=== PATIENT | female | born 1945 | race Caucasian/White ===

== ENCOUNTER → 2017-10-16 10:54 | Outpatient (CLI) | payer MEDICARE, SELFPAY ==
[2017-10-16 14:28] LABS: Microalbumin,Random Urine 35.1 mg/L (NO RANGE EST.); Microalbumin:Creatinine Ratio 10.7 mg/g CRE (<30 mg/g CRE)
[2017-10-16 14:29] LABS: ALB/GLOB Ratio 0.9 RATIO (0.9-2.4); AST(SGOT) 22 U/L (15-37); Alanine Aminotransfer ALT/SGPT 23 U/L (13-56); Albumin, Serum 3.7 g/dL (3.2-5.0); Alkaline Phosphatase 75 U/L (45-117); Anion Gap 8 (5-15); BUN 18 mg/dL (7-18); Calcium,Total 8.8 mg/dL (8.5-10.1); Chloride 99 mmol/L (98-107); Creatinine, Serum 1.29 mg/dL (0.55-1.02); EST Glomerular Filtration Rate 43 mL/min (>60); Est Glom Filt Rate - Afr Amer 52 mL/min (>60); Glucose 136 mg/dL (74-106); Potassium 3.6 mmol/L (3.5-5.1); Protein, Total 7.7 g/dL (6.4-8.2); Sodium Level 137 mmol/L (136-145)
[2017-10-16 14:37] LABS: Hemoglobin A1c 5.5 % (4.2-6.3)
== END ==
PROVIDERS: Family Provider Family Medicine; PCP Family Medicine; Visit Provider Nurse Practitioner
DX: E10.9 Type 1 diabetes mellitus without complications (principal)
CPT/HCPCS: 36415; 80053; 82043; 82570; 83036

== ENCOUNTER → 2018-01-11 07:12 | Outpatient (CLI) | payer MEDICARE, SELFPAY ==
[2018-01-11 08:32] LABS: Microalbumin,Random Urine 16.5 mg/L (NO RANGE EST.)
[2018-01-11 08:39] LABS: AST(SGOT) 19 U/L (15-37); Alanine Aminotransfer ALT/SGPT 17 U/L (13-56); Albumin, Serum 3.8 g/dL (3.2-5.0); Alkaline Phosphatase 78 U/L (45-117); Anion Gap 6 (5-15); BUN 17 mg/dL (7-18); Chloride 102 mmol/L (98-107); Cholesterol 179 mg/dL (200); Creatinine, Serum 1.13 mg/dL (0.55-1.02); EST Glomerular Filtration Rate 50 mL/min (>60); Est Glom Filt Rate - Afr Amer 60 mL/min (>60); Free T3 2.6 pg/mL (2.18-3.98); Glucose 97 mg/dL (74-106); Hemoglobin A1c 5.5 % (4.2-6.3); High Density Lipoprotein 68 mg/dL; Protein, Total 7.8 g/dL (6.4-8.2); Sodium Level 140 mmol/L (136-145); T4 Free Direct 1.46 ng/dL (0.76-1.46); Thyroid Stim Hormone (TSH) 0.29 uIU/mL (0.358-3.74); Triglycerides 58 mg/dL; Very Low Density Lipoprotein 12 mg/dL (5-40)
== END ==
PROVIDERS: Family Provider Family Medicine; PCP Family Medicine; Visit Provider Nurse Practitioner
DX: E10.9 Type 1 diabetes mellitus without complications (principal); R07.89 Other chest pain; E03.9 Hypothyroidism, unspecified
CPT/HCPCS: 36415; 80053; 80061; 82043; 82570; 83036; 84439; 84443; 84481

== ENCOUNTER → 2018-04-19 10:07 | Outpatient (CLI) | payer MEDICARE, SELFPAY ==
[2018-04-19 11:44] LABS: Hemoglobin A1c 5.6 % (4.2-6.3)
[2018-04-19 11:47] LABS: ALB/GLOB Ratio 0.9 RATIO (0.9-2.4); AST(SGOT) 17 U/L (15-37); Alanine Aminotransfer ALT/SGPT 18 U/L (13-56); Albumin, Serum 3.7 g/dL (3.2-5.0); Alkaline Phosphatase 77 U/L (45-117); Anion Gap 10 (5-15); BUN 17 mg/dL (7-18); BUN/Creat Ratio 15.2 RATIO (10-20); Calcium,Total 8.7 mg/dL (8.5-10.1); Chloride 98 mmol/L (98-107); Creatinine, Serum 1.12 mg/dL (0.55-1.02); EST Glomerular Filtration Rate 50 mL/min (>60); Est Glom Filt Rate - Afr Amer 61 mL/min (>60); Globulin 4.1 g/dL (2.2-4.2); Glucose 84 mg/dL (74-106); Potassium 3.8 mmol/L (3.5-5.1); Protein, Total 7.8 g/dL (6.4-8.2); Sodium Level 138 mmol/L (136-145); Thyroid Stim Hormone (TSH) 1.06 uIU/mL (0.358-3.74)
== END ==
PROVIDERS: Family Provider Family Medicine; PCP Family Medicine; Visit Provider Nurse Practitioner
DX: N18.4 Chronic kidney disease, stage 4 (severe) (principal); E10.9 Type 1 diabetes mellitus without complications; E03.9 Hypothyroidism, unspecified
CPT/HCPCS: 36415; 80053; 82043; 82570; 83036; 84443

== ENCOUNTER → 2018-07-19 09:17 | Outpatient (CLI) | payer MEDICARE, SELFPAY ==
[2018-07-19 13:22] LABS: Hemoglobin A1c 6.3 % (4.2-6.3)
[2018-07-19 13:28] LABS: ALB/GLOB Ratio 0.9 RATIO (0.9-2.4); AST(SGOT) 19 U/L (15-37); Alanine Aminotransfer ALT/SGPT 19 U/L (13-56); Albumin, Serum 3.4 g/dL (3.2-5.0); Alkaline Phosphatase 77 U/L (45-117); Anion Gap 5 (5-15); BUN 17 mg/dL (7-18); BUN/Creat Ratio 15.5 RATIO (10-20); Calcium,Total 8.8 mg/dL (8.5-10.1); Chloride 101 mmol/L (98-107); EST Glomerular Filtration Rate 51 mL/min (>60); Est Glom Filt Rate - Afr Amer 62 mL/min (>60); Globulin 3.9 g/dL (2.2-4.2); Glucose 88 mg/dL (74-106); Potassium 3.7 mmol/L (3.5-5.1); Protein, Total 7.3 g/dL (6.4-8.2); Sodium Level 138 mmol/L (136-145)
== END ==
PROVIDERS: Family Provider Family Medicine; PCP Family Medicine; Referring Provider Nurse Practitioner; Visit Provider Nurse Practitioner
DX: I10 Essential (primary) hypertension (principal); E10.9 Type 1 diabetes mellitus without complications
CPT/HCPCS: 36415; 80053; 83036

== ENCOUNTER → 2018-10-19 06:56 | Outpatient (CLI) | payer MEDICARE, SELFPAY ==
[2018-07-26 15:54] VITALS: BMI 27.8
[2018-10-19 08:08] LABS: Microalbumin,Random Urine 9.3 mg/L (NO RANGE EST.); Microalbumin:Creatinine Ratio 5.4 mg/g CRE (<30 mg/g CRE)
[2018-10-19 08:09] LABS: ALB/GLOB Ratio 0.9 RATIO (0.9-2.4); AST(SGOT) 22 U/L (15-37); Alanine Aminotransfer ALT/SGPT 18 U/L (13-56); Albumin, Serum 3.7 g/dL (3.2-5.0); Alkaline Phosphatase 86 U/L (45-117); Anion Gap 11 (5-15); BUN 18 mg/dL (7-18); BUN/Creat Ratio 16.5 RATIO (10-20); Calcium,Total 8.9 mg/dL (8.5-10.1); Chloride 100 mmol/L (98-107); Cholesterol 202 mg/dL (200); Creatinine, Serum 1.09 mg/dL (0.55-1.02); EST Glomerular Filtration Rate 52 mL/min (>60); Est Glom Filt Rate - Afr Amer 63 mL/min (>60); Glucose 100 mg/dL (74-106); High Density Lipoprotein 78 mg/dL; Potassium 3.9 mmol/L (3.5-5.1); Protein, Total 7.7 g/dL (6.4-8.2); Sodium Level 139 mmol/L (136-145); Triglycerides 62 mg/dL; Very Low Density Lipoprotein 12 mg/dL (5-40)
[2018-10-19 08:26] LABS: Hemoglobin A1c 6.6 % (4.2-6.3)
== END ==
PROVIDERS: Family Provider Family Medicine; PCP Family Medicine; Referring Provider Nurse Practitioner; Visit Provider Nurse Practitioner
DX: E10.9 Type 1 diabetes mellitus without complications (principal); E03.9 Hypothyroidism, unspecified
CPT/HCPCS: 36415; 80053; 80061; 82043; 82570; 83036

== ENCOUNTER → 2019-01-15 07:07 | Outpatient (CLI) | payer MEDICARE, SELFPAY ==
[2018-10-22 09:22] VITALS: BMI 27.8
[2019-01-15 09:06] LABS: Hemoglobin A1c 6.3 % (4.2-6.3)
[2019-01-15 09:08] LABS: ALB/GLOB Ratio 0.9 RATIO (0.9-2.4); AST(SGOT) 24 U/L (15-37); Alanine Aminotransfer ALT/SGPT 7 U/L (13-56); Albumin, Serum 3.5 g/dL (3.2-5.0); Alkaline Phosphatase 76 U/L (45-117); Anion Gap 4 (5-15); BUN 15 mg/dL (7-18); BUN/Creat Ratio 13.8 RATIO (10-20); Calcium,Total 8.7 mg/dL (8.5-10.1); Chloride 103 mmol/L (98-107); Creatinine, Serum 1.09 mg/dL (0.55-1.02); EST Glomerular Filtration Rate 52 mL/min (>60); Est Glom Filt Rate - Afr Amer 63 mL/min (>60); Globulin 3.8 g/dL (2.2-4.2); Glucose 113 mg/dL (74-106); Potassium 3.9 mmol/L (3.5-5.1); Protein, Total 7.3 g/dL (6.4-8.2); Sodium Level 140 mmol/L (136-145); Thyroid Stim Hormone (TSH) 4.62 uIU/mL (0.358-3.74)
== END ==
PROVIDERS: Nurse Practitioner; Family Provider Family Medicine; PCP Family Medicine; Referring Provider Family Medicine; Visit Provider Family Medicine
DX: E03.9 Hypothyroidism, unspecified (principal); E10.9 Type 1 diabetes mellitus without complications
CPT/HCPCS: 80053; 83036; 84443

== ENCOUNTER → 2019-05-07 10:49 | Outpatient (CLI) | payer MEDICARE, SELFPAY ==
[2018-10-22 09:22] VITALS: BMI 27.8
[2019-05-07 12:08] LABS: Hemoglobin A1c 6.6 % (4.2-6.3)
[2019-05-07 12:34] LABS: BUN 16 mg/dL (7-18); Creatinine, Serum 1.07 mg/dL (0.55-1.02); EST Glomerular Filtration Rate 53 mL/min (>60); Glucose 106 mg/dL (74-106)
[2019-05-07 12:35] LABS: ALB/GLOB Ratio 0.9 RATIO (0.9-2.4); AST(SGOT) 18 U/L (15-37); Alanine Aminotransfer ALT/SGPT 8 U/L (13-56); Albumin, Serum 3.5 g/dL (3.2-5.0); Alkaline Phosphatase 76 U/L (45-117); Anion Gap 6 (5-15); Calcium,Total 8.7 mg/dL (8.5-10.1); Chloride 102 mmol/L (98-107); Est Glom Filt Rate - Afr Amer 64 mL/min (>60); Free T3 1.9 pg/mL (2.18-3.98); Globulin 4.1 g/dL (2.2-4.2); Protein, Total 7.6 g/dL (6.4-8.2); Sodium Level 138 mmol/L (136-145); T4 Free Direct 1.27 ng/dL (0.76-1.46); Thyroid Stim Hormone (TSH) 1.36 uIU/mL (0.358-3.74)
== END ==
PROVIDERS: Family Provider Family Medicine; PCP Family Medicine; Referring Provider Nurse Practitioner; Visit Provider Nurse Practitioner
DX: E11.9 Type 2 diabetes mellitus without complications (principal); E03.9 Hypothyroidism, unspecified
CPT/HCPCS: 36415; 80053; 83036; 84439; 84443; 84481

== ENCOUNTER → 2019-08-05 07:14 | Outpatient (CLI) | payer MEDICARE, SELFPAY ==
[2018-10-22 09:22] VITALS: BMI 27.8
[2019-08-05 10:15] LABS: Hemoglobin A1c 6.4 % (4.2-6.3)
== END ==
PROVIDERS: Family Provider Family Medicine; PCP Family Medicine; Referring Provider Nurse Practitioner; Visit Provider Nurse Practitioner
DX: E10.9 Type 1 diabetes mellitus without complications (principal)
CPT/HCPCS: 36415; 83036

== ENCOUNTER 2019-09-13 23:58 | Inpatient (IN) | payer MEDICARE, SELFPAY ==
[2018-10-22 09:22] VITALS: BMI 27.8
[2019-09-13 23:58] VITALS: BP 171/70; PULSE 76; RESP 15; TEMP 36.4; O2SAT 97; BMI 28.1
[2019-09-14] VITALS (39 sets, daily range): BP systolic 82–142; BP diastolic 33–86; PULSE 64–92; RESP 13–23; TEMP 36.8–37.2; O2SAT 93–100; BMI 28.3
--- NOTE | 2019-09-14 00:04 | EKG12_ITS ---
Test Reason : REPEAT Blood Pressure : / mmHG Vent. Rate : 072 BPM Atrial Rate : 072 BPM P-R Int : 160 ms QRS Dur : 070 ms QT Int : 398 ms P-R-T Axes : 062 006 039 degrees QTc Int : 435 ms Sinus rhythm with Premature supraventricular complexes Low voltage QRS Anteroseptal infarct, age undetermined Abnormal ECG Confirmed by VERENICE HANKS, CRESENCIO ([id number]), general expeditor TUNDE SAL ([id number]) on 09/16/2019 1:09:40 PM Referred By: MR Confirmed By:CREESNCIO CALDERA MD
--- NOTE | 2019-09-14 00:10 | RAD_ITS ---
STUDY: X-RAY CHEST REASON FOR EXAM: Female, 74 years old. CHEST PAIN TECHNIQUE: Portable chest COMPARISON: 04/06/2017 FINDINGS: There is stable linear right lower lobe mild pulmonary scarring.. There is right infrahilar pulmonary opacity. Normal size heart. Normal mediastinum and pritesh. Normal visualized pulmonary arteries. Normal visualized aortic arch and descending thoracic aorta. There is a lower thoracic spine levoscoliosis. There is faint right lower lobe pulmonary opacity. There are upper lobe COPD changes. There is no demonstrated abnormality of the visualized soft tissue structures of the upper abdomen. RAD/Chest 1 View (Portable) IMPRESSION: Stable mild right lower lobe linear scarring Right infrahilar pulmonary opacity which may represent combination of pulmonary vessels and atelectasis however underlying mass or adenopathy cannot be excluded. CT chest follow-up is recommended Upper lobe COPD changes Lower thoracic levoscoliosis Electronically Signed: Mitul Wood, at 1:20 EST Tel , Service support ,
--- NOTE | 2019-09-14 00:33 | ED.DCSUM_ITS ---
History of Present Illness Chief Complaint: Chest Pain Informant: Patient Narrative: Patient presenting for evaluation secondary to chest pain. Patient has an underlying history of type 1 diabetes. She was recently admitted about 3 years ago for cardiac work-up that was found to be negative. Patient states that 3 hours prior to arrival she was at rest and she had a sudden onset of chest pain. She reports that this was radiating up into her jaw down into her arm. Was associated with some diaphoresis. No exacerbating relieving factors. She denies any prior similar episodes in the past. She denies any DVT or PE risk factors. Patient denies any recent infectious signs or symptoms such as cough fever nausea or vomiting. Review of systems otherwise negative. Past Medical History - Allergies and Home Meds Allergies/Adverse Reactions: Allergies paroxetine [From Paxil] Allergy (Severe, Verified 09/14/19 00:02) Unknown Penicillins Allergy (Severe, Verified 09/14/19 00:02) Unknown statins Allergy (Severe, Uncoded 09/14/19 00:02) Unknown strawberries Allergy (Severe, Uncoded 09/14/19 00:02) Unknown Past Medical History: - - Type 1 diabetes Surgical History: cataract, herniorrhaphy Smoking Status: Never smoker - Family History Maternal Family History: Family History (Last Reviewed 10/22/18 @ 09:17 by Annel Dean) Mother CVA (cerebral vascular accident) Dementia Sister Hypertension Diabetes Brother Heart disease Diabetes Daughter Diabetes Family History: Reports: No pertinent history Paternal Family History: Family History (Last Reviewed 10/22/18 @ 09:17 by Annel Dean) Mother CVA (cerebral vascular accident) Dementia Sister Hypertension Diabetes Brother Heart disease Diabetes Daughter Diabetes Family History: Reports: No pertinent history Review of Systems All systems negative except as indicated General: Reports: Sweats Eyes: Denies: Visual changes - bilaterally, Diplopia ENT: Denies: Rhinorrhea, Sore throat Cardiovascular: Reports: Chest pain Respiratory: Denies: Dyspnea, Cough, Dyspnea on exertion Gastrointestinal: Denies: Abdominal pain, Nausea, Vomiting, Diarrhea, Melena, Hematochezia Genitourinary: Denies: Dysuria, Hematuria, Frequency Musculoskeletal: Denies: Back pain, Extremity Pain Skin: Denies: Rash, Wounds Neurological: Denies: Headache, Weakness, Numbness Physical Exam Vital Signs/Narrative: Vital Signs Temp Pulse Resp BP Pulse Ox 09/13/19 23:58 97.6 F L 76 15 171/70 H 97 Inital Vital Signs reviewed: Yes General: Well nourished, Well developed, No Acute Distress Head: Normocephalic, Atraumatic Eyes: Perrl, EOMI ENT: Moist mucous membranes, No rhinorrhea Neck: Supple, Nontender Cardiovascular: Regular rate, Regular rhythm, No murmurs Respiratory: No distress, CTA bilaterally, Chest nontender Abdomen: Soft, Nontender, Nondistended, Normal bowel sounds Back: Nontender, Normal Inspection Extremities: Nontender, No edema Skin: Normal color, No rash Neurological: Alert, Oriented x3, Cranial nerves II-XII grossly intact, Normal Strength, Normal Sensation Psychological: Normal affect, Normal Mood Diagnostic/Tx/Re-eval - EKG Initial EKG Interpretation: - - Sinus rhythm of 74 with low voltage. There is evidence of some J-point elevation in leads V2 and V3 that were not present in a prior EKG in March 2017, but no evidence of reciprocal changes, or T wave changes. Anterior Q waves are noted that also were not present on prior EKG. Follow-up EKG Interpretation: - - Sinus rhythm of 72 with again demonstration of J-point elevation in leads V2 and V3 with no reciprocal changes, and continued anterior Q waves. - Medical Decision Making Patient presented for evaluation secondary to chest pain. Patient was given aspirin. Laboratory work-up shows the patient to have a profoundly elevated troponin at 1.6. I reviewed the patient's EKG and while it does show J-point elevation, its morphology does not seem consistent with out of an ST elevation myocardial infarction and there are no reciprocal changes. Repeated the patient's EKG and this again demonstrates this and I do not feel that calling a ST elevation myocardial infarction at this time is appropriate. Patient was given Lovenox, started on nitroglycerin drip. I discussed the patient's case with Dr. Blake who requested that the patient be started on Brilinta. Patient will be admitted to the intensive care unit under the hospitalist. Critical care time (excluding procedures): 30-74 minutes ED Disposition - Plan for ED Patient: Disposition: Acute Care Hospital [facility] Diagnosis: NSTEMI (non-ST elevated myocardial infarction)
[2019-09-14 00:39] LABS: Absolute Lymphocyte Count 1.89 X10^3/uL (0.83-4.51); Absolute Neutrophil Count 7.6 X10^3/uL (2.0-7.7); Basophil# 0.05 X10^3/uL; Basophil% 0.5 % (0-1); Eosinophil# 0.34 X10^3/uL; Eosinophils% 3.1 % (0-5); Hematocrit 36.4 % (37-47); Hemoglobin 12.1 g/dL (12.0-15.0); Lymphocyte # 1.89 X10^3/ul (4.0); Lymphocyte % 17.3 % (19-41); Mean Corp Hgb Conc 33.2 g/dL (32-36); Mean Corpuscular Hgb 31.8 pg (27.0-32.0); Mean Corpuscular Volume 95.8 fL (81-99); Mean Platelet Vol. 10.8 fl (6.2-12.0); Monocyte# 1.02 X10^3/uL; Monocyte% 9.3 % (0-10); NRBC Flagged by Analyzer 0.2 % (0-5); Neutrophil # 7.58 X10^3/uL (2.7-7.7); Neutrophil % 69.2 % (47-70); Platelet Count 299 K/mm3 (150-450); RBC Distribution Width CV 14.1 % (11.6-14.6); RBC Distribution Width SD 49.1 fl (35.1-43.9)
[2019-09-14] MEDS: Aspirin 81 MG TAB.CHEW PO (00:53)
[2019-09-14 00:55] LABS: Anion Gap 7 (5-15); BUN 27 mg/dL (7-18); BUN/Creat Ratio 20.5 RATIO (10-20); Calcium,Total 9.1 mg/dL (8.5-10.1); Chloride 101 mmol/L (98-107); Creatinine, Serum 1.32 mg/dL (0.55-1.02); EST Glomerular Filtration Rate 42 mL/min (>60); Est Glom Filt Rate - Afr Amer 50 mL/min (>60); Estimated Creatinine Clearance 28.68 ml/min; Glucose 250 mg/dL (74-106); Potassium 3.7 mmol/L (3.5-5.1); Sodium Level 136 mmol/L (136-145)
--- NOTE | 2019-09-14 01:04 | EKG12_ITS ---
Test Reason : CHEST PAIN Blood Pressure : / mmHG Vent. Rate : 084 BPM Atrial Rate : 084 BPM P-R Int : 162 ms QRS Dur : 076 ms QT Int : 400 ms P-R-T Axes : 066 004 045 degrees QTc Int : 472 ms Normal sinus rhythm Low voltage QRS Anterior WA, ageundetermined Abnormal ECG Confirmed by KRISTOPHER HANKS, DANUTA ([id number]), international editorial producer MECHE FARIAS ([id number]) on 09/18/2019 11:13:47 AM Referred By: VERENICE Confirmed By:DANUTA SUMMERS MD
[2019-09-14] MEDS: Nitroglycerin Infusion 250 ML 3 MG CONT INF (01:15)
[2019-09-14] MEDS: Enoxaparin 80 MG/0.8 ML Syringe 70 MG SC (01:15)
[2019-09-14] MEDS: TICAGRELOR 90 MG TABLET 180 MG PO (01:31)
--- NOTE | 2019-09-14 01:37 | PCM.HP.STD ---
Problem List (1) NSTEMI (non-ST elevated myocardial infarction) Status: Acute (2) Hypokalemia Status: Inactive (3) Dehydration Status: Inactive (4) Gastroenteritis Status: Inactive (5) Atypical chest pain Status: Acute (6) Hypothyroidism Status: Chronic Qualifiers: Hypothyroidism type: acquired Qualified Code(s): E03.9 - Hypothyroidism, unspecified Comment: TSH rechecked at 1.06 (7) Type 1 diabetes mellitus Status: Chronic Qualifiers: Diabetes mellitus complication status: without complication Qualified Code(s): E10.9 - Type 1 diabetes mellitus without complications Comment: Continues to do well. Is able to self adjust. Enc to keep BG readings at 85 and above. soila sensor approved for this patient as she checks 10+ times daily. (8) Hypertension Status: Chronic Qualifiers: Hypertension type: essential hypertension Qualified Code(s): I10 - Essential (primary) hypertension Comment: Has sl elevated cr and sl low EGFR. Consider BENEDICT or ARB. However is on Maxide and need to consider potential for hyperkalemia. Will consult with her PCP. History of Present Illness Date of Admission: 09/14/19 Chief Complaint: chest pain The patient is a 74 year old F with a significant history of hypertension; diabetes mellitus on insulin pump; depression and anxiety who presented to emergency department with excruciating left-sided chest pain that radiates to her breast; to her shoulder; and to her back. Her pain started after she laid down in bed. Because of the pain she could not sleep. She reported that when she sits up her pain improves; and when she lies down her pain worsens. The pain stayed about 2 hours prior to presentation. The intensity of pain initially was 5 out of 10. The pain was persistent. Associated with symptoms is nausea and diaphoresis as well as shortness of breath. She denied vomiting. Reported she had a stress test about 3 years ago and it was normal. EKG at the emergency department showed J-point elevation. Troponin was elevated. Patient was put on nitroglycerin drip. Her pain dropped to a 2 out of 10. Past Medical History Past Medical History (Chronic Problems): Chronic Problems (Last Reviewed 09/14/19 @ 07:01 by Zach Bowman MD) Hypothyroidism (Chronic) TSH rechecked at 1.06 Type 1 diabetes mellitus (Chronic) Continues to do well. Is able to self adjust. Enc to keep BG readings at 85 and above. soila sensor approved for this patient as she checks 10+ times daily. Hypertension (Chronic) Has sl elevated cr and sl low EGFR. Consider BENEDICT or ARB. However is on Maxide and need to consider potential for hyperkalemia. Will consult with her PCP. Medical History: Medical History (Last Reviewed 09/14/19 @ 07:04 by Zach Bowman MD) Anxiety disorder F41.9 Bronchitis J40 Depression with anxiety F41.8 Diabetes type 1, controlled E10.9 Dx : 1976 Last exacerbation : DKA : never Hypoglycemic episode : never ER visit : never Hearing problem H91.90 Hives L50.9 Hypothyroidism E03.9 Measles B05.9 Mumps B26.9 Parkinsons G20 Whooping cough A37.90 bilaeral cataract surgery removal of skin cyst HTN (hypertension) I10 Allergies paroxetine [From Paxil] Allergy (Severe, Verified 09/14/19 00:02) Unknown Penicillins Allergy (Severe, Verified 09/14/19 00:02) Unknown statins Allergy (Severe, Uncoded 09/14/19 00:02) Unknown strawberries Allergy (Severe, Uncoded 09/14/19 00:02) Unknown Home Medications: Ambulatory Orders Medication Instructions Recorded RX: Aspirin [Aspirin, Baby] 81 mg PO DAILY@0800 04/06/17 RX: Cholecalciferol (Vitamin D3) 2,000 unit PO DAILY 04/06/17 [Vitamin D3] RX: Citalopram [Celexa] 20 mg PO DAILY 04/06/17 RX: Gabapentin [Neurontin] 100 mg PO QHS 04/06/17 RX: Insulin Pump/Infus. Set/Meter 1 ea MC DAILY 04/06/17 [Accu-Chek Combo System] RX: Levothyroxine [Synthroid] 88 mcg PO DAILY 04/06/17 RX: Triamterene/Hydrochlorothiazid 0.5 ea PO QODAY 04/06/17 [Triamterene-Hctz 37.5-25 mg Tb] RX: Triamterene/Hydrochlorothiazid 1 ea PO QODAY 04/06/17 [Triamterene-Hctz 37.5-25 mg Tb] insulin aspart U-100 100 unit/mL See Rx Instructions SC QDAY #50 ml 07/26/18 subcutaneous solution carbidopa 25 mg-levodopa 100 mg 0.5 tab PO TID tab 10/22/18 tablet mind works 1 tab PO DAILY 10/22/18 Surgical History: Surgical History (Last Reviewed 09/14/19 @ 07:01 by Zach Bowman MD) S/P LASIK surgery of both eyes Z98.890 S/P partial hysterectomy Z90.711 Surgical History: cataract, herniorrhaphy Psychiatric History: No pertinent psych hx 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 Lives: Spouse/ Significant Other Smoking Status: Never smoker - *Family History Maternal Family History: Family History (Last Reviewed 09/14/19 @ 07:02 by Zach Bowman MD) Mother CVA (cerebral vascular accident) Dementia Sister Hypertension Diabetes Brother Heart disease Diabetes Daughter Diabetes History Items: No pertinent history Paternal Family History: Family History (Last Reviewed 09/14/19 @ 07:02 by Zach Bowman MD) Mother CVA (cerebral vascular accident) Dementia Sister Hypertension Diabetes Brother Heart disease Diabetes Daughter Diabetes History Items: No pertinent history Review of Systems Constitutional: Denies: Chills, Fever, Weight Change HEENT: Denies: Head Aches, Sinus Congestion, Sinus Drainage Cardiovascular: Reports: Chest Pain. Denies: Palpitations Respiratory: Reports: Shortness of Breath. Denies: Cough, Shortness of breath at rest, Sputum production Gastrointestinal: Reports: Nausea. Denies: Abdominal Pain, Vomiting Genitourinary: Denies: Dysuria Musculoskeletal: Reports: Shoulder Pain. Denies: Joint Pain, Joint Tenderness Skin: Denies: Rash, Wounds Neurological: Denies: Numbness, Tingling, Focal weakness Psychiatric: Denies: Anxiety, Depression, Homicidal Ideations, Suicidal Ideations Hematologic/ Lymphatic: Denies: Easy Bruising, Easy Bleeding VTE Information - Inpt Only VTE Present on Admission: No VTE Mechan Device Prophylaxis: None VTE Pharm Prophylaxis ordered?: No Reason prophylaxis not ordered:: Treatment Not Indicated - Given therapeutic dose of Lovenox Patient Problems: Active and Suspected Problems (Last Reviewed 09/14/19 @ 07:01 by Zach Bowman MD) NSTEMI (non-ST elevated myocardial infarction) (Acute) - Physical Exam Vitals/I&O's: Vital Signs Temp Pulse Resp BP Pulse Ox 97.6 F L 80 15 134/86 H 94 09/13/19 23:58 09/14/19 01:22 09/14/19 01:22 09/14/19 01:22 09/14/19 01:22 Oxygen Delivery Method Room Air Weight: 69.853 kg Body Mass Index (BMI) 28.1 Finger Stick Blood Glucose 195 General: Alert, Oriented x3, Cooperative HEENT: Atraumatic, PERRLA, EOMI, Normocephalic Neck: Supple, No JVD, Negative Carotid Bruits Lungs: Clear to auscultation, Normal air movement Cardiovascular: Regular rate, Normal S1, Normal S2, No murmurs Abdomen: Bowel Sounds Present, Soft, Non Tender Extremities: No edema, Capillary Refill Less than 3 Seconds Skin: No rashes, No breakdown Musculoskeletal: No Tenderness to Palpation of Joints or Extremities Neurological: Cranial nerves II-XII grossly intact Psych/Mental Status: Normal Affect, Appropriate Laboratory Results 09/14/19 00:10: WBC 11.0, RBC 3.80 L, Hgb 12.1, Hct 36.4 L, MCV 95.8, MCH 31.8, MCHC 33.2, RDW Std Deviation 49.1 H, RDW Coeff of Stephane 14.1, Plt Count 299, MPV 10.8, Immature Gran % (Auto) 0.600, Neut % (Auto) 69.2, Lymph % (Auto) 17.3 L, [place] % (Auto) 9.3, Eos % (Auto) 3.1, Baso % (Auto) 0.5, Absolute Neuts (auto) 7.6, Absolute Lymphs (auto) 1.89, Nucleated RBC % 0.2 09/14/19 00:10: Sodium 136, Potassium 3.7, Chloride 101, Carbon Dioxide 28.0, Anion Gap 7, BUN 27 H, Creatinine 1.32 H, Estim Creat Clear Calc 28.68, Est GFR (MDRD) Af Amer 50 L, Est GFR (MDRD) Non-Af 42 L, BUN/Creatinine Ratio 20.5 H, Glucose 250 H, Calcium 9.1, Troponin I 1.640 H* Current Medications Nitroglycerin/Dextrose () 250 mls @ 3 mls/hr CONT INF .[id number] [facility]; Protocol Last Admin: 09/14/19 01:15 Dose: 5 mcg/min, 3 mls/hr Documented by: Assessment/Plan All Active Problems (Last Reviewed 09/14/19 @ 07:01 by Zach Bowman MD) NSTEMI (non-ST elevated myocardial infarction) (Acute) Atypical chest pain (Acute) The patient is a 74 year old F with a significant history of hypertension; diabetes mellitus on insulin pump; depression and anxiety who presented to emergency department with excruciating left-sided chest pain found to have significantly elevated troponin consistent of non-ST elevation RI. Non-ST elevation RI Initial her troponin was 1.64 but it increased to 7.24. Place on a critical care bed at intensive care unit CXR: Could not rule out underlying mass or adenopathy and CT chest follow-up was recommended. CT chest ordered. EKG showed J-point elevation Received aspirin Brilinta and therapeutic dose of Lovenox at the emergency department. Also nitroglycerin drip was started from the emergency department. ASA 81 mg p.o. daily Morphine as needed for pain We will check lipid panel. Serial cardiac enzymes Stat EKG as needed for chest pain Patient is allergic to statins. Optimize potassium Cardiology will see patient. Diabetes mellitus type II With complications including diabetic nephropathy. Patient with hyperglycemia Placed on insulin pump. Discussed with patient that insulin pump will be discontinued when she is going to cardiac cath and in its place Accu-Chek to be done every 4 hours with correction scale insulin. If patient returned from cardiac cath insulin pump can be restarted. CKD stage III Stable since patient likely will be going for cardiac cath gentle IV hydration started. DVT prophylaxis Patient will be started on therapeutic dose of Lovenox. Code Visit Inpatient E&M: 21987 Init Hosp L3
--- NOTE | 2019-09-14 03:14 | EKG12_ITS ---
Test Reason : CP Blood Pressure : / mmHG Vent. Rate : 074 BPM Atrial Rate : 074 BPM P-R Int : 160 ms QRS Dur : 076 ms QT Int : 380 ms P-R-T Axes : 066 005 042 degrees QTc Int : 421 ms Normal sinus rhythm with sinus arrhythmia Low voltage QRS Septal infarct , age undetermined Abnormal ECG Confirmed by VERENICE HANKS, CRESENCIO ([id number]), tape editor TUNDE SAL ([id number]) on 09/16/2019 12:55:32 PM Referred By: MR Confirmed By:CRESENCIO CALDERA MD
[2019-09-14] MEDS: 0.9% Normal Saline 1,000 ML 60 ML IV ×3 (03:25→22:48)
[2019-09-14 04:31] LABS: Cholesterol 197 mg/dL (200); High Density Lipoprotein 72 mg/dL; Triglycerides 56 mg/dL; Very Low Density Lipoprotein 11 mg/dL (5-40)
--- NOTE | 2019-09-14 04:38 | ECHOCS_ITS ---
Reason For Study: Chest Pain Procedure This was a 2D Doppler, Color Flow transthoracic echocardiogram. The study was technically difficult. Contrast injection was performed. Exam performed portable in ICU/CCU. Left Ventricle Normal LV size. The estimated ejection fraction is 35 %. Moderately severe segmental systolic dysfunction (see wall motion). Stage 1 diastolic dysfunction. [place] : Akinetic. Septal [place] : Akinetic. Lateral [place] : Severely Hypokinetic. Mid-Anterior : Severely Hypokinetic. Mid- anteroseptal : Akinetic. Right Ventricle Normal RV size. Normal systolic function. Atria Normal left atrium. Normal right atrium. Mitral Valve Normal mitral valve. Tricuspid Valve Normal tricuspid valve. Aortic Valve Trisinus/trileaflet aortic valve. Pulmonic Valve Normal pulmonic valve. Great Vessels Normal aortic root. The pulmonary artery is normal size. Normal inferior vena cava. Pericardium/Pleural No pericardial effusion. Medication Diluted definity 4ml given slow IV push to enhance endocardial definition. MMode/2D Measurements & Calculations RVDd: 3.4 cm LAV(MOD-bp): 32.9 ml LVAd ap4: 27.9 cm2 LAV(MOD-bp) Indexed: 19.2 ml/m2 EDV(MOD-sp4): 85.4 ml LAV(MOD-sp2): 56.2 ml EDV(sp4-el): 90.6 ml LAV(MOD-sp4): 18.5 ml LVAs ap4: 20.6 cm2 ESV(MOD-sp4): 53.1 ml ESV(sp4-el): 53.9 ml EF(MOD-sp4): 37.8 % EF(sp4-el): 40.5 % SV(MOD-sp4): 32.2 ml SV(sp4-el): 36.7 ml LA A4 area: 11.1 cm2 RA A4 area: 11.1 cm2 Doppler Measurements & Calculations MV E max sven: 75.1 cm/sec Lat Peak E' Sven: 4.8 cm/sec Med Peak E' Sven: 5.0 cm/sec MV A max sven: 120.0 cm/sec E/E' lat: 15.5 E/E' med: 14.9 MV E/A: 0.63 Ao V2 max: 122.4 cm/sec LV V1 max: 81.8 cm/sec PA V2 max: 63.6 cm/sec Ao max P.0 mmHg LV V1 max P.7 mmHg Ao V2 mean: 87.8 cm/sec Ao mean P.3 mmHg Ao V2 VTI: 26.8 cm TR max sven: 303.0 cm/sec TR max P.7 mmHg Interpretation Summary Normal LV size. The estimated ejection fraction is 35 %. Moderately severe segmental systolic dysfunction (see wall motion). Stage 1 diastolic dysfunction. Contrast injection was performed. Ordering Physician: Ed Blake Referring Physician: Renée Whitehead Performed By: Erica Archer, CHRISTINA, RVT
[2019-09-14] MEDS: Indomethacin 25 MG Capsule PO (05:06)
[2019-09-14 05:14] LABS: CRP, High Sensitivity Cardiac 0.77 mg/L
--- NOTE | 2019-09-14 05:55 | CON.PCM_ITS ---
Reason for Consult Date of Consultation: 09/14/19 Reason for Consultation: Chest pain History of Present Illness: The patient is a 74 year old F with no previous cardiac history other than a history of diabetes mellitus insulin requiring. She said that on Monday she had some epigastric discomfort which she construed as indigestion. Yesterday at approximately 9 PM she had an episode of chest discomfort which she said went into her neck and jaw. She did not describe it as a dull ache but a discomfort. She said that it appeared to be better when she sat up and worse when she laid down. She was also having it in the left shoulder. She did have a brief episode of shortness of breath. She also did report that she had been having some intermittent chest discomfort all week. She presented to the emergency room last night and an EKG was done which did not show any definitive ST elevation, with a heart rate of 72 bpm but poor R wave progression was noted in V1 to V3. Patient was also noted to be hypertensive at that time. The patient was started on aspirin, Lovenox, and intravenous nitroglycerin. Brilinta was also administered after discussing with me and the patient was admitted to the intensive care unit. Repeat EKG demonstrated continued poor R wave progression, rate of 84 bpm Q waves in V1 through V3 and no reciprocal changes. After I called in to check on the patient it was reported that the patient had experienced some chest discomfort after being relatively pain-free. Her troponins appear to be more elevated now. [] Past Medical History Allergies/Adverse Reactions: Allergies paroxetine [From Paxil] Allergy (Severe, Verified 09/14/19 00:02) Unknown Penicillins Allergy (Severe, Verified 09/14/19 00:02) Unknown statins Allergy (Severe, Uncoded 09/14/19 00:02) Unknown strawberries Allergy (Severe, Uncoded 09/14/19 00:02) Unknown Home Medications: Ambulatory Orders Medication Instructions Recorded Aspirin [Aspirin, Baby] 81 mg PO DAILY@0800 04/06/17 Cholecalciferol (Vitamin D3) 2,000 unit PO DAILY 04/06/17 [Vitamin D3] Citalopram [Celexa] 20 mg PO DAILY 04/06/17 Gabapentin [Neurontin] 100 mg PO QHS 04/06/17 Insulin Pump/Infus. Set/Meter 1 ea MC DAILY 04/06/17 [Accu-Chek Combo System] Levothyroxine [Synthroid] 88 mcg PO DAILY 04/06/17 Triamterene/Hydrochlorothiazid 0.5 ea PO QODAY 04/06/17 [Triamterene-Hctz 37.5-25 mg Tb] Triamterene/Hydrochlorothiazid 1 ea PO QODAY 04/06/17 [Triamterene-Hctz 37.5-25 mg Tb] insulin aspart U-100 100 unit/mL See Rx Instructions SC QDAY #50 ml 07/26/18 subcutaneous solution carbidopa 25 mg-levodopa 100 mg 0.5 tab PO TID tab 10/22/18 tablet mind works 1 tab PO DAILY 10/22/18 Past Medical History (Chronic Problems): Chronic Problems (Last Reviewed 09/14/19 @ 07:04 by Zach Bowman MD) Hypothyroidism (Chronic) TSH rechecked at 1.06 Type 1 diabetes mellitus (Chronic) Continues to do well. Is able to self adjust. Enc to keep BG readings at 85 and above. soila sensor approved for this patient as she checks 10+ times daily. Hypertension (Chronic) Has sl elevated cr and sl low EGFR. Consider BENEDICT or ARB. However is on Maxide and need to consider potential for hyperkalemia. Will consult with her PCP. Surgical History: cataract, herniorrhaphy Psychiatric History: No pertinent psych hx BACK UP SCAN COORDINATOR History: No pertinent BACK UP SCAN COORDINATOR history - *Family History Maternal Family History: Family History (Last Reviewed 09/14/19 @ 07:02 by Zach Bowman MD) Mother CVA (cerebral vascular accident) Dementia Sister Hypertension Diabetes Brother Heart disease Diabetes Daughter Diabetes History Items: No pertinent history Paternal Family History: Family History (Last Reviewed 09/14/19 @ 07:02 by Zach Bowman MD) Mother CVA (cerebral vascular accident) Dementia Sister Hypertension Diabetes Brother Heart disease Diabetes Daughter Diabetes History Items: No pertinent history Smoking Status: Never smoker Alcohol: None Drugs: None Review of Systems - Review of Systems General: Denies: Fever, Night Sweats, Fatigue HEENT: Denies: Vision Change Cardiovascular: Reports: Chest Discomfort, Chest Discomfort at Rest, Chest Discomfort with Exertion. Denies: Shortness of Breath, Orthopnea, PND, Peripheral Edema, Palpitations, Lightheadedness, Dizziness, Near Syncope, Syncope Respiratory: Denies: Cough, Sputum Production, Hemoptysis Gastrointestinal: Denies: Hematemesis, Hematochezia, Melena Genitourinary: Denies: Dysuria, Hematuria Muscoloskeletal: Denies: Myalgias Skin: Denies: Rash Neurological: Denies: Dizziness Psychiatric: Denies: Anxiety Endocrine: Denies: Heat Intolerance Hematologic/ Lymphatic: Denies: Anemia Subjectve: Pleasant lady in no apparent distress currently pain-free Objective: Vital Signs Temp Pulse Resp BP Pulse Ox 98.4 F 83 17 129/58 H 99 09/14/19 03:00 09/14/19 03:45 09/14/19 03:45 09/14/19 04:30 09/14/19 03:45 Oxygen Delivery Method Room Air Weight: 154 lb 8.705 oz Body Mass Index (BMI) 28.3 Finger Stick Blood Glucose 195 Intake and Output for Last 24 Hours 09/12/19 09/13/19 09/14/19 23:59 23:59 23:59 Intake Total 15.25 / 15.25 Balance 15.25 / 15.25 General: Awake, Alert, Oriented x 3 HEENT: PERRL, EOMI, Sclera Non Icteric Neck: Supple, Good ROM, No Lymph Node Enlargement Lungs: Clear to auscultation Cardiovascular: Regular Rhythm, Normal S1, Normal S2, No Murmurs, No Rubs, No Gallops Vascular: No Carotid Bruits, Normal Femoral Pulses, Normal Radial Pulses, Normal Dorsalis Pedal Pulse, Normal Posterior Tibial Pulses Abdomen: Bowel Sounds Present, Soft, Non Tender, No HSM, No Organomegaly Extremities: No Cyanosis, No Clubbing, No edema Musculoskeletal: No Erythema Skin: No Rashes Lymphatic: No Lymph Node Enlargement Neurological: No Focal Motor or Sensory Deficit Psych/Mental Status: Appropriate 09/14/19 00:10: WBC 11.0, RBC 3.80 L, Hgb 12.1, Hct 36.4 L, MCV 95.8, MCH 31.8, MCHC 33.2, Plt Count 299, MPV 10.8, Immature Gran % (Auto) 0.600, Neut % (Auto) 69.2, Lymph % (Auto) 17.3 L, [place] % (Auto) 9.3, Eos % (Auto) 3.1, Baso % (Auto) 0.5, Absolute Neuts (auto) 7.6, Nucleated RBC % 0.2 09/14/19 00:10: Sodium 136, Potassium 3.7, Chloride 101, Carbon Dioxide 28.0, Anion Gap 7, BUN 27 H, Creatinine 1.32 H, Est GFR (MDRD) Af Amer 50 L, Est GFR (MDRD) Non-Af 42 L, BUN/Creatinine Ratio 20.5 H, Glucose 250 H, Calcium 9.1, Troponin I 1.640 H* 09/14/19 03:52: Triglycerides 56, Cholesterol 197, LDL Cholesterol 114, VLDL Cholesterol 11, HDL Cholesterol 72 09/14/19 03:52: Troponin I 7.240 H* Rhythm: EKG: Please see HPI ECHO: Stress Test: Cardiac Cath: PCI: CT Surgery: Holter monitor: EPS: PPM: CXR: Chest CT Scan: Assessment/Plan 1. Chest pain-acute coronary syndrome.. non-ST elevation myocardial infarction * The patient presented with chest discomfort which had some concerning features. The EKG presenting did not demonstrate definitive criteria for ST elevation myocardial infarction. Patient initially had some relief of the chest discomfort and then with recurrence of the above. EKG changes more concerning at this time and therefore the decision to expedite coronary evaluation was made. I discussed the above with the patient risk benefits alternatives she understands and agrees to proceed. * There are some features which appeared to suggest a pericarditis but are not completely consistent. * Will hold off on any further Lovenox until cardiac catheterization * Continue aspirin * Further recommendations to be made depending on the results of the above. film tests checker informed of plans. * Thank you for allowing me to participate in the care of your patient. Please don't hesitate to call if any issues arise Addendum: Cardiac catheterization today demonstrated normal left main coronary artery, Normal left circumflex artery, Proximal 80% left anterior descending artery lesion and proximal to mid 95% lesion. Dominant right coronary artery with 30% diffuse stenosis. Left ventricular systolic dysfunction with anterior apical hypokinesis. Based on the above angiographic findings the alternatives therapies are bypass surgery with a single-vessel RESENDEZ to the LAD or sequential LAD stenting in the left anterior descending artery. The above discussed with the family and the foundry worker apprentice. The patient and family would prefer stenting if po ssible and the above concurred with the foundry worker apprentice. We will proceed as above. Post procedure would require risk factor modification Aspirin Low-dose beta-aarti BENEDICT inhibitor Low-dose statin if tolerated
[2019-09-14] MEDS: Aspirin E.C. 81 MG Tablet PO (06:41)
--- NOTE | 2019-09-14 06:45 | NURSING ---
Report given to Riky from label printer. Pt off floor to medical lab scientist at this time.
--- NOTE | 2019-09-14 08:30 | EKG12_ITS ---
Test Reason : PCI Blood Pressure : / mmHG Vent. Rate : 083 BPM Atrial Rate : 083 BPM P-R Int : 166 ms QRS Dur : 062 ms QT Int : 370 ms P-R-T Axes : 000 -23 -13 degrees QTc Int : 434 ms Normal sinus rhythm vs. ectopic atrial rhythm Low voltage QRS Anterior OH, age undetermined Abnormal ECG Confirmed by KRISTOPHER HANKS, DANUTA ([id number]), assignment desk editor MECHE FARIAS ([id number]) on 09/18/2019 11:13:13 AM Referred By: VERENICE Confirmed By:DANUTA SUMMERS MD
--- NOTE | 2019-09-14 09:04 | PN_ITS ---
Patient Problems: Active and Suspected Problems (Last Reviewed 09/14/19 @ 07:04 by Zach Bowman MD) NSTEMI (non-ST elevated myocardial infarction) (Acute) Reason for Visit: Patient had chest pain for more than 2 hours prior to presentation it was midsternal with radiation to left arm and it persisted while in the ER. Patient had associated symptoms of shortness of breath, nausea and diaphoresis. Patient was put on nitroglycerin drip and his pain got better. Later on patient was taken to [facility] and had PCI of LAD. Objective: playground monitor shows PVCs. Hemodynamically stable. Heart rate in the 80s. Vitals/I&O's: Vital Signs Temp Pulse Resp BP Pulse Ox 98.4 F 83 17 126/51 H 99 09/14/19 03:00 09/14/19 03:45 09/14/19 03:45 09/14/19 05:15 09/14/19 03:45 Oxygen Delivery Method Room Air Weight: 154 lb 8.705 oz Body Mass Index (BMI) 28.3 Finger Stick Blood Glucose 195 Intake and Output for Last 24 Hours 09/12/19 09/13/19 09/14/19 23:59 23:59 23:59 Intake Total 35.75 / 35.75 Output Total 250 / 250 Balance -214.25 / -214.25 General: Alert, Oriented x3, Cooperative HEENT: Atraumatic, PERRLA, EOMI, Normocephalic Oral: No Gingival or Mucosal Lesions/ Ulcerations Neck: Supple, No JVD, Negative Carotid Bruits Lungs: Clear to auscultation, Normal air movement, No rhonchi, No wheeze, No rales Cardiovascular: Regular rate, Regular Rhythm, Normal S1, Normal S2, No murmurs Abdomen: Bowel Sounds Present, Soft, Non Tender, Non-Distended Extremities: No edema, Capillary Refill Less than 3 Seconds Skin: No rashes, No breakdown Musculoskeletal: No Tenderness to Palpation of Joints or Extremities, Arthritic Changes Neurological: Cranial nerves II-XII grossly intact, Deep Tendon Reflexes 2+/4 and Symmetrical, Neuro grossly intact Psych/Mental Status: Normal Affect, Appropriate Laboratory Results 09/14/19 00:10: WBC 11.0, RBC 3.80 L, Hgb 12.1, Hct 36.4 L, MCV 95.8, MCH 31.8, MCHC 33.2, RDW Std Deviation 49.1 H, RDW Coeff of Stephane 14.1, Plt Count 299, MPV 10.8, Immature Gran % (Auto) 0.600, Neut % (Auto) 69.2, Lymph % (Auto) 17.3 L, [place] % (Auto) 9.3, Eos % (Auto) 3.1, Baso % (Auto) 0.5, Absolute Neuts (auto) 7.6, Absolute Lymphs (auto) 1.89, Nucleated RBC % 0.2 09/14/19 00:10: Sodium 136, Potassium 3.7, Chloride 101, Carbon Dioxide 28.0, Anion Gap 7, BUN 27 H, Creatinine 1.32 H, Estim Creat Clear Calc 28.68, Est GFR (MDRD) Af Amer 50 L, Est GFR (MDRD) Non-Af 42 L, BUN/Creatinine Ratio 20.5 H, Glucose 250 H, Calcium 9.1, Troponin I 1.640 H* 09/14/19 03:52: Triglycerides 56, Cholesterol 197, LDL Cholesterol 114, VLDL Cholesterol 11, HDL Cholesterol 72 09/14/19 03:52: Troponin I 7.240 H* 09/14/19 03:52: C-React Prot High Sens 0.77 09/14/19 06:30: Troponin I 8.850 H* Current Medications Acetaminophen (Tylenol) 650 mg PO Q6H PRN PRN PRN Reason: Pain Score 1-5/Temp > 100.7 F Aspirin (Ecotrin) 81 mg PO DAILY@0800 [facility] Last Admin: 09/14/19 06:41 Dose: 81 mg Documented by: Atorvastatin Calcium (Lipitor) 10 mg PO QHS [facility] Atropine Sulfate () 0.5 mg IV UD PRN PRN Reason: HR <50 bpm Carbidopa/Levodopa (Sinemet) 0.5 tablet PO TIDAC [facility] Cholecalciferol (Vitamin D) 2,000 unit PO DAILY [facility] Citalopram Hydrobromide (Celexa) 20 mg PO DAILY [facility] Gabapentin (Neurontin) 100 mg PO QHS [facility] Glucagon () 1 mg IM .X1 PRN PRN Reason: Hypoglycemia Heparin Sodium (Beef Lung) (Heparin 500 Unit/5 Ml (100/Ml)) 500 unit IV UD PRN PRN Reason: HEPARIN FLUSH Sodium Chloride () 1,000 mls @ 60 mls/hr IV .[id number] [facility] Last Admin: 09/14/19 03:25 Dose: 60 mls/hr Documented by: Dextrose (Dextrose 10%-Water) 250 mls @ 999 mls/hr IV .Q16M PRN; Protocol PRN Reason: HYPOGLYCEMIA Sodium Chloride () 1,000 mls @ 0 mls/hr IV .Q0M MARIKA Sodium Chloride () 1,000 mls @ 60 mls/hr IV .[id number] [facility] Insulin Human Lispro (Humalog Kwikpen (Bkc)) 0 unit SC Q4 [facility]; Protocol Last Admin: 09/14/19 05:57 Dose: Not Given Documented by: Labetalol HCl (Trandate) 5 mg IV X1 PRN PRN Reason: SBP > 160 when pulling sheath Stop: 09/16/19 08:26 Levothyroxine Sodium (Synthroid) 88 mcg PO DAILY@0600 [facility] Lisinopril (Zestril) 2.5 mg PO DAILY [facility] Morphine Sulfate () 2 mg IV Q3H PRN PRN PRN Reason: Pain Score 6-10/10 Ondansetron HCl (Zofran) 4 mg IV Q8H PRN PRN PRN Reason: NAUSEA/VOMITING Sodium Chloride () 10 - 40 ml IV UD PRN PRN Reason: SALINE FLUSH Sodium Chloride () 500 ml IV BOLUS PRN PRN Reason: VASO-VAGAL PROTOCOL Ticagrelor (Brilinta) 90 mg PO BID [facility] STROKE Vital Signs/Narrative: Vital Signs BP 09/14/19 05:15 126/51 H Medical Necessity - Tobacco Use Smoking Status: Never smoker Assessment/Plan All Active Problems (Last Reviewed 09/14/19 @ 07:04 by Zach Bowman MD) NSTEMI (non-ST elevated myocardial infarction) (Acute) Atypical chest pain (Acute) The patient is a 74 year old F with a significant history of hypertension; diabetes mellitus on insulin pump; depression and anxiety was admitted to chest pain for left-sided chest pain, persistent in nature on IV nitroglycerin drip in ICU with diagnosis of non-STEMI. Patient EKG was normal sinus rhythm with sinus arrhythmia with J-point elevation in lead V2, V3, and V4, with poor RR progression and Q waves in V1 to V3. Repeat EKG were similar. Patient was also hypertensive in ER, triage, 171/70 1. Septal and anterior wall Non-STEMI: Non-ST elevation SC: Patient is admitted in ICU. Serial troponin 7.2, 8.8. Patient was taken to [facility]. Cardiac angiogram showed proximal LAD 80%, proximal to mid LAD 95%. Dominant RCA with 30% diffuse stenosis. Anterior apical hypokinesis. Patient had 2 stents placed in LAD. On aspirin, beta-aarti BENEDICT inhibitor and statin. 2. Abnormal chest x-ray report: Chest x-ray shows a stable mild right lower lobe linear scarring. Right infrahilar pulmonary opacity. Right infrahilar pulmonary opacity which raise suspicion for underlying mass or adenopathy. CT chest recommended. On review of images, I do not find any significant change from previous chest x-ray of 03/30/2017. It also showed right hemidiaphragm elevation, platelike atelectasis right midlung field with patchy opacity left lung base. CT chest is ordered. 3. Prerenal azotemia with CKD stage III due to diabetic nephropathy: Patient BUN and creatinine is 27/1.32. Baseline creatinine runs around 1.0-1.2. IV fluid normal saline. Monitor kidney function and electrolytes. 4. 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 Used to follow [place]. DVT prophylaxis Lovenox 40 subcu daily after 24 hours of removal of sheath. Code Visit Inpatient E&M: [id number] [facility] L1
[2019-09-14] MEDS: Levothyroxine 88 MCG Tablet PO (09:33)
[2019-09-14] MEDS: Carbidopa/Levodopa 25/100 Tablet PO ×3 (09:34→15:49)
[2019-09-14] MEDS: Citalopram 20 MG Tablet PO (09:35)
--- NOTE | 2019-09-14 10:00 | EKG12_ITS ---
Test Reason : Blood Pressure : / mmHG Vent. Rate : 082 BPM Atrial Rate : 082 BPM P-R Int : 142 ms QRS Dur : 092 ms QT Int : 418 ms P-R-T Axes : 049 054 038 degrees QTc Int : 488 ms Normal sinus rhythm Low voltage QRS Anteroseptal CO, age undetermined ST & T wave abnormality, consider anterolateral ischemia Prolonged QT Abnormal ECG Confirmed by KRISTOPHER HANKS, DANUTA ([id number]), acquisitions editor TUNDE SAL ([id number]) on 09/23/2019 10:36:36 AM Referred By: Confirmed By:DANUTA SUMMERS MD
[2019-09-14] MEDS: Lisinopril 2.5 MG Tablet PO (10:04)
--- NOTE | 2019-09-14 11:21 | CL.D_ITS ---
Patient Name: KARLY LOPEZ Study Date: 09/14/2019 Performing: Ed Blake MD Ht: 61.81 inches 157 cm : 1945 Wt: 154.32 lbs 70 kg Age: 74 Gender: female BSA: 1.71 PROCEDURE(S) PERFORMED [id number] W OR WO PTCA, SINGLE CORONARY ARTERY CLINICAL PROFILE AND INDICATIONS Indications: ACS <= 24 hrs Heart Failure: None Stress/Imaging Stress/Image Study Performed: No CAD Presentations: Non-STEMI. Symptom onset Date/Time: 09/13/2018 Time Estimated CONCLUSIONS Severe predominantly single-vessel coronary artery disease with proximal LAD 80% and mid LAD 95% sten osis in the ventricular systolic dysfunction RECOMMENDATIONS Referred for immediate PCI DESCRIPTION OF PROCEDURE The patient arrived to the procedure lab. The risks and benefits of the procedure as well as a full d escription of our services here and current unavailability of surgical backup were fully explained to the patient and/or their significant other prior to the catheterization. The Timeout was completed, verifying the correct patient and procedure. The patient's procedural site was prepped and draped in the usual fashion. Local anesthetic was given subcutaneously to left radial region with Lidocaine 2%. Using a modified Seldinger technique, arterial access was obtained via the right radial artery, a 6F r sheath was inserted. Right Coronary Artery selective angiography was then performed in multiple vi ews using a 5 Fr. 4.0 [place] catheter. Left Coronary Artery selective angiography was performed in mul tiple views using a 5 Fr. 4.0 [place] catheter. Left Ventriculography was performed in KO projection u sing a 5 Fr. Pigtail catheter. LV to AO pullback pressures were then recorded.The arterial sheath was pulled and a TR Band was applied for hemostasis. 9cc of air applied CORONARY ANGIOGRAPHY DOMINANCE: Right Dominant LEFT HEART ASSESSMENT Left Ventricular Ejection Fraction: by LV Gram 35 % Anterior Hypokinesis - Severe. Apical Hypokinesis - Severe Depressed Left Ventricular systolic function LEFT MAIN: Angiographically normal LEFT ANTERIOR DESCENDING ARTERY: PROX LAD: 80 % Stenosis MID LAD: 95 % Stenosis CIRCUMFLEX ARTERY: Angiographically normal RIGHT CORONARY ARTERY: Diffusely diseased up to 40 % COMPLICATIONS No Complications PROCEDURE MEDICATIONS Versed 1 mg IV Fentanyl 50 mcg IV Oxygen: 2 L/min via nasal cannula Brilinta 90 mg PO @ 09/14/2019 08:13:57 Heparin diluted in 23cc Heparinized saline. Patient given 5cc IA of this solution. 09/14/2019 07:19:18 Heparin 4000 unit(s) IV 09/14/2019 07:51:19 Nitro glycerin 25mg / 250ml D5W @ 10 mcg/min IV , arrived from ICU 09/14/2019 06:49:34 Verapamil 2.5mg, Ntg 100mcgs, 2000 units of Heparin diluted in 23cc Heparinized saline. Patient give n 5cc IA of this solution. 09/14/2019 07:19:18 SUMMARY OF HEMODYNAMIC DATA Time AIR REST ECG 07:02:49 AO 111/56 (79) SA 07:21:24 LV 105/6, 14 07:28:38 LV 111/7, 14 07:28:45 LV 113/8, 21 07:30:04 LVp 115/7, 22 07:30:09 AOp 115/53 (79) 07:30:14 AO 134/55 (84) 07:33:11 Signed By Ed Blake MD On 09/14/2019 11:21:06 Ed Blake MD
--- NOTE | 2019-09-14 14:48 | CM.UR ---
Anticoagulation: Checked her plans formulary-Brilinta, Eliquis and Xarelto are all tier 3 which is Preferred Brand. The only medication less expensive is clopidogrel, which is a tier 2. Once rx is sent to pharmacy anyone can call to see what the actual cost will be. Jose Jackson RN, CCM.
[2019-09-14] MEDS: Acetaminophen 325 MG Tablet 650 MG PO (19:41)
[2019-09-14] MEDS: 0.9% Saline Lock 10 ML Syringe IV (19:42)
[2019-09-14] MEDS: TICAGRELOR 90 MG TABLET PO (21:45)
[2019-09-14] MEDS: Gabapentin 100 MG Capsule PO (21:45)
[2019-09-15] VITALS (25 sets, daily range): BP systolic 87–113; BP diastolic 35–83; PULSE 61–86; RESP 14–28; TEMP 36.4–37.3; O2SAT 96–99
[2019-09-15] MEDS: Acetaminophen 325 MG Tablet 650 MG PO ×3 (01:41→17:32)
[2019-09-15 05:48] LABS: Hematocrit 31.2 % (37-47); Hemoglobin 10.6 g/dL (12.0-15.0); Mean Corpuscular Volume 94.3 fL (81-99); Mean Platelet Vol. 11.1 fl (6.2-12.0); Platelet Count 244 K/mm3 (150-450); RBC Distribution Width CV 14.2 % (11.6-14.6); RBC Distribution Width SD 48.2 fl (35.1-43.9); Red Blood Count 3.31 M/mm3 (4.2-5.4); White Blood Count 18.1 K/mm3 (4.4-11.0)
[2019-09-15 06:09] LABS: ALB/GLOB Ratio 0.9 RATIO (0.9-2.4); AST(SGOT) 79 U/L (15-37); Alanine Aminotransfer ALT/SGPT 28 U/L (13-56); Albumin, Serum 3.1 g/dL (3.2-5.0); Alkaline Phosphatase 58 U/L (45-117); Anion Gap 7 (5-15); BUN 31 mg/dL (7-18); BUN/Creat Ratio 21.8 RATIO (10-20); Calcium,Total 8.2 mg/dL (8.5-10.1); Chloride 102 mmol/L (98-107); Creatinine, Serum 1.42 mg/dL (0.55-1.02); EST Glomerular Filtration Rate 38 mL/min (>60); Est Glom Filt Rate - Afr Amer 46 mL/min (>60); Estimated Creatinine Clearance 26.66 ml/min; Globulin 3.5 g/dL (2.2-4.2); Glucose 358 mg/dL (74-106); Potassium 3.5 mmol/L (3.5-5.1); Protein, Total 6.6 g/dL (6.4-8.2); Sodium Level 134 mmol/L (136-145)
[2019-09-15] MEDS: Carbidopa/Levodopa 25/100 Tablet PO ×3 (06:53→17:31)
[2019-09-15] MEDS: Levothyroxine 88 MCG Tablet PO (06:53)
[2019-09-15] MEDS: TICAGRELOR 90 MG TABLET PO ×2 (08:14→21:04)
[2019-09-15] MEDS: Citalopram 20 MG Tablet PO (08:14)
[2019-09-15] MEDS: Aspirin E.C. 81 MG Tablet PO (08:16)
--- NOTE | 2019-09-15 08:22 | PN.CARD_ITS ---
Subjectve: Patient seen and evaluated. Appears to be doing better. Though feels tired. Objective: Vital Signs Temp Pulse Resp BP Pulse Ox 99.1 F 67 28 H 109/47 L 97 09/15/19 05:00 09/15/19 06:00 09/15/19 06:00 09/15/19 06:00 09/15/19 06:00 Oxygen Delivery Method Room Air Weight: 155 lb 3.287 oz Body Mass Index (BMI) 28.3 Finger Stick Blood Glucose 195 Intake and Output for Last 24 Hours 09/13/19 09/14/19 09/15/19 23:59 23:59 23:59 Intake Total 2145.55 / 2145.55 454 / 454 Output Total 1050 / 1050 300 / 300 Balance 1095.55 / 1095.55 154 / 154 General: Awake, Alert, Oriented x 3 HEENT: PERRL, EOMI, Sclera Non Icteric Neck: Supple, Good ROM, No Lymph Node Enlargement Lungs: Clear to auscultation Cardiovascular: Regular Rhythm, Normal S1, Normal S2, No Murmurs, No Rubs, No Gallops Vascular: No Carotid Bruits, Normal Femoral Pulses, Normal Radial Pulses, Normal Dorsalis Pedal Pulse, Normal Posterior Tibial Pulses Abdomen: Bowel Sounds Present, Soft, Non Tender, No HSM, No Organomegaly Extremities: No Cyanosis, No Clubbing, No edema Musculoskeletal: No Erythema Skin: No Rashes Lymphatic: No Lymph Node Enlargement Neurological: No Focal Motor or Sensory Deficit Psych/Mental Status: Appropriate 09/14/19 09:40: Troponin I 8.550 H* 09/15/19 05:25: WBC 18.1 H, RBC 3.31 L, Hgb 10.6 L, Hct 31.2 L, MCV 94.3, MCH 32.0, MCHC 34.0, Plt Count 244, MPV 11.1 09/15/19 05:25: Sodium 134 L, Potassium 3.5, Chloride 102, Carbon Dioxide 25.0, Anion Gap 7, BUN 31 H, Creatinine 1.42 H, Est GFR (MDRD) Af Amer 46 L, Est GFR (MDRD) Non-Af 38 L, BUN/Creatinine Ratio 21.8 H, Glucose 358 H, Calcium 8.2 L, Total Bilirubin 1.40 H Rhythm: EKG: ECHO: Stress Test: Cardiac Cath: PCI: CT Surgery: Holter monitor: EPS: PPM: CXR: Chest CT Scan: Medical Necessity - Tobacco Use Smoking Status: Never smoker Assessment/Plan 1. Chest pain-acute coronary syndrome.. non-ST elevation myocardial infarction * The patient presented with chest discomfort which had some concerning features. Cardiac catheterization demonstrated normal left main coronary artery, Normal left circumflex artery, Proximal 80% left anterior descending artery lesion and proximal to mid 95% lesion. Dominant right coronary artery with 30% diffuse stenosis. Left ventricular systolic dysfunction with anterior apical hypokinesis. Based on the above angiographic findings the alternatives therapies are bypass surgery with a single-vessel RESENDEZ to the LAD or sequential LAD stenting in the left anterior descending artery. * The patient successfully underwent angioplasty and stenting of the left anterior descending artery. Patient tolerated the procedure well. * Echocardiogram performed demonstrated ejection fraction of approximately 30 to 35% with severe hypokinesis and akinesis of the anterior wall and apex. * Will continue therapy as follows Aspirin Low-dose beta-aarti if tolerated BENEDICT inhibitor on hold at this particular time due to low blood pressure Low-dose statin if tolerated * Can probably transfer to the progressive care unit later today. * * Thank you for allowing me to participate in the care of your patient. Please don't hesitate to call if any issues arise
--- NOTE | 2019-09-15 08:25 | PN_ITS ---
Patient Problems: Active and Suspected Problems (Last Reviewed 09/14/19 @ 07:04 by Zach Bowman MD) NSTEMI (non-ST elevated myocardial infarction) (Acute) Subjective: The patient is a 74-year-old female with a past medical history of hypertension, diabetes mellitus type 2 with an insulin pump, depression/anxiety, stage III ch ronic renal failure, hypothyroidism, Parkinson's disease and hypertension presented to the emergency department at [facility] on 09/14/2019 complaining of left chest pain radiated to the shoulder and into the back. EKG showed no ST elevation. Troponin was elevated at 7.24. Cardiology was consulted and she was taken to the Switchboard Operator Assistant by Dr. Blake. Cardiac cath showed an 80% stenosis of the proximal LAD and a 95% stenosis of the mid LAD. There was anterior hypokinesis which was severe and also apical hypokinesis also severe. The ejection fraction was 35%. She underwent successful angioplasty and stenting of the LAD and post procedure was transferred to the cardiac care unit. Afebrile. Vital signs are stable She is maintaining an oxygen saturation of 97 to 98% on room air. Fluid balance on 09/14/2019 was +1095. All lab was personally reviewed. White blood cell count today is 18.1. Hemoglobin is 10.6 and platelets are within normal limits. Sodium is mildly decreased at 134. The BUN is 31 and the creatinine is 1.42, up from 1.32 at admission. Troponin peaked at 8.85 and then started to trend down. Total cholesterol is 197 with an LDL of 114 and an HDL of 72. Medication list was reviewed. Current cardiac meds include aspirin, atorvastatin, lisinopril, Brilinta. Not currently on a beta aarti. she denies CP and denies palpitations. No lightheadedness. she has SOB when she is up moving around but, this is nothing out the ordinary for her. Telemetry shows NSR and she had 1 5 beat run of NSVT.....asymptomatic - Physical Exam Vitals/I&O's: Vital Signs Temp Pulse Resp BP Pulse Ox 99.1 F 67 28 H 109/47 L 97 09/15/19 05:00 09/15/19 06:00 09/15/19 06:00 09/15/19 06:00 09/15/19 06:00 Oxygen Delivery Method Room Air Weight: 155 lb 3.287 oz Body Mass Index (BMI) 28.3 Finger Stick Blood Glucose 195 Intake and Output for Last 24 Hours 09/13/19 09/14/19 09/15/19 23:59 23:59 23:59 Intake Total 2145.55 / 2145.55 454 / 454 Output Total 1050 / 1050 300 / 300 Balance 1095.55 / 1095.55 154 / 154 General: Alert, Oriented x3, Cooperative, Well developed, Well nourished, - - Looks fatigued HEENT: Atraumatic, PERRLA Oral: Moist Mucosa Neck: Supple, No JVD, Trachea Midline Lungs: Clear to auscultation - anterior and lateral, No rhonchi, No wheeze, No rales Cardiovascular: Regular rate, Regular Rhythm, Normal S1, Normal S2, No murmurs, No rub noted, No Gallop Abdomen: Bowel Sounds Present, Soft, Non Tender, Non-Distended Extremities: No clubbing, No cyanosis, No edema, No Calf Tenderness, - - the cath was done using the R radial artery and she does not have a bruit or a hematoma at the site Skin: No rashes, No breakdown Neurological: Cranial nerves II-XII grossly intact, Neuro grossly intact Psych/Mental Status: Normal Affect, Appropriate Laboratory Results 09/14/19 09:40: Troponin I 8.550 H* 09/15/19 05:25: WBC 18.1 H, RBC 3.31 L, Hgb 10.6 L, Hct 31.2 L, MCV 94.3, MCH 32.0, MCHC 34.0, RDW Std Deviation 48.2 H, RDW Coeff of Stephane 14.2, Plt Count 244, MPV 11.1 09/15/19 05:25: Sodium 134 L, Potassium 3.5, Chloride 102, Carbon Dioxide 25.0, Anion Gap 7, BUN 31 H, Creatinine 1.42 H, Estim Creat Clear Calc 26.66, Est GFR (MDRD) Af Amer 46 L, Est GFR (MDRD) Non-Af 38 L, BUN/Creatinine Ratio 21.8 H, Glucose 358 H, Calcium 8.2 L, Total Bilirubin 1.40 H, AST 79 H, ALT 28, Alkaline Phosphatase 58, Total Protein 6.6, Albumin 3.1 L, Globulin 3.5, Albumin/Globulin Ratio 0.9 Current Medications Acetaminophen (Tylenol) 650 mg PO Q6H PRN PRN PRN Reason: Pain Score 1-5/Temp > 100.7 F Last Admin: 09/15/19 01:41 Dose: 650 mg Documented by: Aspirin (Ecotrin) 81 mg PO DAILY@0800 [facility] Last Admin: 09/15/19 08:16 Dose: 81 mg Documented by: Atorvastatin Calcium (Lipitor) 10 mg PO QHS [facility] Last Admin: 09/14/19 21:53 Dose: Not Given Documented by: Atropine Sulfate () 0.5 mg IV UD PRN PRN Reason: HR <50 bpm Carbidopa/Levodopa (Sinemet) 0.5 tablet PO TIDAC [facility] Last Admin: 09/15/19 06:53 Dose: 0.5 tablet Documented by: Cholecalciferol (Vitamin D) 2,000 unit PO DAILY [facility] Last Admin: 09/15/19 08:15 Dose: 2,000 unit Documented by: Citalopram Hydrobromide (Celexa) 20 mg PO DAILY [facility] Last Admin: 09/15/19 08:14 Dose: 20 mg Documented by: Gabapentin (Neurontin) 100 mg PO QHS [facility] Last Admin: 09/14/19 21:45 Dose: 100 mg Documented by: Glucagon () 1 mg IM .X1 PRN PRN Reason: Hypoglycemia Heparin Sodium (Beef Lung) (Heparin 500 Unit/5 Ml (100/Ml)) 500 unit IV UD PRN PRN Reason: HEPARIN FLUSH Dextrose (Dextrose 10%-Water) 250 mls @ 999 mls/hr IV .Q16M PRN; Protocol PRN Reason: HYPOGLYCEMIA Sodium Chloride () 1,000 mls @ 0 mls/hr IV .Q0M MARIKA Sodium Chloride () 1,000 mls @ 60 mls/hr IV .[id number] [facility] Last Infusion: 09/15/19 05:42 Dose: 60 mls/hr Documented by: Insulin Human Lispro (Humalog Kwikpen (Bkc)) 0 unit SC ACHS [facility]; Protocol Last Admin: 09/15/19 08:11 Dose: Not Given Documented by: Labetalol HCl (Trandate) 5 mg IV X1 PRN PRN Reason: SBP > 160 when pulling sheath Stop: 09/16/19 08:26 Levothyroxine Sodium (Synthroid) 88 mcg PO DAILY@0600 [facility] Last Admin: 09/15/19 06:53 Dose: 88 mcg Documented by: Lisinopril (Zestril) 2.5 mg PO DAILY [facility] Last Admin: 09/15/19 08:16 Dose: Not Given Documented by: Morphine Sulfate () 2 mg IV Q3H PRN PRN PRN Reason: Pain Score 6-10/10 Ondansetron HCl (Zofran) 4 mg IV Q8H PRN PRN PRN Reason: NAUSEA/VOMITING Sodium Chloride () 10 - 40 ml IV UD PRN PRN Reason: SALINE FLUSH Last Admin: 09/14/19 19:42 Dose: 10 ml Documented by: Sodium Chloride () 500 ml IV BOLUS PRN PRN Reason: VASO-VAGAL PROTOCOL Ticagrelor (Brilinta) 90 mg PO BID [facility] Last Admin: 09/15/19 08:14 Dose: 90 mg Documented by: Medical Necessity - Tobacco Use Smoking Status: Never smoker Assessment/Plan All Active Problems (Last Reviewed 09/14/19 @ 07:04 by Zach Bowman MD) NSTEMI (non-ST elevated myocardial infarction) (Acute) Atypical chest pain (Acute) Impressions 1. NSTEMI - S/P cath with PTCA/MARTA to the proximal and mid LAD 2. Ischemic cardiomyopathy with an ejection fraction of 35% on the left ventriculogram at the time of cath echocardiogram also showed a 35% ejection fraction. 3. Stage I diastolic dysfunction 4. Nonsustained ventricular tachycardia-likely secondary to reperfusion 5. Chronic renal failure stage III 6. Dyslipidemia with a LDL of 114 -on a statin 7. Essential hypertension/diabetes mellitus type 2/anxiety with depression/hypothyroidism/Parkinson's disease the last hemoglobin A1c was August 05, 2019 and it was 6.4 at that time. Discussed with Dr. Blake Transfer to PCU Continue dual antiplatelet agents with Brilinta and aspirin. Continue lisinopril and atorvastatin....not currently on a beta b locker......will discuss with Dr. Blake whether or not to start low dose Coreg in light of reduced EF. Check orthostatics in the AM The patient checks her BS and gives herself insulin per the pump......the BS's are higher than normal and this is likely due to stress. Code Visit Inpatient E&M: 36451 Subs Hosp L2
--- NOTE | 2019-09-15 08:30 | EKG12_ITS ---
Test Reason : Blood Pressure : / mmHG Vent. Rate : 111 BPM Atrial Rate : 117 BPM P-R Int : 000 ms QRS Dur : 088 ms QT Int : 362 ms P-R-T Axes : 000 051 247 degrees QTc Int : 492 ms Atrial fibrillation Low voltage QRS Septal infarct , age undetermined ST & T wave abnormality, consider inferior ischemia ST & T wave abnormality, consider anterolateral ischemia Abnormal ECG Confirmed by KRISTOPHER HANKS, DANUTA ([id number]), avid editor TUNDE SAL ([id number]) on 09/23/2019 10:36:55 AM Referred By: Confirmed By:DANUTA SUMMERS MD
--- NOTE | 2019-09-15 10:00 | EKG12_ITS ---
Test Reason : AM Blood Pressure : / mmHG Vent. Rate : 066 BPM Atrial Rate : 066 BPM P-R Int : 138 ms QRS Dur : 068 ms QT Int : 492 ms P-R-T Axes : 063 031 153 degrees QTc Int : 515 ms Normal sinus rhythm Low voltage QRS ST & T wave abnormality, consider anterolateral ischemia Prolonged QT Abnormal ECG Confirmed by KRISTOPHER HANKS, DANUTA ([id number]), editorial specialist MECHE FARIAS ([id number]) on 09/18/2019 11:12:10 AM Referred By: Confirmed By:DANUTA SUMMERS MD
[2019-09-15] MEDS: 0.9% Normal Saline 1,000 ML 60 ML IV (15:43)
[2019-09-15] MEDS: Gabapentin 100 MG Capsule PO (21:04)
[2019-09-15] MEDS: Atorvastatin Calcium 10 MG Tablet PO (21:04)
[2019-09-16] VITALS (11 sets, daily range): BP systolic 104–124; BP diastolic 48–56; PULSE 66–90; RESP 15–18; TEMP 36.6–37; O2SAT 93–99; BMI 28.1
[2019-09-16] MEDS: Acetaminophen 325 MG Tablet 650 MG PO (01:24)
[2019-09-16 05:36] LABS: Hematocrit 28.5 % (37-47); Hemoglobin 9.6 g/dL (12.0-15.0); Mean Corp Hgb Conc 33.7 g/dL (32-36); Mean Corpuscular Hgb 31.7 pg (27.0-32.0); Mean Corpuscular Volume 94.1 fL (81-99); Mean Platelet Vol. 11.2 fl (6.2-12.0); Platelet Count 219 K/mm3 (150-450); RBC Distribution Width CV 14.6 % (11.6-14.6); RBC Distribution Width SD 49.5 fl (35.1-43.9); Red Blood Count 3.03 M/mm3 (4.2-5.4); White Blood Count 23.2 K/mm3 (4.4-11.0)
[2019-09-16 05:43] LABS: Anion Gap 10 (5-15); BUN 43 mg/dL (7-18); BUN/Creat Ratio 23.5 RATIO (10-20); Calcium,Total 8.6 mg/dL (8.5-10.1); Chloride 99 mmol/L (98-107); Creatinine, Serum 1.83 mg/dL (0.55-1.02); EST Glomerular Filtration Rate 29 mL/min (>60); Est Glom Filt Rate - Afr Amer 35 mL/min (>60); Estimated Creatinine Clearance 20.68 ml/min; Glucose 346 mg/dL (74-106); Magnesium 1.8 mg/dL (1.6-2.6); Potassium 3.8 mmol/L (3.5-5.1); Sodium Level 131 mmol/L (136-145)
[2019-09-16] MEDS: Carbidopa/Levodopa 25/100 Tablet PO ×3 (06:42→19:36)
[2019-09-16] MEDS: Levothyroxine 88 MCG Tablet PO (06:42)
--- NOTE | 2019-09-16 06:46 | PN.CARD_ITS ---
Subjectve: Patient seen and evaluated. Appears to be much better. Had a better night. Objective: Vital Signs Temp Pulse Resp BP Pulse Ox 98.1 F 87 18 115/48 L 98 09/16/19 05:00 09/16/19 05:00 09/16/19 05:00 09/16/19 05:00 09/16/19 05:00 Oxygen Delivery Method Room Air Weight: 159 lb 13.362 oz Body Mass Index (BMI) 28.3 Finger Stick Blood Glucose 195 Intake and Output for Last 24 Hours 09/14/19 09/15/19 09/16/19 23:59 23:59 23:59 Intake Total 2145.55 / 2145.55 205 / 2056 491 / 491 Output Total 1050 / 1050 300 / 300 Balance 1095.55 / 1095.55 1757 / 1757 491 / 491 General: Awake, Alert, Oriented x 3 HEENT: PERRL, EOMI, Sclera Non Icteric Neck: Supple, Good ROM, No Lymph Node Enlargement Lungs: Clear to auscultation Cardiovascular: Regular Rhythm, Normal S1, Normal S2, No Murmurs, No Rubs, No Gallops Vascular: No Carotid Bruits, Normal Femoral Pulses, Normal Radial Pulses, Normal Dorsalis Pedal Pulse, Normal Posterior Tibial Pulses Abdomen: Bowel Sounds Present, Soft, Non Tender, No HSM, No Organomegaly Extremities: No Cyanosis, No Clubbing, No edema Musculoskeletal: No Erythema Skin: No Rashes Lymphatic: No Lymph Node Enlargement Neurological: No Focal Motor or Sensory Deficit Psych/Mental Status: Appropriate 09/15/19 19:50: Magnesium 2.0 09/16/19 04:55: WBC 23.2 H, RBC 3.03 L, Hgb 9.6 L, Hct 28.5 L, MCV 94.1, MCH 31.7, MCHC 33.7, Plt Count 219, MPV 11.2 09/16/19 04:55: Sodium 131 L, Potassium 3.8, Chloride 99, Carbon Dioxide 22.0, Anion Gap 10, BUN 43 H, Creatinine 1.83 H, Est GFR (MDRD) Af Amer 35 L, Est GFR (MDRD) Non-Af 29 L, BUN/Creatinine Ratio 23.5 H, Glucose 346 H, Calcium 8.6, Magnesium 1.8 Rhythm: EKG: ECHO: Stress Test: Cardiac Cath: PCI: CT Surgery: Holter monitor: EPS: PPM: CXR: Chest CT Scan: Medical Necessity - Tobacco Use Smoking Status: Never smoker Assessment/Plan 1. Chest pain-acute coronary syndrome.. non-ST elevation myocardial infarction * The patient presented with chest discomfort which had some concerning features. Cardiac catheterization demonstrated normal left main coronary artery, Normal left circumflex artery, Proximal 80% left anterior descending artery lesion and proximal to mid 95% lesion. Dominant right coronary artery with 30% diffuse stenosis. Left ventricular systolic dysfunction with anterior apical hypokinesis. Based on the above angiographic findings the alternatives therapies are bypass surgery with a single-vessel RESENDEZ to the LAD or sequential LAD stenting in the left anterior descending artery. * The patient successfully underwent angioplasty and stenting of the left anterior descending artery. Patient tolerated the procedure well. * Echocardiogram performed demonstrated ejection fraction of approximately 30 to 35% with severe hypokinesis and akinesis of the anterior wall and apex. * Will continue therapy as follows Aspirin Low-dose beta-aarti if tolerated--we will start carvedilol today BENEDICT inhibitor to be carefully titrated due to blood pressure issues Low-dose statin if tolerated * Can probably transfer to the progressive care unit later today. * * Thank you for allowing me to participate in the care of your patient. Please don't hesitate to call if any issues arise
--- NOTE | 2019-09-16 08:22 | CRPHASE1_ITS ---
Patient Communication PHII Cardiac Rehab Discussed with Patient:: Yes Guide to Cardiac Rehab Given to Patient:: Yes Cardiac Rehab Facility Choice List Given to Patient:: Yes Choice Program [facility] CR PHII:: Communication Given to CR, Refer to [employer] Risk Factors/Lifestyle Smoking Status: Never smoker Hx Hypertension: Yes Hx Diabetes Mellitus Type 1: Yes Height: 5 ft 2 in Weight:: 154 lb BMI: 28.1 Post-Menopausal: Yes ETOH: No Substance Abuse: No Family History: Family History (Last Reviewed 09/14/19 @ 07:02 by Zach Bowman MD) Mother CVA (cerebral vascular accident) Dementia Sister Hypertension Diabetes Brother Heart disease Diabetes Daughter Diabetes Laboratory Values: Cardiac Rehab Phase I Labs Triglycerides 56 mg/dL (-199) 09/14/19 03:52 Cholesterol 197 mg/dL (200) 09/14/19 03:52 LDL Cholesterol 114 mg/dL (0-130) 09/14/19 03:52 HDL Cholesterol 72 mg/dL (40-) 09/14/19 03:52 Hospital Course Pain Description: Pressure - PT STATES SHE HAD CP THAT RADIATED TO LT SHOULDER/ARM Medical/Surgical History Angina:: Yes CAD:: Yes Pulmonary:: No Diabetes Type I:: Yes Hypertension:: Yes Thyroid:: Yes Depression:: Yes Anxiety:: Yes CABG: No PTCA:: Yes ICD:: No Pacemaker:: No Discharge/Home/Social Eval Discharge Disposition: Home Marital Status: Cardiac Rehabilitation Info Cardiac Rehabilitation Program Information: Cardiac Rehabilitation is important for patients like you who are recovering from a heart problem. Cardiac rehabilitation programs are recognized as integral to the continued care of the patient with coronary heart disease. The cardiac rehabilitation program is designed to optimize a patient's physical, psychological, and social functioning. Health director long term care work in cardiac rehabilitation programs and assist you with getting the treatments you need to get stronger and healthier - like exercise, healthy eating habits, and medications. Cardiac rehabilitation has been show to help people with heart problems live longer and have better life enjoyment than people who do not go to cardiac rehabilitation. Please contact the Cardiac Rehabilitation Program at [facility] at in two weeks if you have not heard from them.
--- NOTE | 2019-09-16 08:25 | CRPH1.INSTRU ---
General Education CAD and cardiac anatomy and function:: Not instructed Explanation of diagnoses and procedures:: Not instructed Sign/Symptoms of SD:: Patient communicates acknowledgment, Needs reinforcement Antiplatelet therapy: Patient communicates acknowledgment, Family communicates acknowledgment, Needs reinforcement Proper use of NTG-SL: Not instructed Emergency procedures and activation of EMS: Patient communicates acknowledgment, Family communicates acknowledgment, Needs reinforcement Compliance of all prescribed medications: Not instructed Smoking Patient Nicotine/Smoking Risk Factors Are:: Never smoked Dyslipidemia Patient Dyslipidemia Risk Factors Are:: Total Cholesterol - 197, Triglycerides - 56, HDL - 72, LDL - 114 Dyslipidemia Response Code:: Not instructed Overweight/Obesity Patient Overweight/Obesity Risk Factors Are:: BMI Normal [24-29 & > 65 years old] Overweight/Obesity:: Not instructed Hypertension Recommendations Include:: Maintain BP <130/85, BP <130/80 if diabetic, DASH dietary guidelines, Decrease/maintain normal body weight, Moderation of ETOH Hypertension:: Not instructed Heart Disease Patient Heart Disease Risk Factors Are:: Family history of heart disease < 65 years old Heart Disease Response Code:: Not instructed Diabetes Patient Diabetes Risk Factors Are:: Elevated blood sugars Recommendations Include:: Maintain fasting blood sugars 70-110 md/dL, Maintain HgbA1c of 6% or less, Monitor blood sugar as prescribed, Diabetic dietary guidelines, Decrease/maintain body weight Diabetes:: Needs reinforcement Metabolic Syndrome Metabolic Syndrome Response Code:: Needs reinforcement, Not instructed Stress Stress Response Code:: Not instructed
--- NOTE | 2019-09-16 09:13 | CL.I_ITS ---
Patient Name: KARLY LOPEZ Study Date: 09/14/2019 Performing: Surya Carpenter MD Ht: 62 inches 157 cm : 1945 Wt: 154.5 lbs 70 kg Age: 74 Gender: female BSA: 1.71 PROCEDURE(S) PERFORMED [id number] W OR WO PTCA, SINGLE CORONARY ARTERY CLINICAL PROFILE AND CO-MORBIDITIES Indications: ACS <= 24 hrs Heart Failure: None Stress/Imaging Stress/Image Study Performed: No CAD Presentations: Non-STEMI. Symptom onset Date/Time: 09/13/2018 Time Estimated CONCLUSIONS Successful PTCA/MARTA to mLAD and oLAD RECOMMENDATIONS Follow up with primary house painting instructor KIERRA Disla for at least 12 months DESCRIPTION OF PROCEDURE The patient arrived to the procedure lab. The risks and benefits of the procedure as well as a full d escription of our services here and current unavailability of surgical backup were fully explained to the patient and/or their significant other prior to the catheterization. The Timeout was completed, verifying the correct patient and procedure. The patient's procedural site was prepped and draped in the usual fashion. Local anesthetic was given subcutaneously to left radial region with Lidocaine 2% Using a modified Seldinger technique,arterial access was obtained via the right radial artery, a 6Fr sheath was inserted. Right Coronary Artery selective angiography was then performed in multiple views using a 5 Fr. 4.0 [place] catheter. Left Coronary Artery selective angiography was performed in multip le views using a 5 Fr. 4.0 [place] catheter. Left Ventriculography was performed in KO projection usin g a 5 Fr. Pigtail catheter. LV to AO pullback pressures were then recorded.The images were reviewed and options discussed. A decision was then made to proceed with an Intervention, IVUS or oth er adjunct procedure. XB 3 Guide catheter was inserted and engaged into the LCA. BMW Guide wire was advanced to the LAD . 2x8 Emerge Balloon catheter was inserted. Balloon catheter was advanced across lesion in the LAD, m id. PTCA balloon inflated at 8 atms for 10 secs. Balloon catheter was repositioned to additional lesi on in the LAD, ostial. PTCA balloon inflated at 8 atms for 8 secs. Angiogram performed post balloon d ilatation. 3x38 Synergy Drug Eluting stent was inserted. Drug Eluting stent was advanced across the l esion in the LAD, mid and ostial Angiogram performed post stent deployment. The arterial sheath was pulled and a TR Band was applied for hemostasis. 9cc of air applied INTERVENTION INFORMATION LESION SITE: LAD (Mid) Lesion Complexity: High/C, chronic total occlusion: No, lesion at bifurcation: No, thrombus present: No, lesion length: 18 mm, culprit lesion: Yes, Previously treated lesion: No Pre Stenosis: 95 % Pre intervention CARRIE flow: 3 PROCEDURE: Drug Eluting Stent with pre dilatation. Post Stenosis: 0 % Post intervention CARRIE flow: 3 Lesion Devices: Cardinal 6 Fr XB3.0 100cm Guide Catheter Bautista .014 BMW [place] Straight 190cm Cecil Sci EMERGE MR 2.00x08 BALLOON Cecil Sci Synergy MR MARTA 3.00x38 LESION SITE: LAD (Ostial) Lesion Complexity: High/C, chronic total occlusion: No, lesion at bifurcation: Yes, thrombus present: No, lesion length: 10 mm, culprit lesion: Yes, Previously treated lesion: No Pre Stenosis: 80 % Pre intervention CARRIE flow: 3 PROCEDURE: Drug Eluting Stent One long stent was used to cover both the lesions as we felt that this way there was a better chance of accurate stent placement in the ostial LAD Post Stenosis: 0 % Post intervention CARRIE flow: 3 Lesion Devices: Cardinal 6 Fr XB3.0 100cm Guide Catheter Bautista .014 BMW [place] Straight 190cm Cecil Sci EMERGE MR 2.00x08 BALLOON Cecil Sci Synergy MR MARTA 3.00x38 COMPLICATIONS No Complications PROCEDURE MEDICATIONS Versed 1 mg IV Fentanyl 50 mcg IV Oxygen: 2 L/min via nasal cannula Brilinta 90 mg PO @ 09/14/2019 08:13:57 Heparin diluted in 23cc Heparinized saline. Patient given 5cc IA of this solution. 09/14/2019 07:19:18 Heparin 4000 unit(s) IV 09/14/2019 07:51:19 Nitro glycerin 25mg / 250ml D5W @ 10 mcg/min IV , arrived from ICU 09/14/2019 06:49:34 Verapamil 2.5mg, Ntg 100mcgs, 2000 units of Heparin diluted in 23cc Heparinized saline. Patient give n 5cc IA of this solution. 09/14/2019 07:19:18 SUMMARY OF HEMODYNAMIC DATA Time AIR REST ECG 07:02:49 AO 111/56 (79) SA 07:21:24 LV 105/6, 14 07:28:38 LV 111/7, 14 07:28:45 LV 113/8, 21 07:30:04 LVp 115/7, 22 07:30:09 AOp 115/53 (79) 07:30:14 AO 134/55 (84) 07:33:11 Signed By Surya Carpenter MD On 09/16/2019 09:12:02 Surya Carpenter MD
[2019-09-16] MEDS: Carvedilol 3.125 MG TABLET PO ×2 (09:36→21:13)
[2019-09-16] MEDS: TICAGRELOR 90 MG TABLET PO ×2 (09:36→21:13)
[2019-09-16] MEDS: Aspirin E.C. 81 MG Tablet PO (09:37)
[2019-09-16] MEDS: Citalopram 20 MG Tablet PO (09:37)
--- NOTE | 2019-09-16 10:00 | EKG12_ITS ---
Test Reason : AM EKG Blood Pressure : / mmHG Vent. Rate : 084 BPM Atrial Rate : 084 BPM P-R Int : 138 ms QRS Dur : 066 ms QT Int : 392 ms P-R-T Axes : 064 053 054 degrees QTc Int : 463 ms Normal sinus rhythm Low voltage QRS ST elevation consider inferolateral injury or acute infarct Abnormal ECG Confirmed by KRISTOPHER HANKS, DANUTA ([id number]), web content editor MECHE FARIAS ([id number]) on 09/18/2019 11:11:49 AM Referred By: SYLVIA Confirmed By:DANUTA SUMMERS MD
--- NOTE | 2019-09-16 10:31 | CASEMGMT ---
RN CM Assessment Presentation: PCI; mid and ostial sten Intro role of CM and purpose of RN CM assessment to patient and her . Pt is awake, alert and oriented. . Demographics, PCP and Pharmacy verified. Pt and states she is generally independent in ADL. is able to assist if needed. Pt has hx of parkinson's. No dc care needs identified at this time. PCP: Dr. Whitehead Specialists: Dr. Dumont, neurology; Dr. Blake, cardiology; FARHAD Cedeno Preferred Pharmacy: [facility] Insurance: [facility] Prescription Benefit: yes. Brilinta savings card given to and explained. Encouraged to ascertain cost of Brilinta after savings card and notifying cardiology office if it is cost prohibitive. LNOK: Living Arrangements: Pt lives with , states is independent in ADL. Pt able to cook, clean and no assist needed at this time. Transportation: pt can drive, able to assist DME: pt states she does not use DME at home, but has walker HHC/SNF: no SW Referral: no Patient DC goals: Home DC PLAN: Home. Tawana HOSKINS RN ACM
[2019-09-16] MEDS: Ondansetron 4 MG/2 ML Vial IV (12:10)
[2019-09-16] MEDS: 0.9% Saline Lock 10 ML Syringe IV ×2 (12:10→18:50)
[2019-09-16] MEDS: Lisinopril 2.5 MG Tablet PO (12:24)
--- NOTE | 2019-09-16 15:36 | PCM.PN.HOSP ---
Subjective: A little lethargic and tired today. She denies any chest pain currently Vitals/I&O's: Vital Signs Temp Pulse Resp BP Pulse Ox 97.9 F 69 15 104/51 L 97 09/16/19 14:01 09/16/19 14:01 09/16/19 14:01 09/16/19 14:01 09/16/19 14:01 Oxygen Delivery Method Room Air Weight: 154 lb Body Mass Index (BMI) 28.3 Finger Stick Blood Glucose 195 Intake and Output for Last 24 Hours 09/14/19 09/15/19 09/16/19 23:59 23:59 23:59 Intake Total 2145.55 / 2145.55 2056 / 2056 800 / 800 Output Total 1050 / 1050 300 / 300 Balance 1095.55 / 1095.55 1757 / 1757 800 / 800 General: Alert, Oriented x3, Cooperative, No apparent distress HEENT: Atraumatic, PERRLA, EOMI, Normocephalic Oral: Moist Mucosa Neck: Supple, No JVD Lungs: Clear to auscultation, Normal air movement, No rhonchi, No wheeze, No rales, Diminished Cardiovascular: Regular rate, Regular Rhythm, Normal S1, Normal S2, No murmurs Abdomen: Soft, Non Tender, Non-Distended, No Hepato-splenomegaly Extremities: No edema, Capillary Refill Less than 3 Seconds Skin: No rashes, No breakdown Neurological: Neuro grossly intact, Sensory exam intact to light touch and pain Psych/Mental Status: Normal Affect, Appropriate Laboratory Results 09/15/19 19:50: Magnesium 2.0 09/16/19 04:55: WBC 23.2 H, RBC 3.03 L, Hgb 9.6 L, Hct 28.5 L, MCV 94.1, MCH 31.7, MCHC 33.7, RDW Std Deviation 49.5 H, RDW Coeff of Stephane 14.6, Plt Count 219, MPV 11.2 09/16/19 04:55: Sodium 131 L, Potassium 3.8, Chloride 99, Carbon Dioxide 22.0, Anion Gap 10, BUN 43 H, Creatinine 1.83 H, Estim Creat Clear Calc 20.68, Est GFR (MDRD) Af Amer 35 L, Est GFR (MDRD) Non-Af 29 L, BUN/Creatinine Ratio 23.5 H, Glucose 346 H, Calcium 8.6, Magnesium 1.8 Current Medications Acetaminophen (Tylenol) 650 mg PO Q6H PRN PRN PRN Reason: Pain Score 1-5/Temp > 100.7 F Last Admin: 09/16/19 01:24 Dose: 650 mg Documented by: Aspirin (Ecotrin) 81 mg PO DAILY@0800 [facility] Last Admin: 09/16/19 09:37 Dose: 81 mg Documented by: Atorvastatin Calcium (Lipitor) 10 mg PO QHS [facility] Last Admin: 09/15/19 21:04 Dose: 10 mg Documented by: Atropine Sulfate () 0.5 mg IV UD PRN PRN Reason: HR <50 bpm Carbidopa/Levodopa (Sinemet) 0.5 tablet PO TIDAC [facility] Last Admin: 09/16/19 12:10 Dose: 0.5 tablet Documented by: Carvedilol (Coreg) 3.125 mg PO BID [facility] Last Admin: 09/16/19 09:36 Dose: 3.125 mg Documented by: Cholecalciferol (Vitamin D) 2,000 unit PO DAILY [facility] Last Admin: 09/16/19 09:37 Dose: 2,000 unit Documented by: Citalopram Hydrobromide (Celexa) 20 mg PO DAILY [facility] Last Admin: 09/16/19 09:37 Dose: 20 mg Documented by: Gabapentin (Neurontin) 100 mg PO QHS [facility] Last Admin: 09/15/19 21:04 Dose: 100 mg Documented by: Glucagon () 1 mg IM .X1 PRN PRN Reason: Hypoglycemia Heparin Sodium (Beef Lung) (Heparin 500 Unit/5 Ml (100/Ml)) 500 unit IV UD PRN PRN Reason: HEPARIN FLUSH Dextrose (Dextrose 10%-Water) 250 mls @ 999 mls/hr IV .Q16M PRN; Protocol PRN Reason: HYPOGLYCEMIA Sodium Chloride () 1,000 mls @ 0 mls/hr IV .Q0M [facility] Insulin Human Lispro (Humalog Kwikpen (Bkc)) 0 unit SC ACHS [facility]; Protocol Last Admin: 09/16/19 12:18 Dose: Not Given Documented by: Levothyroxine Sodium (Synthroid) 88 mcg PO DAILY@0600 [facility] Last Admin: 09/16/19 06:42 Dose: 88 mcg Documented by: Lisinopril (Zestril) 2.5 mg PO DAILY [facility] Last Admin: 09/16/19 12:24 Dose: 2.5 mg Documented by: Morphine Sulfate () 2 mg IV Q3H PRN PRN PRN Reason: Pain Score 6-10/10 Ondansetron HCl (Zofran) 4 mg IV Q8H PRN PRN PRN Reason: NAUSEA/VOMITING Last Admin: 09/16/19 12:10 Dose: 4 mg Documented by: Sodium Chloride () 10 - 40 ml IV UD PRN PRN Reason: SALINE FLUSH Last Admin: 09/16/19 12:10 Dose: 10 ml Documented by: Sodium Chloride () 500 ml IV BOLUS PRN PRN Reason: VASO-VAGAL PROTOCOL Ticagrelor (Brilinta) 90 mg PO BID [facility] Last Admin: 09/16/19 09:36 Dose: 90 mg Documented by: STROKE Vital Signs/Narrative: Vital Signs Temp Pulse Resp BP Pulse Ox 09/16/19 14:01 97.9 F 69 15 104/51 L 97 Medical Necessity - Tobacco Use Smoking Status: Never smoker Assessment/Plan All Active Problems (Last Updated 09/16/19 @ 09:35 by Irina Liu) History of coronary artery stent placement (Resolved 09/14/19) Atypical chest pain (Resolved) 1. NSTEMI status post stent/CAD/HTN/HLD/ischemic cardiomyopathy -Echo with an EF of 30 to 35% and wall motion abnormality -Stent was placed to mid LAD -Continue with aspirin and Brilinta -Blood pressure medications were changed to Coreg and lisinopril 2. Normochromic normocytic anemia/leukocytosis -She is afebrile however given the fact that her blood sugars have been uncontrolled, will obtain a UA to rule out a UTI -Given her new onset anemia, this is likely dilutional given the fact that she is received close to 6 L of IV fluids since admission and has only had about 1300 cc of output -We will continue to monitor 3. ADALI on CKD 3 -Baseline creatinine is around 1.09, she is currently up to 1.83 will monitor -With her ischemic cardiomyopathy we will hold off any additional IV fluids we will also hold off on any Lasix 4. DM 1 -She has an insulin pump which we will continue, will continue with sliding scale insulin at a medium high dosage -She has been having blood sugars in the 300s which is very abnormal for her and this could either be a stress response to the non-ST segment elevated [place] versus a response to any possible infection especially given that she has a leukocytosis even though she is afebrile 5. Parkinson's/depression/anxiety -Stable -Continue with Sinemet and Celexa DVT: SCDs Code Visit Inpatient E&M: 59576 Subs Hosp L2
[2019-09-16 15:59] LABS: Mucous, Urine 0 SEEN /hpf (<or=2+)
--- NOTE | 2019-09-16 16:08 | CHAPLAIN ---
Type of Pastoral Visit _x__ Initial Visit ___ Follow-up Visit ___ On-call Visit ___ General Patient Visit ___ Spiritual Assessment ___ Family Conference ___ Bereavement ___ Rapid Response ___ Code Blue ___ Other (describe below) Pastoral Care Referral From _x__ Patient _x__ Family ___ Nurse ___ Physician ___ [place] Machine ___ Forest Pathologist ___ Other (describe below) Sacrament/Intervention ___ Active listening ___ Anointing ___ Baptist ___ Bereavement ___ Communion ___ Alicia exploration ___ ___ Life review ___ Prayer ___ Reconciliation ___ Sacrament of Sick ___ Supportive presence ___ Wedding _x_ Other (describe below) Pastoral Comments patient was moved from ICU to PCU and is sleeping at time of visit; daughter of pt is with her and she informs endodontic assistant of status and concerns; family would be open to further contacts with spiritual care and express that pt would be open to that support
[2019-09-16 16:18] LABS: Color, Urine Yellow (Yellow); Glucose, Dipstick Normal (Normal); Ketone-Dipstick 5 mg/dl (Negative); Leukocyte Esterase-Dipstick 500 /ul (Negative); Nitrite-Dipstick Negative (Negative); Occult Blood-Urine 25 /ul (Negative); Protein-Dipstick 30 mg/dl (Negative); Urine Clarity Cloudy (Clear); Urine Urobilinogen 4 mg/dl (Normal)
[2019-09-16 16:24] LABS: Urine Bilirubin Dipstick 1 mg/dL (Negative)
[2019-09-16 16:26] LABS: Red Blood Cells-Urine 0-5 SEEN /hpf (0-5); Squamous Epithelial Cells - UA 0-5 SEEN /hpf (5-10); Transitional Epithelial - Ur 0-5 SEEN /hpf (0-5); White Blood Cells 50-100 SEEN /hpf (0-5)
[2019-09-16 16:27] LABS: Bacteria 4+ /hpf (None Seen); Hyaline Cast 0-5 SEEN /lpf (0-5); Renal Epithelial Cells 0-5 SEEN /hpf (0-5)
[2019-09-16] MEDS: Cefazolin 1 GM/50 ML BAG IV (18:48)
[2019-09-16] MEDS: Atorvastatin Calcium 10 MG Tablet PO (21:13)
[2019-09-16] MEDS: Gabapentin 100 MG Capsule PO (21:13)
[2019-09-17] VITALS (11 sets, daily range): BP systolic 106–150; BP diastolic 48–63; PULSE 57–66; RESP 14–18; TEMP 36.7–37.4; O2SAT 94–99
[2019-09-17 05:32] LABS: Absolute Lymphocyte Count 0.92 X10^3/uL (0.83-4.51); Absolute Neutrophil Count 18.1 X10^3/uL (2.0-7.7); Basophil# 0.02 X10^3/uL; Basophil% 0.1 % (0-1); Eosinophil# 0.03 X10^3/uL; Eosinophils% 0.1 % (0-5); Hematocrit 26.9 % (37-47); Hemoglobin 8.8 g/dL (12.0-15.0); Lymphocyte # 0.92 X10^3/ul (4.0); Lymphocyte % 4.4 % (19-41); Mean Corp Hgb Conc 32.7 g/dL (32-36); Mean Corpuscular Volume 94.7 fL (81-99); Mean Platelet Vol. 11.4 fl (6.2-12.0); Monocyte# 1.39 X10^3/uL; Monocyte% 6.7 % (0-10); NRBC Flagged by Analyzer 0.6 % (0-5); Neutrophil # 18.13 X10^3/uL (2.7-7.7); Neutrophil % 86.9 % (47-70); Platelet Count 228 K/mm3 (150-450); RBC Distribution Width CV 14.4 % (11.6-14.6); RBC Distribution Width SD 49.5 fl (35.1-43.9); Red Blood Count 2.84 M/mm3 (4.2-5.4); White Blood Count 20.9 K/mm3 (4.4-11.0)
[2019-09-17 05:56] LABS: Anion Gap 8 (5-15); BUN 65 mg/dL (7-18); BUN/Creat Ratio 32.2 RATIO (10-20); Calcium,Total 8.6 mg/dL (8.5-10.1); Chloride 97 mmol/L (98-107); Creatinine, Serum 2.02 mg/dL (0.55-1.02); EST Glomerular Filtration Rate 25 mL/min (>60); Est Glom Filt Rate - Afr Amer 31 mL/min (>60); Estimated Creatinine Clearance 18.74 ml/min; Glucose 275 mg/dL (74-106); Phosphorus 2.5 mg/dL (2.5-4.9); Potassium 4.3 mmol/L (3.5-5.1); Sodium Level 129 mmol/L (136-145)
[2019-09-17] MEDS: Levothyroxine 88 MCG Tablet PO (06:45)
[2019-09-17] MEDS: Carbidopa/Levodopa 25/100 Tablet PO ×3 (06:45→16:46)
--- NOTE | 2019-09-17 08:39 | PN.CARD_ITS ---
Subjectve: Patient seen and evaluated. Appears to be doing better. No complaints Objective: Vital Signs Temp Pulse Resp BP Pulse Ox 98.6 F 66 16 108/58 L 95 09/17/19 03:20 09/17/19 03:20 09/17/19 03:20 09/17/19 03:20 09/17/19 03:20 Oxygen Delivery Method Room Air Weight: 161 lb 9.581 oz Body Mass Index (BMI) 28.3 Finger Stick Blood Glucose 195 Intake and Output for Last 24 Hours 09/15/19 09/16/19 09/17/19 23:59 23:59 23:59 Intake Total 2056 / 2056 1200 / 1500 300 / 300 Output Total 300 / 300 Balance 1757 / 1757 1200 / 1500 300 / 300 General: Awake, Alert, Oriented x 3 HEENT: PERRL, EOMI, Sclera Non Icteric Neck: Supple, Good ROM, No Lymph Node Enlargement Lungs: Clear to auscultation Cardiovascular: Regular Rhythm, Normal S1, Normal S2, No Murmurs, No Rubs, No Gallops Vascular: No Carotid Bruits, Normal Femoral Pulses, Normal Radial Pulses, Normal Dorsalis Pedal Pulse, Normal Posterior Tibial Pulses Abdomen: Bowel Sounds Present, Soft, Non Tender, No HSM, No Organomegaly Extremities: No Cyanosis, No Clubbing, No edema Musculoskeletal: No Erythema Skin: No Rashes Lymphatic: No Lymph Node Enlargement Neurological: No Focal Motor or Sensory Deficit Psych/Mental Status: Appropriate 09/16/19 15:55: Urine Color Yellow, Urine Clarity Cloudy, Urine pH 5.0, Ur Specific [place] 1.020, Urine Protein 30 H, Urine Glucose (UA) Normal, Urine Ketones 5 H, Urine Occult Blood 25 H, Urine Nitrite Negative, Urine Bilirubin 1 H, Urine Urobilinogen 4 H, Ur Leukocyte Esterase 500 H, Urine RBC 0-5 SEEN, Urine WBC 50-100 SEEN 09/17/19 05:10: WBC 20.9 H, RBC 2.84 L, Hgb 8.8 L, Hct 26.9 L, MCV 94.7, MCH 31.0, MCHC 32.7, Plt Count 228, MPV 11.4, Immature Gran % (Auto) 1.800 H, Neut % (Auto) 86.9 H, Lymph % (Auto) 4.4 L, [place] % (Auto) 6.7, Eos % (Auto) 0.1, Baso % (Auto) 0.1, Absolute Neuts (auto) 18.1 H, Nucleated RBC % 0.6 09/17/19 05:10: Sodium 129 L, Potassium 4.3, Chloride 97 L, Carbon Dioxide 24.0, Anion Gap 8, BUN 65 H, Creatinine 2.02 H, Est GFR (MDRD) Af Amer 31 L, Est GFR (MDRD) Non-Af 25 L, BUN/Creatinine Ratio 32.2 H, Glucose 275 H, Calcium 8.6, Phosphorus 2.5 Rhythm: EKG: ECHO: Stress Test: Cardiac Cath: PCI: CT Surgery: Holter monitor: EPS: PPM: CXR: Chest CT Scan: Medical Necessity - Tobacco Use Smoking Status: Never smoker Assessment/Plan 1. Chest pain-acute coronary syndrome.. non-ST elevation myocardial infarction * The patient presented with chest discomfort which had some concerning features. Cardiac catheterization demonstrated normal left main coronary artery, Normal left circumflex artery, Proximal 80% left anterior descending artery lesion and proximal to mid 95% lesion. Dominant right coronary artery with 30% diffuse stenosis. Left ventricular systolic dysfunction with anterior apical hypokinesis. Based on the above angiographic findings the alternatives therapies are bypass surgery with a single-vessel RESENDEZ to the LAD or sequential LAD stenting in the left anterior descending artery. * The patient successfully underwent angioplasty and stenting of the left anterior descending artery. Patient tolerated the procedure well. * Echocardiogram performed demonstrated ejection fraction of approximately 30 to 35% with severe hypokinesis and akinesis of the anterior wall and apex. * Will continue therapy as follows Aspirin Low-dose beta-aarti if tolerated--we will continue carvedilol BENEDICT inhibitor to be carefully titrated due to blood pressure issues. The above should likely currently be on hold due to worsening renal function and be started as an outpatient Low-dose statin if tolerated-she appears to be tolerating Lipitor 10 mg * * * Probably stable from the cardiac standpoint for outpatient follow-up with close follow-up of the creatinine * Thank you for allowing me to participate in the care of your patient. Please don't hesitate to call if any issues arise
[2019-09-17] MEDS: Cefazolin 1 GM/50 ML BAG IV ×2 (09:59→22:11)
[2019-09-17] MEDS: TICAGRELOR 90 MG TABLET PO ×2 (10:00→21:59)
[2019-09-17] MEDS: Aspirin E.C. 81 MG Tablet PO (10:00)
[2019-09-17] MEDS: Acetaminophen 325 MG Tablet 650 MG PO ×2 (10:00→22:03)
[2019-09-17] MEDS: 0.9% Saline Lock 10 ML Syringe IV ×2 (10:00→22:19)
[2019-09-17] MEDS: Citalopram 20 MG Tablet PO (10:00)
[2019-09-17] MEDS: Carvedilol 3.125 MG TABLET PO ×2 (10:00→21:59)
--- NOTE | 2019-09-17 11:46 | PCM.PN.HOSP ---
Subjective: Seems to be little bit better today, seems more alert. Vitals/I&O's: Vital Signs Temp Pulse Resp BP Pulse Ox 99.4 F H 64 14 107/50 L 99 09/17/19 09:20 09/17/19 09:20 09/17/19 09:20 09/17/19 09:20 09/17/19 09:20 Oxygen Delivery Method Room Air Weight: 161 lb 9.581 oz Body Mass Index (BMI) 28.3 Finger Stick Blood Glucose 195 Intake and Output for Last 24 Hours 09/15/19 09/16/19 09/17/19 23:59 23:59 23:59 Intake Total 2056 / 2056 1200 / 1500 300 / 300 Output Total 300 / 300 Balance 1757 / 1757 1200 / 1500 300 / 300 General: Alert, Oriented x3, Cooperative, No apparent distress HEENT: Atraumatic, PERRLA, EOMI, Normocephalic Oral: Moist Mucosa Neck: Supple, No JVD Lungs: Clear to auscultation, Normal air movement, No rhonchi, No wheeze, No rales, Diminished Cardiovascular: Regular rate, Regular Rhythm, Normal S1, Normal S2, No murmurs Abdomen: Soft, Non Tender, Non-Distended, No Hepato-splenomegaly Extremities: No edema, Capillary Refill Less than 3 Seconds Skin: No rashes, No breakdown Neurological: Neuro grossly intact, Sensory exam intact to light touch and pain Psych/Mental Status: Normal Affect, Appropriate Laboratory Results 09/16/19 15:55: Urine Color Yellow, Urine Clarity Cloudy, Urine pH 5.0, Ur Specific [place] 1.020, Urine Protein 30 H, Urine Glucose (UA) Normal, Urine Ketones 5 H, Urine Occult Blood 25 H, Urine Nitrite Negative, Urine Bilirubin 1 H, Urine Urobilinogen 4 H, Ur Leukocyte Esterase 500 H, Urine RBC 0-5 SEEN, Urine WBC 50-100 SEEN, Ur Squamous Epith Cells 0-5 SEEN, Ur Transition Epith Cell 0-5 SEEN, Ur Renal Epithelial Cell 0-5 SEEN, Urine Bacteria 4+, Hyaline Casts 0-5 SEEN, Urine Mucus 0 SEEN 09/17/19 05:10: WBC 20.9 H, RBC 2.84 L, Hgb 8.8 L, Hct 26.9 L, MCV 94.7, MCH 31.0, MCHC 32.7, RDW Std Deviation 49.5 H, RDW Coeff of Stephane 14.4, Plt Count 228, MPV 11.4, Immature Gran % (Auto) 1.800 H, Neut % (Auto) 86.9 H, Lymph % (Auto) 4.4 L, [place] % (Auto) 6.7, Eos % (Auto) 0.1, Baso % (Auto) 0.1, Absolute Neuts (auto) 18.1 H, Absolute Lymphs (auto) 0.92, Nucleated RBC % 0.6 09/17/19 05:10: Sodium 129 L, Potassium 4.3, Chloride 97 L, Carbon Dioxide 24.0, Anion Gap 8, BUN 65 H, Creatinine 2.02 H, Estim Creat Clear Calc 18.74, Est GFR (MDRD) Af Amer 31 L, Est GFR (MDRD) Non-Af 25 L, BUN/Creatinine Ratio 32.2 H, Glucose 275 H, Calcium 8.6, Phosphorus 2.5 Current Medications Acetaminophen (Tylenol) 650 mg PO Q6H PRN PRN PRN Reason: Pain Score 1-5/Temp > 100.7 F Last Admin: 09/17/19 10:00 Dose: 650 mg Documented by: Aspirin (Ecotrin) 81 mg PO DAILY@0800 [facility] Last Admin: 09/17/19 10:00 Dose: 81 mg Documented by: Atorvastatin Calcium (Lipitor) 10 mg PO QHS [facility] Last Admin: 09/16/19 21:13 Dose: 10 mg Documented by: Atropine Sulfate () 0.5 mg IV UD PRN PRN Reason: HR <50 bpm Carbidopa/Levodopa (Sinemet) 0.5 tablet PO TIDAC [facility] Last Admin: 09/17/19 06:45 Dose: 0.5 tablet Documented by: Carvedilol (Coreg) 3.125 mg PO BID [facility] Last Admin: 09/17/19 10:00 Dose: 3.125 mg Documented by: Cholecalciferol (Vitamin D) 2,000 unit PO DAILY [facility] Last Admin: 09/17/19 09:59 Dose: 2,000 unit Documented by: Citalopram Hydrobromide (Celexa) 20 mg PO DAILY [facility] Last Admin: 09/17/19 10:00 Dose: 20 mg Documented by: Gabapentin (Neurontin) 100 mg PO QHS [facility] Last Admin: 09/16/19 21:13 Dose: 100 mg Documented by: Glucagon () 1 mg IM .X1 PRN PRN Reason: Hypoglycemia Heparin Sodium (Beef Lung) (Heparin 500 Unit/5 Ml (100/Ml)) 500 unit IV UD PRN PRN Reason: HEPARIN FLUSH Dextrose (Dextrose 10%-Water) 250 mls @ 999 mls/hr IV .Q16M PRN; Protocol PRN Reason: HYPOGLYCEMIA Sodium Chloride () 1,000 mls @ 0 mls/hr IV .Q0M MARIKA Cefazolin Sodium () 1 gm in 50 mls @ 100 mls/hr IV Q12 [facility] Last Admin: 09/17/19 09:59 Dose: 100 mls/hr Documented by: Insulin Human Lispro (Humalog Kwikpen (Bkc)) 0 unit SC ACHS [facility]; Protocol Last Admin: 09/17/19 09:32 Dose: Not Given Documented by: Levothyroxine Sodium (Synthroid) 88 mcg PO DAILY@0600 [facility] Last Admin: 09/17/19 06:45 Dose: 88 mcg Documented by: Morphine Sulfate () 2 mg IV Q3H PRN PRN PRN Reason: Pain Score 6-10/10 Ondansetron HCl (Zofran) 4 mg IV Q8H PRN PRN PRN Reason: NAUSEA/VOMITING Last Admin: 09/16/19 12:10 Dose: 4 mg Documented by: Sodium Chloride () 10 - 40 ml IV UD PRN PRN Reason: SALINE FLUSH Last Admin: 09/17/19 10:00 Dose: 20 ml Documented by: Sodium Chloride () 500 ml IV BOLUS PRN PRN Reason: VASO-VAGAL PROTOCOL Ticagrelor (Brilinta) 90 mg PO BID [facility] Last Admin: 09/17/19 10:00 Dose: 90 mg Documented by: STROKE Vital Signs/Narrative: Vital Signs Temp Pulse Resp BP Pulse Ox 09/17/19 09:20 99.4 F H 64 14 107/50 L 99 Medical Necessity - Tobacco Use Smoking Status: Never smoker Assessment/Plan All Active Problems (Last Updated 09/16/19 @ 09:35 by Irina Liu) History of coronary artery stent placement (Resolved 09/14/19) Atypical chest pain (Resolved) 1. NSTEMI status post stent/CAD/HTN/HLD/ischemic cardiomyopathy -Echo with an EF of 30 to 35% and wall motion abnormality -Stent was placed to mid LAD -Continue with aspirin and Brilinta -Blood pressure medications were changed to Coreg, will discontinue lisinopril as her renal function is climbing 2. Normochromic normocytic anemia/UTI -With elevation in her blood sugars and her leukocytosis, UA was obtained yesterday which did demonstrate a UTI, she was started on Ancef and a urine culture is pending -While dilutional is likely a component of her anemia, her T bili was also elevated at one point during her stay. Will obtain further hematological studies as well as a Hemoccult of her stools though she maintains that she has been having brown stools. There were no RBCs noted on the UA -We will continue to monitor 3. ADALI on CKD 3 -Baseline creatinine is around 1.09, she is currently up to 2.02 will monitor -With her ischemic cardiomyopathy we will hold off any additional IV fluids we will also hold off on any Lasix, will discontinue lisinopril and her Ancef is renally dosed 4. DM 1 -She has an insulin pump which we will continue, will continue with sliding scale insulin at a medium-high dosage -She has been having blood sugars in the 300s which is very abnormal for her and this could either be a stress response to the non-ST segment elevated [place] versus a response to any possible infection especially given that she has a leukocytosis even though she is afebrile 5. Parkinson's/depression/anxiety -Stable -Continue with Sinemet and Celexa DVT: SCDs Code Visit Inpatient E&M: 96761 Subs Hosp L2
[2019-09-17 12:12] LABS: Platelet Count 228 K/mm3 (150-450); Reticulocyte Count 2.12 % (0.5-1.5)
[2019-09-17 12:19] LABS: Iron 24 ug/dL (50-170); Iron Binding Capacity,Total 166 ug/dL (250-450); LDH 393 U/L (84-246); PERCENT IRON SATURATION 14.5 % (15.0-55.0)
[2019-09-17] MEDS: Insulin Lispro 100 UNIT/ML INSULN.PEN SC ×2 (12:29→22:20)
[2019-09-17 15:28] LABS: Bilirubin, Direct 0.47 mg/dL (0.00-0.30)
[2019-09-17] MEDS: Gabapentin 100 MG Capsule PO (21:59)
[2019-09-17] MEDS: Atorvastatin Calcium 10 MG Tablet PO (21:59)
[2019-09-17 23:01] LABS: Bedside Glucose 211 mg/dL (70-110)
[2019-09-18] VITALS (12 sets, daily range): BP systolic 117–137; BP diastolic 47–67; PULSE 60–74; RESP 16–20; TEMP 36.5–37.2; O2SAT 92–100
[2019-09-18 06:05] LABS: Absolute Lymphocyte Count 0.92 X10^3/uL (0.83-4.51); Absolute Neutrophil Count 19.6 X10^3/uL (2.0-7.7); Basophil# 0.07 X10^3/uL; Basophil% 0.3 % (0-1); Eosinophil# 0.01 X10^3/uL; Hematocrit 27.5 % (37-47); Hemoglobin 9.2 g/dL (12.0-15.0); Lymphocyte # 0.92 X10^3/ul (4.0); Mean Corp Hgb Conc 33.5 g/dL (32-36); Mean Corpuscular Hgb 31.8 pg (27.0-32.0); Mean Corpuscular Volume 95.2 fL (81-99); Mean Platelet Vol. 10.9 fl (6.2-12.0); Monocyte# 1.57 X10^3/uL; Monocyte% 6.8 % (0-10); NRBC Flagged by Analyzer 0.5 % (0-5); Neutrophil # 19.56 X10^3/uL (2.7-7.7); Neutrophil % 85.1 % (47-70); POSITIVE DIFFERENTIAL YES; Platelet Count 263 K/mm3 (150-450); RBC Distribution Width CV 14.5 % (11.6-14.6); RBC Distribution Width SD 49.5 fl (35.1-43.9); Red Blood Count 2.89 M/mm3 (4.2-5.4)
[2019-09-18 06:30] LABS: ALB/GLOB Ratio 0.8 RATIO (0.9-2.4); AST(SGOT) 149 U/L (15-37); Alanine Aminotransfer ALT/SGPT 104 U/L (13-56); Alkaline Phosphatase 136 U/L (45-117); Anion Gap 6 (5-15); BUN 68 mg/dL (7-18); BUN/Creat Ratio 40.7 RATIO (10-20); Calcium,Total 9.1 mg/dL (8.5-10.1); Chloride 98 mmol/L (98-107); Creatinine, Serum 1.67 mg/dL (0.55-1.02); EST Glomerular Filtration Rate 32 mL/min (>60); Est Glom Filt Rate - Afr Amer 38 mL/min (>60); Estimated Creatinine Clearance 22.67 ml/min; Globulin 3.7 g/dL (2.2-4.2); Glucose 197 mg/dL (74-106); Potassium 4.5 mmol/L (3.5-5.1); Protein, Total 6.7 g/dL (6.4-8.2); Sodium Level 128 mmol/L (136-145)
[2019-09-18] MEDS: Carbidopa/Levodopa 25/100 Tablet PO ×3 (06:33→17:36)
[2019-09-18] MEDS: Levothyroxine 88 MCG Tablet PO (06:33)
[2019-09-18] MEDS: Insulin Lispro 100 UNIT/ML INSULN.PEN SC ×3 (06:37→21:48)
[2019-09-18 06:45] LABS: Bedside Glucose 203 mg/dL (70-110)
[2019-09-18 07:10] LABS: Differential Indicated SCAN CRITERIA MET
[2019-09-18 07:15] LABS: Differential Comment SCANNED
[2019-09-18 07:16] LABS: Macrocytosis 2+; Polychromasia 1+
[2019-09-18] MEDS: Aspirin E.C. 81 MG Tablet PO (08:29)
[2019-09-18] MEDS: TICAGRELOR 90 MG TABLET PO ×2 (08:30→21:50)
[2019-09-18] MEDS: Carvedilol 3.125 MG TABLET PO ×2 (08:30→21:49)
[2019-09-18] MEDS: Citalopram 20 MG Tablet PO (08:31)
[2019-09-18] MEDS: Cefazolin 1 GM/50 ML BAG IV (08:39)
[2019-09-18] MEDS: 0.9% Saline Lock 10 ML Syringe IV ×3 (08:45→21:56)
[2019-09-18] MEDS: Furosemide 40 MG/4 ML Vial IV (09:14)
--- NOTE | 2019-09-18 10:33 | PN.CARD_ITS ---
Subjectve: Patient seen and evaluated. Feels somewhat better today but slightly short of breath Objective: Vital Signs Temp Pulse Resp BP Pulse Ox 98.2 F 63 20 H 122/47 H 94 09/18/19 08:23 09/18/19 08:23 09/18/19 08:23 09/18/19 08:23 09/18/19 08:23 Oxygen Flow Rate (L/min) 2 Oxygen Delivery Method Nasal Cannula Weight: 164 lb 3.91 oz Body Mass Index (BMI) 28.3 Finger Stick Blood Glucose 195 Intake and Output for Last 24 Hours 09/16/19 09/17/19 09/18/19 23:59 23:59 23:59 Intake Total 1200 / 1500 1620 / 1620 50 / 50 Balance 1200 / 1500 1620 / 1620 50 / 50 General: Awake, Alert, Oriented x 3 HEENT: PERRL, EOMI, Sclera Non Icteric Neck: Supple, Good ROM, No Lymph Node Enlargement Lungs: Clear to auscultation Cardiovascular: Regular Rhythm, Normal S1, Normal S2, No Murmurs, No Rubs, No Gallops Vascular: No Carotid Bruits, Normal Femoral Pulses, Normal Radial Pulses, Normal Dorsalis Pedal Pulse, Normal Posterior Tibial Pulses Abdomen: Bowel Sounds Present, Soft, Non Tender, No HSM, No Organomegaly Extremities: No Cyanosis, No Clubbing, No edema Musculoskeletal: No Erythema Skin: No Rashes Lymphatic: No Lymph Node Enlargement Neurological: No Focal Motor or Sensory Deficit 09/17/19 05:10: WBC 20.9 H, RBC 2.84 L, Hgb 8.8 L, Hct 26.9 L, MCV 94.7, MCH 31.0, MCHC 32.7, Plt Count 228, MPV 11.4, Immature Gran % (Auto) 1.800 H, Neut % (Auto) 86.9 H, Lymph % (Auto) 4.4 L, [place] % (Auto) 6.7, Eos % (Auto) 0.1, Baso % (Auto) 0.1, Absolute Neuts (auto) 18.1 H, Nucleated RBC % 0.6 09/17/19 05:10: Iron 24 L, TIBC 166 L, Iron Saturation 14.5 L 09/17/19 05:10: Total Bilirubin 1.40 H, Direct Bilirubin 0.47 H, Indirect Bilirubin 0.90 09/18/19 05:35: WBC 23.0 H, RBC 2.89 L, Hgb 9.2 L, Hct 27.5 L, MCV 95.2, MCH 31.8, MCHC 33.5, Plt Count 263, MPV 10.9, Immature Gran % (Auto) 3.800 H, Neut % (Auto) 85.1 H, Lymph % (Auto) 4.0 L, [place] % (Auto) 6.8, Eos % (Auto) 0.0, Baso % (Auto) 0.3, Absolute Neuts (auto) 19.6 H, Nucleated RBC % 0.5 09/18/19 05:35: Sodium 128 L, Potassium 4.5, Chloride 98, Carbon Dioxide 24.0, Anion Gap 6, BUN 68 H, Creatinine 1.67 H, Est GFR (MDRD) Af Amer 38 L, Est GFR (MDRD) Non-Af 32 L, BUN/Creatinine Ratio 40.7 H, Glucose 197 H, Calcium 9.1, Total Bilirubin 1.30 H Rhythm: EKG: ECHO: Stress Test: Cardiac Cath: PCI: CT Surgery: Holter monitor: EPS: PPM: CXR: Chest CT Scan: Medical Necessity - Tobacco Use Smoking Status: Never smoker Assessment/Plan 1. Chest pain-acute coronary syndrome.. non-ST elevation myocardial infarction * The patient presented with chest discomfort which had some concerning features. Cardiac catheterization demonstrated normal left main coronary artery, Normal left circumflex artery, Proximal 80% left anterior descending artery lesion and proximal to mid 95% lesion. Dominant right coronary artery with 30% diffuse stenosis. Left ventricular systolic dysfunction with anterior apical hypokinesis. Based on the above angiographic findings the alternatives therapies are bypass surgery with a single-vessel RESENDEZ to the LAD or sequential LAD stenting in the left anterior descending artery. * The patient successfully underwent angioplasty and stenting of the left anterior descending artery. Patient tolerated the procedure well. * Echocardiogram performed demonstrated ejection fraction of approximately 30 to 35% with severe hypokinesis and akinesis of the anterior wall and apex. * Will continue therapy as follows Aspirin Low-dose beta-aarti if tolerated--we will continue carvedilol BENEDICT inhibitor to be carefully titrated due to blood pressure issues. The above should likely currently be on hold due to worsening renal function and be started as an outpatient Low-dose statin if tolerated-she appears to be tolerating Lipitor 10 mg * Patient still has some shortness of breath likely from the increase in the creatinine. She probably still has some fluid overload. On discussion with the hospitalist may not be a bad idea for patient to expect have 1 dose of Lasix. * Liver ultrasound is also pending to exclude any gallbladder pathology as a reason for the abnormal LFTs. If the above is normal then likely passive congestion * * Probably stable from the cardiac standpoint. * Thank you for allowing me to participate in the care of your patient. Please don't hesitate to call if any issues arise
--- NOTE | 2019-09-18 11:32 | US_ITS ---
STUDY: ABDOMINAL ULTRASOUND - RIGHT UPPER QUADRANT REASON FOR VISIT: Female, 74 years old elevated LFTS TECHNIQUE: Ultrasound evaluation of the right upper quadrant was performed with real-time and static sanders-scale imaging. TECHNICAL QUALITY: Adequate. COMPARISON: None. FINDINGS: Liver: The liver measures 14.7 cm. There is mildly heterogeneous echogenicity of the liver. The bile ducts are within normal limits. There is hepatic color flow. The direction of portal flow is hepatopetal. There is no demonstrated mass lesion. Gallbladder: Normal distended gallbladder. The gallbladder wall measures 3 mm. There is a negative sonographic Rollins''s sign. There is no pericholecystic fluid. There are gallstones. Common Bile Duct (C.B.D.): The common bile duct measures 2 mm. Pancreas: Normal size of the head, body and tail of the pancreas. There is normal echogenicity of the pancreas. There is no demonstrated pancreatic mass or cyst. Right Kidney: Normal size of the right kidney. The right kidney measures 10.8 x 3.4 x 3.1 cm. Normal renal cortex. The right cortex measures 1.4 cm. Small echogenic focus at the lower pole may be a punctate calcification or calculus There is no demonstrated renal mass or cyst. There is no right hydronephrosis. There is a right pleural effusion. US/Liver IMPRESSION: Cholelithiasis. No biliary dilatation. Mild heterogeneous hepatic parenchyma. Right pleural effusion. Possible small focal punctate calcification or stone at the lower pole of the right kidney. Electronically Signed: Deep Kelley DO at 18:11 EST Tel [phone], Service support ,
[2019-09-18 11:42] LABS: Haptoglobin 83 mg/dL (42-346)
[2019-09-18 13:05] LABS: Bedside Glucose 336 mg/dL (70-110)
--- NOTE | 2019-09-18 13:12 | PCM.PN.HOSP ---
Subjective: Feels about the same as she has the last couple of days. No dark stools, and her hemoglobin has increased and her kidney function has improved. She is complaining of a little bit of shortness of breath and was placed on oxygen overnight. She also has slight minimal abdominal pain Vitals/I&O's: Vital Signs Temp Pulse Resp BP Pulse Ox 98.2 F 63 20 H 122/47 H 94 09/18/19 08:23 09/18/19 08:23 09/18/19 08:23 09/18/19 08:23 09/18/19 08:23 Oxygen Flow Rate (L/min) 2 Oxygen Delivery Method Nasal Cannula Weight: 164 lb 3.91 oz Body Mass Index (BMI) 28.3 Finger Stick Blood Glucose 195 Intake and Output for Last 24 Hours 09/16/19 09/17/19 09/18/19 23:59 23:59 23:59 Intake Total 1200 / 1500 1620 / 1620 290 / 290 Balance 1200 / 1500 1620 / 1620 290 / 290 General: Alert, Oriented x3, Cooperative, No apparent distress HEENT: Atraumatic, PERRLA, EOMI, Normocephalic Oral: Moist Mucosa Neck: Supple, No JVD Lungs: Clear to auscultation, Normal air movement, No rhonchi, No wheeze, No rales, Diminished Cardiovascular: Regular rate, Regular Rhythm, Normal S1, Normal S2, No murmurs Abdomen: Soft, mildly tender to right upper quadrant palpation, Non-Distended, No Hepato-splenomegaly Extremities: No edema, Capillary Refill Less than 3 Seconds Skin: No rashes, No breakdown Neurological: Neuro grossly intact, Sensory exam intact to light touch and pain Psych/Mental Status: Normal Affect, Appropriate Microbiology Past 72 Hours 09/16/19 15:55 Urine, Clean Catch Urine Culture - Preliminary GPC Poss Enterococcus sp Laboratory Results 09/17/19 05:10: WBC 20.9 H, RBC 2.84 L, Hgb 8.8 L, Hct 26.9 L, MCV 94.7, MCH 31.0, MCHC 32.7, RDW Std Deviation 49.5 H, RDW Coeff of Stephane 14.4, Plt Count 228, MPV 11.4, Immature Gran % (Auto) 1.800 H, Neut % (Auto) 86.9 H, Lymph % (Auto) 4.4 L, [place] % (Auto) 6.7, Eos % (Auto) 0.1, Baso % (Auto) 0.1, Absolute Neuts (auto) 18.1 H, Absolute Lymphs (auto) 0.92, Nucleated RBC % 0.6, Diff Path Review Carleen manriquez 09/17/19 05:10: Haptoglobin 83 09/17/19 05:10: Total Bilirubin 1.40 H, Direct Bilirubin 0.47 H, Indirect Bilirubin 0.90 09/17/19 22:17: POC Glucose 211 H 09/18/19 05:35: WBC 23.0 H, RBC 2.89 L, Hgb 9.2 L, Hct 27.5 L, MCV 95.2, MCH 31.8, MCHC 33.5, RDW Std Deviation 49.5 H, RDW Coeff of Stephane 14.5, Plt Count 263, MPV 10.9, Immature Gran % (Auto) 3.800 H, Neut % (Auto) 85.1 H, Lymph % (Auto) 4.0 L, [place] % (Auto) 6.8, Eos % (Auto) 0.0, Baso % (Auto) 0.3, Absolute Neuts (auto) 19.6 H, Absolute Lymphs (auto) 0.92, Nucleated RBC % 0.5, Differential Comment SCANNED, Diff Path Review January mitra, Polychromasia 1+, Macrocytosis 2+ 09/18/19 05:35: Sodium 128 L, Potassium 4.5, Chloride 98, Carbon Dioxide 24.0, Anion Gap 6, BUN 68 H, Creatinine 1.67 H, Estim Creat Clear Calc 22.67, Est GFR (MDRD) Af Amer 38 L, Est GFR (MDRD) Non-Af 32 L, BUN/Creatinine Ratio 40.7 H, Glucose 197 H, Calcium 9.1, Total Bilirubin 1.30 H, AST 149 H, ALT 104 H, Alkaline Phosphatase 136 H, Total Protein 6.7, Albumin 3.0 L, Globulin 3.7, Albumin/Globulin Ratio 0.8 L 09/18/19 06:36: POC Glucose 203 H 09/18/19 11:57: POC Glucose 336 H Current Medications Acetaminophen (Tylenol) 650 mg PO Q6H PRN PRN PRN Reason: Pain Score 1-5/Temp > 100.7 F Last Admin: 09/17/19 22:03 Dose: 650 mg Documented by: Aspirin (Ecotrin) 81 mg PO DAILY@0800 [facility] Last Admin: 09/18/19 08:29 Dose: 81 mg Documented by: Atorvastatin Calcium (Lipitor) 10 mg PO QHS [facility] Last Admin: 09/17/19 21:59 Dose: 10 mg Documented by: Atropine Sulfate () 0.5 mg IV UD PRN PRN Reason: HR <50 bpm Carbidopa/Levodopa (Sinemet) 0.5 tablet PO TIDAC [facility] Last Admin: 09/18/19 11:59 Dose: 0.5 tablet Documented by: Carvedilol (Coreg) 3.125 mg PO BID [facility] Last Admin: 09/18/19 08:30 Dose: 3.125 mg Documented by: Cholecalciferol (Vitamin D) 2,000 unit PO DAILY [facility] Last Admin: 09/18/19 08:30 Dose: 2,000 unit Documented by: Citalopram Hydrobromide (Celexa) 20 mg PO DAILY [facility] Last Admin: 09/18/19 08:31 Dose: 20 mg Documented by: Gabapentin (Neurontin) 100 mg PO QHS [facility] Last Admin: 09/17/19 21:59 Dose: 100 mg Documented by: Glucagon () 1 mg IM .X1 PRN PRN Reason: Hypoglycemia Heparin Sodium (Beef Lung) (Heparin 500 Unit/5 Ml (100/Ml)) 500 unit IV UD PRN PRN Reason: HEPARIN FLUSH Dextrose (Dextrose 10%-Water) 250 mls @ 999 mls/hr IV .Q16M PRN; Protocol PRN Reason: HYPOGLYCEMIA Sodium Chloride () 1,000 mls @ 0 mls/hr IV .Q0M [facility] Cefazolin Sodium () 1 gm in 50 mls @ 100 mls/hr IV Q12 [facility] Last Infusion: 09/18/19 10:09 Dose: Infused Documented by: Insulin Human Lispro (Humalog Carlitos (Bkc)) 0 unit SC ACHS [facility]; Protocol Last Admin: 09/18/19 11:59 Dose: 8 units Documented by: Levothyroxine Sodium (Synthroid) 88 mcg PO DAILY@0600 [facility] Last Admin: 09/18/19 06:33 Dose: 88 mcg Documented by: Morphine Sulfate () 2 mg IV Q3H PRN PRN PRN Reason: Pain Score 6-10/10 Ondansetron HCl (Zofran) 4 mg IV Q8H PRN PRN PRN Reason: NAUSEA/VOMITING Last Admin: 09/16/19 12:10 Dose: 4 mg Documented by: Sodium Chloride () 10 - 40 ml IV UD PRN PRN Reason: SALINE FLUSH Last Admin: 09/18/19 09:14 Dose: 10 ml Documented by: Sodium Chloride () 500 ml IV BOLUS PRN PRN Reason: VASO-VAGAL PROTOCOL Ticagrelor (Brilinta) 90 mg PO BID [facility] Last Admin: 09/18/19 08:30 Dose: 90 mg Documented by: Medical Necessity - Tobacco Use Smoking Status: Never smoker Assessment/Plan All Active Problems (Last Updated 09/16/19 @ 09:35 by Irina Liu) History of coronary artery stent placement (Resolved 09/14/19) Atypical chest pain (Resolved) 1. NSTEMI status post stent/CAD/HTN/HLD/ischemic cardiomyopathy -Echo with an EF of 30 to 35% and wall motion abnormality -Stent was placed to mid LAD -Continue with aspirin and Brilinta -Blood pressure medications were changed to Coreg, will discontinue lisinopril as her renal function is climbing 2. Normochromic normocytic anemia/UTI -With elevation in her blood sugars and her leukocytosis, UA was obtained yesterday which did demonstrate a UTI, she was started on Ancef and a urine culture is pending -Her leukocytosis increased to 23, given her worsening LFTs will obtain a right upper quadrant ultrasound to evaluate her gallbladder and her liver -While dilution is likely a component of her anemia, her hemolysis has been negative, she is hypoproliferative however haptoglobin is normal despite an elevation in her LDH. Her hemoglobin increased from 8.8 to 9.2 today -We will continue to monitor 3. ADALI on CKD 3 -Baseline creatinine is around 1.09, is now 1.67 down from 2.02 -With her ischemic cardiomyopathy we will hold off any additional IV fluids we will also hold off on any Lasix, will discontinue lisinopril and her Ancef is renally dosed -Given her new onset shortness of breath, will provide some Lasix to help diurese since she received about 7 L of IV fluids 4. DM 1 -She has an insulin pump which we will continue, will continue with sliding scale insulin at a medium-high dosage -She has been having blood sugars in the 300s which is very abnormal for her and this could either be a stress response to the non-ST segment elevated [place] versus a response to any possible infection especially given that she has a leukocytosis even though she is afebrile 5. Parkinson's/depression/anxiety -Stable -Continue with Sinemet and Celexa DVT: SCDs Code Visit Inpatient E&M: 89136 Subs Hosp L2
[2019-09-18 13:49] LABS: Pathologist Review Reviewed
[2019-09-18 13:52] LABS: Pathologist Review Reviewed
[2019-09-18 16:55] LABS: Bedside Glucose 146 mg/dL (70-110)
[2019-09-18] MEDS: Gabapentin 100 MG Capsule PO (21:50)
[2019-09-18] MEDS: Atorvastatin Calcium 10 MG Tablet PO (21:50)
[2019-09-18 22:05] LABS: Bedside Glucose 259 mg/dL (70-110)
[2019-09-19] VITALS (14 sets, daily range): BP systolic 114–136; BP diastolic 45–56; PULSE 37–85; RESP 20–24; TEMP 36.7–37.4; O2SAT 94–97
[2019-09-19 05:15] LABS: Hematocrit 29.5 % (37-47); Hemoglobin 9.8 g/dL (12.0-15.0); Mean Corp Hgb Conc 33.2 g/dL (32-36); Mean Corpuscular Volume 93.4 fL (81-99); POSITIVE COUNT YES; POSITIVE DIFFERENTIAL YES; POSITIVE MORPHOLOGY YES; Platelet Count 286 K/mm3 (150-450); RBC Distribution Width CV 14.5 % (11.6-14.6); RBC Distribution Width SD 48.6 fl (35.1-43.9); Red Blood Count 3.16 M/mm3 (4.2-5.4); White Blood Count 20.6 K/mm3 (4.4-11.0)
[2019-09-19 05:22] LABS: Differential Indicated MANUAL DIFF
[2019-09-19 05:35] LABS: Eosinophil 1 % (0-5); Lymphocyte 4 % (19-41); Metamyelocyte 3 % (0-1); Monocyte 2 % (0-10); Neutrophil-Band 1 % (0-5); Neutrophil-Segmented 89 % (47-70); Nucleated Red Bld Cells,Manual 4 % (0-5); Total Cells Counted 100 (MANUAL DIFF)
[2019-09-19 05:36] LABS: Hypochromasia 2+; Macrocytosis 2+; Ovalocyte 2+; Platelet Estimate ADEQUATE (ADEQ); Polychromasia 1+; Target Cells RARE; Vacuolated Cells 2+
[2019-09-19 05:37] LABS: Absolute Lymphocyte Count 0.82 X10^3/uL (0.83-4.51); Absolute Neutrophil Count 18.3 X10^3/uL (2.0-7.7); Lymphocyte # 0.82 X10^3/ul (4.0); Neutrophil # 18.33 X10^3/uL (2.7-7.7)
[2019-09-19 05:38] LABS: Anion Gap 9 (5-15); BUN 56 mg/dL (7-18); BUN/Creat Ratio 42.7 RATIO (10-20); Calcium,Total 8.8 mg/dL (8.5-10.1); Chloride 98 mmol/L (98-107); Creatinine, Serum 1.31 mg/dL (0.55-1.02); EST Glomerular Filtration Rate 42 mL/min (>60); Est Glom Filt Rate - Afr Amer 51 mL/min (>60); Glucose 173 mg/dL (74-106); Potassium 3.8 mmol/L (3.5-5.1); Sodium Level 130 mmol/L (136-145)
[2019-09-19] MEDS: Levothyroxine 88 MCG Tablet PO (06:27)
[2019-09-19] MEDS: Carbidopa/Levodopa 25/100 Tablet PO ×3 (06:27→16:54)
[2019-09-19] MEDS: Insulin Lispro 100 UNIT/ML INSULN.PEN SC ×4 (06:30→22:04)
[2019-09-19 06:55] LABS: Bedside Glucose 183 mg/dL (70-110)
--- NOTE | 2019-09-19 07:32 | RAD_ITS ---
STUDY: X-RAY CHEST REASON FOR EXAM: Female, 74 years old. SHORTNESS OF BREATH TECHNIQUE: PA and lateral views of the chest. COMPARISON: Comparison is made with prior study dated September 14, 2019. FINDINGS: EKG electrodes are seen. Since prior study, there has been progressive infiltration in both lung bases worse on the left side with blunting of both costophrenic angles. There is borderline cardiomegaly. Normal mediastinum and pritesh. Normal visualized pulmonary arteries. There is atherosclerotic calcification of the aortic arch with tortuosity. There are diffuse degenerative changes of the visualized thoracic spine. Increased kyphosis. Normal visualized ribs, clavicles, and shoulders. There is no demonstrated abnormality of the visualized soft tissue structures of the upper abdomen. RAD/Chest PA and Lateral IMPRESSION: Progressive bilateral basilar infiltrates left greater than right with small bilateral pleural effusions. Electronically Signed: Tucker Gillespie, at 8:10 EST , Service support ,
--- NOTE | 2019-09-19 07:53 | PN.CARD_ITS ---
Subjectve: Patient seen and evaluated. Appears to be doing better this morning Objective: Vital Signs Temp Pulse Resp BP Pulse Ox 98.0 F 37 L 24 H 136/52 H 95 09/19/19 04:00 09/19/19 05:11 09/19/19 04:00 09/19/19 04:00 09/19/19 04:00 Oxygen Flow Rate (L/min) 3 Oxygen Delivery Method Nasal Cannula Weight: 162 lb 4.163 oz Body Mass Index (BMI) 28.3 Finger Stick Blood Glucose 195 Intake and Output for Last 24 Hours 09/17/19 09/18/19 09/19/19 23:59 23:59 23:59 Intake Total 1620 / 1620 642 / 642 Balance 1620 / 1620 642 / 642 General: Awake, Alert, Oriented x 3 HEENT: PERRL, EOMI, Sclera Non Icteric Neck: Supple, Good ROM, No Lymph Node Enlargement Lungs: Clear to auscultation Cardiovascular: Regular Rhythm, Normal S1, Normal S2, No Murmurs, No Rubs, No Gallops Vascular: No Carotid Bruits, Normal Femoral Pulses, Normal Radial Pulses, Normal Dorsalis Pedal Pulse, Normal Posterior Tibial Pulses Abdomen: Bowel Sounds Present, Soft, Non Tender, No HSM, No Organomegaly Extremities: No Cyanosis, No Clubbing, No edema Musculoskeletal: No Erythema Skin: No Rashes Lymphatic: No Lymph Node Enlargement Neurological: No Focal Motor or Sensory Deficit 09/19/19 04:40: WBC 20.6 H, RBC 3.16 L, Hgb 9.8 L, Hct 29.5 L, MCV 93.4, MCH 31.0, MCHC 33.2, Plt Count 286, MPV 11.0, Neut % (Auto) Not Reportable, Absolute Neuts (auto) 18.3 H, Total Counted 100, Neutrophils % (Manual) 89 H, Band Neutr ophils % 1, Lymphocytes % (Manual) 4 L, Monocytes % (Manual) 2, Eosinophils % (Manual) 1, Metamyelocytes % 3 H 09/19/19 04:40: Sodium 130 L, Potassium 3.8, Chloride 98, Carbon Dioxide 23.0, Anion Gap 9, BUN 56 H, Creatinine 1.31 H, Est GFR (MDRD) Af Amer 51 L, Est GFR (MDRD) Non-Af 42 L, BUN/Creatinine Ratio 42.7 H, Glucose 173 H, Calcium 8.8 Rhythm: EKG: ECHO: Stress Test: Cardiac Cath: PCI: CT Surgery: Holter monitor: EPS: PPM: CXR: Chest CT Scan: Medical Necessity - Tobacco Use Smoking Status: Never smoker Assessment/Plan 1. Chest pain-acute coronary syndrome.. non-ST elevation myocardial infarction * The patient presented with chest discomfort which had some concerning features. Cardiac catheterization demonstrated normal left main coronary artery, Normal left circumflex artery, Proximal 80% left anterior descending artery lesion and proximal to mid 95% lesion. Dominant right coronary artery with 30% diffuse stenosis. Left ventricular systolic dysfunction with anterior apical hypokinesis. Based on the above angiographic findings the alternatives therapies are bypass surgery with a single-vessel RESENDEZ to the LAD or sequential LAD stenting in the left anterior descending artery. * The patient successfully underwent angioplasty and stenting of the left anterior descending artery. Patient tolerated the procedure well. * Echocardiogram performed demonstrated ejection fraction of approximately 30 to 35% with severe hypokinesis and akinesis of the anterior wall and apex. * Will continue therapy as follows Aspirin Low-dose beta-aarti if tolerated--we will continue carvedilol BENEDICT inhibitor to be carefully titrated due to blood pressure issues. The above should likely currently be on hold due to worsening renal function and be started as an outpatient Low-dose statin if tolerated-she appears to be tolerating Lipitor 10 mg * Patient still has some shortness of breath likely from the increase in the creatinine. She probably still has some fluid overload. On discussion with the hospitalist may not be a bad idea for patient to expect have 1 dose of Lasix. * Liver ultrasound is also pending to exclude any gallbladder pathology as a reason for the abnormal LFTs. If the above is normal then likely passive congestion * Overall she appears to doing better this morning with improvement in her renal function as well. * Probably stable from the cardiac standpoint. * Thank you for allowing me to participate in the care of your patient. Please don't hesitate to call if any issues arise
[2019-09-19 08:09] LABS: AST(SGOT) 160 U/L (15-37); Alanine Aminotransfer ALT/SGPT 148 U/L (13-56); Albumin, Serum 2.9 g/dL (3.2-5.0); Alkaline Phosphatase 136 U/L (45-117); Bilirubin, Direct 0.53 mg/dL (0.00-0.30); Globulin 4.2 g/dL (2.2-4.2); Protein, Total 7.1 g/dL (6.4-8.2)
[2019-09-19] MEDS: Furosemide 40 MG/4 ML Vial IV ×2 (09:01→15:40)
[2019-09-19] MEDS: 0.9% Saline Lock 10 ML Syringe IV ×4 (09:02→23:46)
[2019-09-19] MEDS: Citalopram 20 MG Tablet PO (09:07)
[2019-09-19] MEDS: Aspirin E.C. 81 MG Tablet PO (09:07)
[2019-09-19] MEDS: Carvedilol 3.125 MG TABLET PO ×2 (09:07→22:04)
[2019-09-19] MEDS: TICAGRELOR 90 MG TABLET PO ×2 (09:07→22:04)
[2019-09-19 09:20] LABS: Vitamin B12 > 2000 pg/mL (211-911)
[2019-09-19 12:01] LABS: Bedside Glucose 299 mg/dL (70-110)
--- NOTE | 2019-09-19 14:29 | PCM.PN.HOSP ---
Subjective: Seems to be doing about the same as she was yesterday, still has some difficulty breathing and the family noticed that she perks up whenever she gets a dose of Lasix Vitals/I&O's: Vital Signs Temp Pulse Resp BP Pulse Ox 99.3 F H 76 20 H 118/56 L 94 09/19/19 10:00 09/19/19 11:00 09/19/19 10:00 09/19/19 10:00 09/19/19 10:00 Oxygen Flow Rate (L/min) 2 Oxygen Delivery Method Nasal Cannula Weight: 162 lb 4.163 oz Body Mass Index (BMI) 28.3 Finger Stick Blood Glucose 195 Intake and Output for Last 24 Hours 09/17/19 09/18/19 09/19/19 23:59 23:59 23:59 Intake Total 1620 / 1620 642 / 642 352 / 352 Balance 1620 / 1620 642 / 642 352 / 352 General: Alert, Oriented x3, Cooperative, No apparent distress HEENT: Atraumatic, PERRLA, EOMI, Normocephalic Oral: Moist Mucosa Neck: Supple, No JVD Lungs: Clear to auscultation, Normal air movement, No rhonchi, No wheeze, No rales, Diminished Cardiovascular: Regular rate, Regular Rhythm, Normal S1, Normal S2, No murmurs Abdomen: Soft, mildly tender to right upper quadrant palpation, Non-Distended, No Hepato-splenomegaly Extremities: No edema, Capillary Refill Less than 3 Seconds Skin: No rashes, No breakdown Neurological: Neuro grossly intact, Sensory exam intact to light touch and pain Psych/Mental Status: Normal Affect, Appropriate Microbiology Past 72 Hours 09/19/19 07:40 Stool Stool Occult Blood (POPPY) - Final 09/16/19 15:55 Urine, Clean Catch Urine Culture - Final Enterococcus faecalis Laboratory Results 09/18/19 16:36: POC Glucose 146 H 09/18/19 21:47: POC Glucose 259 H 09/19/19 04:40: WBC 20.6 H, RBC 3.16 L, Hgb 9.8 L, Hct 29.5 L, MCV 93.4, MCH 31.0, MCHC 33.2, RDW Std Deviation 48.6 H, RDW Coeff of Stephane 14.5, Plt Count 286, MPV 11.0, Neut % (Auto) Not Reportable, Absolute Neuts (auto) 18.3 H, Absolute Lymphs (auto) 0.82 L, Total Counted 100, Neutrophils % (Manual) 89 H, Band Neutrophils % 1, Lymphocytes % (Manual) 4 L, Monocytes % (Manual) 2, Eosinophils % (Manual) 1, Metamyelocytes % 3 H, Nucleated RBCs/100 WBC 4, Diff Path Review May foll, Toxic Vacuolation 2+, Platelet Estimate ADEQUATE, Polychromasia 1+, Hypochromasia 2+, Macrocytosis 2+, Target Cells RARE, Ovalocytes 2+ 09/19/19 04:40: Sodium 130 L, Potassium 3.8, Chloride 98, Carbon Dioxide 23.0, Anion Gap 9, BUN 56 H, Creatinine 1.31 H, Estim Creat Clear Calc 28.90, Est GFR (MDRD) Af Amer 51 L, Est GFR (MDRD) Non-Af 42 L, BUN/Creatinine Ratio 42.7 H, Glucose 173 H, Calcium 8.8 09/19/19 04:40: Total Bilirubin 1.70 H, Direct Bilirubin 0.53 H, AST 160 H, ALT 148 H, Alkaline Phosphatase 136 H, Total Protein 7.1, Albumin 2.9 L, Globulin 4.2 09/19/19 04:40: Vitamin B12 > 2000 H 09/19/19 06:30: POC Glucose 183 H 09/19/19 11:33: POC Glucose 299 H Current Medications Acetaminophen (Tylenol) 650 mg PO Q6H PRN PRN PRN Reason: Pain Score 1-5/Temp > 100.7 F Last Admin: 09/17/19 22:03 Dose: 650 mg Documented by: Aspirin (Ecotrin) 81 mg PO DAILY@0800 [facility] Last Admin: 09/19/19 09:07 Dose: 81 mg Documented by: Atorvastatin Calcium (Lipitor) 10 mg PO QHS [facility] Last Admin: 09/18/19 21:50 Dose: 10 mg Documented by: Atropine Sulfate () 0.5 mg IV UD PRN PRN Reason: HR <50 bpm Carbidopa/Levodopa (Sinemet) 0.5 tablet PO TIDAC [facility] Last Admin: 09/19/19 11:36 Dose: 0.5 tablet Documented by: Carvedilol (Coreg) 3.125 mg PO BID [facility] Last Admin: 09/19/19 09:07 Dose: 3.125 mg Documented by: Cholecalciferol (Vitamin D) 2,000 unit PO DAILY [facility] Last Admin: 09/19/19 09:07 Dose: 2,000 unit Documented by: Citalopram Hydrobromide (Celexa) 20 mg PO DAILY [facility] Last Admin: 09/19/19 09:07 Dose: 20 mg Documented by: Furosemide (Lasix) 40 mg IV X1 ONE Stop: 09/19/19 14:29 Gabapentin (Neurontin) 100 mg PO QHS [facility] Last Admin: 09/18/19 21:50 Dose: 100 mg Documented by: Glucagon () 1 mg IM .X1 PRN PRN Reason: Hypoglycemia Heparin Sodium (Beef Lung) (Heparin 500 Unit/5 Ml (100/Ml)) 500 unit IV UD PRN PRN Reason: HEPARIN FLUSH Dextrose (Dextrose 10%-Water) 250 mls @ 999 mls/hr IV .Q16M PRN; Protocol PRN Reason: HYPOGLYCEMIA Sodium Chloride () 1,000 mls @ 0 mls/hr IV .Q0M [facility] Ampicillin Sodium/Sulbactam (Sodium 3 gm/ Sodium Chloride) 112 mls @ 150 mls/hr IV Q12 [facility] Last Infusion: 09/19/19 10:30 Dose: Infused Documented by: Insulin Human Lispro (Humalog Opalpen (Bkc)) 0 unit SC ACHS [facility]; Protocol Last Admin: 09/19/19 11:37 Dose: 6 units Documented by: Levothyroxine Sodium (Synthroid) 88 mcg PO DAILY@0600 [facility] Last Admin: 09/19/19 06:27 Dose: 88 mcg Documented by: Morphine Sulfate () 2 mg IV Q3H PRN PRN PRN Reason: Pain Score 6-10/10 Ondansetron HCl (Zofran) 4 mg IV Q8H PRN PRN PRN Reason: NAUSEA/VOMITING Last Admin: 09/16/19 12:10 Dose: 4 mg Documented by: Sodium Chloride () 10 - 40 ml IV UD PRN PRN Reason: SALINE FLUSH Last Admin: 09/19/19 09:02 Dose: 10 ml Documented by: Sodium Chloride () 500 ml IV BOLUS PRN PRN Reason: VASO-VAGAL PROTOCOL Ticagrelor (Brilinta) 90 mg PO BID [facility] Last Admin: 09/19/19 09:07 Dose: 90 mg Documented by: STROKE Vital Signs/Narrative: Vital Signs Pulse 09/19/19 11:00 76 Medical Necessity - Tobacco Use Smoking Status: Never smoker Assessment/Plan All Active Problems (Last Updated 09/16/19 @ 09:35 by Irina Liu) History of coronary artery stent placement (Resolved 09/14/19) Atypical chest pain (Resolved) 1. NSTEMI status post stent/CAD/HTN/HLD/ischemic cardiomyopathy -Echo with an EF of 30 to 35% and wall motion abnormality -Stent was placed to mid LAD -Continue with aspirin and Brilinta -Blood pressure medications were changed to Coreg, she received a dose of Lasix this morning, will repeat another dose this afternoon as she is now on IV Unasyn which has a fairly large fluid load to it 2. Normochromic normocytic anemia/UTI -With elevation in her blood sugars and her leukocytosis, UA was obtained yesterday which did demonstrate a UTI, she was started on Ancef and a urine culture is pending -Her leukocytosis increased to 23, given her worsening LFTs a right upper quadrant ultrasound was obtained to evaluate her gallbladder and her liver, there is no sign of cholecystitis -Her LFTs continue to climb, however her creatinine is much improved and her hemoglobin has increased to 9.8 today. We will continue with Unasyn for the enterococcus growing in her urine which is pansensitive -While dilution is likely a component of her anemia, her hemolysis has been negative, she is hypoproliferative however haptoglobin is normal despite an elevation in her LDH. Her hemoglobin increased from 8.8 to 9.8 today -We will continue to monitor, vitamin B12 level was elevated to greater than 2000 despite the microcytosis on pathology review of her CBC 3. ADALI on CKD 3 -Baseline creatinine is around 1.09, is now 1.67 down from 2.02 -With her ischemic cardiomyopathy we will hold off any additional IV fluids we will also hold off on any Lasix, will discontinue lisinopril and her Ancef is renally dosed -Given her new onset shortness of breath, will provide some Lasix to help diurese since she received about 7 L of IV fluids 4. DM 1 -She has an insulin pump which we will continue, will continue with sliding scale insulin at a medium-high dosage -She has been having blood sugars in the 300s which is very abnormal for her and this could either be a stress response to the non-ST segment elevated [place] versus a response to any possible infection especially given that she has a leukocytosis even though she is afebrile 5. Parkinson's/depression/anxiety -Stable -Continue with Sinemet and Celexa DVT: SCDs Code Visit Inpatient E&M: 94200 Subs Hosp L2
[2019-09-19 14:36] LABS: Pathologist Review Reviewed
--- NOTE | 2019-09-19 17:03 | CHAPLAIN ---
Type of Pastoral Visit ___ Initial Visit _x__ Follow-up Visit ___ On-call Visit ___ General Patient Visit ___ Spiritual Assessment ___ Family Conference ___ Bereavement ___ Rapid Response ___ Code Blue ___ Other (describe below) Pastoral Care Referral From _x__ Patient ___ Family ___ Nurse ___ Physician ___ Feather Cutting Machine Feeder ___ Laser Set Up Operator ___ Other (describe below) Sacrament/Intervention _x__ Active listening ___ Anointing ___ Presybeterian ___ Bereavement ___ Communion _x__ Alicia exploration ___ _x__ Life review _x__ Prayer ___ Reconciliation ___ Sacrament of Sick _x__ Supportive presence ___ Wedding ___ Other (describe below) Pastoral Comments
[2019-09-19 18:06] LABS: Bedside Glucose 218 mg/dL (70-110)
[2019-09-19] MEDS: Atorvastatin Calcium 10 MG Tablet PO (22:04)
[2019-09-19] MEDS: Gabapentin 100 MG Capsule PO (22:04)
[2019-09-19 22:26] LABS: Bedside Glucose 214 mg/dL (70-110)
[2019-09-20] VITALS (18 sets, daily range): BP systolic 100–122; BP diastolic 51–65; PULSE 69–136; RESP 18–22; TEMP 36.7–37.2; O2SAT 91–100
[2019-09-20 00:45] LABS: Bedside Glucose 97 mg/dL (70-110)
--- NOTE | 2019-09-20 00:47 | EKG12_ITS ---
Test Reason : PALPITATIONS Blood Pressure : / mmHG Vent. Rate : 072 BPM Atrial Rate : 072 BPM P-R Int : 144 ms QRS Dur : 076 ms QT Int : 450 ms P-R-T Axes : 026 027 218 degrees QTc Int : 492 ms Normal sinus rhythm Low voltage QRS T wave abnormality, consider inferior ischemia T wave abnormality, consider anterolateral ischemia Prolonged QT Abnormal ECG Confirmed by CRESENCIO CALDERA MD ([id number]), managing editor YOHAN DUNCAN ([id number]) on 10/01/2019 9:58:01 AM Referred By: SLIME Confirmed By:CRESENCIO CALDERA MD
[2019-09-20] MEDS: 0.9% Saline Lock 10 ML Syringe IV ×5 (02:40→21:17)
[2019-09-20] MEDS: Metoprolol Tartrate 5 MG/5 ML Vial IV (02:40)
[2019-09-20 05:52] LABS: Hematocrit 29.2 % (37-47); Hemoglobin 9.8 g/dL (12.0-15.0); Mean Corp Hgb Conc 33.6 g/dL (32-36); Mean Corpuscular Hgb 31.5 pg (27.0-32.0); Mean Corpuscular Volume 93.9 fL (81-99); Mean Platelet Vol. 10.7 fl (6.2-12.0); POSITIVE COUNT YES; POSITIVE DIFFERENTIAL YES; POSITIVE MORPHOLOGY YES; Platelet Count 323 K/mm3 (150-450); RBC Distribution Width CV 14.9 % (11.6-14.6); RBC Distribution Width SD 50.4 fl (35.1-43.9); Red Blood Count 3.11 M/mm3 (4.2-5.4); White Blood Count 20.9 K/mm3 (4.4-11.0)
[2019-09-20 05:55] LABS: Differential Indicated MANUAL DIFF
[2019-09-20 06:29] LABS: ALB/GLOB Ratio 0.7 RATIO (0.9-2.4); AST(SGOT) 154 U/L (15-37); Alanine Aminotransfer ALT/SGPT 167 U/L (13-56); Albumin, Serum 2.6 g/dL (3.2-5.0); Alkaline Phosphatase 124 U/L (45-117); Anion Gap 9 (5-15); BUN 47 mg/dL (7-18); BUN/Creat Ratio 34.3 RATIO (10-20); Calcium,Total 8.4 mg/dL (8.5-10.1); Chloride 96 mmol/L (98-107); Creatinine, Serum 1.37 mg/dL (0.55-1.02); EST Glomerular Filtration Rate 40 mL/min (>60); Est Glom Filt Rate - Afr Amer 48 mL/min (>60); Estimated Creatinine Clearance 27.63 ml/min; Globulin 3.8 g/dL (2.2-4.2); Glucose 189 mg/dL (74-106); Potassium 3.1 mmol/L (3.5-5.1); Protein, Total 6.4 g/dL (6.4-8.2); Sodium Level 133 mmol/L (136-145)
[2019-09-20] MEDS: Insulin Lispro 100 UNIT/ML INSULN.PEN SC ×4 (06:35→21:18)
[2019-09-20] MEDS: Levothyroxine 88 MCG Tablet PO (06:35)
[2019-09-20] MEDS: Carbidopa/Levodopa 25/100 Tablet PO ×3 (06:35→16:49)
[2019-09-20 06:49] LABS: Eosinophil 2 % (0-5); Lymphocyte 6 % (19-41); Metamyelocyte 7 % (0-1); Monocyte 6 % (0-10); Neutrophil-Band 3 % (0-5); Neutrophil-Segmented 76 % (47-70); Nucleated Red Bld Cells,Manual 1 % (0-5); Platelet Estimate ADEQUATE (ADEQ); Total Cells Counted 100 (MANUAL DIFF)
[2019-09-20 06:50] LABS: Absolute Lymphocyte Count 1.25 X10^3/uL (0.83-4.51); Absolute Neutrophil Count 16.1 X10^3/uL (2.0-7.7); Lymphocyte # 1.25 X10^3/ul (4.0); Macrocytosis 1+; Neutrophil # 16.11 X10^3/uL (2.7-7.7); Red Cell Morphology NORM C+C NORMAL (NORM C&C)
[2019-09-20 06:51] LABS: Bedside Glucose 191 mg/dL (70-110)
[2019-09-20] MEDS: Aspirin E.C. 81 MG Tablet PO (07:28)
[2019-09-20 09:25] LABS: Magnesium 1.7 mg/dL (1.6-2.6)
--- NOTE | 2019-09-20 09:28 | CASEMGMT ---
This RN CM to room to discuss discharge plan at this time. Pt's and other family member at bedside at this time and pt states that she feels she needs to go for rehab at this time and immediately asks to go to TCU. This RN CM explained precert process and chance that pt may be here thru weekend awaiting precert, voice understanding. E.Prabhjot SW aware at this time and checking on bed in TCU. TCU does have a bed and they are starting precert at this time. Pt/family updated at this time, voice understanding. SW to follow. SStaten RN CM
[2019-09-20] MEDS: TICAGRELOR 90 MG TABLET PO ×2 (09:40→21:19)
[2019-09-20] MEDS: Citalopram 20 MG Tablet PO (09:41)
[2019-09-20] MEDS: Carvedilol 3.125 MG TABLET PO (09:41)
[2019-09-20] MEDS: Furosemide 40 MG/4 ML Vial IV ×2 (09:44→17:51)
[2019-09-20 12:55] LABS: Bedside Glucose 300 mg/dL (70-110)
--- NOTE | 2019-09-20 13:03 | PN_ITS ---
Subjective: Seems to be doing a little bit better than yesterday, family also agrees that she is better than what she was a few days ago. She seems to be breathing a little bit better and seems to be little bit more alert. Vitals/I&O's: Vital Signs Temp Pulse Resp BP Pulse Ox 98.7 F 82 18 116/55 L 91 09/20/19 07:25 09/20/19 11:00 09/20/19 07:25 09/20/19 07:25 09/20/19 08:00 Oxygen Flow Rate (L/min) 1 Oxygen Delivery Method Nasal Cannula Weight: 156 lb 15.506 oz Body Mass Index (BMI) 28.3 Finger Stick Blood Glucose 195 Intake and Output for Last 24 Hours 09/18/19 09/19/19 09/20/19 23:59 23:59 23:59 Intake Total 642 / 642 924 / 924 652 / 652 Output Total 350 / 350 700 / 700 Balance 642 / 642 574 / 574 -48 / -48 General: Alert, Oriented x3, Cooperative, No apparent distress HEENT: Atraumatic, PERRLA, EOMI, Normocephalic Oral: Moist Mucosa Neck: Supple, No JVD Lungs: Clear to auscultation, Normal air movement, No rhonchi, No wheeze, No rales, Diminished Cardiovascular: Regular rate, Regular Rhythm, Normal S1, Normal S2, No murmurs Abdomen: Soft, mildly tender to right upper quadrant palpation, Non-Distended, No Hepato-splenomegaly Extremities: No edema, Capillary Refill Less than 3 Seconds Skin: No rashes, No breakdown Neurological: Neuro grossly intact, Sensory exam intact to light touch and pain Psych/Mental Status: Normal Affect, Appropriate Microbiology Past 72 Hours 09/19/19 07:40 Stool Stool Occult Blood (POPPY) - Final 09/16/19 15:55 Urine, Clean Catch Urine Culture - Final Enterococcus faecalis Laboratory Results 09/19/19 04:40: Diff Path Review Reviewed 09/19/19 16:46: POC Glucose 218 H 09/19/19 22:03: POC Glucose 214 H 09/20/19 00:42: POC Glucose 97 09/20/19 05:36: WBC 20.9 H, RBC 3.11 L, Hgb 9.8 L, Hct 29.2 L, MCV 93.9, MCH 31.5, MCHC 33.6, RDW Std Deviation 50.4 H, RDW Coeff of Stephane 14.9 H, Plt Count 323, MPV 10.7, Neut % (Auto) Not Reportable, Absolute Neuts (auto) 16.1 H, Absolute Lymphs (auto) 1.25, Total Counted 100, Neutrophils % (Manual) 76 H, Band Neutrophils % 3, Lymphocytes % (Manual) 6 L, Monocytes % (Manual) 6, Eosinophils % (Manual) 2, Metamyelocytes % 7 H, Nucleated RBCs/100 WBC 1, Diff Path Review January, Platelet Estimate ADEQUATE, RBC Morphology NORM C+C, Macrocytosis 1+ 09/20/19 05:36: Sodium 133 L, Potassium 3.1 L, Chloride 96 L, Carbon Dioxide 28.0, Anion Gap 9, BUN 47 H, Creatinine 1.37 H, Estim Creat Clear Calc 27.63, Est GFR (MDRD) Af Amer 48 L, Est GFR (MDRD) Non-Af 40 L, BUN/Creatinine Ratio 34.3 H, Glucose 189 H, Calcium 8.4 L, Total Bilirubin 1.70 H, AST 154 H, ALT 167 H, Alkaline Phosphatase 124 H, Total Protein 6.4, Albumin 2.6 L, Globulin 3.8, Albumin/Globulin Ratio 0.7 L 09/20/19 05:36: Magnesium 1.7 09/20/19 06:33: POC Glucose 191 H 09/20/19 11:53: POC Glucose 300 H Current Medications Acetaminophen (Tylenol) 650 mg PO Q6H PRN PRN PRN Reason: Pain Score 1-5/Temp > 100.7 F Last Admin: 09/17/19 22:03 Dose: 650 mg Documented by: Aspirin (Ecotrin) 81 mg PO DAILY@0800 [facility] Last Admin: 09/20/19 07:28 Dose: 81 mg Documented by: Atorvastatin Calcium (Lipitor) 10 mg PO QHS [facility] Last Admin: 09/19/19 22:04 Dose: 10 mg Documented by: Atropine Sulfate () 0.5 mg IV UD PRN PRN Reason: HR <50 bpm Carbidopa/Levodopa (Sinemet) 0.5 tablet PO TIDAC [facility] Last Admin: 09/20/19 10:01 Dose: 0.5 tablet Documented by: Carvedilol (Coreg) 3.125 mg PO BID [facility] Last Admin: 09/20/19 09:41 Dose: 3.125 mg Documented by: Cholecalciferol (Vitamin D) 2,000 unit PO DAILY [facility] Last Admin: 09/20/19 09:41 Dose: 2,000 unit Documented by: Citalopram Hydrobromide (Celexa) 20 mg PO DAILY [facility] Last Admin: 09/20/19 09:41 Dose: 20 mg Documented by: Furosemide (Lasix) 40 mg IV BID@1000,1800 [facility] Gabapentin (Neurontin) 100 mg PO QHS [facility] Last Admin: 09/19/19 22:04 Dose: 100 mg Documented by: Glucagon () 1 mg IM .X1 PRN PRN Reason: Hypoglycemia Heparin Sodium (Beef Lung) (Heparin 500 Unit/5 Ml (100/Ml)) 500 unit IV UD PRN PRN Reason: HEPARIN FLUSH Dextrose (Dextrose 10%-Water) 250 mls @ 999 mls/hr IV .Q16M PRN; Protocol PRN Reason: HYPOGLYCEMIA Sodium Chloride () 1,000 mls @ 0 mls/hr IV .Q0M [facility] Ampicillin Sodium/Sulbactam (Sodium 3 gm/ Sodium Chloride) 112 mls @ 150 mls/hr IV Q12 [facility] Last Infusion: 09/20/19 10:45 Dose: Infused Documented by: Insulin Human Lispro (Humalog Kwikpen (Bkc)) 0 unit SC ACHS [facility]; Protocol Last Admin: 09/20/19 11:55 Dose: 6 units Documented by: Levothyroxine Sodium (Synthroid) 88 mcg PO DAILY@0600 [facility] Last Admin: 09/20/19 06:35 Dose: 88 mcg Documented by: Morphine Sulfate () 2 mg IV Q3H PRN PRN PRN Reason: Pain Score 6-10/10 Ondansetron HCl (Zofran) 4 mg IV Q8H PRN PRN PRN Reason: NAUSEA/VOMITING Last Admin: 09/16/19 12:10 Dose: 4 mg Documented by: Sodium Chloride () 10 - 40 ml IV UD PRN PRN Reason: SALINE FLUSH Last Admin: 09/20/19 09:45 Dose: 10 ml Documented by: Sodium Chloride () 500 ml IV BOLUS PRN PRN Reason: VASO-VAGAL PROTOCOL Ticagrelor (Brilinta) 90 mg PO BID [facility] Last Admin: 09/20/19 09:40 Dose: 90 mg Documented by: STROKE Vital Signs/Narrative: Vital Signs Pulse 09/20/19 11:00 82 Medical Necessity - Tobacco Use Smoking Status: Never smoker Assessment/Plan All Active Problems (Last Updated 09/16/19 @ 09:35 by Irina Liu) History of coronary artery stent placement (Resolved 09/14/19) Atypical chest pain (Resolved) 1. NSTEMI status post stent/CAD/HTN/HLD/ischemic cardiomyopathy -Echo with an EF of 30 to 35% and wall motion abnormality -Stent was placed to mid LAD -Continue with aspirin and Brilinta -Blood pressure medications were changed to Coreg, she received a dose of Lasix this morning, and will transition her to twice daily dosing as she is now on IV Unasyn which has a fairly large fluid load to it 2. Normochromic normocytic anemia/UTI -With elevation in her blood sugars and her leukocytosis, UA was obtained yesterday which did demonstrate a UTI, she was started on Ancef and a urine culture is pending -Her leukocytosis increased to 23, given her worsening LFTs a right upper quadrant ultrasound was obtained to evaluate her gallbladder and her liver, there is no sign of cholecystitis -Her LFTs appear to have stabilized, however her creatinine is much improved and her hemoglobin has stabilized at 9.8 today. We will continue with Unasyn for the enterococcus growing in her urine which is pansensitive -While dilution is likely a component of her anemia, her hemolysis has been negative, she is hypoproliferative however haptoglobin is normal despite an elevation in her LDH. Her hemoglobin increased from 8.8 to 9.8 today -We will continue to monitor, vitamin B12 level was elevated to greater than 2000 despite the macrocytosis on pathology review of her CBC 3. ADALI on CKD 3 -Baseline creatinine is around 1.09, is now 1.37 down from 2.02 -Given her new onset shortness of breath, will provide some Lasix to help diurese since she received about 7 L of IV fluids\ -Chest x-ray from yesterday on my read is unremarkable, there is some blunting of the costophrenic angles indicative of volume overload. 4. DM 1 -She has an insulin pump which we will continue, will continue with sliding scale insulin at a medium-high dosage -She has been having blood sugars in the 300s which is very abnormal for her and this could either be a stress response to the non-ST segment elevated MA versus a response to any possible infection especially given that she has a leukocytosis even though she is afebrile 5. Parkinson's/depression/anxiety -Stable -Continue with Sinemet and Celexa DVT: SCDs Code Visit Inpatient E&M: 56479 Subs Hosp L2
--- NOTE | 2019-09-20 14:07 | CON.PCM_ITS ---
Problem List (1) Paroxysmal atrial fibrillation with RVR Status: Acute (2) Atherosclerosis of coronary artery of [place] heart without angina pectoris Status: Chronic Qualifiers: Coronary Disease-Associated Artery/Lesion type: [place] artery Qualified Code(s): I25.10 - Atherosclerotic heart disease of [place] coronary artery without angina pectoris (3) NSTEMI (non-ST elevated myocardial infarction) Status: Chronic (4) History of coronary artery stent placement Status: Resolved Comment: [id number] LAD-Mid LAD w/ 3.0 x 38 mm Synergy MRstent (5) Ischemic cardiomyopathy Status: Chronic (6) Essential (primary) hypertension Status: Chronic (7) Hypothyroidism Status: Chronic Qualifiers: Hypothyroidism type: acquired Qualified Code(s): E03.9 - Hypothyroidism, unspecified (8) Type 1 diabetes mellitus Status: Chronic Qualifiers: Diabetes mellitus complication status: without complication Qualified Code(s): E10.9 - Type 1 diabetes mellitus without complications Reason for Consult Date of Consultation: 09/20/19 Reason for Consultation: Possible pneumonia History of Present Illness: The patient is a 74 year old F, with past medical history listed below, who presented [facility] on 09/14/2019 secondary to sudden onset of chest pain. Patient states it was radiating up her jaw and associated with diaphoresis. Patient had reported some sinus congestion for approximately 1 month prior to onset, but did not have any acute symptoms such as cough, fever, or vomiting. Patient had reported some nausea associated with the event. In the ER, patient was noted to have J-point elevation and was initiated on a nitroglycerin drip with improvement in overall condition. Patient had a heart catheterization on the same day showing 80% proximal LAD and 95% mid LAD lesion with an EF of 35%. Patient underwent successful angioplasty and tolerated the procedure well. Over the course of patient's hospitalization, patient has had slightly elevated liver enzymes, leukocytosis and slight elevation in creatinine. Patient's creatinine has improved with diuresis and patient is down approximately 9 pounds. However, chest x-ray is being read as an infiltrate and there is a question of possible pneumonia, so a pulmonary consult was obtained. Patient denies any previous requirements for supplemental oxygen. Patient does not have any history of liver disease that she is aware of. Patient states that she has been told in the past that she may have asthma, but is never had a pulmonary function test. Patient is now a non-smoker, nondrinker and denies any drugs. Patient denies any exposures to asbestos or TB. Patient has not had an incentive spirometer during hospitalization. Patient does state that she is limited mobility at home secondary to Parkinson's. Patient will typically fold laundry while sitting down secondary to leg fatigue. Patient denies any productive cough or fever since being hospitalized. Patient denies any chest pain at this time. Patient does state that she was able to walk to the bedside chair with some coughing. Patient's daughter was at the bedside and did not have any additional information to add. Review of systems otherwise negative from a constitutional, HEENT, respiratory, cardiovascular, GI, genitourinary, musculoskeletal, skin, neurologic, psychiatric and hematologic system unless stated above. Past Medical History Past Medical History (Chronic Problems): Chronic Problems (Last Updated 09/16/19 @ 09:35 by Irina Liu) Atherosclerosis of coronary artery of [place] heart without angina pectoris (Chronic) NSTEMI (non-ST elevated myocardial infarction) (Chronic 09/13/18) Ischemic cardiomyopathy (Chronic) Essential (primary) hypertension (Chronic) Hypothyroidism (Chronic) Type 1 diabetes mellitus (Chronic) Medical History: Medical History (Last Updated 09/16/19 @ 09:35 by Irina Liu) Atherosclerosis of coronary artery of [place] heart without angina pectoris (Chronic) I25.10 Ischemic cardiomyopathy (Chronic) I25.5 Essential (primary) hypertension (Chronic) I10 Hypothyroidism (Chronic) E03.9 Type 1 diabetes mellitus (Chronic) Anxiety disorder F41.9 Bronchitis J40 Depression with anxiety F41.8 Diabetes type 1, controlled E10.9 Dx : 1975 Last exacerbation : DKA : never Hypoglycemic episode : never ER visit : never Hearing problem H91.90 Hives L50.9 Hypothyroidism E03.9 Measles B05.9 Mumps B26.9 Parkinsons G20 Whooping cough A37.90 bilaeral cataract surgery removal of skin cyst HTN (hypertension) I10 Allergies paroxetine [From Paxil] Allergy (Severe, Verified 09/14/19 00:02) Unknown Penicillins Allergy (Severe, Verified 09/14/19 00:02) Unknown statins Allergy (Severe, Uncoded 09/14/19 00:02) Unknown strawberries Allergy (Severe, Uncoded 09/14/19 00:02) Unknown Home Medications: Ambulatory Orders Medication Instructions Recorded Aspirin [Aspirin, Baby] 81 mg PO DAILY@0800 04/06/17 Cholecalciferol (Vitamin D3) 2,000 unit PO DAILY 04/06/17 [Vitamin D3] Citalopram [Celexa] 20 mg PO DAILY 04/06/17 Gabapentin [Neurontin] 100 mg PO QHS 04/06/17 Insulin Pump/Infus. Set/Meter 1 ea MC DAILY 04/06/17 [Accu-Chek Combo System] Levothyroxine [Synthroid] 88 mcg PO DAILY 04/06/17 Triamterene/Hydrochlorothiazid 0.5 ea PO QODAY 04/06/17 [Triamterene-Hctz 37.5-25 mg Tb] Triamterene/Hydrochlorothiazid 1 ea PO QODAY 04/06/17 [Triamterene-Hctz 37.5-25 mg Tb] insulin aspart U-100 100 unit/mL See Rx Instructions SC QDAY #50 ml 07/26/18 subcutaneous solution carbidopa 25 mg-levodopa 100 mg 0.5 tab PO TID tab 10/22/18 tablet mind works 1 tab PO DAILY 10/22/18 Surgical History: Surgical History (Last Updated 09/16/19 @ 09:35 by Irina Liu) History of coronary artery stent placement (Resolved) Onset Date: 09/14/19 Z95.5 [id number] LAD-Mid LAD w/ 3.0 x 38 mm Synergy MRstent S/P LASIK surgery of both eyes Z98.890 S/P partial hysterectomy Z90.711 Surgical History: cataract, herniorrhaphy Psychiatric History: No pertinent psych hx 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 history Lives: Spouse/ Significant Other Smoking Status: Never smoker Alcohol: None Drugs: None - *Family History Maternal Family History: Family History (Last Reviewed 09/14/19 @ 07:02 by Zach Bowman MD) Mother CVA (cerebral vascular accident) Dementia Sister Hypertension Diabetes Brother Heart disease Diabetes Daughter Diabetes History Items: No pertinent history Paternal Family History: Family History (Last Reviewed 09/14/19 @ 07:02 by Zach Bowman MD) Mother CVA (cerebral vascular accident) Dementia Sister Hypertension Diabetes Brother Heart disease Diabetes Daughter Diabetes History Items: No pertinent history Review of Systems Comment: See HPI Patient Problems: Active and Suspected Problems (Last Updated 09/16/19 @ 09:35 by Irina Liu) Paroxysmal atrial fibrillation with RVR (Acute) Objective: Chest x-ray was personally reviewed and shows a mild right pleural effusion. Liver ultrasound had shown some cholelithiasis without biliary dilatation and a possible kidney stone on the right. Cardiac cath results were reviewed in the HPI. Echocardiogram is suggestive of diastolic dysfunction, but no mention of pulmonary hypertension. Patient has never had a pulmonary function test. - Physical Exam Vitals/I&O's: Vital Signs Temp Pulse Resp BP Pulse Ox 37.1 C 82 18 116/55 L 91 09/20/19 07:25 09/20/19 11:00 09/20/19 07:25 09/20/19 07:25 09/20/19 08:00 Oxygen Flow Rate (L/min) 2 Oxygen Delivery Method Nasal Cannula Weight: 71.2 kg Body Mass Index (BMI) 28.3 Finger Stick Blood Glucose 195 Intake and Output for Last 24 Hours 09/18/19 09/19/19 09/20/19 23:59 23:59 23:59 Intake Total 642 / 642 924 / 924 652 / 652 Output Total 350 / 350 700 / 700 Balance 642 / 642 574 / 574 -48 / -48 General: Alert, Oriented x3, Cooperative, No apparent distress, Well developed, Well nourished, - - No conversational dyspnea noted. No coughing during my examination. HEENT: Atraumatic, PERRLA, EOMI, Normocephalic, - - No scleral icterus or injection noted. Oral: Moist Mucosa, No Gingival or Mucosal Lesions/ Ulcerations, - - Fair dentition. Neck: Supple, No JVD, No Nodes, Trachea Midline Lungs: No rhonchi, No wheeze, No rales, Diminished - Bilateral bases, - - Symmetric expansion. No dullness to percussion. Cardiovascular: Regular rate, Regular Rhythm, Normal S1, Normal S2, No murmurs, No rub noted, No Gallop, - - A. fib with RVR overnight, but currently in normal sinus rhythm Abdomen: Bowel Sounds Present, Soft, Non Tender, Non-Distended, Obese Extremities: No clubbing, No cyanosis, Edema - Trace lower extremity Skin: No rashes, No breakdown Musculoskeletal: No Tenderness to Palpation of Joints or Extremities Lymphatic: No Cervical, Supraclavicular, or Inguinal Adenopathy Neurological: Cranial nerves II-XII grossly intact, Neuro grossly intact, - - Slight tremor noted. No facial droop or other focal neurologic findings Psych/Mental Status: Alert and oriented to time, place, person, mood and affect Microbiology Past 72 Hours 09/19/19 07:40 Stool Stool Occult Blood (POPPY) - Final 09/16/19 15:55 Urine, Clean Catch Urine Culture - Final Enterococcus faecalis Laboratory Results 09/19/19 04:40: Diff Path Review Reviewed 09/19/19 16:46: POC Glucose 218 H 09/19/19 22:03: POC Glucose 214 H 09/20/19 00:42: POC Glucose 97 09/20/19 05:36: WBC 20.9 H, RBC 3.11 L, Hgb 9.8 L, Hct 29.2 L, MCV 93.9, MCH 31.5, MCHC 33.6, RDW Std Deviation 50.4 H, RDW Coeff of Stephane 14.9 H, Plt Count 323, MPV 10.7, Neut % (Auto) Not Reportable, Absolute Neuts (auto) 16.1 H, Absolute Lymphs (auto) 1.25, Total Counted 100, Neutrophils % (Manual) 76 H, Band Neutrophils % 3, Lymphocytes % (Manual) 6 L, Monocytes % (Manual) 6, Eosinophils % (Manual) 2, Metamyelocytes % 7 H, Nucleated RBCs/100 WBC 1, Diff Path Review January foll, Platelet Estimate ADEQUATE, RBC Morphology NORM C+C, Macrocytosis 1+ 09/20/19 05:36: Sodium 133 L, Potassium 3.1 L, Chloride 96 L, Carbon Dioxide 28.0, Anion Gap 9, BUN 47 H, Creatinine 1.37 H, Estim Creat Clear Calc 27.63, Est GFR (MDRD) Af Amer 48 L, Est GFR (MDRD) Non-Af 40 L, BUN/Creatinine Ratio 34.3 H, Glucose 189 H, Calcium 8.4 L, Total Bilirubin 1.70 H, AST 154 H, ALT 167 H, Alkaline Phosphatase 124 H, Total Protein 6.4, Albumin 2.6 L, Globulin 3.8, Albumin/Globulin Ratio 0.7 L 09/20/19 05:36: Magnesium 1.7 09/20/19 06:33: POC Glucose 191 H 09/20/19 11:53: POC Glucose 300 H Current Medications Acetaminophen (Tylenol) 650 mg PO Q6H PRN PRN PRN Reason: Pain Score 1-5/Temp > 100.7 F Last Admin: 09/17/19 22:03 Dose: 650 mg Documented by: Aspirin (Ecotrin) 81 mg PO DAILY@0800 [facility] Last Admin: 09/20/19 07:28 Dose: 81 mg Documented by: Atorvastatin Calcium (Lipitor) 10 mg PO QHS [facility] Last Admin: 09/19/19 22:04 Dose: 10 mg Documented by: Atropine Sulfate () 0.5 mg IV UD PRN PRN Reason: HR <50 bpm Carbidopa/Levodopa (Sinemet) 0.5 tablet PO TIDAC [facility] Last Admin: 09/20/19 10:01 Dose: 0.5 tablet Documented by: Carvedilol (Coreg) 3.125 mg PO BID [facility] Last Admin: 09/20/19 09:41 Dose: 3.125 mg Documented by: Cholecalciferol (Vitamin D) 2,000 unit PO DAILY [facility] Last Admin: 09/20/19 09:41 Dose: 2,000 unit Documented by: Citalopram Hydrobromide (Celexa) 20 mg PO DAILY [facility] Last Admin: 09/20/19 09:41 Dose: 20 mg Documented by: Furosemide (Lasix) 40 mg IV BID@1000,1800 [facility] Gabapentin (Neurontin) 100 mg PO QHS [facility] Last Admin: 09/19/19 22:04 Dose: 100 mg Documented by: Glucagon () 1 mg IM .X1 PRN PRN Reason: Hypoglycemia Heparin Sodium (Beef Lung) (Heparin 500 Unit/5 Ml (100/Ml)) 500 unit IV UD PRN PRN Reason: HEPARIN FLUSH Dextrose (Dextrose 10%-Water) 250 mls @ 999 mls/hr IV .Q16M PRN; Protocol PRN Reason: HYPOGLYCEMIA Sodium Chloride () 1,000 mls @ 0 mls/hr IV .Q0M [facility] Ampicillin Sodium/Sulbactam (Sodium 3 gm/ Sodium Chloride) 112 mls @ 150 mls/hr IV Q12 [facility] Last Infusion: 09/20/19 10:45 Dose: Infused Documented by: Insulin Human Lispro (Humalog Kwikpen (Bkc)) 0 unit SC ACHS [facility]; Protocol Last Admin: 09/20/19 11:55 Dose: 6 units Documented by: Levothyroxine Sodium (Synthroid) 88 mcg PO DAILY@0600 [facility] Last Admin: 09/20/19 06:35 Dose: 88 mcg Documented by: Morphine Sulfate () 2 mg IV Q3H PRN PRN PRN Reason: Pain Score 6-10/10 Ondansetron HCl (Zofran) 4 mg IV Q8H PRN PRN PRN Reason: NAUSEA/VOMITING Last Admin: 09/16/19 12:10 Dose: 4 mg Documented by: Sodium Chloride () 10 - 40 ml IV UD PRN PRN Reason: SALINE FLUSH Last Admin: 09/20/19 09:45 Dose: 10 ml Documented by: Sodium Chloride () 500 ml IV BOLUS PRN PRN Reason: VASO-VAGAL PROTOCOL Ticagrelor (Brilinta) 90 mg PO BID [facility] Last Admin: 09/20/19 09:40 Dose: 90 mg Documented by: Assessment/Plan All Active Problems (Last Updated 09/16/19 @ 09:35 by Irina Liu) Paroxysmal atrial fibrillation with RVR (Acute) History of coronary artery stent placement (Resolved 09/14/19) Atypical chest pain (Resolved) RECOMMENDATIONS: 1. Initiate incentive spirometer 2. Hold on antibiotics 3. Diuresis as tolerated 4. Wean oxygen as tolerated. Walking oximetry prior to discharge. 5. Would not recommend scheduled bronchodilators IMPRESSIONS: 1. NSTEMI status post stent/CAD/hypertension/hyperlipidemia/ischemic cardiomyopathy/acute systolic congestive heart failure Patient has received significant diuresis during hospitalization with improvement in kidney function indicating better Starling forces. Patient is on aspirin and Brilinta secondary to recent stent, but echo shows an EF of 30 to 35%. Patient does have a pleural effusion and there is high clinical suspicion that this would be a transudate in nature. Unlikely that this would account for patient's requirement for supplemental oxygen. Reasonable to continue with diuresis. 2. Hypoxia Clinical suspicion for atelectasis as patient's etiology for hypoxia. Pneumonia is suggested by chest x-ray, but patient does not have any concomitant constitutional symptoms such as productive cough, fever or chest pain. Patient does have a leukocytosis and right upper quadrant ultrasound was not suggestive of etiology. Patient could have a complete PFT as an outpatient, but no history of asthma has been reported. Patient does not have extensive wheezing to suggest the need for steroids at this time. Would hold on any bronchodilators given patient's A. fib with RVR overnight as this could potentiate this condition with little potential improvement in respiratory status 3. Diabetes mellitus type 1/acute on chronic kidney disease stage III/anxiety/depression/Parkinson's/advanced age Complicates care, management, recovery and prognosis. Improvement in creatinine with diuresis would suggest improved Starling forces. Patient's blood sugars have been elevated, along with WBC count. This could be suggestive of increased endogenous stress response. We will repeat UA to see if this would be suggestive of urinary tract infection as an etiology for patient's leukocytosis. No delirium has been reported. Code Visit Inpatient E&M: 80122 Init Hosp L3
[2019-09-20 14:16] LABS: Pathologist Review Reviewed
--- NOTE | 2019-09-20 15:32 | PN.CARD_ITS ---
Subjectve: Patient seen and evaluated. Appears to be slowly improving. Atrial fibrillation noted overnight Objective: Vital Signs Temp Pulse Resp BP Pulse Ox 98.6 F 71 22 H 116/56 L 96 09/20/19 13:25 09/20/19 13:25 09/20/19 13:25 09/20/19 13:25 09/20/19 13:25 Oxygen Flow Rate (L/min) 1 Oxygen Delivery Method Nasal Cannula Weight: 156 lb 15.506 oz Body Mass Index (BMI) 28.3 Finger Stick Blood Glucose 195 Intake and Output for Last 24 Hours 09/18/19 09/19/19 09/20/19 23:59 23:59 23:59 Intake Total 642 / 642 924 / 924 652 / 652 Output Total 350 / 350 700 / 700 Balance 642 / 642 574 / 574 -48 / -48 General: Awake, Alert, Oriented x 3 HEENT: PERRL, EOMI, Sclera Non Icteric Neck: Supple, Good ROM, No Lymph Node Enlargement Lungs: Clear to auscultation Cardiovascular: Regular Rhythm, Normal S1, Normal S2, No Murmurs, No Rubs, No Gallops Vascular: No Carotid Bruits, Normal Femoral Pulses, Normal Radial Pulses, Normal Dorsalis Pedal Pulse, Normal Posterior Tibial Pulses Abdomen: Bowel Sounds Present, Soft, Non Tender, No HSM, No Organomegaly Extremities: No Cyanosis, No Clubbing, No edema Musculoskeletal: No Erythema Skin: No Rashes Lymphatic: No Lymph Node Enlargement Neurological: No Focal Motor or Sensory Deficit Psych/Mental Status: Appropriate 09/20/19 05:36: WBC 20.9 H, RBC 3.11 L, Hgb 9.8 L, Hct 29.2 L, MCV 93.9, MCH 31.5, MCHC 33.6, Plt Count 323, MPV 10.7, Neut % (Auto) Not Reportable, Absolute Neuts (auto) 16.1 H, Total Counted 100, Neutrophils % (Manual) 76 H, Band Neutrophils % 3, Lymphocytes % (Manual) 6 L, Monocytes % (Manual) 6, Eosinophils % (Manual) 2, Metamyelocytes % 7 H 09/20/19 05:36: Sodium 133 L, Potassium 3.1 L, Chloride 96 L, Carbon Dioxide 28.0, Anion Gap 9, BUN 47 H, Creatinine 1.37 H, Est GFR (MDRD) Af Amer 48 L, Est GFR (MDRD) Non-Af 40 L, BUN/Creatinine Ratio 34.3 H, Glucose 189 H, Calcium 8.4 L, Total Bilirubin 1.70 H 09/20/19 05:36: Magnesium 1.7 Rhythm: EKG: ECHO: Stress Test: Cardiac Cath: PCI: CT Surgery: Holter monitor: EPS: PPM: CXR: Chest CT Scan: Medical Necessity - Tobacco Use Smoking Status: Never smoker Assessment/Plan 1. Chest pain-acute coronary syndrome.. non-ST elevation myocardial infarction * The patient presented with chest discomfort which had some concerning features. Cardiac catheterization demonstrated normal left main coronary artery, Normal left circumflex artery, Proximal 80% left anterior descending artery lesion and proximal to mid 95% lesion. Dominant right coronary artery with 30% diffuse stenosis. Left ventricular systolic dysfunction with anterior apical hypokinesis. Based on the above angiographic findings the alternatives therapies are bypass surgery with a single-vessel RESENDEZ to the LAD or sequential LAD stenting in the left anterior descending artery. * The patient successfully underwent angioplasty and stenting of the left anterior descending artery. Patient tolerated the procedure well. * Echocardiogram performed demonstrated ejection fraction of approximately 30 to 35% with severe hypokinesis and akinesis of the anterior wall and apex. * Will continue therapy as follows Aspirin Low-dose beta-aarti if tolerated--we will continue carvedilol BENEDICT inhibitor to be carefully titrated due to blood pressure issues. The above should likely currently be on hold due to worsening renal function and be started as an outpatient * Patient was started on a low-dose statin but liver function tests continue to be abnormal and therefore I would hold to this and be restarted as an outpatient. * 2. Heart failure with reduced ejection fraction * Patient still has some shortness of breath likely from the increase in the creatinine. She probably still has some fluid overload. On discussion with the hospitalist may not be a bad idea for patient continue with intravenous Lasix today and switch to p.o. Lasix from Monday. * Liver ultrasound is also pending to exclude any gallbladder pathology as a reason for the abnormal LFTs. If the above is normal then likely passive congestion * Overall she appears to doing better this morning with improvement in her renal function as well. * * 3. Paroxysmal atrial fibrillation * Patient has developed paroxysmal atrial fibrillation. With her substrate as well as her akinetic anterior wall and apex I would like to start her on low- dose anticoagulation. She will be on triple therapy but hopefully for a short while. * Thank you for allowing me to participate in the care of your patient. Please don't hesitate to call if any issues arise
[2019-09-20 17:17] LABS: Bacteria 0 SEEN /hpf (None Seen); Mucous, Urine 0 SEEN /hpf (<or=2+); Red Blood Cells-Urine 0 SEEN /hpf (0-5); White Blood Cells 0 SEEN /hpf (0-5)
[2019-09-20 17:26] LABS: Bedside Glucose 260 mg/dL (70-110)
[2019-09-20] MEDS: Carvedilol 6.25 MG Tablet PO (17:50)
[2019-09-20 18:33] LABS: Color, Urine Yellow (Yellow); Glucose, Dipstick Normal (Normal); Ketone-Dipstick 5 mg/dl (Negative); Leukocyte Esterase-Dipstick 25 /ul (Negative); Nitrite-Dipstick Negative (Negative); Occult Blood-Urine Negative /ul (Negative); Protein-Dipstick Negative (Negative); Specific Gravity, Urine 1.015 (1.002-1.030); Urine Bilirubin Dipstick Negative (Negative); Urine Clarity Sl. Cloudy (Clear); Urine Urobilinogen Normal (Normal)
[2019-09-20 18:49] LABS: Squamous Epithelial Cells - UA 0-5 SEEN /hpf (5-10)
[2019-09-20] MEDS: Gabapentin 100 MG Capsule PO (21:18)
[2019-09-20] MEDS: APIXABAN 2.5 MG TABLET PO (21:23)
[2019-09-20 21:25] LABS: Bedside Glucose 201 mg/dL (70-110)
[2019-09-21] VITALS (11 sets, daily range): BP systolic 115–124; BP diastolic 54–61; PULSE 76–86; RESP 18–20; TEMP 36.9–37.1; O2SAT 94–97
[2019-09-21] MEDS: Carbidopa/Levodopa 25/100 Tablet PO ×3 (06:27→17:23)
[2019-09-21] MEDS: Levothyroxine 88 MCG Tablet PO (06:27)
[2019-09-21] MEDS: Insulin Lispro 100 UNIT/ML INSULN.PEN SC ×4 (06:28→21:35)
[2019-09-21 06:40] LABS: Bedside Glucose 239 mg/dL (70-110)
[2019-09-21 07:24] LABS: Hemoglobin 9.6 g/dL (12.0-15.0); Mean Corp Hgb Conc 33.1 g/dL (32-36); Mean Corpuscular Hgb 31.2 pg (27.0-32.0); Mean Corpuscular Volume 94.2 fL (81-99); Mean Platelet Vol. 10.6 fl (6.2-12.0); POSITIVE COUNT YES; POSITIVE DIFFERENTIAL YES; POSITIVE MORPHOLOGY YES; Platelet Count 345 K/mm3 (150-450); RBC Distribution Width CV 15.3 % (11.6-14.6); RBC Distribution Width SD 51.6 fl (35.1-43.9); Red Blood Count 3.08 M/mm3 (4.2-5.4); White Blood Count 22.5 K/mm3 (4.4-11.0)
[2019-09-21 07:49] LABS: Differential Indicated MANUAL DIFF
[2019-09-21 07:51] LABS: ALB/GLOB Ratio 0.7 RATIO (0.9-2.4); AST(SGOT) 84 U/L (15-37); Alanine Aminotransfer ALT/SGPT 169 U/L (13-56); Albumin, Serum 2.7 g/dL (3.2-5.0); Alkaline Phosphatase 126 U/L (45-117); Anion Gap 8 (5-15); BUN 45 mg/dL (7-18); BUN/Creat Ratio 33.6 RATIO (10-20); Calcium,Total 8.4 mg/dL (8.5-10.1); Chloride 94 mmol/L (98-107); Creatinine, Serum 1.34 mg/dL (0.55-1.02); EST Glomerular Filtration Rate 41 mL/min (>60); Est Glom Filt Rate - Afr Amer 49 mL/min (>60); Estimated Creatinine Clearance 28.25 ml/min; Globulin 3.9 g/dL (2.2-4.2); Glucose 214 mg/dL (74-106); Potassium 3.4 mmol/L (3.5-5.1); Protein, Total 6.6 g/dL (6.4-8.2); Sodium Level 132 mmol/L (136-145)
--- NOTE | 2019-09-21 08:07 | PCM.PN.PUL ---
Patient Problems: Active and Suspected Problems (Last Updated 09/16/19 @ 09:35 by Irina Liu) Paroxysmal atrial fibrillation with RVR (Acute) Subjective: Patient did okay overnight. Patient continues to report some dyspnea on exertion. Patient has been working with the incentive spirometer and states that she has not been able to progress beyond 500 cc. Patient denies any dysuria. Patient does report some coughing, but typically associated with exertion or incentive spirometer. - Physical Exam Vitals/I&O's: Vital Signs Temp Pulse Resp BP Pulse Ox 37.1 C 79 18 124/57 H 97 09/21/19 03:22 09/21/19 03:22 09/21/19 03:22 09/21/19 03:22 09/21/19 03:22 Oxygen Flow Rate (L/min) 1 Oxygen Delivery Method Nasal Cannula Weight: 72 kg Body Mass Index (BMI) 28.3 Finger Stick Blood Glucose 195 Intake and Output for Last 24 Hours 09/19/19 09/20/19 09/21/19 23:59 23:59 23:59 Intake Total 924 / 924 1454 / 1454 Output Total 350 / 350 1300 / 1300 300 / 300 Balance 574 / 574 154 / 154 -300 / -300 General: Alert, Oriented x3, Cooperative, No apparent distress, - - Mild conversational dyspnea. HEENT: Atraumatic, PERRLA, EOMI, Normocephalic, - - No scleral icterus or injection noted Oral: Moist Mucosa, No Gingival or Mucosal Lesions/ Ulcerations Neck: Supple, No JVD, No Nodes, Trachea Midline Lungs: No rhonchi, No wheeze, Diminished, Rales, - - Symmetric expansion. No dullness to percussion. Cardiovascular: Regular rate, Regular Rhythm, Normal S1, Normal S2, No murmurs, No rub noted, No Gallop Abdomen: Bowel Sounds Present, Soft, Non Tender, Non-Distended, Obese Extremities: No clubbing, No cyanosis, No edema, Capillary Refill Less than 3 Seconds Skin: No rashes, No breakdown Musculoskeletal: No Tenderness to Palpation of Joints or Extremities Lymphatic: No Cervical, Supraclavicular, or Inguinal Adenopathy Neurological: Cranial nerves II-XII grossly intact, Neuro grossly intact, Motor Exam 5/5 strength throughout Psych/Mental Status: Alert and oriented to time, place, person, mood and affect Microbiology Past 72 Hours 09/19/19 07:40 Stool Stool Occult Blood (POPPY) - Final 09/16/19 15:55 Urine, Clean Catch Urine Culture - Final Enterococcus faecalis Laboratory Results 09/20/19 05:36: Diff Path Review Reviewed 09/20/19 05:36: Magnesium 1.7 09/20/19 11:53: POC Glucose 300 H 09/20/19 16:48: POC Glucose 260 H 09/20/19 17:00: Urine Color Yellow, Urine Clarity Sl. Cloudy, Urine pH 6.0, Ur Specific [place] 1.015, Urine Protein Negative, Urine Glucose (UA) Normal, Urine Ketones 5 H, Urine Occult Blood Negative, Urine Nitrite Negative, Urine Bilirubin Negative, Urine Urobilinogen Normal, Ur Leukocyte Esterase 25 H, Urine RBC 0 SEEN, Urine WBC 0 SEEN, Ur Squamous Epith Cells 0-5 SEEN, Urine Bacteria 0 SEEN, Urine Mucus 0 SEEN 09/20/19 21:16: POC Glucose 201 H 09/21/19 06:26: POC Glucose 239 H 09/21/19 06:45: WBC 22.5 H, RBC 3.08 L, Hgb 9.6 L, Hct 29.0 L, MCV 94.2, MCH 31.2, MCHC 33.1, RDW Std Deviation 51.6 H, RDW Coeff of Stephane 15.3 H, Plt Count 345, MPV 10.6, Neut % (Auto) Not Reportable, Absolute Neuts (auto) Pending 09/21/19 06:45: Sodium 132 L, Potassium 3.4 L, Chloride 94 L, Carbon Dioxide 30.0, Anion Gap 8, BUN 45 H, Creatinine 1.34 H, Estim Creat Clear Calc 28.25, Est GFR (MDRD) Af Amer 49 L, Est GFR (MDRD) Non-Af 41 L, BUN/Creatinine Ratio 33.6 H, Glucose 214 H, Calcium 8.4 L, Total Bilirubin 1.60 H, AST 84 H, ALT 169 H, Alkaline Phosphatase 126 H, Total Protein 6.6, Albumin 2.7 L, Globulin 3.9, Albumin/Globulin Ratio 0.7 L Current Medications Acetaminophen (Tylenol) 650 mg PO Q6H PRN PRN PRN Reason: Pain Score 1-5/Temp > 100.7 F Last Admin: 09/17/19 22:03 Dose: 650 mg Documented by: Apixaban (Eliquis) 2.5 mg PO BID [facility] Last Admin: 09/20/19 21:23 Dose: 2.5 mg Documented by: Aspirin (Ecotrin) 81 mg PO DAILY@0800 [facility] Last Admin: 09/20/19 07:28 Dose: 81 mg Documented by: Atropine Sulfate () 0.5 mg IV UD PRN PRN Reason: HR <50 bpm Carbidopa/Levodopa (Sinemet) 0.5 tablet PO TIDAC [facility] Last Admin: 09/21/19 06:27 Dose: 0.5 tablet Documented by: Carvedilol (Coreg) 6.25 mg PO BIDCM [facility] Last Admin: 09/20/19 17:50 Dose: 6.25 mg Documented by: Cholecalciferol (Vitamin D) 2,000 unit PO DAILY [facility] Last Admin: 09/20/19 09:41 Dose: 2,000 unit Documented by: Citalopram Hydrobromide (Celexa) 20 mg PO DAILY [facility] Last Admin: 09/20/19 09:41 Dose: 20 mg Documented by: Furosemide (Lasix) 40 mg IV BID@1000,1800 [facility] Last Admin: 09/20/19 17:51 Dose: 40 mg Documented by: Gabapentin (Neurontin) 100 mg PO QHS [facility] Last Admin: 09/20/19 21:18 Dose: 100 mg Documented by: Glucagon () 1 mg IM .X1 PRN PRN Reason: Hypoglycemia Heparin Sodium (Beef Lung) (Heparin 500 Unit/5 Ml (100/Ml)) 500 unit IV UD PRN PRN Reason: HEPARIN FLUSH Dextrose (Dextrose 10%-Water) 250 mls @ 999 mls/hr IV .Q16M PRN; Protocol PRN Reason: HYPOGLYCEMIA Sodium Chloride () 1,000 mls @ 0 mls/hr IV .Q0M [facility] Ampicillin Sodium/Sulbactam (Sodium 3 gm/ Sodium Chloride) 112 mls @ 150 mls/hr IV Q12 [facility] Last Infusion: 09/20/19 22:03 Dose: Infused Documented by: Insulin Human Lispro (Humalog Kwikpen (Bkc)) 0 unit SC ACHS [facility]; Protocol Last Admin: 09/21/19 06:28 Dose: 4 units Documented by: Levothyroxine Sodium (Synthroid) 88 mcg PO DAILY@0600 [facility] Last Admin: 09/21/19 06:27 Dose: 88 mcg Documented by: Morphine Sulfate () 2 mg IV Q3H PRN PRN PRN Reason: Pain Score 6-10/10 Ondansetron HCl (Zofran) 4 mg IV Q8H PRN PRN PRN Reason: NAUSEA/VOMITING Last Admin: 09/16/19 12:10 Dose: 4 mg Documented by: Sodium Chloride () 10 - 40 ml IV UD PRN PRN Reason: SALINE FLUSH Last Admin: 09/20/19 21:17 Dose: 10 ml Documented by: Sodium Chloride () 500 ml IV BOLUS PRN PRN Reason: VASO-VAGAL PROTOCOL Ticagrelor (Brilinta) 90 mg PO BID [facility] Last Admin: 09/20/19 21:19 Dose: 90 mg Documented by: Medical Necessity - Tobacco Use Smoking Status: Never smoker Assessment/Plan All Active Problems (Last Updated 09/16/19 @ 09:35 by Irina Liu) Paroxysmal atrial fibrillation with RVR (Acute) History of coronary artery stent placement (Resolved 09/14/19) Atypical chest pain (Resolved) RECOMMENDATIONS: 1. Continue incentive spirometer 2. Hold on antibiotics 3. Diuresis as tolerated 4. Room air challenge. Walking oximetry prior to discharge. 5. Would not recommend scheduled bronchodilators IMPRESSIONS: 1. NSTEMI status post stent/CAD/hypertension/hyperlipidemia/ischemic cardiomyopathy/acute systolic congestive heart failure Patient has received significant diuresis during hospitalization with improvement in kidney function indicating better Starling forces. Patient is on aspirin and Brilinta secondary to recent stent, but echo shows an EF of 30 to 35%. Patient does have a pleural effusion and there is high clinical suspicion that this would be a transudate in nature. Unlikely that this would account for patient's requirement for supplemental oxygen. Reasonable to continue with diuresis. Continue to encourage incentive spirometer. 2. Hypoxia Clinical suspicion for atelectasis as patient's etiology for hypoxia. Pneumonia is suggested by chest x-ray, but patient does not have any concomitant constitutional symptoms such as productive cough, fever or chest pain. Patient does have a leukocytosis and right upper quadrant ultrasound was not suggestive of etiology. Patient could have a complete PFT as an outpatient, but no history of asthma has been reported. Patient does not have extensive wheezing to suggest the need for steroids at this time. Would hold on any bronchodilators given patient's A. fib with RVR overnight as this could potentiate this condition with little potential improvement in respiratory status. Goal and incentive spirometer would be 1 L. Continue activity as tolerated. 3. Diabetes mellitus type 1/acute on chronic kidney disease stage III/anxiety/depression/Parkinson's/advanced age Complicates care, management, recovery and prognosis. Improvement in creatinine with diuresis would suggest improved Starling forces. Patient's blood sugars have been elevated, along with WBC count. This could be suggestive of increased endogenous stress response. Repeat UA is not suggestive of infection. Code Visit Inpatient E&M: 55833 Subs Hosp L2
[2019-09-21] MEDS: Citalopram 20 MG Tablet PO (09:01)
[2019-09-21] MEDS: Aspirin E.C. 81 MG Tablet PO (09:01)
[2019-09-21] MEDS: Carvedilol 6.25 MG Tablet PO ×2 (09:01→17:23)
[2019-09-21] MEDS: TICAGRELOR 90 MG TABLET PO ×2 (09:01→21:36)
[2019-09-21] MEDS: APIXABAN 2.5 MG TABLET PO ×2 (09:02→21:36)
[2019-09-21] MEDS: Furosemide 40 MG/4 ML Vial IV ×2 (09:02→17:28)
[2019-09-21 10:26] LABS: Neutrophil-Band 2 % (0-5); Neutrophil-Segmented 77 % (47-70); Total Cells Counted 100 (MANUAL DIFF)
[2019-09-21 10:27] LABS: Lymphocyte 3 % (19-41); Metamyelocyte 4 % (0-1); Monocyte 2 % (0-10); Myelocyte 12 (0-0)
[2019-09-21 10:30] LABS: Platelet Estimate ADEQUATE (ADEQ); Red Cell Morphology NORM C+C NORMAL (NORM C&C)
[2019-09-21 10:37] LABS: Absolute Lymphocyte Count 0.68 X10^3/uL (0.83-4.51); Absolute Neutrophil Count 17.8 X10^3/uL (2.0-7.7)
--- NOTE | 2019-09-21 10:47 | PCM.PN.HOSP ---
Patient Problems: Active and Suspected Problems (Last Updated 09/16/19 @ 09:35 by Irina Liu) Paroxysmal atrial fibrillation with RVR (Acute) Subjective: Says that she is feeling a bit better, she is breathing little bit easier and she was able to come off her oxygen this morning Vitals/I&O's: Vital Signs Temp Pulse Resp BP Pulse Ox 98.4 F 83 18 122/54 H 95 09/21/19 09:19 09/21/19 09:19 09/21/19 09:19 09/21/19 09:19 09/21/19 09:19 Oxygen Flow Rate (L/min) 1 Oxygen Delivery Method Room Air Weight: 158 lb 11.725 oz Body Mass Index (BMI) 28.3 Finger Stick Blood Glucose 195 Intake and Output for Last 24 Hours 09/19/19 09/20/19 09/21/19 23:59 23:59 23:59 Intake Total 924 / 924 1454 / 1454 Output Total 350 / 350 1300 / 1300 300 / 300 Balance 574 / 574 154 / 154 -300 / -300 General: Alert, Oriented x3, Cooperative, No apparent distress HEENT: Atraumatic, PERRLA, EOMI, Normocephalic Oral: Moist Mucosa Neck: Supple, No JVD Lungs: Clear to auscultation, Normal air movement, No rhonchi, No wheeze, No rales, Diminished Cardiovascular: Regular rate, Regular Rhythm, Normal S1, Normal S2, No murmurs Abdomen: Soft, mildly tender to right upper quadrant palpation, Non-Distended, No Hepato-splenomegaly Extremities: No edema, Capillary Refill Less than 3 Seconds Skin: No rashes, No breakdown Neurological: Neuro grossly intact, Sensory exam intact to light touch and pain Psych/Mental Status: Normal Affect, Appropriate Microbiology Past 72 Hours 09/19/19 07:40 Stool Stool Occult Blood (POPPY) - Final 09/16/19 15:55 Urine, Clean Catch Urine Culture - Final Enterococcus faecalis Laboratory Results 09/20/19 05:36: Diff Path Review Reviewed 09/20/19 11:53: POC Glucose 300 H 09/20/19 16:48: POC Glucose 260 H 09/20/19 17:00: Urine Color Yellow, Urine Clarity Sl. Cloudy, Urine pH 6.0, Ur Specific [place] 1.015, Urine Protein Negative, Urine Glucose (UA) Normal, Urine Ketones 5 H, Urine Occult Blood Negative, Urine Nitrite Negative, Urine Bilirubin Negative, Urine Urobilinogen Normal, Ur Leukocyte Esterase 25 H, Urine RBC 0 SEEN, Urine WBC 0 SEEN, Ur Squamous Epith Cells 0-5 SEEN, Urine Bacteria 0 SEEN, Urine Mucus 0 SEEN 09/20/19 21:16: POC Glucose 201 H 09/21/19 06:26: POC Glucose 239 H 09/21/19 06:45: WBC 22.5 H, RBC 3.08 L, Hgb 9.6 L, Hct 29.0 L, MCV 94.2, MCH 31.2, MCHC 33.1, RDW Std Deviation 51.6 H, RDW Coeff of Stephane 15.3 H, Plt Count 345, MPV 10.6, Neut % (Auto) Not Reportable, Absolute Neuts (auto) 17.8 H, Absolute Lymphs (auto) 0.68 L, Total Counted 100, Neutrophils % (Manual) 77 H, Band Neutrophils % 2, Lymphocytes % (Manual) 3 L, Monocytes % (Manual) 2, Metamyelocytes % 4 H, Myelocytes % 12 H, Diff Path Review January, Platelet Estimate ADEQUATE, RBC Morphology NORM C+C 09/21/19 06:45: Sodium 132 L, Potassium 3.4 L, Chloride 94 L, Carbon Dioxide 30.0, Anion Gap 8, BUN 45 H, Creatinine 1.34 H, Estim Creat Clear Calc 28.25, Est GFR (MDRD) Af Amer 49 L, Est GFR (MDRD) Non-Af 41 L, BUN/Creatinine Ratio 33.6 H, Glucose 214 H, Calcium 8.4 L, Total Bilirubin 1.60 H, AST 84 H, ALT 169 H, Alkaline Phosphatase 126 H, Total Protein 6.6, Albumin 2.7 L, Globulin 3.9, Albumin/Globulin Ratio 0.7 L Current Medications Acetaminophen (Tylenol) 650 mg PO Q6H PRN PRN PRN Reason: Pain Score 1-5/Temp > 100.7 F Last Admin: 09/17/19 22:03 Dose: 650 mg Documented by: Apixaban (Eliquis) 2.5 mg PO BID [facility] Last Admin: 09/21/19 09:02 Dose: 2.5 mg Documented by: Aspirin (Ecotrin) 81 mg PO DAILY@0800 [facility] Last Admin: 09/21/19 09:01 Dose: 81 mg Documented by: Atropine Sulfate () 0.5 mg IV UD PRN PRN Reason: HR <50 bpm Carbidopa/Levodopa (Sinemet) 0.5 tablet PO TIDAC [facility] Last Admin: 09/21/19 06:27 Dose: 0.5 tablet Documented by: Carvedilol (Coreg) 6.25 mg PO BIDCM [facility] Last Admin: 09/21/19 09:01 Dose: 6.25 mg Documented by: Cholecalciferol (Vitamin D) 2,000 unit PO DAILY [facility] Last Admin: 09/21/19 09:01 Dose: 2,000 unit Documented by: Citalopram Hydrobromide (Celexa) 20 mg PO DAILY [facility] Last Admin: 09/21/19 09:01 Dose: 20 mg Documented by: Furosemide (Lasix) 40 mg IV BID@1000,1800 [facility] Last Admin: 09/21/19 09:02 Dose: 40 mg Documented by: Gabapentin (Neurontin) 100 mg PO QHS [facility] Last Admin: 09/20/19 21:18 Dose: 100 mg Documented by: Glucagon () 1 mg IM .X1 PRN PRN Reason: Hypoglycemia Heparin Sodium (Beef Lung) (Heparin 500 Unit/5 Ml (100/Ml)) 500 unit IV UD PRN PRN Reason: HEPARIN FLUSH Dextrose (Dextrose 10%-Water) 250 mls @ 999 mls/hr IV .Q16M PRN; Protocol PRN Reason: HYPOGLYCEMIA Sodium Chloride () 1,000 mls @ 0 mls/hr IV .Q0M [facility] Ampicillin Sodium/Sulbactam (Sodium 3 gm/ Sodium Chloride) 112 mls @ 150 mls/hr IV Q12 [facility] Last Admin: 09/21/19 09:07 Dose: 150 mls/hr Documented by: Insulin Human Lispro (Humalog Kwikpen (Bkc)) 0 unit SC ACHS [facility]; Protocol Last Admin: 09/21/19 06:28 Dose: 4 units Documented by: Levothyroxine Sodium (Synthroid) 88 mcg PO DAILY@0600 [facility] Last Admin: 09/21/19 06:27 Dose: 88 mcg Documented by: Morphine Sulfate () 2 mg IV Q3H PRN PRN PRN Reason: Pain Score 6-10/10 Ondansetron HCl (Zofran) 4 mg IV Q8H PRN PRN PRN Reason: NAUSEA/VOMITING Last Admin: 09/16/19 12:10 Dose: 4 mg Documented by: Sodium Chloride () 10 - 40 ml IV UD PRN PRN Reason: SALINE FLUSH Last Admin: 09/20/19 21:17 Dose: 10 ml Documented by: Sodium Chloride () 500 ml IV BOLUS PRN PRN Reason: VASO-VAGAL PROTOCOL Ticagrelor (Brilinta) 90 mg PO BID [facility] Last Admin: 09/21/19 09:01 Dose: 90 mg Documented by: STROKE Vital Signs/Narrative: Vital Signs Temp Pulse Resp BP Pulse Ox 09/21/19 09:19 98.4 F 83 18 122/54 H 95 09/21/19 07:30 86 Medical Necessity - Tobacco Use Smoking Status: Never smoker Assessment/Plan All Active Problems (Last Updated 09/16/19 @ 09:35 by Irina Liu) Paroxysmal atrial fibrillation with RVR (Acute) History of coronary artery stent placement (Resolved 09/14/19) Atypical chest pain (Resolved) 1. NSTEMI status post stent/CAD/HTN/HLD/ischemic cardiomyopathy/new onset A. fib -Echo with an EF of 30 to 35% and wall motion abnormality -Stent was placed to mid LAD -Continue with aspirin and Brilinta -Blood pressure medications were changed to Coreg, continue with twice daily dosing of her Lasix -We will change Unasyn to Augmentin p.o. -She was initiated on Eliquis therapy for her new onset A. fib 2.5 mg p.o. twice daily 2. Normochromic normocytic anemia/UTI -With elevation in her blood sugars and her leukocytosis, UA was obtained yesterday which did demonstrate a UTI, she was started on Ancef and a urine culture is pending -Her leukocytosis increased to 23, given her worsening LFTs a right upper quadrant ultrasound was obtained to evaluate her gallbladder and her liver, there is no sign of cholecystitis -Her LFTs appear to have stabilized, however her creatinine is much improved and her hemoglobin has stabilized at 9.8 today. We will continue with Unasyn for the enterococcus growing in her urine which is pansensitive -While dilution is likely a component of her anemia, her hemolysis has been negative, she is hypoproliferative however haptoglobin is normal despite an elevation in her LDH. Her hemoglobin increased from 8.8 to 9.8 today -We will continue to monitor, vitamin B12 level was elevated to greater than 2000 despite the macrocytosis on pathology review of her CBC 3. ADALI on CKD 3 -Baseline creatinine is around 1.09, is now 1.34 down from 2.02 -Continue with Lasix -Chest x-ray from yesterday on my read is unremarkable, there is some blunting of the costophrenic angles indicative of volume overload. 4. DM 1 -She has an insulin pump which we will continue, will continue with sliding scale insulin at a medium-high dosage -She has been having blood sugars in the 300s which is very abnormal for her and this could either be a stress response to the non-ST segment elevated NH versus a response to any possible infection especially given that she has a leukocytosis even though she is afebrile 5. Parkinson's/depression/anxiety -Stable -Continue with Sinemet and Celexa DVT: Fab Code Visit Inpatient E&M: 17930 Subs Hosp L2
[2019-09-21 11:11] LABS: Magnesium 1.8 mg/dL (1.6-2.6); Phosphorus 2.3 mg/dL (2.5-4.9)
[2019-09-21 11:25] LABS: Bedside Glucose 306 mg/dL (70-110)
[2019-09-21] MEDS: Amox/Clavulanate 875 MG Tablet PO ×2 (12:17→21:36)
--- NOTE | 2019-09-21 13:40 | PN.CARD_ITS ---
Subjectve: The patient appears to be awake. She denies any ongoing acute chest discomfort or acute shortness of breath/dyspnea at this time. Objective: Vital Signs Temp Pulse Resp BP Pulse Ox 98.4 F 83 18 122/54 H 96 09/21/19 09:19 09/21/19 09:19 09/21/19 09:19 09/21/19 09:19 09/21/19 13:00 Oxygen Flow Rate (L/min) 1 Oxygen Delivery Method Room Air Weight: 158 lb 11.725 oz Body Mass Index (BMI) 28.3 Finger Stick Blood Glucose 195 Intake and Output for Last 24 Hours 09/19/19 09/20/19 09/21/19 23:59 23:59 23:59 Intake Total 924 / 924 1454 / 1454 600 / 600 Output Total 350 / 350 1300 / 1300 600 / 600 Balance 574 / 574 154 / 154 0 / 0 General: Awake, Cooperative, No Acute Distress HEENT: Atraumatic, Normocephalic, PERRL, EOMI, Sclera Non Icteric Oral: Moist Mucosa Neck: Supple, Good ROM, No JVD Lungs: Clear to auscultation Cardiovascular: Regular Rhythm, Normal S1, Normal S2 Abdomen: Bowel Sounds Present, Soft, Non Tender Extremities: No edema Psych/Mental Status: Appropriate 09/20/19 17:00: Urine Color Yellow, Urine Clarity Sl. Cloudy, Urine pH 6.0, Ur Specific [place] 1.015, Urine Protein Negative, Urine Glucose (UA) Normal, Urine Ketones 5 H, Urine Occult Blood Negative, Urine Nitrite Negative, Urine Bilirubin Negative, Urine Urobilinogen Normal, Ur Leukocyte Esterase 25 H, Urine RBC 0 SEEN, Urine WBC 0 SEEN 09/21/19 06:45: WBC 22.5 H, RBC 3.08 L, Hgb 9.6 L, Hct 29.0 L, MCV 94.2, MCH 31.2, MCHC 33.1, Plt Count 345, MPV 10.6, Neut % (Auto) Not Reportable, Absolute Neuts (auto) 17.8 H, Total Counted 100, Neutrophils % (Manual) 77 H, Band Neutrophils % 2, Lymphocytes % (Manual) 3 L, Monocytes % (Manual) 2, Metamyelocytes % 4 H, Myelocytes % 12 H 09/21/19 06:45: Sodium 132 L, Potassium 3.4 L, Chloride 94 L, Carbon Dioxide 30.0, Anion Gap 8, BUN 45 H, Creatinine 1.34 H, Est GFR (MDRD) Af Amer 49 L, Est GFR (MDRD) Non-Af 41 L, BUN/Creatinine Ratio 33.6 H, Glucose 214 H, Calcium 8.4 L, Total Bilirubin 1.60 H 09/21/19 06:45: Phosphorus 2.3 L, Magnesium 1.8 Rhythm: Sinus rhythm : Medical Necessity - Tobacco Use Smoking Status: Never smoker Assessment/Plan 1. Acute coronary syndrome/non-ST segment elevation [place]/CAD status post PCI At the present time the patient appears without any acute symptoms. She is continuing medical management with a combination of antiplatelet agents. She is also on beta-blockers. She will continue to be followed as deemed appropriate. 2. CHF: Acute systolic Based upon her previous diagnostic studies her LV systolic function is decreased. She is continuing medical therapy. At the moment this includes beta-blockers and diuretics. Depending upon her course she may need other agents such as nitrates and afterload reducing agents. 3. Paroxysmal atrial fibrillation She remains in sinus rhythm at the moment. She will continue medical management which includes rate control therapy and anticoagulant therapy. 4. Anemia She is somewhat anemic. She will need continue evaluation and care per internal medicine. If her H&H declines she may need PRBCs to maintain oxygen carrying capacity especially in light of her acute coronary syndrome event. 5. Chronic renal sufficiency She will continue evaluation care per internal medicine. 6. Parkinson's disorder She will continue medical management as deemed appropriate. Comment: The above was discussed and reviewed with the patient and her family members present. This note was generated using a voice recognition system and there may be incorrect words, spelling or punctuation that were not noted when reviewing the office note prior to saving.
[2019-09-21 17:35] LABS: Bedside Glucose 254 mg/dL (70-110)
[2019-09-21 21:36] LABS: Bedside Glucose 181 mg/dL (70-110)
[2019-09-21] MEDS: Gabapentin 100 MG Capsule PO (21:36)
[2019-09-22] VITALS (14 sets, daily range): BP systolic 116–131; BP diastolic 48–74; PULSE 70–79; RESP 18–20; TEMP 36.6–37.1; O2SAT 91–95
[2019-09-22] MEDS: Levothyroxine 88 MCG Tablet PO (06:03)
[2019-09-22] MEDS: Carbidopa/Levodopa 25/100 Tablet PO ×3 (06:04→15:59)
[2019-09-22] MEDS: 0.9% Saline Lock 10 ML Syringe IV ×2 (06:05→16:02)
[2019-09-22] MEDS: Insulin Lispro 100 UNIT/ML INSULN.PEN SC ×4 (06:33→21:43)
[2019-09-22 06:46] LABS: Bedside Glucose 197 mg/dL (70-110)
[2019-09-22] MEDS: Aspirin E.C. 81 MG Tablet PO (07:20)
[2019-09-22] MEDS: Carvedilol 6.25 MG Tablet PO ×2 (07:20→17:35)
[2019-09-22] MEDS: TICAGRELOR 90 MG TABLET PO ×2 (07:21→21:43)
[2019-09-22] MEDS: Amox/Clavulanate 875 MG Tablet PO ×2 (07:21→21:43)
[2019-09-22] MEDS: Citalopram 20 MG Tablet PO (07:22)
[2019-09-22] MEDS: APIXABAN 2.5 MG TABLET PO ×2 (07:22→21:43)
[2019-09-22] MEDS: Furosemide 40 MG/4 ML Vial IV ×2 (07:22→17:35)
[2019-09-22 07:29] LABS: Hematocrit 29.2 % (37-47); Hemoglobin 9.8 g/dL (12.0-15.0); Mean Corp Hgb Conc 33.6 g/dL (32-36); Mean Corpuscular Hgb 31.7 pg (27.0-32.0); Mean Corpuscular Volume 94.5 fL (81-99); Mean Platelet Vol. 10.6 fl (6.2-12.0); POSITIVE COUNT YES; POSITIVE DIFFERENTIAL YES; POSITIVE MORPHOLOGY YES; Platelet Count 367 K/mm3 (150-450); RBC Distribution Width CV 15.6 % (11.6-14.6); RBC Distribution Width SD 51.8 fl (35.1-43.9); Red Blood Count 3.09 M/mm3 (4.2-5.4); White Blood Count 24.3 K/mm3 (4.4-11.0)
[2019-09-22 07:39] LABS: Anion Gap 8 (5-15); BUN 38 mg/dL (7-18); BUN/Creat Ratio 30.6 RATIO (10-20); Calcium,Total 8.4 mg/dL (8.5-10.1); Chloride 95 mmol/L (98-107); Creatinine, Serum 1.24 mg/dL (0.55-1.02); Differential Indicated MANUAL DIFF; EST Glomerular Filtration Rate 45 mL/min (>60); Est Glom Filt Rate - Afr Amer 54 mL/min (>60); Estimated Creatinine Clearance 30.53 ml/min; Glucose 181 mg/dL (74-106); Potassium 3.4 mmol/L (3.5-5.1); Sodium Level 132 mmol/L (136-145)
--- NOTE | 2019-09-22 08:13 | PN_ITS ---
Patient Problems: Active and Suspected Problems (Last Updated 09/16/19 @ 09:35 by Irina Liu) Paroxysmal atrial fibrillation with RVR (Acute) Subjective: Patient feels subjectively improved compared to previous. Patient does report that she has been able to make it to 1 L on her incentive spirometer. Patient has been weaned off of room air. No fever has been reported overnight. - Physical Exam Vitals/I&O's: Vital Signs Temp Pulse Resp BP Pulse Ox 36.9 C 76 18 119/57 L 95 09/22/19 07:25 09/22/19 07:25 09/22/19 07:25 09/22/19 07:25 09/22/19 07:25 Oxygen Flow Rate (L/min) 1 Oxygen Delivery Method Room Air Weight: 72 kg Body Mass Index (BMI) 28.3 Finger Stick Blood Glucose 195 Intake and Output for Last 24 Hours 09/20/19 09/21/19 09/22/19 23:59 23:59 23:59 Intake Total 1454 / 1454 962 / 1082 320 / 320 Output Total 1300 / 1300 800 / 1800 1400 / 1400 Balance 154 / 154 162 / -718 -1080 / -1080 General: Alert, Oriented x3, Cooperative, No apparent distress, - - Lying flat in bed. No conversational dyspnea. HEENT: Atraumatic, PERRLA, EOMI, Normocephalic, - - No scleral icterus or injection noted Oral: Moist Mucosa, No Gingival or Mucosal Lesions/ Ulcerations Neck: Supple, No JVD, No Nodes, Trachea Midline Lungs: No rhonchi, No wheeze, No rales, Diminished, - - Symmetric expansion. No dullness to percussion. Cardiovascular: Regular rate, Regular Rhythm, Normal S1, Normal S2, No murmurs, No rub noted, No Gallop Abdomen: Bowel Sounds Present, Soft, Non Tender, Non-Distended, Obese Extremities: No clubbing, No cyanosis, No edema Skin: No rashes, No breakdown Musculoskeletal: No Tenderness to Palpation of Joints or Extremities Lymphatic: No Cervical, Supraclavicular, or Inguinal Adenopathy Neurological: Cranial nerves II-XII grossly intact, Neuro grossly intact, Motor Exam 5/5 strength throughout Psych/Mental Status: Alert and oriented to time, place, person, mood and affect Microbiology Past 72 Hours 09/20/19 17:00 Urine, Clean Catch Urine Culture - Preliminary Culture exhibits no growth. 09/19/19 07:40 Stool Stool Occult Blood (POPPY) - Final 09/16/19 15:55 Urine, Clean Catch Urine Culture - Final Enterococcus faecalis Laboratory Results 09/21/19 06:45: Absolute Neuts (auto) 17.8 H, Absolute Lymphs (auto) 0.68 L, Total Counted 100, Neutrophils % (Manual) 77 H, Band Neutrophils % 2, Lymphocytes % (Manual) 3 L, Monocytes % (Manual) 2, Metamyelocytes % 4 H, Myelocytes % 12 H, Diff Path Review January, Platelet Estimate ADEQUATE, RBC Morphology NORM C+C 09/21/19 06:45: Phosphorus 2.3 L, Magnesium 1.8 09/21/19 11:05: POC Glucose 306 H 09/21/19 17:22: POC Glucose 254 H 09/21/19 21:28: POC Glucose 181 H 09/22/19 06:31: POC Glucose 197 H 09/22/19 06:55: WBC 24.3 H, RBC 3.09 L, Hgb 9.8 L, Hct 29.2 L, MCV 94.5, MCH 31.7, MCHC 33.6, RDW Std Deviation 51.8 H, RDW Coeff of Stephane 15.6 H, Plt Count 367, MPV 10.6, Neut % (Auto) Not Reportable, Absolute Neuts (auto) Pending 09/22/19 06:55: Sodium 132 L, Potassium 3.4 L, Chloride 95 L, Carbon Dioxide 29.0, Anion Gap 8, BUN 38 H, Creatinine 1.24 H, Estim Creat Clear Calc 30.53, Est GFR (MDRD) Af Amer 54 L, Est GFR (MDRD) Non-Af 45 L, BUN/Creatinine Ratio 30.6 H, Glucose 181 H, Calcium 8.4 L Current Medications Acetaminophen (Tylenol) 650 mg PO Q6H PRN PRN PRN Reason: Pain Score 1-5/Temp > 100.7 F Last Admin: 09/17/19 22:03 Dose: 650 mg Documented by: Amoxicillin/Clavulanate Potassium (Augmentin Tablet) 875 mg PO BID [facility]A Last Admin: 09/22/19 07:21 Dose: 875 mg Documented by: Apixaban (Eliquis) 2.5 mg PO BID [facility] Last Admin: 09/22/19 07:22 Dose: 2.5 mg Documented by: Aspirin (Ecotrin) 81 mg PO DAILY@0800 [facility] Last Admin: 09/22/19 07:20 Dose: 81 mg Documented by: Atropine Sulfate () 0.5 mg IV UD PRN PRN Reason: HR <50 bpm Carbidopa/Levodopa (Sinemet) 0.5 tablet PO TIDAC [facility] Last Admin: 09/22/19 06:04 Dose: 0.5 tablet Documented by: Carvedilol (Coreg) 6.25 mg PO BIDCM [facility] Last Admin: 09/22/19 07:20 Dose: 6.25 mg Documented by: Cholecalciferol (Vitamin D) 2,000 unit PO DAILY [facility] Last Admin: 09/22/19 07:22 Dose: 2,000 unit Documented by: Citalopram Hydrobromide (Celexa) 20 mg PO DAILY [facility] Last Admin: 09/22/19 07:22 Dose: 20 mg Documented by: Furosemide (Lasix) 40 mg IV BID@1000,1800 [facility] Last Admin: 09/22/19 07:22 Dose: 40 mg Documented by: Gabapentin (Neurontin) 100 mg PO QHS [facility] Last Admin: 09/21/19 21:36 Dose: 100 mg Documented by: Glucagon () 1 mg IM .X1 PRN PRN Reason: Hypoglycemia Heparin Sodium (Beef Lung) (Heparin 500 Unit/5 Ml (100/Ml)) 500 unit IV UD PRN PRN Reason: HEPARIN FLUSH Dextrose (Dextrose 10%-Water) 250 mls @ 999 mls/hr IV .Q16M PRN; Protocol PRN Reason: HYPOGLYCEMIA Sodium Chloride () 1,000 mls @ 0 mls/hr IV .Q0M [facility] Insulin Human Lispro (Humalog Kwikpen (Bkc)) 0 unit SC ACHS [facility]; Protocol Last Admin: 09/22/19 06:33 Dose: 2 units Documented by: Levothyroxine Sodium (Synthroid) 88 mcg PO DAILY@0600 [facility] Last Admin: 09/22/19 06:03 Dose: 88 mcg Documented by: Morphine Sulfate () 2 mg IV Q3H PRN PRN PRN Reason: Pain Score 6-10/10 Ondansetron HCl (Zofran) 4 mg IV Q8H PRN PRN PRN Reason: NAUSEA/VOMITING Last Admin: 09/16/19 12:10 Dose: 4 mg Documented by: Sodium Chloride () 10 - 40 ml IV UD PRN PRN Reason: SALINE FLUSH Last Admin: 09/22/19 06:05 Dose: 10 ml Documented by: Sodium Chloride () 500 ml IV BOLUS PRN PRN Reason: VASO-VAGAL PROTOCOL Ticagrelor (Brilinta) 90 mg PO BID [facility] Last Admin: 09/22/19 07:21 Dose: 90 mg Documented by: Medical Necessity - Tobacco Use Smoking Status: Never smoker Assessment/Plan All Active Problems (Last Updated 09/16/19 @ 09:35 by Irina Liu) Paroxysmal atrial fibrillation with RVR (Acute) History of coronary artery stent placement (Resolved 09/14/19) Atypical chest pain (Resolved) RECOMMENDATIONS: 1. Continue incentive spirometer 2. Hold on antibiotics 3. Diuresis as tolerated 4. Room air challenge. Walking oximetry prior to discharge. 5. Would not recommend scheduled bronchodilators 6. Okay to discharge from a pulmonary perspective. IMPRESSIONS: 1. NSTEMI status post stent/CAD/hypertension/hyperlipidemia/ischemic cardiomyopathy/acute systolic congestive heart failure Patient has received significant diuresis during hospitalization with improvement in kidney function indicating better [place] forces. Patient is on aspirin and Brilinta secondary to recent stent, but echo shows an EF of 30 to 35%. Patient does have a pleural effusion and there is high clinical suspicion that this would be a transudate in nature. This is relatively small and unlikely that this would account for patient's requirement for supplemental oxygen. Reasonable to continue with diuresis alone. Continue to encourage incentive spirometer. 2. Hypoxia Clinical suspicion for atelectasis as patient's etiology for hypoxia. Pneumonia is suggested by chest x-ray, but patient does not have any concomitant constitutional symptoms such as productive cough, fever or chest pain. Patient does have a leukocytosis and right upper quadrant ultrasound was not suggestive of etiology. Patient could have a complete PFT as an outpatient, but no history of asthma has been reported. Patient does not have extensive wheezing to suggest the need for steroids at this time. Would hold on any bronchodilators given patient's recent development of paroxysmal A. fib with RVR overnight as this could potentiate this condition with little potential improvement in respiratory status. Goal and incentive spirometer would be 1 L. Continue activity as tolerated. 3. Diabetes mellitus type 1/acute on chronic kidney disease stage III/anxiety/depression/Parkinson's/advanced age Complicates care, management, recovery and prognosis. Improvement in creatinine with diuresis would suggest improved Star[place] forces. Patient's blood sugars have been elevated, along with WBC count. This could be suggestive of increased endogenous stress response. Repeat UA is not suggestive of infection. Code Visit Inpatient E&M: 12101 Subs Hosp L2
[2019-09-22 08:21] LABS: Lymphocyte 4 % (19-41); Metamyelocyte 3 % (0-1); Monocyte 9 % (0-10); Myelocyte 2 (0-0); Neutrophil-Band 2 % (0-5); Neutrophil-Segmented 80 % (47-70); Nucleated Red Bld Cells,Manual 1 % (0-5); Red Cell Morphology NORM C+C NORMAL (NORM C&C); Total Cells Counted 100 (MANUAL DIFF)
[2019-09-22 08:22] LABS: Absolute Neutrophil Count 19.9 X10^3/uL (2.0-7.7); Platelet Estimate ADEQUATE (ADEQ)
[2019-09-22 08:23] LABS: Absolute Lymphocyte Count 0.97 X10^3/uL (0.83-4.51)
--- NOTE | 2019-09-22 10:45 | PN_ITS ---
Patient Problems: Active and Suspected Problems (Last Updated 09/16/19 @ 09:35 by Irina Liu) Paroxysmal atrial fibrillation with RVR (Acute) Subjective: Doing well, no issues overnight. She seems much better today off of oxygen Vitals/I&O's: Vital Signs Temp Pulse Resp BP Pulse Ox 98.4 F 79 18 119/57 L 91 09/22/19 07:25 09/22/19 08:19 09/22/19 07:25 09/22/19 07:25 09/22/19 08:05 Oxygen Flow Rate (L/min) 1 Oxygen Delivery Method Room Air Weight: 158 lb 11.725 oz Body Mass Index (BMI) 28.3 Finger Stick Blood Glucose 195 Intake and Output for Last 24 Hours 09/20/19 09/21/19 09/22/19 23:59 23:59 23:59 Intake Total 1454 / 1454 962 / 1082 320 / 320 Output Total 1300 / 1300 800 / 1800 1400 / 1400 Balance 154 / 154 162 / -718 -1080 / -1080 General: Alert, Oriented x3, Cooperative, No apparent distress HEENT: Atraumatic, PERRLA, EOMI, Normocephalic Oral: Moist Mucosa Neck: Supple, No JVD Lungs: Clear to auscultation, Normal air movement, No rhonchi, No wheeze, No rales, Diminished Cardiovascular: Regular rate, Regular Rhythm, Normal S1, Normal S2, No murmurs Abdomen: Soft, mildly tender to right upper quadrant palpation, Non-Distended, No Hepato-splenomegaly Extremities: No edema, Capillary Refill Less than 3 Seconds Skin: No rashes, No breakdown Neurological: Neuro grossly intact, Sensory exam intact to light touch and pain Psych/Mental Status: Normal Affect, Appropriate Microbiology Past 72 Hours 09/20/19 17:00 Urine, Clean Catch Urine Culture - Preliminary Culture exhibits no growth. 09/19/19 07:40 Stool Stool Occult Blood (POPPY) - Final 09/16/19 15:55 Urine, Clean Catch Urine Culture - Final Enterococcus faecalis Laboratory Results 09/21/19 06:45: Phosphorus 2.3 L, Magnesium 1.8 09/21/19 11:05: POC Glucose 306 H 09/21/19 17:22: POC Glucose 254 H 09/21/19 21:28: POC Glucose 181 H 09/22/19 06:31: POC Glucose 197 H 09/22/19 06:55: WBC 24.3 H, RBC 3.09 L, Hgb 9.8 L, Hct 29.2 L, MCV 94.5, MCH 31.7, MCHC 33.6, RDW Std Deviation 51.8 H, RDW Coeff of Stephane 15.6 H, Plt Count 367, MPV 10.6, Neut % (Auto) Not Reportable, Absolute Neuts (auto) 19.9 H, Absolute Lymphs (auto) 0.97, Total Counted 100, Neutrophils % (Manual) 80 H, Band Neutrophils % 2, Lymphocytes % (Manual) 4 L, Monocytes % (Manual) 9, Metamyelocytes % 3 H, Myelocytes % 2 H, Nucleated RBCs/100 WBC 1, Diff Path Review January, Platelet Estimate ADEQUATE, RBC Morphology NORM C+C 09/22/19 06:55: Sodium 132 L, Potassium 3.4 L, Chloride 95 L, Carbon Dioxide 29.0, Anion Gap 8, BUN 38 H, Creatinine 1.24 H, Estim Creat Clear Calc 30.53, Est GFR (MDRD) Af Amer 54 L, Est GFR (MDRD) Non-Af 45 L, BUN/Creatinine Ratio 30.6 H, Glucose 181 H, Calcium 8.4 L Current Medications Acetaminophen (Tylenol) 650 mg PO Q6H PRN PRN PRN Reason: Pain Score 1-5/Temp > 100.7 F Last Admin: 09/17/19 22:03 Dose: 650 mg Documented by: Amoxicillin/Clavulanate Potassium (Augmentin Tablet) 875 mg PO BID [facility] Last Admin: 09/22/19 07:21 Dose: 875 mg Documented by: Apixaban (Eliquis) 2.5 mg PO BID [facility] Last Admin: 09/22/19 07:22 Dose: 2.5 mg Documented by: Aspirin (Ecotrin) 81 mg PO DAILY@0800 [facility] Last Admin: 09/22/19 07:20 Dose: 81 mg Documented by: Atropine Sulfate () 0.5 mg IV UD PRN PRN Reason: HR <50 bpm Carbidopa/Levodopa (Sinemet) 0.5 tablet PO TIDAC [facility] Last Admin: 09/22/19 06:04 Dose: 0.5 tablet Documented by: [facility] Last Admin: 09/22/19 07:20 Dose: 6.25 mg Documented by: Cholecalciferol (Vitamin D) 2,000 unit PO DAILY [facility] Last Admin: 09/22/19 07:22 Dose: 2,000 unit Documented by: Citalopram Hydrobromide (Celexa) 20 mg PO DAILY [facility] Last Admin: 09/22/19 07:22 Dose: 20 mg Documented by: Furosemide (Lasix) 40 mg IV BID@1000,1800 [facility] Last Admin: 09/22/19 07:22 Dose: 40 mg Documented by: Gabapentin (Neurontin) 100 mg PO QHS [facility] Last Admin: 09/21/19 21:36 Dose: 100 mg Documented by: Glucagon () 1 mg IM .X1 PRN PRN Reason: Hypoglycemia Heparin Sodium (Beef Lung) (Heparin 500 Unit/5 Ml (100/Ml)) 500 unit IV UD PRN PRN Reason: HEPARIN FLUSH Dextrose (Dextrose 10%-Water) 250 mls @ 999 mls/hr IV .Q16M PRN; Protocol PRN Reason: HYPOGLYCEMIA Sodium Chloride () 1,000 mls @ 0 mls/hr IV .Q0M [facility] Insulin Human Lispro (Humalog Kwikpen (Bkc)) 0 unit SC ACHS [facility]; Protocol Last Admin: 09/22/19 06:33 Dose: 2 units Documented by: Levothyroxine Sodium (Synthroid) 88 mcg PO DAILY@0600 [facility] Last Admin: 09/22/19 06:03 Dose: 88 mcg Documented by: Morphine Sulfate () 2 mg IV Q3H PRN PRN PRN Reason: Pain Score 6-10/10 Ondansetron HCl (Zofran) 4 mg IV Q8H PRN PRN PRN Reason: NAUSEA/VOMITING Last Admin: 09/16/19 12:10 Dose: 4 mg Documented by: Sodium Chloride () 10 - 40 ml IV UD PRN PRN Reason: SALINE FLUSH Last Admin: 09/22/19 06:05 Dose: 10 ml Documented by: Sodium Chloride () 500 ml IV BOLUS PRN PRN Reason: VASO-VAGAL PROTOCOL Ticagrelor (Brilinta) 90 mg PO BID [facility] Last Admin: 09/22/19 07:21 Dose: 90 mg Documented by: STROKE Vital Signs/Narrative: Vital Signs Temp Pulse Resp BP Pulse Ox 09/22/19 08:19 79 09/22/19 08:05 91 09/22/19 07:25 98.4 F 76 18 119/57 L 95 Medical Necessity - Tobacco Use Smoking Status: Never smoker Assessment/Plan All Active Problems (Last Updated 09/16/19 @ 09:35 by Irina Liu) Paroxysmal atrial fibrillation with RVR (Acute) History of coronary artery stent placement (Resolved 09/14/19) Atypical chest pain (Resolved) 1. NSTEMI status post stent/CAD/HTN/HLD/ischemic cardiomyopathy/new onset A. fib -Echo with an EF of 30 to 35% and wall motion abnormality -Stent was placed to mid LAD -Continue with aspirin and Brilinta -Blood pressure medications were changed to Coreg, continue with twice daily dosing of her Lasix -We will change Unasyn to Augmentin p.o. -She was initiated on Eliquis therapy for her new onset A. fib 2.5 mg p.o. twice daily 2. Normochromic normocytic anemia/UTI -With elevation in her blood sugars and her leukocytosis, UA was obtained yesterday which did demonstrate a UTI, she was started on Ancef and a urine culture is pending -Her leukocytosis increased to 24.3, given her worsening LFTs a right upper quadrant ultrasound was obtained to evaluate her gallbladder and her liver, there is no sign of cholecystitis, switch to her Augmentin and she remains afebrile. At this point my recommendation is that she be transferred to the TCU when pre-CERT is available and once she is discharged to follow-up with her PCP to have a repeat CBC and if her white count is still elevated to have a hematology consult on the outpatient side. -Her LFTs appear to have stabilized, however her creatinine is much improved and her hemoglobin has stabilized at 9.8 today. Continue with Augmentin for the enterococcus -While dilution is likely a component of her anemia, her hemolysis has been negative, she is hypoproliferative however haptoglobin is normal despite an elevation in her LDH. Her hemoglobin increased from 8.8 to 9.8 -We will continue to monitor, vitamin B12 level was elevated to greater than 2000 despite the macrocytosis on pathology review of her CBC 3. ADALI on CKD 3 -Baseline creatinine is around 1.09, is now 1.24 down from 2.02 -Continue with Lasix -Chest x-ray from yesterday on my read is unremarkable, there is some blunting of the costophrenic angles indicative of volume overload. 4. DM 1 -She has an insulin pump which we will continue, will continue with sliding scale insulin at a medium-high dosage -She has been having blood sugars in the 300s which is very abnormal for her and this could either be a stress response to the non-ST segment elevated [place] versus a response to any possible infection especially given that she has a leukocytosis even though she is afebrile 5. Parkinson's/depression/anxiety -Stable -Continue with Sinemet and Celexa DVT: Eliquis Code Visit Inpatient E&M: 19895 Subs Hosp L2
[2019-09-22 11:08] LABS: Magnesium 1.6 mg/dL (1.6-2.6); Phosphorus 2.5 mg/dL (2.5-4.9)
[2019-09-22 11:31] LABS: Bedside Glucose 269 mg/dL (70-110)
--- NOTE | 2019-09-22 14:48 | PCM.PN.CARD ---
Subjectve: The patient has been out of bed and up in the chair and up and ambulating. She is denying ongoing chest discomfort or acute shortness of breath or dyspnea. He does feel tired and weak. Objective: Vital Signs Temp Pulse Resp BP Pulse Ox 98.7 F 75 18 127/74 H 95 09/22/19 14:36 09/22/19 14:36 09/22/19 14:36 09/22/19 14:36 09/22/19 14:36 Oxygen Flow Rate (L/min) 1 Oxygen Delivery Method Room Air Weight: 158 lb 11.725 oz Body Mass Index (BMI) 28.3 Finger Stick Blood Glucose 195 Intake and Output for Last 24 Hours 09/20/19 09/21/19 09/22/19 23:59 23:59 23:59 Intake Total 1454 / 1454 962 / 1082 370 / 370 Output Total 1300 / 1300 800 / 1800 2350 / 2350 Balance 154 / 154 162 / -718 -1979 / -1979 General: Awake, Alert, Oriented x 3, Cooperative, No Acute Distress HEENT: Atraumatic, Normocephalic, PERRL, EOMI, Sclera Non Icteric Oral: Moist Mucosa Neck: Supple, Good ROM, No JVD Lungs: - - No obvious rales or rhonchi Cardiovascular: Regular Rhythm, Normal S1, Normal S2 Abdomen: Bowel Sounds Present, Soft, Non Tender Extremities: No edema Psych/Mental Status: Appropriate 09/22/19 06:55: WBC 24.3 H, RBC 3.09 L, Hgb 9.8 L, Hct 29.2 L, MCV 94.5, MCH 31.7, MCHC 33.6, Plt Count 367, MPV 10.6, Neut % (Auto) Not Reportable, Absolute Neuts (auto) 19.9 H, Total Counted 100, Neutrophils % (Manual) 80 H, Band Neutrophils % 2, Lymphocytes % (Manual) 4 L, Monocytes % (Manual) 9, Metamyelocytes % 3 H, Myelocytes % 2 H 09/22/19 06:55: Sodium 132 L, Potassium 3.4 L, Chloride 95 L, Carbon Dioxide 29.0, Anion Gap 8, BUN 38 H, Creatinine 1.24 H, Est GFR (MDRD) Af Amer 54 L, Est GFR (MDRD) Non-Af 45 L, BUN/Creatinine Ratio 30.6 H, Glucose 181 H, Calcium 8.4 L 09/22/19 06:55: Phosphorus 2.5, Magnesium 1.6 Rhythm: Sinus rhythm Medical Necessity - Tobacco Use Smoking Status: Never smoker Assessment/Plan 1. Acute coronary syndrome/non-ST segment elevation [place]/CAD status post PCI At the present time the patient appears without any acute symptoms. She is continuing medical management with a combination of antiplatelet agents. She is also on beta-blockers. She will continue to be followed as deemed appropriate. 2. CHF: Acute systolic Based upon her previous diagnostic studies her LV systolic function is decreased. She is continuing medical therapy. At the moment this includes beta-blockers and diuretics. It would not be reasonable to consider initiation of afterload reducing agents-initially at low dose. 3. Paroxysmal atrial fibrillation She remains in sinus rhythm at the moment. She will continue medical management which includes rate control therapy and anticoagulant therapy. 4. Anemia She is somewhat anemic. She will need continue evaluation and care per internal medicine. If her H&H declines she may need PRBCs to maintain oxygen carrying capacity especially in light of her acute coronary syndrome event. 5. Chronic renal sufficiency She will continue evaluation care per internal medicine. 6. Parkinson's disorder She will continue medical management as deemed appropriate. Comment: The above was discussed and reviewed with the patient and her family members present. This note was generated using a voice recognition system and there may be incorrect words, spelling or punctuation that were not noted when reviewing the office note prior to saving.
[2019-09-22 16:16] LABS: Bedside Glucose 158 mg/dL (70-110)
[2019-09-22] MEDS: Lisinopril 2.5 MG Tablet PO (21:43)
[2019-09-22] MEDS: Gabapentin 100 MG Capsule PO (21:43)
[2019-09-22 22:20] LABS: Bedside Glucose 235 mg/dL (70-110)
[2019-09-23] VITALS (7 sets, daily range): BP systolic 110–130; BP diastolic 55–58; PULSE 72–78; RESP 18–20; TEMP 36.6–37.3; O2SAT 90–94
[2019-09-23] MEDS: Levothyroxine 88 MCG Tablet PO (06:30)
[2019-09-23] MEDS: Carbidopa/Levodopa 25/100 Tablet PO ×2 (06:30→11:25)
[2019-09-23] MEDS: Insulin Lispro 100 UNIT/ML INSULN.PEN SC ×2 (06:31→11:31)
[2019-09-23 06:45] LABS: Bedside Glucose 209 mg/dL (70-110)
[2019-09-23 06:48] LABS: Anion Gap 9 (5-15); BUN 33 mg/dL (7-18); BUN/Creat Ratio 28.2 RATIO (10-20); Calcium,Total 8.3 mg/dL (8.5-10.1); Chloride 94 mmol/L (98-107); Creatinine, Serum 1.17 mg/dL (0.55-1.02); EST Glomerular Filtration Rate 48 mL/min (>60); Est Glom Filt Rate - Afr Amer 58 mL/min (>60); Estimated Creatinine Clearance 32.35 ml/min; Glucose 187 mg/dL (74-106); Potassium 3.5 mmol/L (3.5-5.1); Sodium Level 132 mmol/L (136-145)
--- NOTE | 2019-09-23 07:42 | PN.CARD_ITS ---
Subjectve: Patient seen and evaluated. Appears to be doing better this morning. Objective: Vital Signs Temp Pulse Resp BP Pulse Ox 98 F 78 18 130/55 H 94 09/23/19 02:00 09/23/19 04:11 09/23/19 02:00 09/23/19 02:00 09/23/19 02:00 Oxygen Flow Rate (L/min) 1 Oxygen Delivery Method Room Air Weight: 160 lb 0.889 oz Body Mass Index (BMI) 28.3 Finger Stick Blood Glucose 195 Intake and Output for Last 24 Hours 09/21/19 09/22/19 09/23/19 23:59 23:59 23:59 Intake Total 962 / 1082 1064 / 1064 100 / 100 Output Total 800 / 1800 3000 / 3000 500 / 500 Balance 162 / -718 -1936 / -1936 -400 / -400 General: Awake, Alert, Oriented x 3 HEENT: PERRL, EOMI, Sclera Non Icteric Neck: Supple, Good ROM, No Lymph Node Enlargement Lungs: Clear to auscultation Cardiovascular: Regular Rhythm, Normal S1, Normal S2, No Murmurs, No Rubs, No Gallops Vascular: No Carotid Bruits, Normal Femoral Pulses, Normal Radial Pulses, Normal Dorsalis Pedal Pulse, Normal Posterior Tibial Pulses Abdomen: Bowel Sounds Present, Soft, Non Tender, No HSM, No Organomegaly Extremities: No Cyanosis, No Clubbing, No edema Musculoskeletal: No Erythema Skin: No Rashes Lymphatic: No Lymph Node Enlargement Neurological: No Focal Motor or Sensory Deficit Psych/Mental Status: Appropriate 09/22/19 06:55: Absolute Neuts (auto) 19.9 H, Total Counted 100, Neutrophils % (Manual) 80 H, Band Neutrophils % 2, Lymphocytes % (Manual) 4 L, Monocytes % (Manual) 9, Metamyelocytes % 3 H, Myelocytes % 2 H 09/22/19 06:55: Phosphorus 2.5, Magnesium 1.6 09/23/19 06:18: Sodium 132 L, Potassium 3.5, Chloride 94 L, Carbon Dioxide 29.0, Anion Gap 9, BUN 33 H, Creatinine 1.17 H, Est GFR (MDRD) Af Amer 58 L, Est GFR (MDRD) Non-Af 48 L, BUN/Creatinine Ratio 28.2 H, Glucose 187 H, Calcium 8.3 L Rhythm: EKG: ECHO: Stress Test: Cardiac Cath: PCI: CT Surgery: Holter monitor: EPS: PPM: CXR: Chest CT Scan: Medical Necessity - Tobacco Use Smoking Status: Never smoker Assessment/Plan 1. Chest pain-acute coronary syndrome.. non-ST elevation myocardial infarction * The patient presented with chest discomfort which had some concerning features. Cardiac catheterization demonstrated normal left main coronary artery, Normal left circumflex artery, Proximal 80% left anterior descending artery lesion and proximal to mid 95% lesion. Dominant right coronary artery with 30% diffuse stenosis. Left ventricular systolic dysfunction with anterior apical hypokinesis. Based on the above angiographic findings the alternatives therapies are bypass surgery with a single-vessel RESENDEZ to the LAD or sequential LAD stenting in the left anterior descending artery. * The patient successfully underwent angioplasty and stenting of the left anterior descending artery. Patient tolerated the procedure well. * Echocardiogram performed demonstrated ejection fraction of approximately 30 to 35% with severe hypokinesis and akinesis of the anterior wall and apex. * Will continue therapy as follows Aspirin Low-dose beta-aarti if tolerated--we will continue carvedilol BENEDICT inhibitor to be carefully titrated due to blood pressure issues. * Patient was started on a low-dose statin but liver function tests continue to be abnormal and therefore I would hold to this and be restarted as an outpatient. * 2. Heart failure with reduced ejection fraction * Patient still has some shortness of breath likely from the increase in the creatinine. She probably still has some fluid overload. On discussion with the hospitalist may not be a bad idea for patient continue with intravenous Lasix today and switch to p.o. Lasix from Monday. * Liver ultrasound is also pending to exclude any gallbladder pathology as a reason for the abnormal LFTs. If the above is normal then likely passive congestion * Overall she appears to doing better this morning with improvement in her renal function as well. * * 3. Paroxysmal atrial fibrillation * Patient has developed paroxysmal atrial fibrillation. With her substrate as well as her akinetic anterior wall and apex I would like to start her on low- dose anticoagulation. She will be on triple therapy but hopefully for a short while. * Thank you for allowing me to participate in the care of your patient. Please don't hesitate to call if any issues arise
[2019-09-23] MEDS: Carvedilol 6.25 MG Tablet PO (08:14)
[2019-09-23] MEDS: Aspirin E.C. 81 MG Tablet PO (08:14)
--- NOTE | 2019-09-23 10:04 | CASEMGMT ---
Addendum entered by Fabiola Rick 09/23/19 10:44: SW also spoke with Dr Blake to see if he would want to do a peer to peer and he declined. SW spoke with patient and her letting them know this information. SW gave them a list of home health agencies that are in network with patient's insurance. They chose [facility]. SW called Domi with [facility] and made the referral. They can accept patient. Plan: Home with [facility]p, PT, and OT. Fabiola TAPIA Original Note: SW received a voice mail on Monday at 430p that patient was denied for SNF. A peer to peer could be done, but it must be completed by noon Monday. SW spoke with patient and her letting them know patient was denied by insurance to go to SNF. SW explained the physician could possibly do a peer to peer which is where our physician talks with insurance physician. Sometimes the decision can be reversed. SW explained otherwise she will have to go home with home health. They wanted physician to do peer to peer. SW spoke with physician and he cannot do a peer to peer by noon today. SW will notify patient and her . Fabiola TAPIA
--- NOTE | 2019-09-23 10:10 | PCM.PN.HOSP ---
Patient Problems: Active and Suspected Problems (Last Updated 09/16/19 @ 09:35 by Irina Liu) Paroxysmal atrial fibrillation with RVR (Acute) Vitals/I&O's: Vital Signs Temp Pulse Resp BP Pulse Ox 99.1 F 78 20 H 110/58 L 90 09/23/19 08:00 09/23/19 08:00 09/23/19 08:00 09/23/19 08:00 09/23/19 08:05 Oxygen Flow Rate (L/min) 1 Oxygen Delivery Method Room Air Weight: 160 lb 0.889 oz Body Mass Index (BMI) 28.3 Finger Stick Blood Glucose 195 Intake and Output for Last 24 Hours 09/21/19 09/22/19 09/23/19 23:59 23:59 23:59 Intake Total 962 / 1082 1064 / 1064 100 / 100 Output Total 800 / 1800 3000 / 3000 500 / 500 Balance 162 / -718 -1936 / -1936 -400 / -400 Microbiology Past 72 Hours 09/20/19 17:00 Urine, Clean Catch Urine Culture - Preliminary Culture exhibits no growth. Laboratory Results 09/22/19 06:55: Phosphorus 2.5, Magnesium 1.6 09/22/19 11:06: POC Glucose 269 H 09/22/19 16:00: POC Glucose 158 H 09/22/19 21:36: POC Glucose 235 H 09/23/19 06:18: Sodium 132 L, Potassium 3.5, Chloride 94 L, Carbon Dioxide 29.0, Anion Gap 9, BUN 33 H, Creatinine 1.17 H, Estim Creat Clear Calc 32.35, Est GFR (MDRD) Af Amer 58 L, Est GFR (MDRD) Non-Af 48 L, BUN/Creatinine Ratio 28.2 H, Glucose 187 H, Calcium 8.3 L 09/23/19 06:26: POC Glucose 209 H Current Medications Acetaminophen (Tylenol) 650 mg PO Q6H PRN PRN PRN Reason: Pain Score 1-5/Temp > 100.7 F Last Admin: 09/17/19 22:03 Dose: 650 mg Documented by: Amoxicillin/Clavulanate Potassium (Augmentin Tablet) 875 mg PO BID MARIKA Last Admin: 09/22/19 21:43 Dose: 875 mg Documented by: Apixaban (Eliquis) 2.5 mg PO BID [facility] Last Admin: 09/22/19 21:43 Dose: 2.5 mg Documented by: Aspirin (Ecotrin) 81 mg PO DAILY@0800 [facility] Last Admin: 09/23/19 08:14 Dose: 81 mg Documented by: Atropine Sulfate () 0.5 mg IV UD PRN PRN Reason: HR <50 bpm Carbidopa/Levodopa (Sinemet) 0.5 tablet PO TIDAC [facility] Last Admin: 09/23/19 06:30 Dose: 0.5 tablet Documented by: [facility] Last Admin: 09/23/19 08:14 Dose: 6.25 mg Documented by: Cholecalciferol (Vitamin D) 2,000 unit PO DAILY [facility] Last Admin: 09/22/19 07:22 Dose: 2,000 unit Documented by: Citalopram Hydrobromide (Celexa) 20 mg PO DAILY [facility] Last Admin: 09/22/19 07:22 Dose: 20 mg Documented by: Furosemide (Lasix) 40 mg PO DAILY [facility] Gabapentin (Neurontin) 100 mg PO QHS [facility] Last Admin: 09/22/19 21:43 Dose: 100 mg Documented by: Glucagon () 1 mg IM .X1 PRN PRN Reason: Hypoglycemia Heparin Sodium (Beef Lung) (Heparin 500 Unit/5 Ml (100/Ml)) 500 unit IV UD PRN PRN Reason: HEPARIN FLUSH Dextrose (Dextrose 10%-Water) 250 mls @ 999 mls/hr IV .Q16M PRN; Protocol PRN Reason: HYPOGLYCEMIA Sodium Chloride () 1,000 mls @ 0 mls/hr IV .Q0M [facility] Insulin Human Lispro (Humalog Kwikpen (Bkc)) 0 unit SC ACHS [facility]; Protocol Last Admin: 09/23/19 06:31 Dose: 4 units Documented by: Levothyroxine Sodium (Synthroid) 88 mcg PO DAILY@0600 [facility] Last Admin: 09/23/19 06:30 Dose: 88 mcg Documented by: Lisinopril (Zestril) 2.5 mg PO BID [facility] Last Admin: 09/22/19 21:43 Dose: 2.5 mg Documented by: Morphine Sulfate () 2 mg IV Q3H PRN PRN PRN Reason: Pain Score 6-10/10 Ondansetron HCl (Zofran) 4 mg IV Q8H PRN PRN PRN Reason: NAUSEA/VOMITING Last Admin: 09/16/19 12:10 Dose: 4 mg Documented by: Potassium Chloride (K-Dur) 40 meq PO DAILYCM [facility] Sodium Chloride () 10 - 40 ml IV UD PRN PRN Reason: SALINE FLUSH Last Admin: 09/22/19 16:02 Dose: 10 ml Documented by: Sodium Chloride () 500 ml IV BOLUS PRN PRN Reason: VASO-VAGAL PROTOCOL Ticagrelor (Brilinta) 90 mg PO BID [facility] Last Admin: 09/22/19 21:43 Dose: 90 mg Documented by: STROKE Vital Signs/Narrative: Vital Signs Temp Pulse Resp BP Pulse Ox 09/23/19 08:05 90 09/23/19 08:00 99.1 F 78 20 H 110/58 L 94 09/23/19 07:00 78 Medical Necessity - Tobacco Use Smoking Status: Never smoker Assessment/Plan All Active Problems (Last Updated 09/16/19 @ 09:35 by Irina Liu) Paroxysmal atrial fibrillation with RVR (Acute) History of coronary artery stent placement (Resolved 09/14/19) Atypical chest pain (Resolved) The patient is a 74 year old F with a significant history of hypertension; diabetes mellitus on insulin pump; depression and anxiety was admitted to chest pain for left-sided chest pain, persistent in nature on IV nitroglycerin drip in ICU with diagnosis of non-STEMI. Patient EKG was normal sinus rhythm with sinus arrhythmia with J-point elevation in lead V2, V3, and V4, with poor RR progression and Q waves in V1 to V3. Repeat EKG were similar. Patient was also hypertensive in ER, triage, 171/70 1. Septal and anterior wall Non-STEMI: Non-ST elevation HI: Patient is admitted in ICU. Serial troponin 7.2, 8.8. Patient was taken to [facility]. Cardiac angiogram showed proximal LAD 80%, proximal to mid LAD 95%. Dominant RCA with 30% diffuse stenosis. Anterior apical hypokinesis. Patient had 2 stents placed in LAD. On aspirin, beta-aarti BENEDICT inhibitor and statin. 2. Abnormal chest x-ray report: Chest x-ray shows a stable mild right lower lobe linear scarring. Right infrahilar pulmonary opacity. Right infrahilar pulmonary opacity which raise suspicion for underlying mass or adenopathy. CT chest recommended. On review of images, I do not find any significant change from previous chest x-ray of 03/30/2017. It also showed right hemidiaphragm elevation, platelike atelectasis right midlung field with patchy opacity left lung base. CT chest is ordered. 3. Prerenal azotemia with CKD stage III due to diabetic nephropathy: Patient BUN and creatinine is 27/1.32. Baseline creatinine runs around 1.0-1.2. IV fluid normal saline. Monitor kidney function and electrolytes. 4. 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 Used to follow [facility]. DVT prophylaxis Lovenox 40 subcu daily after 24 hours of removal of sheath. 1. NSTEMI status post stent/CAD/HTN/HLD/ischemic cardiomyopathy/new onset A. fib -Echo with an EF of 30 to 35% and wall motion abnormality -Stent was placed to mid LAD -Continue with aspirin and Brilinta -Blood pressure medications were changed to Coreg, continue with twice daily dosing of her Lasix -We will change Unasyn to Augmentin p.o. -She was initiated on Eliquis therapy for her new onset A. fib 2.5 mg p.o. twice daily 2. Normochromic normocytic anemia/UTI -With elevation in her blood sugars and her leukocytosis, UA was obtained yesterday which did demonstrate a UTI, she was started on Ancef and a urine culture is pending -Her leukocytosis increased to 24.3, given her worsening LFTs a right upper quadrant ultrasound was obtained to evaluate her gallbladder and her liver, there is no sign of cholecystitis, switch to her Augmentin and she remains afebrile. At this point my recommendation is that she be transferred to the TCU when pre-CERT is available and once she is discharged to follow-up with her PCP to have a repeat CBC and if her white count is still elevated to have a hematology consult on the outpatient side. -Her LFTs appear to have stabilized, however her creatinine is much improved and her hemoglobin has stabilized at 9.8 today. Continue with Augmentin for the enterococcus -While dilution is likely a component of her anemia, her hemolysis has been negative, she is hypoproliferative however haptoglobin is normal despite an elevation in her LDH. Her hemoglobin increased from 8.8 to 9.8 -We will continue to monitor, vitamin B12 level was elevated to greater than 2000 despite the macrocytosis on pathology review of her CBC 3. ADALI on CKD 3 -Baseline creatinine is around 1.09, is now 1.24 down from 2.02 -Continue with Lasix -Chest x-ray from yesterday on my read is unremarkable, there is some blunting of the costophrenic angles indicative of volume overload. 4. DM 1 -She has an insulin pump which we will continue, will continue with sliding scale insulin at a medium-high dosage -She has been having blood sugars in the 300s which is very abnormal for her and this could either be a stress response to the non-ST segment elevated HI versus a response to any possible infection especially given that she has a leukocytosis even though she is afebrile 5. Parkinson's/depression/anxiety -Stable -Continue with Sinemet and Celexa DVT: Fab
[2019-09-23] MEDS: Lisinopril 2.5 MG Tablet PO (10:11)
[2019-09-23] MEDS: Citalopram 20 MG Tablet PO (10:11)
[2019-09-23] MEDS: Amox/Clavulanate 875 MG Tablet PO (10:11)
[2019-09-23] MEDS: APIXABAN 2.5 MG TABLET PO (10:11)
[2019-09-23] MEDS: Furosemide 40 MG Tablet PO (10:11)
[2019-09-23] MEDS: TICAGRELOR 90 MG TABLET PO (10:11)
[2019-09-23 10:32] LABS: AST(SGOT) 41 U/L (15-37); Alanine Aminotransfer ALT/SGPT 116 U/L (13-56); Albumin, Serum 2.5 g/dL (3.2-5.0); Alkaline Phosphatase 125 U/L (45-117); Bilirubin, Direct 0.42 mg/dL (0.00-0.30); Protein, Total 6.5 g/dL (6.4-8.2)
--- NOTE | 2019-09-23 10:54 | DCINST_ITS ---
- Discharge Diagnoses Current Active Problems: Current Active and Chronic Problems (Last Updated 09/16/19 @ 09:35 by Irina Liu) Paroxysmal atrial fibrillation with RVR (Acute) Atherosclerosis of coronary artery of [place] heart without angina pectoris (Chronic) NSTEMI (non-ST elevated myocardial infarction) (Chronic 09/13/18) Ischemic cardiomyopathy (Chronic) Essential (primary) hypertension (Chronic) You will use the following diet at home:: Calorie/Carbohydrate Controlled (specify 1200, 1400, etc) - CARB Controlled, Cardiac Your food should be the consistency of: Regular Discharge Activity: May Not Drive Call your doctor if you observe: Fever of 101 or Higher, Coldness, Increased Pain, Change in Color, Inability to urinate, Inability to have a bowel movement, Using more than one pad per hour, Shortness of breath, Dizziness, Swelling in the ankles, Chest pain, Prolonged hiccoughing, Increased palpitations (irregular heartbeat), Calf discomfort, Uncontrolled pain Allergies/Adverse Reactions: Allergies paroxetine [From Paxil] Allergy (Severe, Verified 09/14/19 00:02) Unknown Penicillins Allergy (Severe, Verified 09/14/19 00:02) Unknown statins Allergy (Severe, Uncoded 09/14/19 00:02) Unknown strawberries Allergy (Severe, Uncoded 09/14/19 00:02) Unknown Medications to take at Discharge Cholecalciferol (Vitamin D3) [Vitamin D3] 2,000 unit PO DAILY 04/06/17 Citalopram [Celexa] 20 mg PO DAILY 04/06/17 Gabapentin [Neurontin] 100 mg PO QHS 04/06/17 Insulin Pump/Infus. Set/Meter [Accu-Chek Combo System] 1 ea MC DAILY 04/06/17 Levothyroxine [Synthroid] 88 mcg PO DAILY 04/06/17 insulin aspart U-100 100 unit/mL subcutaneous solution See Rx Instructions SC QDAY #50 ml 07/26/18 carbidopa 25 mg-levodopa 100 mg tablet 0.5 tab PO TID tab 10/22/18 mind works 1 tab PO DAILY 10/22/18 Amoxicillin 500 mg PO TID #15 tab 09/23/19 Aspirin [Aspirin, Baby] 81 mg PO DAILY@0800 #30 tab.chew 09/23/19 Carvedilol [Coreg (Beta Angelique)] 6.25 mg PO BIDCM #60 tab 09/23/19 Furosemide [Lasix] 40 mg PO DAILY #30 tab 09/23/19 Lisinopril [Zestril] 2.5 mg PO BID #30 tab 09/23/19 Potassium Chloride [K-Dur] 40 meq PO DAILYCM #30 tab 09/23/19 Ticagrelor [Brilinta] 90 mg PO BID #60 tab 09/23/19 The following prescriptions were given: Amoxicillin 500 mg PO TID #15 tab Aspirin [Aspirin, Baby] 81 mg PO DAILY@0800 #30 tab.chew [facility] Ticagrelor [Brilinta] 90 mg PO BID #60 tab Transmission Status: [facility] Carvedilol [Coreg (Beta Angelique)] 6.25 mg PO BIDCM #60 tab Transmission [facility]: [facility] Potassium Chloride [K-Dur] 40 meq PO DAILYCM #30 tab [facility]: [facility] Furosemide [Lasix] 40 mg PO DAILY #30 tab Transmission Status: Pending to [facility] Lisinopril [Zestril] 2.5 mg PO BID #30 tab Transmission Status: [facility] Primary Care Physician: Renée Whitehead DO [Primary Care Provider] - Please follow up with your Primary Care Physician in: in 1-2 week Test Results: Test results from this visit will be discussed in further detail at your follow- up appointment, if applicable. Please Follow Up With: Ed Blake MD When: in 2-3 weeks for NSTEMI
--- NOTE | 2019-09-23 10:57 | PCM.DC.SUM ---
Discharge Date and Diagnosis Date of Admission: 09/14/19 Date of Discharge: 09/23/19 - Primary Discharge Diagnosis Active and Suspected Problems (Last Updated 09/16/19 @ 09:35 by Irina Liu) Paroxysmal atrial fibrillation with RVR (Acute) - Secondary Discharge Diagnosis Chronic Problems (Last Updated 09/16/19 @ 09:35 by Irina Liu) Atherosclerosis of coronary artery of [place] heart without angina pectoris (Chronic) NSTEMI (non-ST elevated myocardial infarction) (Chronic 09/13/18) Ischemic cardiomyopathy (Chronic) Essential (primary) hypertension (Chronic) Hypothyroidism (Chronic) Type 1 diabetes mellitus (Chronic) Hospital Course and Treatment Operations: None Summary of Care Provided: The patient is a 74 year old F with a significant history of hypertension; diabetes mellitus on insulin pump; depression and anxiety was admitted to chest pain for left-sided chest pain, persistent in nature on IV nitroglycerin drip in ICU with diagnosis of non-STEMI. Patient EKG was normal sinus rhythm with sinus arrhythmia with J-point elevation in lead V2, V3, and V4, with poor RR progression and Q waves in V1 to V3. Repeat EKG were similar. Patient was also hypertensive in ER, triage, 171/70 1. Septal and anterior wall Non-STEMI: Non-ST elevation VA: Patient is admitted in ICU. Serial troponin 7.2, 8.8. Patient was taken to [facility]. Cardiac angiogram showed proximal LAD 80%, proximal to mid LAD 95%. Dominant RCA with 30% diffuse stenosis. Anterior apical hypokinesis. Patient had 2 stents placed in LAD. On aspirin, Brilinta, Coreg beta-angelique JASON inhibitor and statin Echo with an EF of 30 to 35% and wall motion abnormality 2. Abnormal chest x-ray report with mild hypoxia: Hypoxia resolved chest x-ray shows a stable mild right lower lobe linear scarring. Patient was seen by plan rep. Although repeat chest x-ray shows features of infiltrate but patient did not had constitutional symptoms suggestive of pneumonia and therefore recommended incentive spirometry and PFT as an outpatient. 3. Paroxysmal A. fib on Eliquis: Rate is controlled 4. Acute kidney injury on CKD stage III due to diabetic nephropathy: Patient BUN and creatinine is 27/1.32. Patient kidney function on baseline. Patient creatinine went up from 1.09-2.02 and now 1.17. Continue Lasix 40 mg daily. On K. Dur 40 M EQ daily for hypokalemia. Prescription for Lasix and potassium supplement sent to pharmacy. 4. 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 Used to follow [facility] [place]. Follow-up central supply tech Dr. Tucker. 5. Parkinson's/depression/anxiety -Stable -Continue with Sinemet and Celexa DVT: Eliquis Discharge medication reconciliation done. Discharge follow-up instructions completed. Discharge process discussed with the patient and all questions were answered to patient's satisfaction. Patient is being discharged home with home health care. Hospital course and discharge instructions discussed with the patient and patient's at the bedside. Total time spent, exact 35 minutes on discharge meds reconciliation, examination, review of imaging and blood test and discussion with the patient on follow-up instructions. Clinical Impression(s) from Imaging Studies Chest X-Ray 09/14/19 00:10 IMPRESSION: Stable mild right lower lobe linear scarring Right infrahilar pulmonary opacity which may represent combination of pulmonary vessels and atelectasis however underlying mass or adenopathy cannot be excluded. CT chest follow-up is recommended Upper lobe COPD changes Lower thoracic levoscoliosis Liver Ultrasound 09/18/19 11:32 IMPRESSION: Cholelithiasis. No biliary dilatation. Mild heterogeneous hepatic parenchyma. Right pleural effusion. Possible small focal punctate calcification or stone at the lower pole of the right kidney. Chest X-Ray 09/19/19 07:32 IMPRESSION: Progressive bilateral basilar infiltrates left greater than right with small bilateral pleural effusions. Subjective: More dynamically stable. Pulse ox 94% on room air. Patient walked around nursing station without getting shortness of breath. - Physical Exam Vitals/I&O's: Vital Signs Temp Pulse Resp BP Pulse Ox 99.1 F 78 20 H 110/58 L 90 09/23/19 08:00 09/23/19 08:00 09/23/19 08:00 09/23/19 08:00 09/23/19 08:05 Oxygen Flow Rate (L/min) 1 Oxygen Delivery Method Room Air Weight: 160 lb 0.889 oz Body Mass Index (BMI) 28.3 Finger Stick Blood Glucose 195 Intake and Output for Last 24 Hours 09/21/19 09/22/19 09/23/19 23:59 23:59 23:59 Intake Total 962 / 1082 1064 / 1064 100 / 100 Output Total 800 / 1800 3000 / 3000 500 / 500 Balance 162 / -718 -1936 / -1936 -400 / -400 General: Alert, Oriented x3, Cooperative HEENT: Atraumatic, PERRLA, EOMI, Normocephalic Neck: Supple, No JVD, Negative Carotid Bruits Lungs: No rhonchi, No wheeze, No rales, Diminished - Entry diminished in bilateral lung bases. Cardiovascular: Regular rate, Regular Rhythm, Normal S1, Normal S2, No murmurs, - - Occasional PVCs on awake overnight monitor Abdomen: Bowel Sounds Present, Soft, Non Tender, Non-Distended Extremities: No edema, Capillary Refill Less than 3 Seconds Skin: No rashes, No breakdown Musculoskeletal: No Tenderness to Palpation of Joints or Extremities Neurological: Cranial nerves II-XII grossly intact, Neuro grossly intact Psych/Mental Status: Normal Affect, Appropriate Microbiology Past 72 Hours 09/20/19 17:00 Urine, Clean Catch Urine Culture - Preliminary Culture exhibits no growth. Laboratory Results 09/22/19 06:55: Phosphorus 2.5, Magnesium 1.6 09/22/19 11:06: POC Glucose 269 H 09/22/19 16:00: POC Glucose 158 H 09/22/19 21:36: POC Glucose 235 H 09/23/19 06:18: Sodium 132 L, Potassium 3.5, Chloride 94 L, Carbon Dioxide 29.0, Anion Gap 9, BUN 33 H, Creatinine 1.17 H, Estim Creat Clear Calc 32.35, Est GFR (MDRD) Af Amer 58 L, Est GFR (MDRD) Non-Af 48 L, BUN/Creatinine Ratio 28.2 H, Glucose 187 H, Calcium 8.3 L 09/23/19 06:18: Total Bilirubin 1.30 H, Direct Bilirubin 0.42 H, AST 41 H, ALT 116 H, Alkaline Phosphatase 125 H, Total Protein 6.5, Albumin 2.5 L, Globulin 4.0 09/23/19 06:26: POC Glucose 209 H Current Medications Acetaminophen (Tylenol) 650 mg PO Q6H PRN PRN PRN Reason: Pain Score 1-5/Temp > 100.7 F Last Admin: 09/17/19 22:03 Dose: 650 mg Documented by: Amoxicillin/Clavulanate Potassium (Augmentin Tablet) 875 mg PO BID [facility] Last Admin: 09/23/19 10:11 Dose: 875 mg Documented by: Apixaban (Eliquis) 2.5 mg PO BID [facility] Last Admin: 09/23/19 10:11 Dose: 2.5 mg Documented by: Aspirin (Ecotrin) 81 mg PO DAILY@0800 [facility] Last Admin: 09/23/19 08:14 Dose: 81 mg Documented by: Atropine Sulfate () 0.5 mg IV UD PRN PRN Reason: HR <50 bpm Carbidopa/Levodopa (Sinemet) 0.5 tablet PO TIDAC [facility] Last Admin: 09/23/19 06:30 Dose: 0.5 tablet Documented by: [facility] Last Admin: 09/23/19 08:14 Dose: 6.25 mg Documented by: Cholecalciferol (Vitamin D) 2,000 unit PO DAILY [facility] Last Admin: 09/23/19 10:10 Dose: 2,000 unit Documented by: Citalopram Hydrobromide (Celexa) 20 mg PO DAILY [facility] Last Admin: 09/23/19 10:11 Dose: 20 mg Documented by: Furosemide (Lasix) 40 mg PO DAILY [facility] Last Admin: 09/23/19 10:11 Dose: 40 mg Documented by: Gabapentin (Neurontin) 100 mg PO QHS [facility] Last Admin: 09/22/19 21:43 Dose: 100 mg Documented by: Glucagon () 1 mg IM .X1 PRN PRN Reason: Hypoglycemia Heparin Sodium (Beef Lung) (Heparin 500 Unit/5 Ml (100/Ml)) 500 unit IV UD PRN PRN Reason: HEPARIN FLUSH Dextrose (Dextrose 10%-Water) 250 mls @ 999 mls/hr IV .Q16M PRN; Protocol PRN Reason: HYPOGLYCEMIA Sodium Chloride () 1,000 mls @ 0 mls/hr IV .Q0M [facility] Insulin Human Lispro (Humalog Kwikpen (Bkc)) 0 unit SC ACHS [facility]; Protocol Last Admin: 09/23/19 06:31 Dose: 4 units Documented by: Levothyroxine Sodium (Synthroid) 88 mcg PO DAILY@0600 [facility] Last Admin: 09/23/19 06:30 Dose: 88 mcg Documented by: Lisinopril (Zestril) 2.5 mg PO BID [facility] Last Admin: 09/23/19 10:11 Dose: 2.5 mg Documented by: Morphine Sulfate () 2 mg IV Q3H PRN PRN PRN Reason: Pain Score 6-10/10 Ondansetron HCl (Zofran) 4 mg IV Q8H PRN PRN PRN Reason: NAUSEA/VOMITING Last Admin: 09/16/19 12:10 Dose: 4 mg Documented by: Potassium Ch[facility] ([facility]Dur) [facility] Sodium Chloride () 10 - 40 ml IV UD PRN PRN Reason: SALINE FLUSH Last Admin: 09/22/19 16:02 Dose: 10 ml Documented by: Sodium Chloride () 500 ml IV BOLUS PRN PRN Reason: VASO-VAGAL PROTOCOL Ticagrelor (Brilinta) 90 mg PO BID [facility] Last Admin: 09/23/19 10:11 Dose: 90 mg Documented by: Discharge Activity: May Not Drive Call your doctor if you observe: Fever of 101 or Higher, Coldness, Increased Pain, Change in Color, Inability to urinate, Inability to have a bowel movement, Using more than one pad per hour, Shortness of breath, Dizziness, Swelling in the ankles, Chest pain, Prolonged hiccoughing, Increased palpitations (irregular heartbeat), Calf discomfort, Uncontrolled pain Home Medications: Medications to take at Discharge Cholecalciferol (Vitamin D3) [Vitamin D3] 2,000 unit PO DAILY 04/06/17 Citalopram [Celexa] 20 mg PO DAILY 04/06/17 Gabapentin [Neurontin] 100 mg PO QHS 04/06/17 Insulin Pump/Infus. Set/Meter [Accu-Chek Combo System] 1 ea [facility] DAILY 04/06/17 Levothyroxine [Synthroid] 88 mcg PO DAILY 04/06/17 insulin aspart U-100 100 unit/mL subcutaneous solution See Rx Instructions SC QDAY #50 ml 07/26/18 carbidopa 25 mg-levodopa 100 mg tablet 0.5 tab PO TID tab 10/22/18 mind works 1 tab PO DAILY 10/22/18 Amoxicillin 500 mg PO TID #15 tab 09/23/19 Apixaban [Eliquis] 2.5 mg PO BID #60 tab 09/23/19 Aspirin [Aspirin, Baby] 81 mg PO DAILY@0800 #30 tab.chew 09/23/19 Carvedilol [Coreg (Beta Angelique)] 6.25 mg PO BIDCM #60 tab 09/23/19 Furosemide [Lasix] 40 mg PO DAILY #30 tab 09/23/19 Lisinopril [Zestril] 2.5 mg PO BID #30 tab 09/23/19 Potassium Chloride [K-Dur] 40 meq PO DAILYCM #30 tab 09/23/19 Ticagrelor [Brilinta] 90 mg PO BID #60 tab 09/23/19 Following Prescrptions Were Given to Patient: Amoxicillin 500 mg PO TID #15 tab Transmission Status: Received by [facility] Aspirin [Aspirin, Baby] 81 mg PO DAILY@0800 #30 tab.chew Transmission Status: [facility] Ticagrelor [Brilinta] 90 mg PO BID #60 tab Transmission Status: Received by [facility] Carvedilol [Coreg (Beta Angelique)] 6.25 mg PO BIDCM #60 tab Transmission Status: Received by [facility] Apixaban [Eliquis] 2.5 mg PO BID #60 tab Transmission Status: Received by [facility] Potassium Chloride [K-Dur] 40 meq PO DAILYCM #30 tab Transmission Status: Received by [facility] Furosemide [Lasix] 40 mg PO DAILY #30 tab Transmission Status: [facility] Lisinopril [Zestril] 2.5 mg PO BID #30 tab Transmission Status: Re[facility] by [facility] Primary Care Physician: Renée Whitehead DO [Primary Care Provider] - Please follow up with your Primary Care Physician in: in 1-2 week Please Follow Up With: Ed Balke MD When: in 2-3 weeks for NSTEMI Medical Necessity - Tobacco Use Smoking Status: Never smoker Meaningful Use Info Meaningful Use Diagnoses (Choose all that apply): AMI - AMI/Post PCI/Angioplasty Aspirin given w/in 24hrs of arrival?: Yes ASA at discharge?: Yes Antiplatelet Therapy at Discharge:: Yes Statins at discharge?: No Reason statins not ordered:: Allergy Jason/ARB at discharge?: Yes Beta Angelique at discharge?: Yes Done w/ Acute VA measure.: Yes Documented LVEF (%): 35 Code Visit Inpatient E&M: 76181 Disch Hosp
[2019-09-23 12:00] LABS: Bedside Glucose 244 mg/dL (70-110)
--- NOTE | 2019-09-23 12:23 | PHA.DC.MC ---
Pharmacy Service has performed discharge medication reconciliation and counseling for this patient. 1. APIXABAN 2.5MG PO BID 2. AMOXICILLIN 500MG PO TID X 5 DAYS 3. ASPIRIN 81MG PO DAILY 4. CARVEDILOL 6.25MG PO BIDCM 5. FUROSEMIDE 40MG PO DAILY 6. LISINOPRIL 2.5MG PO BID 7. POTASSIUM CHLORIDE 40MEQ PO DAILYCM 8. TICAGRELOR 90MG PO BID The patient's discharge medication list was reviewed for discrepancies and discrepancies were resolved. I SPOKE TO DR. ASTUDILLO REGARDING APIXABAN. IT WAS INITIALLY NOT ORDERED FOR HOME. CARDIOLOGY WOULD LIKE TRIPLE ANTICOAGULANT THERAPY FOR A SHORT DURATION. DR ASTUDILLO WOULD LIKE TO CONTINUE IT FOR HOME. RX SENT TO [facility]. Home Medications Cholecalciferol (Vitamin D3) [Vitamin D3] 2,000 unit PO DAILY 04/06/17 Citalopram [Celexa] 20 mg PO DAILY 04/06/17 Gabapentin [Neurontin] 100 mg PO QHS 04/06/17 Insulin Pump/Infus. Set/Meter [Accu-Chek Combo System] 1 ea MC DAILY 04/06/17 Levothyroxine [Synthroid] 88 mcg PO DAILY 04/06/17 insulin aspart U-100 100 unit/mL subcutaneous solution See Rx Instructions SC QDAY #50 ml 07/26/18 carbidopa 25 mg-levodopa 100 mg tablet 0.5 tab PO TID tab 10/22/18 mind works 1 tab PO DAILY 10/22/18 Amoxicillin 500 mg PO TID #15 tab 09/23/19 Apixaban [Eliquis] 2.5 mg PO BID #60 tab 09/23/19 Aspirin [Aspirin, Baby] 81 mg PO DAILY@0800 #30 tab.chew 09/23/19 Carvedilol [Coreg (Beta Angelique)] 6.25 mg PO BIDCM #60 tab 09/23/19 Furosemide [Lasix] 40 mg PO DAILY #30 tab 09/23/19 Lisinopril [Zestril] 2.5 mg PO BID #30 tab 09/23/19 Potassium Chloride [K-Dur] 40 meq PO DAILYCM #30 tab 09/23/19 Ticagrelor [Brilinta] 90 mg PO BID #60 tab 09/23/19 The patient was counseled on the following discharge medications and changes in medications for homegoing were reviewed. The Reason for Use, instructions for use, and potential side effects were reviewed for all new medications. The patient's questions regarding all of their medications were answered. The patient was able to verbally demonstrate an understanding of their discharge medications.
--- NOTE | 2019-09-23 12:35 | CASEMGMT ---
Pt to be sent home on Eliquis and Brilinta at discharge and meds previously e-scribed to [facility]. Call to [facility] and per tech, pt's co-pay for Brilinta is $172 and Eliquis co-pay is $47. Pt previously provided with Brilinta savings card and this RN CM provided a 30 day free trial card for Eliquis at this time. Pt/ aware how to use and of co-pays at this time. cartographic technician was unsure if part of Brilinta co-pay is deductible at this time. This RN CM informed pt/ to let Dr. Blake know if monthly co-pay continues to be $172, voice understanding. Pt states that she would like her daughter present when César GHOTRA goes over homegoing meds/instructions and this RN CM notified Cés[facility] GHOTRA at this time, voices understanding. Pt/ voice no further questions/concerns/needs at this time. SStaten RN CM
[2019-09-23 14:38] LABS: Pathologist Review Reviewed
[2019-09-23 14:40] LABS: Pathologist Review Reviewed
== END 2019-09-23 14:18 | disposition home or self-care (01) | DRG 246 ==
LOC: ED 09-14 00:44 → ICU 09-14 03:06 → PCU 09-16 14:12
PROVIDERS: Family Medicine; Internal Medicine; Internal Medicine Cardiovascular Disease; Internal Medicine Critical Care Medicine; Specialist; Admitting Provider Hospitalist; Emergency Provider Emergency Medicine; Family Provider Family Medicine; PCP Family Medicine; Visit Provider Internal Medicine
DX: I21.4 Non-ST elevation (NSTEMI) myocardial infarction (principal); I50.21 Acute systolic (congestive) heart failure; N17.9 Acute kidney failure, unspecified; I47.2 Ventricular tachycardia; I13.0 Hypertensive heart and chronic kidney disease with heart failure and stage 1 through stage 4 chronic kidney disease, or unspecified chronic kidney disease; I25.10 Atherosclerotic heart disease of native coronary artery without angina pectoris; E03.9 Hypothyroidism, unspecified; E10.22 Type 1 diabetes mellitus with diabetic chronic kidney disease; N18.3 Chronic kidney disease, stage 3 (moderate); G20 Parkinson's disease; Z96.41 Presence of insulin pump (external) (internal); Z79.4 Long term (current) use of insulin; I25.5 Ischemic cardiomyopathy; I48.0 Paroxysmal atrial fibrillation; F32.9 Major depressive disorder, single episode, unspecified; F41.9 Anxiety disorder, unspecified; E78.5 Hyperlipidemia, unspecified; E87.6 Hypokalemia
CPT/HCPCS: 36415; 71045; 71046; 76705; 80048; 80053; 80061; 80076; 81001; 82247; 82248; 82274; 82607; 82962; 83010; 83540; 83550; 83615; 83735; 84100; 84484; 85025; 85027; 85045; 86141; 87077; 87086; 87088; 87186; 92928; 93005; 93306; 93458; 97110; 97116; 97162; 97166; 97530; 97535; 99152; 99153; 99251; 99285; J7030; J7040; Q9957; Q9967; A4216; C1725; C1769; C1874; C1887; C1894; C8929; C9600; G0463; J0295; J1940; J2405

== ENCOUNTER 2019-09-28 12:49 | Inpatient (IN) | payer MEDICARE, SELFPAY ==
[2019-09-14 03:00] VITALS: BMI 28.3
[2019-09-16 08:24] VITALS: BMI 28.1
[2019-09-28] VITALS (12 sets, daily range): BP systolic 102–175; BP diastolic 58–104; PULSE 68–111; RESP 18–26; TEMP 35.9–36.6; O2SAT 93–98; BMI 29.2; BMI 29.1
--- NOTE | 2019-09-28 13:44 | ED.VIS.DYS ---
History of Present Illness Chief Complaint: Shortness of Breath Informant: Patient, Relative Narrative: Patient presenting for evaluation secondary to shortness of breath and palpitations. Patient has a history of a recent hospital admission secondary to a end STEMI that resulted in 2 stents in her left anterior descending. Patient has ischemic cardiomyopathy with an ejection fraction of 35%. Patient apparently was doing rather well yesterday, but today is having significant weakness, shortness of breath even with getting out of bed, and palpitations. She denies any chest pain. She denies any recent fever cough. Patient does state that she is currently on antibiotics for urinary tract infection, and that is also been causing her to have some diarrhea. She reports that she has had at least 4 loose stools even this morning. They are loose and watery nonbloody. Past Medical History - Allergies and Home Meds Allergies/Adverse Reactions: Allergies paroxetine [From Paxil] Allergy (Severe, Verified 09/28/19 12:52) Unknown Penicillins Allergy (Severe, Verified 09/28/19 12:52) Unknown statins Allergy (Severe, Uncoded 09/28/19 12:52) Unknown strawberries Allergy (Severe, Uncoded 09/28/19 12:52) Unknown Primary Care Physician: Renée Whitehead DO [Primary Care Provider] - Past Medical History: - - Type 1 diabetes, recent NSTEMI and angioplasty Surgical History: cataract, herniorrhaphy Smoking Status: Never smoker - Family History Maternal Family History: Family History (Last Reviewed 09/14/19 @ 07:02 by Zach Bowman MD) Mother CVA (cerebral vascular accident) Dementia Sister Hypertension Diabetes Brother Heart disease Diabetes Daughter Diabetes Family History: Reports: No pertinent history Paternal Family History: Family History (Last Reviewed 09/14/19 @ 07:02 by Zach Bowman MD) Mother CVA (cerebral vascular accident) Dementia Sister Hypertension Diabetes Brother Heart disease Diabetes Daughter Diabetes Family History: Reports: No pertinent history Review of Systems All systems negative except as indicated General: Denies: Chills, Fever, Sweats Eyes: Denies: Visual changes - bilaterally, Diplopia ENT: Denies: Rhinorrhea, Sore throat Cardiovascular: Reports: Palpitations. Denies: Chest pain Respiratory: Reports: Dyspnea Gastrointestinal: Reports: Diarrhea Genitourinary: Denies: Dysuria, Hematuria, Frequency Musculoskeletal: Denies: Back pain, Extremity Pain Skin: Denies: Rash, Wounds Neurological: Denies: Headache, Weakness, Numbness Physical Exam Vital Signs/Narrative: Vital Signs Temp Pulse Resp BP Pulse Ox 09/28/19 12:50 96.9 F L 111 H 18 102/71 96 Inital Vital Signs reviewed: Yes General: Well nourished, Well developed, No Acute Distress Head: Normocephalic, Atraumatic Eyes: Scleral icterus ENT: Moist mucous membranes, No rhinorrhea Neck: Supple, Nontender Cardiovascular: Regular rate, Regular rhythm, No murmurs Respiratory: CTA bilaterally, - - Mild tachypnea with clear sounding lungs Abdomen: Soft, Nontender, Nondistended, Normal bowel sounds Back: Nontender, Normal Inspection Extremities: Edema - 1+ bilaterally symmetric lower extremity Skin: Normal color, No rash Neurological: Alert, Oriented x3, Cranial nerves II-XII grossly intact, Normal Strength, Normal Sensation Psychological: Normal affect, Normal Mood Diagnostic/Tx/Re-eval Chest X-Ray - ED: Read by ED Physician, Read by Radiologist, - - Left lower lobe infiltrate - EKG Initial EKG Interpretation: - - Sinus rhythm at 72 with lateral T wave inversions that appear exaggerated from patient's prior EKG. Mildly prolonged QTC at 492. - Medical Decision Making Patient presented secondary to shortness of breath. Patient was tachypneic, and has peripheral edema. Work-up was obtained. Patient does have a profound leukocytosis of 23,000, but trending her back she actually was discharged from the hospital with a white blood cell count of 20,000, and the differential does not seem significantly different. Patient's chemistry shows some hyponatremia chronic kidney disease. BNP and d-dimer were elevated. Given the patient's tenuous renal function, and the fact that she is already anticoagulated I did not give the patient a IV dye load to perform a CT angiogram of the chest. Chest x-ray per radiology shows infiltrate rather than effusion. Patient potentially has an element of some pneumonia with congestive heart failure. I believe she requires admission. She was empirically given Rocephin and azithromycin as well as Lopressor for rate and blood pressure control as well as Lasix for her potential CHF. Patient will be admitted to the PCU. Disposition: Admit to PCU ED Disposition - Plan for ED Patient: Disposition: Acute Care Hospital [facility] Diagnosis: Pneumonia, CHF (congestive heart failure), Acute electrocardiogram changes
--- NOTE | 2019-09-28 13:46 | RAD_ITS ---
STUDY: X-RAY CHEST REASON FOR EXAM: Female, 74 years old. CHEST PAIN; -- AFIB, CAD, STENT TECHNIQUE: AP COMPARISON: 09/19/2019 FINDINGS: Increasing parenchymal consolidation of the left lower lobe obscuring left hemidiaphragm and retrocardiac region. There continue to be small pleural effusions. Underlying fibrotic changes are still present. There is mild cardiac enlargement. Normal mediastinum and pritesh. Normal visualized pulmonary arteries. Normal visualized aortic arch and descending thoracic aorta. Normal visualized thoracic spine. Normal visualized ribs, clavicles, and shoulders. There is no demonstrated abnormality of the visualized soft tissue structures of the upper abdomen. RAD/Chest 1 View (Portable) IMPRESSION: Increasing left lower lobe consolidation suggesting pneumonia. No pleural effusions. Electronically Signed: Rowdy Pitt MD (Brooks) at 14:09 EST , Service support ,
[2019-09-28 13:53] LABS: Hematocrit 34.8 % (37-47); Hemoglobin 11.4 g/dL (12.0-15.0); Mean Corp Hgb Conc 32.8 g/dL (32-36); Mean Corpuscular Hgb 31.4 pg (27.0-32.0); Mean Corpuscular Volume 95.9 fL (81-99); Mean Platelet Vol. 10.2 fl (6.2-12.0); POSITIVE COUNT YES; POSITIVE DIFFERENTIAL YES; POSITIVE MORPHOLOGY YES; Platelet Count 409 K/mm3 (150-450); RBC Distribution Width SD 53.8 fl (35.1-43.9); Red Blood Count 3.63 M/mm3 (4.2-5.4); White Blood Count 23.5 K/mm3 (4.4-11.0)
[2019-09-28 13:54] LABS: Differential Indicated MANUAL DIFF
[2019-09-28] MEDS: ALPRAZolam 0.5 MG Tablet PO (14:07)
[2019-09-28 14:08] LABS: AST(SGOT) 32 U/L (15-37); Alanine Aminotransfer ALT/SGPT 27 U/L (13-56); Albumin, Serum 2.7 g/dL (3.2-5.0); Alkaline Phosphatase 153 U/L (45-117); Bilirubin, Direct 0.43 mg/dL (0.00-0.30); Globulin 4.4 g/dL (2.2-4.2); Protein, Total 7.1 g/dL (6.4-8.2)
[2019-09-28 14:14] LABS: Anion Gap 8 (5-15); BUN 24 mg/dL (7-18); BUN/Creat Ratio 17.6 RATIO (10-20); Calcium,Total 8.6 mg/dL (8.5-10.1); Chloride 93 mmol/L (98-107); Creatinine, Serum 1.36 mg/dL (0.55-1.02); EST Glomerular Filtration Rate 40 mL/min (>60); Est Glom Filt Rate - Afr Amer 49 mL/min (>60); Estimated Creatinine Clearance 27.83 ml/min; Glucose 153 mg/dL (74-106); Sodium Level 129 mmol/L (136-145)
[2019-09-28 14:17] LABS: Lymphocyte 6 % (19-41); Metamyelocyte 3 % (0-1); Monocyte 5 % (0-10); Myelocyte 2 (0-0); Neutrophil-Segmented 84 % (47-70); Total Cells Counted 100 (MANUAL DIFF)
[2019-09-28 14:18] LABS: Anisocytosis 1+; Hypochromasia RARE; Macrocytosis RARE; Platelet Estimate ADEQUATE (ADEQ)
[2019-09-28 14:21] LABS: Absolute Neutrophil Count 19.8 X10^3/uL (2.0-7.7); NRBC Flagged by Analyzer 0 % (0-5)
[2019-09-28 14:27] LABS: BNP,B-Type NATRIURETIC PEPTIDE 393.2 pg/mL (0-100); D-Dimer Quantitative (DVT/PE) 3.97 FEU/ug/m (0.27-0.49)
--- NOTE | 2019-09-28 15:17 | NURSING ---
PCU WILDA PNEUMONIA, CHF, EKG CHANGES
[2019-09-28] MEDS: Furosemide 40 MG/4 ML Vial IV (15:21)
--- NOTE | 2019-09-28 15:30 | HP.PCM_ITS ---
Problem List (1) Paroxysmal atrial fibrillation with RVR Status: Acute (2) Pneumonia Status: Inactive (3) CHF (congestive heart failure) Status: Acute (4) Acute electrocardiogram changes Status: Acute (5) Atherosclerosis of coronary artery of [place] heart without angina pectoris Status: Chronic Qualifiers: Coronary Disease-Associated Artery/Lesion type: [place] artery Qualified Code(s): I25.10 - Atherosclerotic heart disease of [place] coronary artery without angina pectoris (6) NSTEMI (non-ST elevated myocardial infarction) Status: Chronic (7) History of coronary artery stent placement Status: Resolved Comment: HEV-BFF-Glpnfo LAD-Mid LAD w/ 3.0 x 38 mm Synergy MRstent (8) Ischemic cardiomyopathy Status: Chronic (9) Essential (primary) hypertension Status: Chronic (10) Hypothyroidism Status: Chronic Qualifiers: Hypothyroidism type: acquired Qualified Code(s): E03.9 - Hypothyroidism, unspecified (11) Type 1 diabetes mellitus Status: Chronic Qualifiers: Diabetes mellitus complication status: without complication Qualified Code(s): E10.9 - Type 1 diabetes mellitus without complications History of Present Illness Date of Admission: 09/28/19 Chief Complaint: Shortness of breath, generalized weakness The patient is a 74 year old F with history of hypertension, diabetes mellitus type 1 on insulin pump, recent history of non-STEMI septal anterior wall status post 2 stents in LAD on 09/16/2019 during previous admission from 09/14/2019- 09/23/2019 complicated with enterococcus UTI came to ER with generalized weakness, diarrhea and shortness of breath on exertion. Patient further said she had increased lower extremity swelling. She denies any fever or chills. She has mild occasional cough but denies any sputum, tachypnea. In ED, she was afebrile, tachycardic, heart rate 111, respiratory rate 18 to 26/min, pulse ox 96% on room air EKG similar to the previous EKG with sinus rhythm at 72 bpm T inversion in V2 to V6 and lead II. Chest x-ray independently reviewed and shows increase in left lung base opacity probably atelectasis and effusion. Patient was given 1 dose of IV ceftriaxone, Zithromax, furosemide 40 mg IV and metoprolol 5 mg IV and admitted in PCU. Past Medical History Past Medical History (Chronic Problems): Chronic Problems (Last Updated 09/16/19 @ 09:35 by Irina Liu) Atherosclerosis of coronary artery of [place] heart without angina pectoris (Chronic) NSTEMI (non-ST elevated myocardial infarction) (Chronic 09/13/18) Ischemic cardiomyopathy (Chronic) Essential (primary) hypertension (Chronic) Hypothyroidism (Chronic) Type 1 diabetes mellitus (Chronic) Medical History: Medical History (Last Updated 09/16/19 @ 09:35 by Irina Liu) Atherosclerosis of coronary artery of [place] heart without angina pectoris (Chronic) I25.10 Ischemic cardiomyopathy (Chronic) I25.5 Essential (primary) hypertension (Chronic) I10 Hypothyroidism (Chronic) E03.9 Type 1 diabetes mellitus (Chronic) Anxiety disorder F41.9 Bronchitis J40 Depression with anxiety F41.8 Diabetes type 1, controlled E10.9 Dx : 1976 Last exacerbation : DKA : never Hypoglycemic episode : never ER visit : never Hearing problem H91.90 Hives L50.9 Hypothyroidism E03.9 Measles B05.9 Mumps B26.9 Parkinsons G20 Whooping cough A37.90 bilaeral cataract surgery removal of skin cyst HTN (hypertension) I10 Allergies paroxetine [From Paxil] Allergy (Severe, Verified 09/28/19 12:52) Unknown Penicillins Allergy (Severe, Verified 09/28/19 12:52) Unknown statins Allergy (Severe, Uncoded 09/28/19 12:52) Unknown strawberries Allergy (Severe, Uncoded 09/28/19 12:52) Unknown Home Medications: Ambulatory Orders Medication Instructions Recorded Cholecalciferol (Vitamin D3) 2,000 unit PO DAILY 04/06/17 [Vitamin D3] Citalopram [Celexa] 20 mg PO DAILY 04/06/17 Gabapentin [Neurontin] 100 mg PO QHS 04/06/17 Insulin Pump/Infus. Set/Meter 1 ea MC DAILY 04/06/17 [Accu-Chek Combo System] Levothyroxine [Synthroid] 88 mcg PO DAILY 04/06/17 insulin aspart U-100 100 unit/mL See Rx Instructions SC QDAY #50 ml 07/26/18 subcutaneous solution carbidopa 25 mg-levodopa 100 mg 0.5 tab PO TID tab 10/22/18 tablet mind works 1 tab PO DAILY 10/22/18 Apixaban [Eliquis] 2.5 mg PO BID #60 tab 09/23/19 Aspirin [Aspirin, Baby] 81 mg PO DAILY@0800 #30 tab.chew 09/23/19 Carvedilol [Coreg (Beta Angelique)] 6.25 mg PO BIDCM #60 tab 09/23/19 Furosemide [Lasix] 40 mg PO DAILY #30 tab 09/23/19 Lisinopril [Zestril] 2.5 mg PO BID #30 tab 09/23/19 Potassium Chloride [K-Dur] 40 meq PO DAILYCM #30 tab 09/23/19 Ticagrelor [Brilinta] 90 mg PO BID #60 tab 09/23/19 Surgical History: Surgical History (Last Updated 09/16/19 @ 09:35 by Irina Liu) History of coronary artery stent placement (Resolved) Onset Date: 09/14/19 Z95.5 [id number] LAD-Mid LAD w/ 3.0 x 38 mm Synergy MRstent S/P LASIK surgery of both eyes Z98.890 S/P partial hysterectomy Z90.711 Surgical History: cataract, herniorrhaphy Psychiatric History: No pertinent psych hx [employer] History: No pertinent [employer] history Smoking Status: Never smoker - *Family History Maternal Family History: Family History (Last Reviewed 09/14/19 @ 07:02 by Zach Bowman MD) Mother CVA (cerebral vascular accident) Dementia Sister Hypertension Diabetes Brother Heart disease Diabetes Daughter Diabetes History Items: No pertinent history Paternal Family History: Family History (Last Reviewed 09/14/19 @ 07:02 by Zach Bowman MD) Mother CVA (cerebral vascular accident) Dementia Sister Hypertension Diabetes Brother Heart disease Diabetes Daughter Diabetes History Items: No pertinent history Review of Systems Constitutional: Reports: Malaise, Weakness, Fatigue. Denies: Chills, Fever, Weight Change HEENT: Denies: Head Aches, Sinus Congestion, Sinus Drainage Cardiovascular: Denies: Chest Pain, Palpitations Respiratory: Reports: Cough, Shortness of breath upon exertion. Denies: Hemoptysis, Pleuritic Pain, Shortness of breath at rest, Sputum production, Wheezing Gastrointestinal: Reports: Diarrhea - About 3-4 times for last 2 to 3 days, Nausea. Denies: Abdominal Pain, Vomiting Genitourinary: Denies: Dysuria, Frequency, Urgency Musculoskeletal: Denies: Joint Pain, Joint Tenderness Skin: Denies: Rash, Wounds Neurological: Reports: Balance problems. Denies: Focal weakness, Numbness, Tin gling Psychiatric: Reports: Anxiety, Depression. Denies: Homicidal Ideations, Suicidal Ideations Hematologic/ Lymphatic: Denies: Easy Bruising, Easy Bleeding VTE Information - Inpt Only VTE Present on Admission: No VTE Mechan Device Prophylaxis: None VTE Pharm Prophylaxis ordered?: No Reason prophylaxis not ordered:: Procedure Not Indicated - Patient already on Eliquis Patient Problems: Active and Suspected Problems (Last Updated 09/16/19 @ 09:35 by Irina Liu) CHF (congestive heart failure) (Acute) Acute electrocardiogram changes (Acute) - Physical Exam Vitals/I&O's: Vital Signs Temp Pulse Resp BP Pulse Ox 96.9 F L 72 20 H 175/104 H 96 09/28/19 12:50 09/28/19 15:28 09/28/19 15:28 09/28/19 15:28 09/28/19 15:28 Oxygen Flow Rate (L/min) 2 Oxygen Delivery Method Nasal Cannula Weight: 160 lb Body Mass Index (BMI) 29.2 Finger Stick Blood Glucose 195 General: Alert, Oriented x3, Cooperative HEENT: Atraumatic, PERRLA, EOMI, Normocephalic Oral: No Gingival or Mucosal Lesions/ Ulcerations, Dry Mucosa, - - No postpharyngeal inflammation. No tenderness over submandibular region Neck: Supple, No JVD, Negative Carotid Bruits Lungs: No rhonchi, No wheeze, No rales, Diminished - Air entry diminished on the left lung base. Cardiovascular: Regular rate, Regular Rhythm, Normal S1, Normal S2, No murmurs Abdomen: Bowel Sounds Present, Soft, Non Tender, Non-Distended, Hypoactive Bowel Sounds Extremities: No edema, Capillary Refill Less than 3 Seconds Skin: No rashes, No breakdown Musculoskeletal: No Tenderness to Palpation of Joints or Extremities, Arthritic Changes Lymphatic: No Cervical, Supraclavicular, or Inguinal Adenopathy Neurological: Cranial nerves II-XII grossly intact, Deep Tendon Reflexes 2+/4 and Symmetrical, Neuro grossly intact Psych/Mental Status: Appropriate, Flat Affect Laboratory Results 09/28/19 13:20: Total Bilirubin 1.50 H, Direct Bilirubin 0.43 H, AST 32, ALT 27, Alkaline Phosphatase 153 H, Total Protein 7.1, Albumin 2.7 L, Globulin 4.4 H 09/28/19 13:20: WBC 23.5 H, RBC 3.63 L, Hgb 11.4 L, Hct 34.8 L, MCV 95.9, MCH 31.4, MCHC 32.8, RDW Std Deviation 53.8 H, RDW Coeff of Stephane 16.0 H, Plt Count 409, MPV 10.2, Neut % (Auto) Not Reportable, Absolute Neuts (auto) 19.8 H, Absolute Lymphs (auto) 1.40, Total Counted 100, Neutrophils % (Manual) 84 H, Lymphocytes % (Manual) 6 L, Monocytes % (Manual) 5, Metamyelocytes % 3 H, Myelocytes % 2 H, Nucleated RBC % 0, Diff Path Review May , Platelet Estimate ADEQUATE, Hypochromasia RARE, Anisocytosis 1+, Macrocytosis RARE 09/28/19 13:20: D-Dimer Quant (PE/DVT) 3.97 H* 09/28/19 13:20: Sodium 129 L, Potassium 4.0, Chloride 93 L, Carbon Dioxide 28.0, Anion Gap 8, BUN 24 H, Creatinine 1.36 H, Estim Creat Clear Calc 27.83, Est GFR (MDRD) Af Amer 49 L, Est GFR (MDRD) Non-Af 40 L, BUN/Creatinine Ratio 17.6, Glucose 153 H, Calcium 8.6, Troponin I 0.038 09/28/19 13:20: B-Natriuretic Peptide 393.2 H Current Medications Azithromycin 500 mg/ Dextrose 255 mls @ 250 mls/hr IV X1 ONE Stop: 09/28/19 15:56 Assessment/Plan All Active Problems (Last Updated 09/16/19 @ 09:35 by Irina Liu) Paroxysmal atrial fibrillation with RVR (Acute) CHF (congestive heart failure) (Acute) Acute electrocardiogram changes (Acute) History of coronary artery stent placement (Resolved 09/14/19) Atypical chest pain (Resolved) The patient is a 74 year old F with history of hypertension, diabetes mellitus type 1 on insulin pump, recent history of non-STEMI septal anterior wall status post 2 stents in LAD on 09/16/2019 during previous admission from 09/14/2019- 09/23/2019 complicated with enterococcus UTI came to ER on September 28, 2019 with generalized weakness, diarrhea and shortness of breath on exertion. In ED, she was afebrile, tachycardic, heart rate 111, respiratory rate 18 to 26/min, pulse ox 96% on room air EKG similar to the previous EKG with sinus rhythm at 72 bpm T inversion in V2 to V6 and lead II. 1. Acute heart failure probably ischemic in nature with recent septal anterior wall non-STEMI: Patient is being admitted in PCU. On September 16, 2019, cardiac angiogram showed proximal LAD 80%, proximal to mid LAD 95%. Dominant RCA with 30% diffuse stenosis. Anterior apical hypokinesis. Patient had 2 stents placed in LAD. Recent Echo with an EF of 30 to 35% and wall motion abnormality with moderately severe segmental systolic dysfunction and stage I diastolic dysfunction. Will increase the Lasix furosemide 40 mg IV twice daily as per blood pressure allows. Keep the patient on heart failure protocol with intake and output, daily weight monitoring, kidney function and electrolyte monitoring. On aspirin, Brilinta, Coreg beta-angelique and statin. Hold BENEDICT inhibitor as increase in creatinine If patient further remains symptomatic, will consult cardiology and and software packaging engineer if needed 2. Acute enterocolitis rule out C. difficile: Medications reviewed. Patient has been on antibiotics since 06/16 2020 for enterococcus UTI and took last dose today. Patient further had 1 dose of ceftriaxone and azithromycin in ED. Stool for C. difficile, enteric bacteriology panel, occult blood and WBC ordered. Mo nitor stool output frequency. 3. left lung base atelectasis/small pleural effusion: During previous hospital course, patient was seen by software packaging engineer. Concern for pneumonia was ruled out patient did not had active pneumonia symptoms including cough, fever, tachypnea and similar history at this time. Incentive spirometry, chest physiotherapy, Mucinex, and bronchodilator as needed for shortness of breath. Respiratory panel, urinary antigens, sputum culture and MRSA nasal screen ordered. Chest x-ray independently reviewed and shows increase in left lung base opacity probably atelectasis and effusion. It is unlikely that patient has left lung base consolidation/pneumonia she has been on antibiotic for 12 days. 4. Paroxysmal A. fib on Eliquis: Currently patient is in normal sinus rhythm. Rate is controlled 5. 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 Monitor kidney function, electrolytes, urine output. 6. 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 7. Parkinson's/depression/anxiety: Patient has history of anxiety and is on Celexa at home. Requesting for Xanax. -Continue with Sinemet and Celexa DVT: Eliquis 2.5 mg twice daily Total time of the visit including total time spent in counseling or coordination of care, (more than 50% of the total time, spent in obtaining medical information from nurses and other ancillary care providers), discussion with ER physician, discussion with patient, patient's and daughter and review of labs and imaging is 40 minutes Advanced directive/living will/CODE STATUS: Patient has living will at home. Discussed with patient, patient's , Mr. Fadi Byrne and daughter near the bedside. Patient is not sure about content of living will and advised to bring it to hospital. When asked specifically about CODE STATUS including full code, DNR CC and DNR CC arrest, she is not sure and is stated to keep her alive. Advised further discussion regarding CODE STATUS with family. For practical purposes, will keep full code. Total time spent in [id number] encounter in discussion of advanced directive 18 minutes. Laboratory Results 09/28/19 13:20: Total Bilirubin 1.50 H, Direct Bilirubin 0.43 H, AST 32, ALT 27, Alkaline Phosphatase 153 H, Total Protein 7.1, Albumin 2.7 L, Globulin 4.4 H 09/28/19 13:20: WBC 23.5 H, RBC 3.63 L, Hgb 11.4 L, Hct 34.8 L, MCV 95.9, MCH 31.4, MCHC 32.8, RDW Std Deviation 53.8 H, RDW Coeff of Stephane 16.0 H, Plt Count 409, MPV 10.2, Neut % (Auto) Not Reportable, Absolute Neuts (auto) 19.8 H, Absolute Lymphs (auto) 1.40, Total Counted 100, Neutrophils % (Manual) 84 H, Lymphocytes % (Manual) 6 L, Monocytes % (Manual) 5, Metamyelocytes % 3 H, Myelocytes % 2 H, Nucleated RBC % 0, Diff Path Review May foll, Platelet Estimate ADEQUATE, Hypochromasia RARE, Anisocytosis 1+, Macrocytosis RARE 09/28/19 13:20: D-Dimer Quant (PE/DVT) 3.97 H* 09/28/19 13:20: Sodium 129 L, Potassium 4.0, Chloride 93 L, Carbon Dioxide 28.0, Anion Gap 8, BUN 24 H, Creatinine 1.36 H, Estim Creat Clear Calc 27.83, Est GFR (MDRD) Af Amer 49 L, Est GFR (MDRD) Non-Af 40 L, BUN/Creatinine Ratio 17.6, Glucose 153 H, Calcium 8.6, Troponin I 0.038 09/28/19 13:20: B-Natriuretic Peptide 393.2 H Clinical Impression(s) from Imaging Studies Chest X-Ray 09/28/19 13:46 IMPRESSION: Increasing left lower lobe consolidation suggesting pneumonia. No pleural effusions. Code Visit Inpatient E&M: 27479 Init Hosp L3 Procedures: 48932 Advncd Care Plan 30 Min
[2019-09-28] MEDS: Ceftriaxone 1 GM/50 ML BAG IV (15:33)
[2019-09-28] MEDS: Metoprolol Tartrate 5 MG/5 ML Vial IV (15:35)
[2019-09-28 17:04] LABS: Bacteria 0 SEEN /hpf (None Seen); Mucous, Urine 0 SEEN /hpf (<or=2+); Red Blood Cells-Urine 0 SEEN /hpf (0-5); White Blood Cells 0 SEEN /hpf (0-5)
[2019-09-28 17:16] LABS: Color, Urine Straw (Yellow); Glucose, Dipstick Normal (Normal); Ketone-Dipstick Negative (Negative); Leukocyte Esterase-Dipstick Negative /ul (Negative); Nitrite-Dipstick Negative (Negative); Occult Blood-Urine Negative /ul (Negative); Protein-Dipstick Negative (Negative); Urine Bilirubin Dipstick Negative (Negative); Urine Clarity Sl. Cloudy (Clear); Urine Urobilinogen Normal (Normal); Urine pH 6.5 (5.0 - 8.0)
[2019-09-28 17:17] LABS: Magnesium 1.9 mg/dL (1.6-2.6)
[2019-09-28 17:25] LABS: Lactic Acid 1.9 mmol/L (0.4-1.9)
[2019-09-28 17:31] LABS: Squamous Epithelial Cells - UA 0-5 SEEN /hpf (5-10); Yeast-Urine RARE /hpf (None Seen)
[2019-09-28 18:00] LABS: Bedside Glucose 131 mg/dL (70-110)
[2019-09-28] MEDS: Carvedilol 6.25 MG Tablet PO (18:00)
[2019-09-28 18:29] LABS: M R Staph aureus DNA By PCR Negative (Negative); Probe Check PASS; Specimen Processing Control PASS
[2019-09-28] MEDS: APIXABAN 2.5 MG TABLET PO (22:03)
[2019-09-28] MEDS: TICAGRELOR 90 MG TABLET PO (22:03)
[2019-09-28] MEDS: Gabapentin 100 MG Capsule PO (22:03)
[2019-09-28] MEDS: guaiFENesin 1,200 MG Tablet 1200 MG PO (22:04)
--- NOTE | 2019-09-28 22:22 | NURSING ---
Checked patient blood sugar with our glucometer which read 270. Patient checked her own blood sugar with her insulin pump which was 195. Patient is giving herself 1.75 of insulin at this time. Will continue to monitor.
[2019-09-29] VITALS (12 sets, daily range): BP systolic 114–162; BP diastolic 53–77; PULSE 65–82; RESP 16–18; TEMP 36.4–36.8; O2SAT 94–97
[2019-09-29 00:06] LABS: Bedside Glucose 270 mg/dL (70-110)
[2019-09-29] MEDS: LORazepam 0.5 MG Tablet PO ×2 (00:24→22:11)
[2019-09-29] MEDS: Carbidopa/Levodopa 25/100 Tablet PO ×3 (06:31→16:29)
[2019-09-29] MEDS: Levothyroxine 88 MCG Tablet PO (06:31)
[2019-09-29 06:40] LABS: Bedside Glucose 132 mg/dL (70-110)
[2019-09-29 07:08] LABS: Hematocrit 31.4 % (37-47); Hemoglobin 10.6 g/dL (12.0-15.0); Mean Corp Hgb Conc 33.8 g/dL (32-36); Mean Corpuscular Hgb 32.1 pg (27.0-32.0); Mean Corpuscular Volume 95.2 fL (81-99); Mean Platelet Vol. 10.7 fl (6.2-12.0); POSITIVE COUNT YES; POSITIVE DIFFERENTIAL YES; POSITIVE MORPHOLOGY YES; Platelet Count 381 K/mm3 (150-450); RBC Distribution Width CV 15.9 % (11.6-14.6); RBC Distribution Width SD 54.4 fl (35.1-43.9); White Blood Count 19.1 K/mm3 (4.4-11.0)
[2019-09-29 07:32] LABS: AST(SGOT) 26 U/L (15-37); Alanine Aminotransfer ALT/SGPT 45 U/L (13-56); Albumin, Serum 2.3 g/dL (3.2-5.0); Alkaline Phosphatase 131 U/L (45-117); Anion Gap 7 (5-15); BUN 23 mg/dL (7-18); BUN/Creat Ratio 18.9 RATIO (10-20); Bilirubin, Direct 0.32 mg/dL (0.00-0.30); Calcium,Total 8.2 mg/dL (8.5-10.1); Chloride 95 mmol/L (98-107); Creatinine, Serum 1.22 mg/dL (0.55-1.02); EST Glomerular Filtration Rate 46 mL/min (>60); Est Glom Filt Rate - Afr Amer 55 mL/min (>60); Estimated Creatinine Clearance 31.03 ml/min; Globulin 4.2 g/dL (2.2-4.2); Glucose 133 mg/dL (74-106); Potassium 3.9 mmol/L (3.5-5.1); Protein, Total 6.5 g/dL (6.4-8.2); Sodium Level 130 mmol/L (136-145); Thyroid Stim Hormone (TSH) 9.69 uIU/mL (0.358-3.74)
[2019-09-29 07:39] LABS: Differential Indicated MANUAL DIFF
[2019-09-29 08:02] LABS: Lymphocyte 8 % (19-41); Metamyelocyte 2 % (0-1); Monocyte 4 % (0-10); Myelocyte 1 (0-0); Neutrophil-Band 3 % (0-5); Neutrophil-Segmented 82 % (47-70); Total Cells Counted 100 (MANUAL DIFF)
[2019-09-29 08:03] LABS: Anisocytosis 1+; Hypochromasia 1+; Microcytosis 1+; Platelet Estimate ADEQUATE (ADEQ); Polychromasia 1+
[2019-09-29 08:05] LABS: Absolute Lymphocyte Count 1.53 X10^3/uL (0.83-4.51); Absolute Neutrophil Count 16.2 X10^3/uL (2.0-7.7)
[2019-09-29] MEDS: Furosemide 40 MG/4 ML Vial IV ×2 (09:51→19:00)
[2019-09-29] MEDS: Carvedilol 6.25 MG Tablet PO ×2 (09:52→16:29)
[2019-09-29] MEDS: TICAGRELOR 90 MG TABLET PO ×2 (09:52→22:09)
[2019-09-29] MEDS: APIXABAN 2.5 MG TABLET PO ×2 (09:52→22:09)
[2019-09-29] MEDS: Aspirin 81 MG TAB.CHEW PO (09:52)
[2019-09-29] MEDS: guaiFENesin 1,200 MG Tablet 1200 MG PO ×2 (09:52→22:09)
[2019-09-29] MEDS: Citalopram 20 MG Tablet PO (09:52)
[2019-09-29] MEDS: 0.9% Saline Lock 10 ML Syringe IV ×2 (09:53→19:00)
--- NOTE | 2019-09-29 09:55 | NURSING ---
pt administers own insulin from home insulin pump. Per pt 2.75 units was given this morning with breakfast.
--- NOTE | 2019-09-29 10:40 | RAD_ITS ---
STUDY: X-RAY CHEST REASON FOR EXAM: Female, 74 years old. SOB TECHNIQUE: PA and lateral views. COMPARISON: 09/28/2019. FINDINGS: Persistent partial atelectasis with air bronchograms in the left lower lobe. Compressive atelectases of the right lung base. Small calcified granuloma in the medial aspect of the left lung apex. Bilateral pleural fluid. Cardiomegaly is unchanged. Normal mediastinum and pritesh. Normal visualized pulmonary arteries. Normal visualized aortic arch and descending thoracic aorta. Normal visualized thoracic spine. Normal visualized ribs, clavicles, and shoulders. There is no demonstrated abnormality of the visualized soft tissue structures of the upper abdomen. RAD/Chest PA and Lateral IMPRESSION: 1. Persistent partial atelectasis of the left lower lobe with air bronchograms and compressive atelectasis of the right lung base. 2. Bilateral subpulmonic fluid. 3. No significant interval change when compared to 09/28/2019. Electronically Signed: Rob Sterling MD at 11:54 EST , Service support ,
--- NOTE | 2019-09-29 12:00 | NURSING ---
Per pt report pt administered 4.35units of insulin with lunch via home insulin pump.
[2019-09-29] MEDS: Glucerna Shake 120 ML LIQUID PO ×2 (12:08→16:29)
[2019-09-29 12:15] LABS: Bedside Glucose 194 mg/dL (70-110)
--- NOTE | 2019-09-29 14:19 | PN_ITS ---
Patient Problems: Active and Suspected Problems (Last Updated 09/16/19 @ 09:35 by Irina Liu) CHF (congestive heart failure) (Acute) Acute electrocardiogram changes (Acute) Reason for Visit: CHF exacerbation, right lower extremity swelling Objective: Overall patient shortness of breath, leg swelling improved. Feels better. Still weakness and mild dyspnea on exertion. No bowel movement since admission. Vitals/I&O's: Vital Signs Temp Pulse Resp BP Pulse Ox 98.3 F 74 16 114/56 L 97 09/29/19 09:46 09/29/19 09:46 09/29/19 09:46 09/29/19 09:46 09/29/19 09:46 Oxygen Flow Rate (L/min) 2 Oxygen Delivery Method Room Air Weight: 160 lb 14.999 oz Body Mass Index (BMI) 29.1 Finger Stick Blood Glucose 195 Intake and Output for Last 24 Hours 09/27/19 09/28/19 09/29/19 23:59 23:59 23:59 Intake Total 545 / 545 50 / 50 Output Total 700 / 700 Balance -155 / -155 50 / 50 General: Alert, Oriented x3, Cooperative HEENT: Atraumatic, PERRLA, EOMI, Normocephalic Neck: Supple, No JVD, Negative Carotid Bruits Lungs: Clear to auscultation, No rhonchi, No wheeze, No rales, Diminished - Air entry diminished in left lung base Cardiovascular: Regular rate, Regular Rhythm, Normal S1, Normal S2, No murmurs, - - PVCs on library monitor Abdomen: Bowel Sounds Present, Soft, Non Tender, Non-Distended Extremities: No edema, Capillary Refill Less than 3 Seconds Skin: No rashes, No breakdown Musculoskeletal: No Tenderness to Palpation of Joints or Extremities, Arthritic Changes Lymphatic: No Cervical, Supraclavicular, or Inguinal Adenopathy Neurological: Cranial nerves II-XII grossly intact, Deep Tendon Reflexes 2+/4 and Symmetrical, Neuro grossly intact Psych/Mental Status: Normal Affect, Appropriate Microbiology Past 72 Hours 09/28/19 16:55 Mucosa - Nasopharyngeal Respiratory Panel (PCR) - Final 09/28/19 16:25 Urine, Clean Catch Legionella Antigen - Final 09/28/19 16:25 Urine, Clean Catch Streptococcus pneumoniae Antigen (M - Final Laboratory Results 09/28/19 13:20: Absolute Neuts (auto) 19.8 H, Absolute Lymphs (auto) 1.40, Total Counted 100, Neutrophils % (Manual) 84 H, Lymphocytes % (Manual) 6 L, Monocytes % (Manual) 5, Metamyelocytes % 3 H, Myelocytes % 2 H, Nucleated RBC % 0, Diff Path Review May , Platelet Estimate ADEQUATE, Hypochromasia RARE, Anisocytosis 1+, Macrocytosis RARE 09/28/19 13:20: D-Dimer Quant (PE/DVT) 3.97 H* 09/28/19 13:20: B-Natriuretic Peptide 393.2 H 09/28/19 16:20: Troponin I 0.035 09/28/19 16:25: Urine Color Straw, Urine Clarity Sl. Cloudy, Urine pH 6.5, Ur Specific [place] 1.010, Urine Protein Negative, Urine Glucose (UA) Normal, Urine Ketones Negative, Urine Occult Blood Negative, Urine Nitrite Negative, Urine Bilirubin Negative, Urine Urobilinogen Normal, Ur Leukocyte Esterase Negative, Urine RBC 0 SEEN, Urine WBC 0 SEEN, Ur Squamous Epith Cells 0-5 SEEN, Urine Bacteria 0 SEEN, Urine Mucus 0 SEEN, Urine Yeast RARE 09/28/19 16:30: Magnesium 1.9 09/28/19 16:30: Lactic Acid 1.9 09/28/19 16:55: MRSA (PCR) Negative 09/28/19 17:26: POC Glucose 131 H 09/28/19 22:10: POC Glucose 270 H 09/28/19 23:13: Troponin I 0.026 09/29/19 06:35: POC Glucose 132 H 09/29/19 06:46: Sodium 130 L, Potassium 3.9, Chloride 95 L, Carbon Dioxide 28.0, Anion Gap 7, BUN 23 H, Creatinine 1.22 H, Estim Creat Clear Calc 31.03, Est GFR (MDRD) Af Amer 55 L, Est GFR (MDRD) Non-Af 46 L, BUN/Creatinine Ratio 18.9, Glucose 133 H, Calcium 8.2 L, Total Bilirubin 1.10 H, Direct Bilirubin 0.32 H, AST 26, ALT 45, Alkaline Phosphatase 131 H, Total Protein 6.5, Albumin 2.3 L, Globulin 4.2, TSH 9.69 H 09/29/19 06:46: WBC 19.1 H, RBC 3.30 L, Hgb 10.6 L, Hct 31.4 L, MCV 95.2, MCH 32.1 H, MCHC 33.8, RDW Std Deviation 54.4 H, RDW Coeff of Stephane 15.9 H, Plt Count 381, MPV 10.7, Neut % (Auto) Not Reportable, Absolute Neuts (auto) 16.2 H, Absolute Lymphs (auto) 1.53, Total Counted 100, Neutrophils % (Manual) 82 H, Band Neutrophils % 3, Lymphocytes % (Manual) 8 L, Monocytes % (Manual) 4, Metamyelocytes % 2 H, Myelocytes % 1 H, Diff Path Review January, Platelet Estimate ADEQUATE, Polychromasia 1+, Hypochromasia 1+, Anisocytosis 1+, Microcytosis 1+ 09/29/19 11:24: POC Glucose 194 H Current Medications Acetaminophen (Tylenol) 650 mg PO Q6H PRN PRN PRN Reason: Pain Score 1-3/Temp > 100.7 F Albuterol Sulfate (Ventolin Aerosols) 2.5 mg INHALATION Q2H PRN PRN PRN Reason: SOB/Wheezing Apixaban (Eliquis) 2.5 mg PO BID [facility] Last Admin: 09/29/19 09:52 Dose: 2.5 mg Documented by: Aspirin (Aspirin, Baby) 81 mg PO DAILY@0800 [facility] Last Admin: 09/29/19 09:52 Dose: 81 mg Documented by: Carbidopa/Levodopa (Sinemet) 0.5 tablet PO TID@0730,1130,1630 [facility] Last Admin: 09/29/19 12:08 Dose: 0.5 tablet Documented by: Carvedilol (Coreg) 6.25 mg PO BIDCM [facility] Last Admin: 09/29/19 09:52 Dose: 6.25 mg Documented by: Cholecalciferol (Vitamin D) 2,000 unit PO DAILY [facility] Last Admin: 09/29/19 09:52 Dose: 2,000 unit Documented by: Citalopram Hydrobromide (Celexa) 20 mg PO DAILY [facility] Last Admin: 09/29/19 09:52 Dose: 20 mg Documented by: Furosemide (Lasix) 40 mg IV BIDLX [facility] Last Admin: 09/29/19 09:51 Dose: 40 mg Documented by: Gabapentin (Neurontin) 100 mg PO QHS [facility] Last Admin: 09/28/19 22:03 Dose: 100 mg Documented by: Glucagon () 1 mg IM .X1 PRN PRN Reason: Hypoglycemia Guaifenesin (Mucinex) 1,200 mg PO BID [facility] Last Admin: 09/29/19 09:52 Dose: 1,200 mg Documented by: Dextrose (Dextrose 10%-Water) 250 mls @ 999 mls/hr IV .Q16M PRN; Protocol PRN Reason: HYPOGLYCEMIA Sodium Chloride () 250 mls @ 15 mls/hr IV .[id number] PRN PRN Reason: Saline Flush Sodium Chloride () 250 mls @ 15 mls/hr IV .[id number] PRN PRN Reason: Additional IVPB Infusion Insulin Aspart (Pump, Basal) 1 unit SC Q24 [facility] Last Admin: 09/29/19 09:55 Dose: Not Given Documented by: Levothyroxine Sodium (Synthroid) 88 mcg PO DAILY@0600 [facility] Last Admin: 09/29/19 06:31 Dose: 88 mcg Documented by: Lorazepam (Ativan) 0.5 mg PO Q12H PRN PRN PRN Reason: severe anxiety Last Admin: 09/29/19 00:24 Dose: 0.5 mg Documented by: Morphine Sulfate () 2 mg IV Q3H PRN PRN PRN Reason: Pain Score 6-10/10 Nitroglycerin (Nitrostat) 0.4 mg SUBLINGUAL Q5M PRN PRN Reason: CARDIAC/CHEST PAIN Nutritional Formula (Lactose Free) (Glucerna Shake) 120 ml PO TIDCM [facility] Last Admin: 09/29/19 12:08 Dose: 120 units Documented by: Oxycodone HCl (Oxyir) 5 mg PO Q4H PRN PRN PRN Reason: Pain Score 4-5/10 Potassium Chloride (K-Dur) 40 meq PO DAILYCM [facility] Last Admin: 09/29/19 09:52 Dose: 40 meq Documented by: Prochlorperazine Edisylate (Compazine Iv) 5 mg IV Q4H PRN PRN PRN Reason: Breakthrough Nausea/Vomiting Sodium Chloride () 10 - 40 ml IV UD PRN PRN Reason: SALINE FLUSH Last Admin: 09/29/19 09:53 Dose: 20 ml Documented by: Ticagrelor (Brilinta) 90 mg PO BID [facility] Last Admin: 09/29/19 09:52 Dose: 90 mg Documented by: Medical Necessity - Tobacco Use Smoking Status: Never smoker Assessment/Plan All Active Problems (Last Updated 09/16/19 @ 09:35 by Irina Liu) Paroxysmal atrial fibrillation with RVR (Acute) CHF (congestive heart failure) (Acute) Acute electrocardiogram changes (Acute) History of coronary artery stent placement (Resolved 09/14/19) Atypical chest pain (Resolved) The patient is a 74 year old F with history of hypertension, diabetes mellitus type 1 on insulin pump, recent history of non-STEMI septal anterior wall status post 2 stents in LAD on 09/16/2019 during previous admission from 09/14/2019- 09/23/2019 complicated with enterococcus UTI came to ER on September 28, 2019 with generalized weakness, diarrhea and shortness of breath on exertion. In ED, she was afebrile, tachycardic, heart rate 111, respiratory rate 18 to 26/min, pulse ox 96% on room air EKG similar to the previous EKG with sinus rhythm at 72 bpm T inversion in V2 to V6 and lead II. 1. Acute heart failure probably ischemic in nature with recent septal anterior wall non-STEMI: Patient is being admitted in PCU. On September 16, 2019, cardiac angiogram showed proximal LAD 80%, proximal to mid LAD 95%. Dominant RCA with 30% diffuse stenosis. Anterior apical hypokinesis. Patient had 2 stents placed in LAD. Recent Echo with an EF of 30 to 35% and wall motion abnormality with moderately severe segmental systolic dysfunction and stage I diastolic dysfunction. Will increase the Lasix furosemide 40 mg IV twice daily as per blood pressure allows. Keep the patient on heart failure protocol with intake and output, daily weight monitoring, kidney function and electrolyte monitoring. On aspirin, Brilinta, Coreg beta-aarti and statin. Hold BENEDICT inhibitor as increase in creatinine If patient further remains symptomatic, will consult cardiology and and processes chemical design engineer if needed 09/29/2019: BNP is elevated about 400. Serial troponin enzymes are negative. Patient BUN/creatinine improved /.22. Continue Lasix 40 mg IV twice daily. Discussed with the java developer architect Dr. duncan who is going to see tomorrow. 2. Acute enterocolitis rule out C. difficile: Medications reviewed. Patient has been on antibiotics since 06/16 2020 for enterococcus UTI and took last dose today. Patient further had 1 dose of ceftriaxone and azithromycin in ED. Stool for C. difficile, enteric bacteriology panel, occult blood and WBC ordered. Monitor stool output frequency. 09/29: Patient did not have bowel movement for stool testing. No abdominal pain. 3. left lung base atelectasis/small pleural effusion: During previous hospital course, patient was seen by pulmonologis Incentive spirometry, chest physiotherapy, Mucinex, and bronchodilator as needed for shortness of breath. Respiratory panel, urinary antigens, sputum culture and MRSA nasal screen ordered. 09/29: No fever or chills, lactic acid normal. No tachycardia or tachypnea. Urinary antigens are negative. Respiratory panel negative. Blood cultures x2 are pending. Repeat chest x-ray PA and lateral shows left small pleural effusion along with atelectasis of left lung base more than right lung base. Aggressive bronchopulmonary hygiene with incentive spirometry and chest physiotherapy. I do not see indication for further continuation of antibiotic as she already had 12 days of antibiotic as mentioned above. 4. Paroxysmal A. fib on Eliquis: Currently patient is in normal sinus rhythm. Rate is controlled 5. 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 Monitor kidney function, electrolytes, urine output. 6. 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 7. Parkinson's/depression/anxiety: Patient has history of anxiety and is on Celexa at home. Requesting for Xanax. -Continue with Sinemet and Celexa DVT: Eliquis 2.5 mg twice daily Total time of the visit including total time spent in counseling or coordination of care, (more than 50% of the total time, spent in obtaining medical information from nurses and other ancillary care providers), discussion with ER physician, discussion with patient, patient's and son and review of labs and imaging is 35 minutes Advanced directive/living will/CODE STATUS: Full code Microbiology Past 72 Hours 09/28/19 16:55 Mucosa - Nasopharyngeal Respiratory Panel (PCR) - Final 09/28/19 16:25 Urine, Clean Catch Legionella Antigen - Final 09/28/19 16:25 Urine, Clean Catch Streptococcus pneumoniae Antigen (M - Final Laboratory Results 09/28/19 13:20: D-Dimer Quant (PE/DVT) 3.97 H* 09/28/19 13:20: B-Natriuretic Peptide 393.2 H 09/28/19 16:20: Troponin I 0.035 09/28/19 16:25: Urine Color Straw, Urine Clarity Sl. Cloudy, Urine pH 6.5, Ur Specific [place] 1.010, Urine Protein Negative, Urine Glucose (UA) Normal, Urine Ketones Negative, Urine Occult Blood Negative, Urine Nitrite Negative, Urine Bilirubin Negative, Urine Urobilinogen Normal, Ur Leukocyte Esterase Negative, Urine RBC 0 SEEN, Urine WBC 0 SEEN, Ur Squamous Epith Cells 0-5 SEEN, Urine Bacteria 0 SEEN, Urine Mucus 0 SEEN, Urine Yeast RARE 09/28/19 16:30: Magnesium 1.9 09/28/19 16:30: Lactic Acid 1.9 09/28/19 16:55: MRSA (PCR) Negative 09/28/19 17:26: POC Glucose 131 H 09/28/19 22:10: POC Glucose 270 H 09/28/19 23:13: Troponin I 0.026 09/29/19 06:35: POC Glucose 132 H 09/29/19 06:46: Sodium 130 L, Potassium 3.9, Chloride 95 L, Carbon Dioxide 28.0, Anion Gap 7, BUN 23 H, Creatinine 1.22 H, Estim Creat Clear Calc 31.03, Est GFR (MDRD) Af Amer 55 L, Est GFR (MDRD) Non-Af 46 L, BUN/Creatinine Ratio 18.9, Glucose 133 H, Calcium 8.2 L, Total Bilirubin 1.10 H, Direct Bilirubin 0.32 H, AST 26, ALT 45, Alkaline Phosphatase 131 H, Total Protein 6.5, Albumin 2.3 L, Globulin 4.2, TSH 9.69 H 09/29/19 06:46: WBC 19.1 H, RBC 3.30 L, Hgb 10.6 L, Hct 31.4 L, MCV 95.2, MCH 32.1 H, MCHC 33.8, RDW Std Deviation 54.4 H, RDW Coeff of Stephane 15.9 H, Plt Count 381, MPV 10.7, Neut % (Auto) Not Reportable, Absolute Neuts (auto) 16.2 H, Absolute Lymphs (auto) 1.53, Total Counted 100, Neutrophils % (Manual) 82 H, Band Neutrophils % 3, Lymphocytes % (Manual) 8 L, Monocytes % (Manual) 4, Metamyelocytes % 2 H, Myelocytes % 1 H, Diff Path Review May , Platelet Estimate ADEQUATE, Polychromasia 1+, Hypochromasia 1+, Anisocytosis 1+, Microcytosis 1+ 09/29/19 11:24: POC Glucose 194 H Clinical Impression(s) from Imaging Studies Chest X-Ray 09/28/19 13:46 IMPRESSION: Increasing left lower lobe consolidation suggesting pneumonia. No pleural effusions. Chest X-Ray 09/29/19 10:40 IMPRESSION: 1. Persistent partial atelectasis of the left lower lobe with air bronchograms and compressive atelectasis of the right lung base. 2. Bilateral subpulmonic fluid. 3. No significant interval change when compared to 09/28/2019. Code Visit Inpatient E&M: 69979 Subs Hosp L3
[2019-09-29 16:26] LABS: Bedside Glucose 61 mg/dL (70-110)
--- NOTE | 2019-09-29 16:33 | NURSING ---
Pt called out to nursing due to symptoms of low blood sugar. RN to check BS and was 61. Pt declined OJ or snack nursing offered. Pt took home glucose tablets. On recheck pt BS was 79. Will monitor.
[2019-09-29 16:40] LABS: Bedside Glucose 79 mg/dL (70-110)
--- NOTE | 2019-09-29 18:54 | NURSING ---
Per pt 2.75units of insulin was given with dinner via home insulin pump.
[2019-09-29] MEDS: Gabapentin 100 MG Capsule PO (22:09)
[2019-09-29 22:31] LABS: Bedside Glucose 97 mg/dL (70-110)
[2019-09-30] VITALS (13 sets, daily range): BP systolic 107–126; BP diastolic 62–85; PULSE 40–131; RESP 17–18; TEMP 36.6–37.1; O2SAT 94–97
[2019-09-30 03:31] LABS: Bedside Glucose 153 mg/dL (70-110)
[2019-09-30 05:55] LABS: Hematocrit 31.9 % (37-47); Hemoglobin 10.4 g/dL (12.0-15.0); Mean Corp Hgb Conc 32.6 g/dL (32-36); Mean Corpuscular Volume 94.9 fL (81-99); Mean Platelet Vol. 10.4 fl (6.2-12.0); POSITIVE COUNT YES; POSITIVE MORPHOLOGY YES; Platelet Count 389 K/mm3 (150-450); RBC Distribution Width CV 16.3 % (11.6-14.6); RBC Distribution Width SD 55.3 fl (35.1-43.9); Red Blood Count 3.36 M/mm3 (4.2-5.4); White Blood Count 16.3 K/mm3 (4.4-11.0)
[2019-09-30 06:24] LABS: Anion Gap 7 (5-15); BUN 20 mg/dL (7-18); BUN/Creat Ratio 16.5 RATIO (10-20); Calcium,Total 7.9 mg/dL (8.5-10.1); Chloride 91 mmol/L (98-107); Creatinine, Serum 1.21 mg/dL (0.55-1.02); EST Glomerular Filtration Rate 46 mL/min (>60); Est Glom Filt Rate - Afr Amer 56 mL/min (>60); Estimated Creatinine Clearance 31.28 ml/min; Glucose 145 mg/dL (74-106); Magnesium 1.8 mg/dL (1.6-2.6); Phosphorus 3.1 mg/dL (2.5-4.9); Potassium 3.6 mmol/L (3.5-5.1); Sodium Level 129 mmol/L (136-145)
[2019-09-30] MEDS: Carbidopa/Levodopa 25/100 Tablet PO ×3 (06:34→15:29)
[2019-09-30] MEDS: Levothyroxine 88 MCG Tablet PO (06:34)
[2019-09-30 06:38] LABS: Differential Indicated MANUAL DIFF
[2019-09-30 06:45] LABS: Bedside Glucose 140 mg/dL (70-110)
[2019-09-30 07:50] LABS: Anisocytosis RARE; Eosinophil 1 % (0-5); Lymphocyte 12 % (19-41); Metamyelocyte 4 % (0-1); Monocyte 4 % (0-10); Myelocyte 3 (0-0); Neutrophil-Band 4 % (0-5); Neutrophil-Segmented 72 % (47-70); Platelet Estimate ADEQUATE (ADEQ); Total Cells Counted 100 (MANUAL DIFF)
[2019-09-30 07:51] LABS: Red Cell Morphology NORM C+C NORMAL (NORM C&C)
[2019-09-30 07:52] LABS: Absolute Lymphocyte Count 1.95 X10^3/uL (0.83-4.51); Absolute Neutrophil Count 13.5 X10^3/uL (2.0-7.7); Eosinophil# 0.16 X10^3/uL; Lymphocyte # 1.95 X10^3/ul (4.0); Monocyte# 0.65 X10^3/uL; Neutrophil # 13.52 X10^3/uL (2.7-7.7)
--- NOTE | 2019-09-30 08:00 | PN_ITS ---
Patient Problems: Active and Suspected Problems (Last Updated 09/30/19 @ 07:38 by Nicole Lew MD) CHF (congestive heart failure) (Acute) Subjective: Chief complaint: Follow-up after admission for acute systolic CHF. Patient seen and examined. No acute events overnight. Today, she complains of exertional shortness of breath, has been getting more short of breath upon walking to the bathroom. She denied chest pain, palpitation, dizziness or lightheadedness. Reportedly, yesterday she had frequent bigeminy's and PVCs as well as 10 beats of nonsustained V. tach. Serum electrolytes are normal. Her vital signs are stable. - Physical Exam Vitals/I&O's: Vital Signs Temp Pulse Resp BP Pulse Ox 98.0 F 84 18 107/62 94 09/30/19 03:35 09/30/19 06:49 09/30/19 03:35 09/30/19 03:35 09/30/19 03:35 Oxygen Flow Rate (L/min) 2 Oxygen Delivery Method Room Air Weight: 162 lb 0.636 oz Body Mass Index (BMI) 29.1 Finger Stick Blood Glucose 195 Intake and Output for Last 24 Hours 09/28/19 09/29/19 09/30/19 23:59 23:59 23:59 Intake Total 545 / 545 650 / 650 100 / 100 Output Total 700 / 700 1100 / 1100 Balance -155 / -155 -450 / -450 100 / 100 General: Alert, Oriented x3, Cooperative, No apparent distress HEENT: Atraumatic, PERRLA, EOMI, Normocephalic Oral: Moist Mucosa, No Gingival or Mucosal Lesions/ Ulcerations Neck: Supple, No JVD, Negative Carotid Bruits, Trachea Midline, Thyroid Normal Size and Texture Lungs: No wheeze, No rales, Diminished, Rhonchi, - - Decreased breath sounds bilaterally, more at the bases, scattered rhonchi. Cardiovascular: Regular rate, Regular Rhythm, Normal S1, Normal S2, PMI Normal Abdomen: Bowel Sounds Present, Soft, Non Tender, Non-Distended, No Hepato- splenomegaly Extremities: No clubbing, No cyanosis, No edema Skin: No rashes, No breakdown Lymphatic: No Cervical, Supraclavicular, or Inguinal Adenopathy Neurological: Cranial nerves II-XII grossly intact, Motor Exam 5/5 strength throughout Psych/Mental Status: Normal Affect, Appropriate, Alert and oriented to time, place, person, mood and affect Microbiology Past 72 Hours 09/29/19 20:05 Stool Stool Occult Blood (POPPY) - Final 09/29/19 20:05 Stool Stool Lactoferrin - Final 09/28/19 16:55 Mucosa - Nasopharyngeal Respiratory Panel (PCR) - Final 09/28/19 16:25 Urine, Clean Catch Legionella Antigen - Final 09/28/19 16:25 Urine, Clean Catch Streptococcus pneumoniae Antigen (M - Final Laboratory Results 09/29/19 06:46: Absolute Neuts (auto) 16.2 H, Absolute Lymphs (auto) 1.53, Total Counted 100, Neutrophils % (Manual) 82 H, Band Neutrophils % 3, Lymphocytes % (Manual) 8 L, Monocytes % (Manual) 4, Metamyelocytes % 2 H, Myelocytes % 1 H, Diff Path Review May foll, Platelet Estimate ADEQUATE, Polychromasia 1+, Hypo chromasia 1+, Anisocytosis 1+, Microcytosis 1+ 09/29/19 11:24: POC Glucose 194 H 09/29/19 16:10: POC Glucose 61 L 09/29/19 16:33: POC Glucose 79 09/29/19 22:20: POC Glucose 97 09/30/19 03:28: POC Glucose 153 H 09/30/19 05:15: WBC 16.3 H, RBC 3.36 L, Hgb 10.4 L, Hct 31.9 L, MCV 94.9, MCH 31.0, MCHC 32.6, RDW Std Deviation 55.3 H, RDW Coeff of Stephane 16.3 H, Plt Count 389, MPV 10.4, Neut % (Auto) Not Reportable, Absolute Neuts (auto) 13.5 H, Absolute Lymphs (auto) 1.95, Total Counted 100, Neutrophils % (Manual) 72 H, Band Neutrophils % 4, Lymphocytes % (Manual) 12 L, Monocytes % (Manual) 4, Eosinophils % (Manual) 1, Metamyelocytes % 4 H, Myelocytes % 3 H, Diff Path Review May foll, Platelet Estimate ADEQUATE, RBC Morphology NORM C+C, Anisocytosis RARE 09/30/19 05:15: Sodium 129 L, Potassium 3.6, Chloride 91 L, Carbon Dioxide 31.0, Anion Gap 7, BUN 20 H, Creatinine 1.21 H, Estim Creat Clear Calc 31.28, Est GFR (MDRD) Af Amer 56 L, Est GFR (MDRD) Non-Af 46 L, BUN/Creatinine Ratio 16.5, Glucose 145 H, Calcium 7.9 L, Phosphorus 3.1, Magnesium 1.8 09/30/19 06:37: POC Glucose 140 H Current Medications Acetaminophen (Tylenol) 650 mg PO Q6H PRN PRN PRN Reason: Pain Score 1-3/Temp > 100.7 F Albuterol Sulfate (Ventolin Aerosols) 2.5 mg INHALATION Q2H PRN PRN PRN Reason: SOB/Wheezing Apixaban (Eliquis) 2.5 mg PO BID [facility] Last Admin: 09/29/19 22:09 Dose: 2.5 mg Documented by: Aspirin (Aspirin, Baby) 81 mg PO DAILY@0800 [facility] Last Admin: 09/29/19 09:52 Dose: 81 mg Documented by: Carbidopa/Levodopa (Sinemet) 0.5 tablet PO TID@0730,1130,1630 [facility] Last Admin: 09/30/19 06:34 Dose: 0.5 tablet Documented by: Carvedilol (Coreg) 6.25 mg PO BIDCM [facility] Last Admin: 09/29/19 16:29 Dose: 6.25 mg Documented by: Cholecalciferol (Vitamin D) 2,000 unit PO DAILY [facility] Last Admin: 09/29/19 09:52 Dose: 2,000 unit Documented by: Citalopram Hydrobromide (Celexa) 20 mg PO DAILY [facility] Last Admin: 09/29/19 09:52 Dose: 20 mg Documented by: Furosemide (Lasix) 40 mg IV BIDLX [facility] Last Admin: 09/29/19 19:00 Dose: 40 mg Documented by: Gabapentin (Neurontin) 100 mg PO QHS [facility] Last Admin: 09/29/19 22:09 Dose: 100 mg Documented by: Glucagon () 1 mg IM .X1 PRN PRN Reason: Hypoglycemia Guaifenesin (Mucinex) 1,200 mg PO BID [facility] Last Admin: 09/29/19 22:09 Dose: 1,200 mg Documented by: Dextrose (Dextrose 10%-Water) 250 mls @ 999 mls/hr IV .Q16M PRN; Protocol PRN Reason: HYPOGLYCEMIA Insulin Aspart (Pump, Basal) 1 unit SC Q24 [facility] Last Admin: 09/29/19 09:55 Dose: Not Given Documented by: Levothyroxine Sodium (Synthroid) 88 mcg PO DAILY@0600 [facility] Last Admin: 09/30/19 06:34 Dose: 88 mcg Documented by: Lorazepam (Ativan) 0.5 mg PO Q12H PRN PRN PRN Reason: severe anxiety Last Admin: 09/29/19 22:11 Dose: 0.5 mg Documented by: Morphine Sulfate () 2 mg IV Q3H PRN PRN PRN Reason: Pain Score 6-10/10 Nitroglycerin (Nitrostat) 0.4 mg SUBLINGUAL Q5M PRN PRN Reason: CARDIAC/CHEST PAIN Nutritional Formula (Lactose Free) (Glucerna Shake) 120 ml PO TIDCM [facility] Last Admin: 09/29/19 16:29 Dose: 120 units Documented by: Oxycodone HCl (Oxyir) 5 mg PO Q4H PRN PRN PRN Reason: Pain Score 4-5/10 Potassium Chloride (K-Dur) 40 meq PO DAILYCM [facility] Last Admin: 09/29/19 09:52 Dose: 40 meq Documented by: Prochlorperazine Edisylate (Compazine Iv) 5 mg IV Q4H PRN PRN PRN Reason: Breakthrough Nausea/Vomiting Sodium Chloride () 10 - 40 ml IV UD PRN PRN Reason: SALINE FLUSH Last Admin: 09/29/19 19:00 Dose: 20 ml Documented by: Ticagrelor (Brilinta) 90 mg PO BID [facility] Last Admin: 09/29/19 22:09 Dose: 90 mg Documented by: Medical Necessity - Tobacco Use Smoking Status: Never smoker Assessment/Plan All Active Problems (Last Updated 09/30/19 @ 07:38 by Nicole Lew MD) CHF (congestive heart failure) (Acute) This is a 74 years old female patient presented to the emergency room because of shortness of breath, found to have acute systolic CHF in context of recent history of non-ST patient [place]. #1 acute systolic CHF: She is on IV Lasix, on Coreg and aspirin. Symptoms is improving, pulse ox is maintained on room air. Her vital signs are stable. Kidney function remained stable, sodium is low at 129 which is likely due to IV Lasix. Her sodium is in the 130s to start with as a baseline. Patient had recent non-STEMI, status post PTCA/MARTA to LAD. 2D echocardiogram on September 14, 2019 revealed ejection fraction of 35%, stage I diastolic dysfunction. Plan to continue IV diuresis, repeat CBC and BMP tomorrow morning, ambulatory pulse oximeter. #2 recent non-ST relation [place]: Status post PTCA/MARTA to LAD. During this admission, troponin was negative. She is on aspirin, Eliquis, Coreg and Brilinta. 2D echocardiogram reviewed as above. Plan to continue same treatment. Cardiology on the case. #3 paroxysmal atrial fibrillation: Rate is controlled, sinus rhythm. She is on Coreg for rate control and on Eliquis for anticoagulation. #4 hypertension: Blood pressure stable, continue Coreg and IV Lasix. #5 type 1 diabetes mellitus: She is on insulin pump. Blood sugar has been stable. #6 stage III chronic kidney disease: Baseline creatinine has been around 1.1 to 1.6 mg/dL, today's creatinine is 1.21, stable at baseline. #6 hypothyroidism: Continue levothyroxine. #7 Parkinson's disease: Stable, continue Sinemet. #8 anxiety/depression: Stable, continue Celexa and Ativan as needed. #9 DVT prophylaxis: Continue Eliquis. This note was generated with [employer] dictation software. It may contain incorrect words, spelling, and punctuation that were not noted in checking the note before signing. Code Visit Inpatient E&M: 61022 Subs Hosp L2
--- NOTE | 2019-09-30 08:32 | PCM.CONS.C ---
Reason for Consult Date of Consultation: 09/30/19 Reason for Consultation: Shortness of breath History of Present Illness: The patient is a 74 year old F with a previous medical history significant for hypertension status post recent anterior wall myocardial infarction and placement of stents, resultant low ventricular systolic dysfunction, congestive heart failure, paroxysmal atrial fibrillation, renal insufficiency who was recently discharged from the hospital. She apparently was doing fairly well at home and then started feeling weak and short of breath and so presented to the emergency room was evaluated and it was decided to admit her. A chest x-ray which was done did not demonstrate any significant changes other than air bronchograms. Patient had also noted some diarrhea present for which she was being treated. She had been placed on antibiotics for a possible UTI. She specifically denies any chest pain. She has been diuresed over the last day also and says that she feels better though still weak. [] Past Medical History Allergies/Adverse Reactions: Allergies paroxetine [From Paxil] Allergy (Severe, Verified 09/28/19 12:52) Unknown Penicillins Allergy (Severe, Verified 09/28/19 12:52) Unknown statins Allergy (Severe, Uncoded 09/28/19 12:52) Unknown strawberries Allergy (Severe, Uncoded 09/28/19 12:52) Unknown Home Medications: Ambulatory Orders Medication Instructions Recorded Cholecalciferol (Vitamin D3) 2,000 unit PO DAILY 04/06/17 [Vitamin D3] Citalopram [Celexa] 20 mg PO DAILY 04/06/17 Gabapentin [Neurontin] 100 mg PO QHS 04/06/17 Insulin Pump/Infus. Set/Meter 1 ea MC DAILY 04/06/17 [Accu-Chek Combo System] Levothyroxine [Synthroid] 88 mcg PO DAILY 04/06/17 insulin aspart U-100 100 unit/mL See Rx Instructions SC QDAY #50 ml 07/26/18 subcutaneous solution carbidopa 25 mg-levodopa 100 mg 0.5 tab PO TID tab 10/22/18 tablet mind works 1 tab PO DAILY 10/22/18 Apixaban [Eliquis] 2.5 mg PO BID #60 tab 09/23/19 Aspirin [Aspirin, Baby] 81 mg PO DAILY@0800 #30 tab.chew 09/23/19 Carvedilol [Coreg (Beta Angelique)] 6.25 mg PO BIDCM #60 tab 09/23/19 Furosemide [Lasix] 40 mg PO DAILY #30 tab 09/23/19 Lisinopril [Zestril] 2.5 mg PO BID #30 tab 09/23/19 Potassium Chloride [K-Dur] 40 meq PO DAILYCM #30 tab 09/23/19 Ticagrelor [Brilinta] 90 mg PO BID #60 tab 09/23/19 Past Medical History (Chronic Problems): Chronic Problems (Last Updated 09/30/19 @ 07:38 by Nicole Lew MD) NSTEMI (non-ST elevated myocardial infarction) (Chronic 09/13/18) Atherosclerosis of coronary artery of [place] heart without angina pectoris (Chronic) History of coronary artery stent placement (Chronic 09/14/19) WES-ARD-Cttdrs LAD-Mid LAD w/ 3.0 x 38 mm Synergy MRstent Ischemic cardiomyopathy (Chronic) Essential (primary) hypertension (Chronic) Hypothyroidism (Chronic) Type 1 diabetes mellitus (Chronic) Surgical History: cataract, herniorrhaphy Psychiatric History: No pertinent psych hx [employer] History: No pertinent [employer] history - *Family History Maternal Family History: Family History (Last Reviewed 09/14/19 @ 07:02 by Zach Bowman MD) Mother CVA (cerebral vascular accident) Dementia Sister Hypertension Diabetes Brother Heart disease Diabetes Daughter Diabetes History Items: No pertinent history Paternal Family History: Family History (Last Reviewed 09/14/19 @ 07:02 by Zach Bowman MD) Mother CVA (cerebral vascular accident) Dementia Sister Hypertension Diabetes Brother Heart disease Diabetes Daughter Diabetes History Items: No pertinent history Smoking Status: Never smoker Alcohol: None Drugs: None Review of Systems - Review of Systems General: Reports: Fatigue, Malaise. Denies: Fever, Night Sweats HEENT: Denies: Vision Change Cardiovascular: Reports: Shortness of Breath, Shortness of Breath at Rest, Shortness of Breath with Exertion. Denies: Chest Discomfort, Orthopnea, PND, Peripheral Edema, Palpitations, Lightheadedness, Dizziness, Near Syncope, Syncope Respiratory: Denies: Cough, Sputum Production, Hemoptysis Gastrointestinal: Denies: Hematemesis, Hematochezia, Melena Genitourinary: Denies: Dysuria, Hematuria Muscoloskeletal: Denies: Myalgias Skin: Denies: Rash Neurological: Reports: Weakness Psychiatric: Reports: Anxiety Endocrine: Denies: Heat Intolerance Hematologic/ Lymphatic: Denies: Lymph Node Enlargement Objective: Vital Signs Temp Pulse Resp BP Pulse Ox 98.0 F 84 18 107/62 94 09/30/19 03:35 09/30/19 06:49 09/30/19 03:35 09/30/19 03:35 09/30/19 03:35 Oxygen Flow Rate (L/min) 2 Oxygen Delivery Method Room Air Weight: 162 lb 0.636 oz Body Mass Index (BMI) 29.1 Finger Stick Blood Glucose 195 Intake and Output for Last 24 Hours 09/28/19 09/29/19 09/30/19 23:59 23:59 23:59 Intake Total 545 / 545 650 / 650 100 / 100 Output Total 700 / 700 1100 / 1100 Balance -155 / -155 -450 / -450 100 / 100 09/30/19 05:15: WBC 16.3 H, RBC 3.36 L, Hgb 10.4 L, Hct 31.9 L, MCV 94.9, MCH 31.0, MCHC 32.6, Plt Count 389, MPV 10.4, Neut % (Auto) Not Reportable, Absolute Neuts (auto) 13.5 H, Total Counted 100, Neutrophils % (Manual) 72 H, Band Neutrophils % 4, Lymphocytes % (Manual) 12 L, Monocytes % (Manual) 4, Eosinophils % (Manual) 1, Metamyelocytes % 4 H, Myelocytes % 3 H 09/30/19 05:15: Sodium 129 L, Potassium 3.6, Chloride 91 L, Carbon Dioxide 31.0, Anion Gap 7, BUN 20 H, Creatinine 1.21 H, Est GFR (MDRD) Af Amer 56 L, Est GFR (MDRD) Non-Af 46 L, BUN/Creatinine Ratio 16.5, Glucose 145 H, Calcium 7.9 L, Phosphorus 3.1, Magnesium 1.8 Rhythm: EKG: Normal sinus rhythm with poor R wave progression ECHO: Stress Test: Cardiac Cath: PCI: CT Surgery: Holter monitor: EPS: PPM: CXR: Chest CT Scan: Assessment/Plan 1. Recent non-ST elevation myocardial infarction The patient presented with chest discomfort which had some concerning features. Cardiac catheterization demonstrated normal left main coronary artery, Normal left circumflex artery, Proximal 80% left anterior descending artery lesion and proximal to mid 95% lesion. Dominant right coronary artery with 30% diffuse stenosis. Left ventricular systolic dysfunction with anterior apical hypokinesis. The patient successfully underwent angioplasty and stenting of the left anterior descending artery. Patient tolerated the procedure well. Echocardiogram performed demonstrated ejection fraction of approximately 30 to 35% with severe hypokinesis and akinesis of the anterior wall and apex. The therapy was continued as follows :Aspirin Low-dose beta-angelique BENEDICT inhibitor . Patient was started on a low-dose statin but liver function tests continue to be abnormal and therefore this was held and will be restarted as an outpatient and be restarted as an outpatient. 2. Heart failure with reduced ejection fraction Patient still has some shortness of breath likely from congestive heart failure I do not think that this is due to an infection. Agree with the intravenous diuretics and then switching to oral Lasix. Overall her creatinine appears to be holding stable. Would like to check her natruretic peptide today as well as oxygenation during walking. 3. Paroxysmal atrial fibrillation Patient has developed paroxysmal atrial fibrillation. With her substrate as well as her akinetic anterior wall and apex I would like her to continue on the anticoagulation as well as the triple therapy. I have discussed the above with the patient and her they understand and agree to proceed. Thank you for allowing me to participate in the care of your patient. Please don't hesitate to call if any issues arise
[2019-09-30] MEDS: Aspirin 81 MG TAB.CHEW PO (08:43)
[2019-09-30] MEDS: Carvedilol 6.25 MG Tablet PO ×2 (08:43→17:01)
[2019-09-30] MEDS: Glucerna Shake 120 ML LIQUID PO ×2 (08:43→11:14)
--- NOTE | 2019-09-30 09:24 | NURSING ---
Pt reports to this RN that 3units were given via pt's basal insulin pump with blood sugar of 140.
[2019-09-30 09:48] LABS: BNP,B-Type NATRIURETIC PEPTIDE 327.3 pg/mL (0-100)
[2019-09-30] MEDS: guaiFENesin 1,200 MG Tablet 1200 MG PO ×2 (10:08→21:03)
[2019-09-30] MEDS: Citalopram 20 MG Tablet PO (10:08)
[2019-09-30] MEDS: APIXABAN 2.5 MG TABLET PO ×2 (10:08→21:03)
[2019-09-30] MEDS: TICAGRELOR 90 MG TABLET PO ×2 (10:08→21:03)
[2019-09-30] MEDS: Furosemide 40 MG/4 ML Vial IV ×2 (10:09→17:02)
[2019-09-30] MEDS: 0.9% Saline Lock 10 ML Syringe IV ×2 (10:09→17:02)
[2019-09-30 11:20] LABS: Bedside Glucose 170 mg/dL (70-110)
--- NOTE | 2019-09-30 12:20 | NURSING ---
The pt gave 3.35 units of insulin via basal insulin pump per pt report for blood sugar of 170.
--- NOTE | 2019-09-30 13:50 | CASEMGMT ---
RN CM Re-admission Assessment: Previous Admission: 09/14/19 through 09/23/19 for STEMI. Pt had PCI during that admission and d/c'd home on Eliquis and Brilinta. Pt was [facility] w[facility], [facility]. Re-admission: 09/28/19 for CHF Exacerbation. Intro role of CM and purpose of RN CM assessment to patient and her . Pt is awake, alert and oriented. Pt/ state pt has been able to take meds as instructed and follow discharge instructions from prior admission. PCP: Dr. Whitehead. F/U appt was made for pt last admission for Monday 10/02. Pt/ have not cancelled appt yet, as they would like to wait until tomorrow to decided if they want to keep it. Flora made aware. Specialists: Dr. Dumont, neurology; Dr. Blake-- cardiology; has appt 10/18/19. FARHAD Cedeno-has appt 10/22/19 Preferred [facility]acy: [facility] Insurance[facility] [employer] [facility] Prescription Benefit: yes. LNOK: Advanced Directives: states copies of POA and LW were brought in yesterday to be placed in pt's chart. Copies of both found in pt's paper chart at this time. Living Arrangements: Pt lives with , states was independent w/ ADL's prior to last admission but has been more weak and assists as needed. Pt states she has been sponge-bathing mostly. Hx Parkinson's. Transportation: deny concerns. DME: Has/uses walker, insulin pump with sensor, and glucometer. Denies needs for further DME. Reviewed PT/OT notes. Discussed discharge planning with pt/. Pt/ wish for pt to return home w/resumptions of [facility]. Also discussed CCN and they are both agreeable to referral for CCN. They were made aware CCN services would not begin until she is discharged from [facility]. Given CCN rac card and they were made aware someone from [facility] would contact them. They voice understanding. Consult order for CCN placed and call placed to Elmer @ [facility] and she was notified. Pt asks to have more detailed explanation of her discharge medications when she is discharged. Jasmyn RN, made aware. Erica, pharmacist, also made aware. Patient DC goals: Home w/resumption of [facility]. CCN referral for after HHC completed. Adelso GALEASN RN CM
[2019-09-30 14:06] LABS: Pathologist Review Reviewed
[2019-09-30] MEDS: LORazepam 0.5 MG Tablet PO (14:07)
[2019-09-30 14:15] LABS: Pathologist Review Reviewed
--- NOTE | 2019-09-30 14:56 | CASEMGMT ---
Patient brought a copy of her Healthcare POA and Healthcare LW and they are in her paper chart. Her Fadi is her HCPOA. Fabiola CASTRO MSW
[2019-09-30 17:11] LABS: Bedside Glucose 115 mg/dL (70-110)
--- NOTE | 2019-09-30 17:59 | NURSING ---
Pt reported to have given insulin via basal insulin pump 2.165 units.
[2019-09-30] MEDS: Gabapentin 100 MG Capsule PO (21:03)
--- NOTE | 2019-09-30 21:05 | NURSING ---
pt stated that with blood glucose of 125 she will not give any insulin through her pump
[2019-09-30 21:10] LABS: Bedside Glucose 125 mg/dL (70-110)
[2019-10-01 02:49] VITALS: PULSE 72
[2019-10-01 03:00] VITALS: BP 107/53; PULSE 68; RESP 18; TEMP 37.1; O2SAT 92
[2019-10-01 06:18] LABS: Hematocrit 30.7 % (37-47); Hemoglobin 9.9 g/dL (12.0-15.0); Mean Corp Hgb Conc 32.2 g/dL (32-36); Mean Corpuscular Hgb 30.7 pg (27.0-32.0); Mean Corpuscular Volume 95.3 fL (81-99); Mean Platelet Vol. 10.3 fl (6.2-12.0); POSITIVE COUNT YES; POSITIVE MORPHOLOGY YES; Platelet Count 390 K/mm3 (150-450); RBC Distribution Width CV 16.3 % (11.6-14.6); RBC Distribution Width SD 54.7 fl (35.1-43.9); Red Blood Count 3.22 M/mm3 (4.2-5.4); White Blood Count 14.6 K/mm3 (4.4-11.0)
[2019-10-01 06:29] LABS: Differential Indicated MANUAL DIFF
[2019-10-01 06:50] LABS: Anion Gap 6 (5-15); BUN 17 mg/dL (7-18); BUN/Creat Ratio 15.5 RATIO (10-20); Calcium,Total 8.1 mg/dL (8.5-10.1); Chloride 96 mmol/L (98-107); EST Glomerular Filtration Rate 51 mL/min (>60); Est Glom Filt Rate - Afr Amer 62 mL/min (>60); Estimated Creatinine Clearance 34.41 ml/min; Glucose 103 mg/dL (74-106); Potassium 3.9 mmol/L (3.5-5.1); Sodium Level 132 mmol/L (136-145)
[2019-10-01 06:59] VITALS: PULSE 81
[2019-10-01 07:00] LABS: Eosinophil 2 % (0-5); Lymphocyte 6 % (19-41); Monocyte 3 % (0-10); Neutrophil-Band 2 % (0-5); Neutrophil-Segmented 87 % (47-70); Platelet Estimate ADEQUATE (ADEQ); Total Cells Counted 100 (MANUAL DIFF)
[2019-10-01] MEDS: Levothyroxine 88 MCG Tablet PO (07:00)
[2019-10-01] MEDS: Carbidopa/Levodopa 25/100 Tablet PO ×2 (07:00→12:42)
[2019-10-01 07:01] LABS: Absolute Lymphocyte Count 0.88 X10^3/uL (0.83-4.51); Hypochromasia 2+; Lymphocyte # 0.88 X10^3/ul (4.0); Macrocytosis 2+; Microcytosis 1+
[2019-10-01 07:02] LABS: Absolute Neutrophil Count 12.9 X10^3/uL (2.0-7.7); Neutrophil # 12.94 X10^3/uL (2.7-7.7)
--- NOTE | 2019-10-01 07:22 | NURSING ---
Pt blood glucose was 104. pt will not give herself a bolus of insulin via insulin pump until she calculates how many carbs she eats at breakfast.
[2019-10-01 07:26] LABS: Bedside Glucose 104 mg/dL (70-110)
[2019-10-01 08:00] VITALS: O2SAT 93
--- NOTE | 2019-10-01 08:50 | PN.CARD_ITS ---
Subjectve: Patient seen and evaluated. Appears to be doing much better today. Did have some premature ventricular complexes yesterday but was hypokalemic and hypomagnesemic. Objective: Vital Signs Temp Pulse Resp BP Pulse Ox 98.8 F 81 18 107/53 L 93 10/01/19 03:00 10/01/19 06:59 10/01/19 03:00 10/01/19 03:00 10/01/19 08:00 Oxygen Flow Rate (L/min) 2 Oxygen Delivery Method Room Air Weight: 163 lb 5.8 oz Body Mass Index (BMI) 29.1 Finger Stick Blood Glucose 195 Intake and Output for Last 24 Hours 09/29/19 09/30/19 10/01/19 23:59 23:59 23:59 Intake Total 650 / 650 879 / 879 50 / 50 Output Total 1100 / 1100 1300 / 1300 300 / 300 Balance -450 / -450 -421 / -421 -250 / -250 General: Awake, Alert, Oriented x 3 HEENT: PERRL, EOMI, Sclera Non Icteric Neck: Supple, Good ROM, No Lymph Node Enlargement Lungs: Clear to auscultation Cardiovascular: Regular Rhythm, Normal S1, Normal S2, No Murmurs, No Rubs, No Gallops Vascular: No Carotid Bruits, Normal Femoral Pulses, Normal Radial Pulses, Normal Dorsalis Pedal Pulse, Normal Posterior Tibial Pulses Abdomen: Bowel Sounds Present, Soft, Non Tender, No HSM, No Organomegaly Extremities: No Cyanosis, No Clubbing, No edema Musculoskeletal: No Erythema Skin: No Rashes Lymphatic: No Lymph Node Enlargement Neurological: No Focal Motor or Sensory Deficit Psych/Mental Status: Appropriate 09/30/19 05:15: B-Natriuretic Peptide 327.3 H 10/01/19 06:00: WBC 14.6 H, RBC 3.22 L, Hgb 9.9 L, Hct 30.7 L, MCV 95.3, MCH 30.7, MCHC 32.2, Plt Count 390, MPV 10.3, Neut % (Auto) Not Reportable, Absolute Neuts (auto) 12.9 H, Total Counted 100, Neutrophils % (Manual) 87 H, Band Neutrophils % 2, Lymphocytes % (Manual) 6 L, Monocytes % (Manual) 3, Eosinophils % (Manual) 2 10/01/19 06:00: Sodium 132 L, Potassium 3.9, Chloride 96 L, Carbon Dioxide 30.0, Anion Gap 6, BUN 17, Creatinine 1.10 H, Est GFR (MDRD) Af Amer 62, Est GFR (MDRD) Non-Af 51 L, BUN/Creatinine Ratio 15.5, Glucose 103, Calcium 8.1 L Rhythm: EKG: ECHO: Stress Test: Cardiac Cath: PCI: CT Surgery: Holter monitor: EPS: PPM: CXR: Chest CT Scan: Medical Necessity - Tobacco Use Smoking Status: Never smoker Assessment/Plan 1. Recent non-ST elevation myocardial infarction * The patient presented with chest discomfort which had some concerning features. Cardiac catheterization demonstrated normal left main coronary artery, Normal left circumflex artery, Proximal 80% left anterior descending artery lesion and proximal to mid 95% lesion. Dominant right coronary artery with 30% diffuse stenosis. Left ventricular systolic dysfunction with anterior apical hypokinesis. * The patient successfully underwent angioplasty and stenting of the left anterior descending artery. Patient tolerated the procedure well. * Echocardiogram performed demonstrated ejection fraction of approximately 30 to 35% with severe hypokinesis and akinesis of the anterior wall and apex. * The therapy was continued as follows :Aspirin Low-dose beta-aarti BENEDICT inhibitor . * Patient was started on a low-dose statin but liver function tests continue to be monitored * 2. Heart failure with reduced ejection fraction * Patient still has some shortness of breath likely from congestive heart failure I do not think that this is due to an infection. Agree with the intravenous diuretics and then switching to oral Lasix. Overall her creatinine appears to be holding stable. Would like to check her natruretic peptide today as well as oxygenation during walking. * Will start an BENEDICT inhibitor today and follow-up as an outpatient 3. Paroxysmal atrial fibrillation * Patient has developed paroxysmal atrial fibrillation. With her substrate as well as her akinetic anterior wall and apex I would like her to continue on the anticoagulation as well as the triple therapy. I have discussed the above with the patient and her they understand and agree to proceed. * Other arrhythmias appear to have been corrected with potassium supplementation as well as magnesium supplementation * * Thank you for allowing me to participate in the care of your patient. Please don't hesitate to call if any issues arise. At this point I think the patient is stable to be followed as an outpatient
[2019-10-01 09:00] VITALS: BP 115/58; PULSE 74; RESP 16; TEMP 36.9; O2SAT 94
[2019-10-01] MEDS: Carvedilol 6.25 MG Tablet PO (09:23)
[2019-10-01] MEDS: Aspirin 81 MG TAB.CHEW PO (09:23)
[2019-10-01] MEDS: TICAGRELOR 90 MG TABLET PO (09:24)
[2019-10-01] MEDS: APIXABAN 2.5 MG TABLET PO (09:24)
[2019-10-01] MEDS: Citalopram 20 MG Tablet PO (09:24)
[2019-10-01] MEDS: guaiFENesin 1,200 MG Tablet 1200 MG PO (09:24)
[2019-10-01] MEDS: Glucerna Shake 120 ML LIQUID PO (09:29)
--- NOTE | 2019-10-01 09:39 | NURSING ---
Pt informed this nurse that she had 2.8 units of insulin with breakfast this morning with her insulin pump.
--- NOTE | 2019-10-01 10:03 | DCINST_ITS ---
- Discharge Diagnoses Current Active Problems: Current Active and Chronic Problems (Last Updated 09/30/19 @ 07:38 by Nicole Lew MD) CHF (congestive heart failure) (Acute) You will use the following diet at home:: Calorie/Carbohydrate Controlled (specify 1200, 1400, etc) - 1800 tino., Cardiac Your food should be the consistency of: Regular Discharge Activity: Return to Normal Activity Weight Bearing Status: Weight bearing as tolerated Call your doctor if you observe: Fever of 101 or Higher, Shortness of breath, Dizziness, Fainting spells, Swelling in the ankles, Chest pain, Increased palpitations (irregular heartbeat), Uncontrolled pain Allergies/Adverse Reactions: Allergies paroxetine [From Paxil] Allergy (Severe, Verified 09/28/19 12:52) Unknown Penicillins Allergy (Severe, Verified 09/28/19 12:52) Unknown statins Allergy (Severe, Uncoded 09/28/19 12:52) Unknown strawberries Allergy (Severe, Uncoded 09/28/19 12:52) Unknown Medications to take at Discharge Cholecalciferol (Vitamin D3) [Vitamin D3] 2,000 unit PO DAILY 04/06/17 Citalopram [Celexa] 20 mg PO DAILY 04/06/17 Gabapentin [Neurontin] 100 mg PO QHS 04/06/17 Insulin Pump/Infus. Set/Meter [Accu-Chek Combo System] 1 ea MC DAILY 04/06/17 Levothyroxine [Synthroid] 88 mcg PO DAILY 04/06/17 insulin aspart U-100 100 unit/mL subcutaneous solution See Rx Instructions SC QDAY #50 ml 07/26/18 carbidopa 25 mg-levodopa 100 mg tablet 0.5 tab PO TID tab 10/22/18 mind works 1 tab PO DAILY 10/22/18 Apixaban [Eliquis] 2.5 mg PO BID #60 tab 09/23/19 Aspirin [Aspirin, Baby] 81 mg PO DAILY@0800 #30 tab.chew 09/23/19 Carvedilol [Coreg (Beta Angelique)] 6.25 mg PO BIDCM #60 tab 09/23/19 Potassium Chloride [K-Dur] 40 meq PO DAILYCM #30 tab 09/23/19 Ticagrelor [Brilinta] 90 mg PO BID #60 tab 01/13/20 Furosemide [Lasix] 40 mg PO BID@1000,1800 #90 tab 10/01/19 Lisinopril [Zestril] 2.5 mg PO DAILY #30 tab 10/01/19 The following prescriptions were given: Furosemide [Lasix] 40 mg PO BID@1000,1800 #90 tab Transmission Status: Pending to [id number] Lisinopril [Zestril] 2.5 mg PO DAILY #30 tab Transmission Status: Pending to [facility] Primary Care Physician: Renée Whitehead DO [Primary Care Provider] - Test Results: Test results from this visit will be discussed in further detail at your follow- up appointment, if applicable. Please Follow Up With: Renée Whitehead DO When: 1 week. Please Follow Up With: Ed Blake MD When: 2-3 weeks. Please Follow Up With: Yoly Cedeno NP-C When: 4 weeks.
[2019-10-01] MEDS: Furosemide 40 MG Tablet PO (10:07)
[2019-10-01] MEDS: Lisinopril 2.5 MG Tablet PO (10:07)
--- NOTE | 2019-10-01 10:24 | CASEMGMT ---
PARADISE MERRITT NOTE: Pt being discharged. Call placed to [facility] and spoke with Domi. She was made aware pt discharging today. Resumption of C order is in. Domi was also made aware of CCN referral for after pt discharged from [facility]. PARADISE MERRITT to room. Pt sitting up in recliner chair. and daughter @ bedside. They were made aware [facility] services will be resumed upon return to home. They deny having any further discharged needs/concerns. Adelso HOSKINS RN CM
--- NOTE | 2019-10-01 11:30 | PHA.DC.COU ---
Pharmacy Services has performed discharge medication counseling for this patient. The patient was counseled on the following discharge medications and changes in medications for homegoing review. The Reason for Use, instructions for use, and potential side effects were reviewed for all new medications. The patient's questions regarding all of their medications were answered. Home Medications Cholecalciferol (Vitamin D3) [Vitamin D3] 2,000 unit PO DAILY 04/06/17 Citalopram [Celexa] 20 mg PO DAILY 04/06/17 Gabapentin [Neurontin] 100 mg PO QHS 04/06/17 Insulin Pump/Infus. Set/Meter [Accu-Chek Combo System] 1 ea MC DAILY 04/06/17 Levothyroxine [Synthroid] 88 mcg PO DAILY 04/06/17 insulin aspart U-100 100 unit/mL subcutaneous solution See Rx Instructions SC QDAY #50 ml 07/26/18 carbidopa 25 mg-levodopa 100 mg tablet 0.5 tab PO TID tab 10/22/18 mind works 1 tab PO DAILY 10/22/18 Apixaban [Eliquis] 2.5 mg PO BID #60 tab 09/23/19 Aspirin [Aspirin, Baby] 81 mg PO DAILY@0800 #30 tab.chew 09/23/19 Carvedilol [Coreg (Beta Angelique)] 6.25 mg PO BIDCM #60 tab 09/23/19 Potassium Chloride [K-Dur] 40 meq PO DAILYCM #30 tab 09/23/19 Ticagrelor [Brilinta] 90 mg PO BID #60 tab 09/23/19 Furosemide [Lasix] 40 mg PO BID@1000,1800 #90 tab 10/01/19 Lisinopril [Zestril] 2.5 mg PO DAILY #30 tab 10/01/19 Lorazepam [Ativan] 0.5 mg PO Q12H PRN PRN #14 tablet 10/01/19 The patient, patient's , and patient's daughter requested that all medications the patient takes be reviewed with them including the purpose, how to take, and when to take. All questions were answered. Pharmacy also notified charge nurse to speak with physician regarding medication for anxiety per pt/family request. The patient was able to verbally demonstrate an understanding of their discharge medications.
[2019-10-01 12:16] LABS: Bedside Glucose 176 mg/dL (70-110)
[2019-10-01 12:18] LABS: Pathologist Review Reviewed
[2019-10-01 12:24] LABS: Pathologist Review Reviewed
--- NOTE | 2019-10-01 12:31 | DS.PCM_ITS ---
Discharge Date and Diagnosis Date of Admission: 09/28/19 Date of Discharge: 10/01/19 - Primary Discharge Diagnosis Active and Suspected Problems (Last Updated 09/30/19 @ 07:38 by Nicole Lew MD) #1 acute systolic CHF. #2 recent non-ST relation WI status post PTCA/MARTA to LAD. - Secondary Discharge Diagnosis Chronic Problems (Last Updated 09/30/19 @ 07:38 by Nicole Lew MD) NSTEMI (non-ST elevated myocardial infarction) (Chronic 09/13/18) Atherosclerosis of coronary artery of [place] heart without angina pectoris (Chronic) History of coronary artery stent placement (Chronic 09/14/19) CXL-HDB-Rftggk LAD-Mid LAD w/ 3.0 x 38 mm Synergy MRstent Ischemic cardiomyopathy (Chronic) Essential (primary) hypertension (Chronic) Hypothyroidism (Chronic) Type 1 diabetes mellitus (Chronic) Hospital Course and Treatment Imaging Results: Clinical Impression(s) from Imaging Studies Chest X-Ray 09/28/19 13:46 IMPRESSION: Increasing left lower lobe consolidation suggesting pneumonia. No pleural effusions. Electronically Signed: Rowdy Pitt MD ([place]) at 14:09 EST , Service support , Chest X-Ray 09/29/19 10:40 IMPRESSION: 1. Persistent partial atelectasis of the left lower lobe with air bronchograms and compressive atelectasis of the right lung base. 2. Bilateral subpulmonic fluid. 3. No significant interval change when compared to 09/28/2019. Electronically Signed: Rob Sterling MD at 11:54 EST , Service support , Dr. Blake, cardiology. Operations: None Procedures: EKG Summary of Care Provided: Patient seen and examined on the day of discharge and appeared to be stable to be discharged home. She denied any more shortness of breath and she feels better. Denied palpitation, dizziness or lightheadedness. Her vital signs are stable. Pulse ox is maintained on room air. This is a 74 years old female patient presented to the emergency room because of shortness of breath, found to have acute systolic CHF in context of recent history of non-ST patient WI. #1 acute systolic CHF: Treated with IV Lasix along Coreg and aspirin and she was started on small dose of lisinopril. With IV diuresis, her symptoms improved a nd her pulse ox maintained on room air. Patient ambulated and his pulse ox remained above 92% with ambulation on room air. Kidney function remained stable. Patient had recent non-STEMI, status post PTCA/MARTA to LAD. 2D echocardiogram on September 14, 2019 revealed ejection fraction of 35%, stage I diastolic dysfunction. Patient discharged home on Lasix 40 mg p.o. twice daily, lisinopril 2.5 mg p.o. daily, Coreg 6.25 mg p.o. twice daily. #2 recent non-ST relation WI: Status post PTCA/MARTA to LAD. Continued on aspirin, Eliquis, Coreg, lisinopril and Brilinta. 2D echocardiogram reviewed as above. #3 paroxysmal atrial fibrillation: Rate remained controlled, in sinus rhythm. Continued on Coreg for rate control and on Eliquis for anticoagulation. #4 hypertension: Blood pressure has been stable, discharged on lisinopril, Coreg and Lasix as above. #5 type 1 diabetes mellitus: Continued on insulin pump. Blood sugar has been stable. #6 stage III chronic kidney disease: Baseline creatinine has been around 1.1 to 1.6 mg/dL, discharge creatinine is 1.21, stable at baseline. #6 hypothyroidism: Continued on levothyroxine. Patient discharged home with home health in a stable condition, discharged on Lasix 40 mg p.o. twice daily, lisinopril 2.5 mg p.o. daily, continued on her previous other home medications without any changes including Brilinta Coreg and Eliquis, plan to follow-up with cardiology in 2 to 3 weeks, follow-up with endocrinology in 4 weeks and recommended follow-up with PCP in 1 week. This note was generated with [employer] software. It may contain incorrect words, spelling, and punctuation that were not noted in checking the note before signing. - Physical Exam Vitals/I&O's: Vital Signs Temp Pulse Resp BP Pulse Ox 98.4 F 74 16 115/58 L 94 10/01/19 09:00 10/01/19 09:00 10/01/19 09:00 10/01/19 09:00 10/01/19 09:00 Oxygen Flow Rate (L/min) 2 Oxygen Delivery Method Room Air Weight: 163 lb 5.8 oz Body Mass Index (BMI) 29.1 Finger Stick Blood Glucose 195 Intake and Output for Last 24 Hours 09/29/19 09/30/19 10/01/19 23:59 23:59 23:59 Intake Total 650 / 650 879 / 879 50 / 50 Output Total 1100 / 1100 1300 / 1300 300 / 300 Balance -450 / -450 -421 / -421 -250 / -250 General: Alert, Oriented x3, Cooperative, No apparent distress HEENT: Atraumatic, PERRLA, EOMI, Normocephalic Oral: Moist Mucosa, No Gingival or Mucosal Lesions/ Ulcerations Neck: Supple, No JVD, Negative Carotid Bruits, Trachea Midline, Thyroid Normal Size and Texture Lungs: Clear to auscultation, Normal air movement, No rhonchi, No wheeze, No rales Cardiovascular: Regular rate, Regular Rhythm, Normal S1, Normal S2, PMI Normal Abdomen: Bowel Sounds Present, Soft, Non Tender, Non-Distended, No Hepato- splenomegaly Extremities: No clubbing, No cyanosis, No edema Skin: No rashes, No breakdown Lymphatic: No Cervical, Supraclavicular, or Inguinal Adenopathy Neurological: Cranial nerves II-XII grossly intact, Neuro grossly intact Psych/Mental Status: Normal Affect, Appropriate Microbiology Past 72 Hours 09/29/19 20:05 Stool Enteric Bacteriology - Final 09/29/19 20:05 Stool Stool Occult Blood (POPPY) - Final 09/29/19 20:05 Stool Stool Lactoferrin - Final 09/28/19 16:55 Mucosa - Nasopharyngeal Respiratory Panel (PCR) - Final 09/28/19 16:25 Urine, Clean Catch Legionella Antigen - Final 09/28/19 16:25 Urine, Clean Catch Streptococcus pneumoniae Antigen (M - Final Laboratory Results 09/28/19 13:20: Diff Path Review Reviewed 09/29/19 06:46: Diff Path Review Reviewed 09/30/19 05:15: Diff Path Review Reviewed 09/30/19 16:59: POC Glucose 115 H 09/30/19 21:01: POC Glucose 125 H 10/01/19 06:00: WBC 14.6 H, RBC 3.22 L, Hgb 9.9 L, Hct 30.7 L, MCV 95.3, MCH 30.7, MCHC 32.2, RDW Std Deviation 54.7 H, RDW Coeff of Stephane 16.3 H, Plt Count 390, MPV 10.3, Neut % (Auto) Not Reportable, Absolute Neuts (auto) 12.9 H, Absolute Lymphs (auto) 0.88, Total Counted 100, Neutrophils % (Manual) 87 H, Band Neutrophils % 2, Lymphocytes % (Manual) 6 L, Monocytes % (Manual) 3, Eosinophils % (Manual) 2, Diff Path Review Reviewed, Platelet Estimate ADEQUATE, Hypochromasia 2+, Microcytosis 1+, Macrocytosis 2+ 10/01/19 06:00: Sodium 132 L, Potassium 3.9, Chloride 96 L, Carbon Dioxide 30.0, Anion Gap 6, BUN 17, Creatinine 1.10 H, Estim Creat Clear Calc 34.41, Est GFR (MDRD) Af Amer 62, Est GFR (MDRD) Non-Af 51 L, BUN/Creatinine Ratio 15.5, Glucose 103, Calcium 8.1 L 10/01/19 07:19: POC Glucose 104 10/01/19 12:12: POC Glucose 176 H Current Medications Acetaminophen (Tylenol) 650 mg PO Q6H PRN PRN PRN Reason: Pain Score 1-3/Temp > 100.7 F Albuterol Sulfate (Ventolin Aerosols) 2.5 mg INHALATION Q2H PRN PRN PRN Reason: SOB/Wheezing Apixaban (Eliquis) 2.5 mg PO BID [facility] Last Admin: 10/01/19 09:24 Dose: 2.5 mg Documented by: Aspirin (Aspirin, Baby) 81 mg PO DAILY@0800 [facility] Last Admin: 10/01/19 09:23 Dose: 81 mg Documented by: Carbidopa/Levodopa (Sinemet) 0.5 tablet PO TID@0730,1130,1630 [facility] Last Admin: 10/01/19 07:00 Dose: 0.5 tablet Documented by: [facility] ([facility]) [facility] Last Admin: 10/01/19 09:23 Dose: 6.25 mg Documented by: Cholecalciferol (Vitamin D) 2,000 unit PO DAILY [facility] Last Admin: 10/01/19 09:24 Dose: 2,000 unit Documented by: Citalopram Hydrobromide (Celexa) 20 mg PO DAILY [facility] Last Admin: 10/01/19 09:24 Dose: 20 mg Documented by: Furosemide (Lasix) 40 mg PO BID@1000,1800 [facility] Last Admin: 10/01/19 10:07 Dose: 40 mg Documented by: Gabapentin (Neurontin) 100 mg PO QHS [facility] Last Admin: 09/30/19 21:03 Dose: 100 mg Documented by: Glucagon () 1 mg IM .X1 PRN PRN Reason: Hypoglycemia Guaifenesin (Mucinex) 1,200 mg PO BID [facility] Last Admin: 10/01/19 09:24 Dose: 1,200 mg Documented by: Dextrose (Dextrose 10%-Water) 250 mls @ 999 mls/hr IV .Q16M PRN; Protocol PRN Reason: HYPOGLYCEMIA Insulin Aspart (Pump, Basal) 1 unit SC Q24 [facility] Last Admin: 10/01/19 09:41 Dose: Not Given Documented by: Levothyroxine Sodium (Synthroid) 88 mcg PO DAILY@0600 [facility] Last Admin: 10/01/19 07:00 Dose: 88 mcg Documented by: Lisinopril (Zestril) 2.5 mg PO DAILY [facility] Last Admin: 10/01/19 10:07 Dose: 2.5 mg Documented by: Lorazepam (Ativan) 0.5 mg PO Q12H PRN PRN PRN Reason: severe anxiety Last Admin: 09/30/19 14:07 Dose: 0.5 mg Documented by: Morphine Sulfate () 2 mg IV Q3H PRN PRN PRN Reason: Pain Score 6-10/10 Nitroglycerin (Nitrostat) 0.4 mg SUBLINGUAL Q5M PRN PRN Reason: CARDIAC/CHEST PAIN Nutritional Formula (Lactose Free) (Glucerna Shake) 120 ml PO TIDCM [facility] Last Admin: 10/01/19 09:29 Dose: 120 ml Documented by: Oxycodone HCl (Oxyir) 5 mg PO Q4H PRN PRN PRN Reason: Pain Score 4-5/10 Potassium Chloride (K-Dur) 40 [facility]q [facility] Last Admin: 10/01/19 09:24 Dose: 40 meq Documented by: Prochlorperazine Edisylate (Compazine Iv) 5 mg IV Q4H PRN PRN PRN Reason: Breakthrough Nausea/Vomiting Sodium Chloride () 10 - 40 ml IV UD PRN PRN Reason: SALINE FLUSH Last Admin: 09/30/19 17:02 Dose: 10 ml Documented by: Ticagrelor (Brilinta) 90 mg PO BID [facility] Last Admin: 10/01/19 09:24 Dose: 90 mg Documented by: Discharge Activity: Return to Normal Activity Weight Bearing Status: Weight bearing as tolerated Call your doctor if you observe: Fever of 101 or Higher, Shortness of breath, Dizziness, Fainting spells, Swelling in the ankles, Chest pain, Increased palpitations (irregular heartbeat), Uncontrolled pain Home Medications: Medications to take at Discharge Cholecalciferol (Vitamin D3) [Vitamin D3] 2,000 unit PO DAILY 04/06/17 Citalopram [Celexa] 20 mg PO DAILY 04/06/17 Gabapentin [Neurontin] 100 mg PO QHS 04/06/17 Insulin Pump/Infus. Set/Meter [Accu-Chek Combo System] 1 ea [facility] DAILY 04/06/17 Levothyroxine [Synthroid] 88 mcg PO DAILY 04/06/17 insulin aspart U-100 100 unit/mL subcutaneous solution See Rx Instructions SC QDAY #50 ml 07/26/18 carbidopa 25 mg-levodopa 100 mg tablet 0.5 tab PO TID tab 10/22/18 mind works 1 tab PO DAILY 10/22/18 Apixaban [Eliquis] 2.5 mg PO BID #60 tab 09/23/19 Aspirin [Aspirin, Baby] 81 mg PO DAILY@0800 #30 tab.chew 09/23/19 Carvedilol [Coreg (Beta Angelique)] 6.25 mg PO BIDCM #60 tab 09/23/19 Potassium Chloride [K-Dur] 40 meq PO DAILYCM #30 tab 09/23/19 Ticagrelor [Brilinta] 90 mg PO BID #60 tab 09/23/19 Furosemide [Lasix] 40 mg PO BID@1000,1800 #90 tab 10/01/19 Lisinopril [Zestril] 2.5 mg PO DAILY #30 tab 10/01/19 Lorazepam [Ativan] 0.5 mg PO Q12H PRN PRN #14 tab 10/01/19 Following Prescrptions Were Given to Patient: Lorazepam [Ativan] 0.5 mg PO Q12H PRN PRN #14 tab PRN Reason: severe anxiety [facility] Furosemide [Lasix] 40 mg PO BID@1000,1800 #90 tab Transmission Status: [facility] Lisinopril [Zestril] 2.5 mg PO DAILY #30 tab Transmission Status: [facility] Primary Care Physician: Renée Whitehead DO [Primary Care Provider] - Please Follow Up With: Renée Whitehead DO When: 1 week. Please Follow Up With: Ed Blake MD When: 2-3 weeks. Please Follow Up With: Yoly Cedeno [employer] When: 4 weeks. Disposition: Home with Home Health Minutes spent on discharge:: 33 Patient Condition:: Stable Medical Necessity - Tobacco Use Smoking Status: Never smoker Meaningful Use Info Meaningful Use Diagnoses (Choose all that apply): CHF - CHF BENEDICT/ARB ordered at discharge?: Yes Documented LVEF (%): 35 Code Visit Inpatient E&M: 50675 Disch Hosp
--- NOTE | 2019-10-01 13:19 | NURSING ---
Reviewed and agreed on all charting with Jose Gonzalez RN
--- NOTE | 2019-10-02 15:45 | CASEMGMT ---
[facility] Discharge Follow-Up Phone Call. Lace: 12 Strata: 4 Discharge Date: 10/01/19 Adm Dx: CHF Exacerbation. Attempted discharge follow-up phone call. No answer. Message left for pt to return call to [employer]ER[employer]ica GHOTRA CM, if she has any questions about the discharge, medications, or follow-up appts. Phone number provided. Adelso HOSKINS RN, CM
--- NOTE | 2019-10-03 13:15 | CCN.REFER ---
Agrees to [facility].
--- NOTE | 2019-11-12 09:23 | CCN.REFER ---
Patient originally agreed to CCN on 10/03/19. Patient requested that we start our weekly visits when [facility] discharges. Patient was discharged from [facility], and [facility]N made their first home visit. Patient has since declined CCN and does not feel she needs any additional monitoring in her home.
== END 2019-10-01 14:04 | disposition home health service (06) | DRG 282 ==
LOC: ED 15:09 → PCU 15:39
PROVIDERS: Internal Medicine Cardiovascular Disease; Admitting Provider Internal Medicine; Emergency Provider Emergency Medicine; PCP Family Medicine; Visit Provider Hospitalist
DX: I11.0 Hypertensive heart disease with heart failure (principal); I21.4 Non-ST elevation (NSTEMI) myocardial infarction; I50.23 Acute on chronic systolic (congestive) heart failure; I49.3 Ventricular premature depolarization; E10.22 Type 1 diabetes mellitus with diabetic chronic kidney disease; N18.3 Chronic kidney disease, stage 3 (moderate); T50.1X5A Adverse effect of loop [high-ceiling] diuretics, initial encounter; I48.0 Paroxysmal atrial fibrillation; I25.10 Atherosclerotic heart disease of native coronary artery without angina pectoris; I25.5 Ischemic cardiomyopathy; K52.9 Noninfective gastroenteritis and colitis, unspecified; E87.6 Hypokalemia; E83.42 Hypomagnesemia; G20 Parkinson's disease; E03.9 Hypothyroidism, unspecified; F32.9 Major depressive disorder, single episode, unspecified; F41.9 Anxiety disorder, unspecified; Z79.01 Long term (current) use of anticoagulants; Z79.02 Long term (current) use of antithrombotics/antiplatelets; Z79.82 Long term (current) use of aspirin; Z79.4 Long term (current) use of insulin; Z79.899 Other long term (current) drug therapy; Z96.41 Presence of insulin pump (external) (internal); I25.2 Old myocardial infarction; Z95.5 Presence of coronary angioplasty implant and graft; Y92.9 Unspecified place or not applicable
CPT/HCPCS: 36415; 71045; 71046; 80048; 80076; 81001; 82274; 82962; 83605; 83630; 83735; 83880; 84100; 84443; 84484; 85025; 85379; 87040; 87449; 87506; 87633; 87641; 93005; 97110; 97162; 97165; 97802; 99285; J7030; J7040; A4216; J1940

== ENCOUNTER → 2019-10-09 09:58 | Outpatient (CLI) | payer MEDICARE, SELFPAY ==
[2019-09-16 08:24] VITALS: BMI 28.1
[2019-09-28 16:23] VITALS: BMI 29.1
[2019-10-09 12:36] LABS: Anion Gap 6 (5-15); BUN 21 mg/dL (7-18); BUN/Creat Ratio 13.8 RATIO (10-20); Calcium,Total 8.9 mg/dL (8.5-10.1); Chloride 91 mmol/L (98-107); Creatinine, Serum 1.52 mg/dL (0.55-1.02); EST Glomerular Filtration Rate 35 mL/min (>60); Est Glom Filt Rate - Afr Amer 43 mL/min (>60); Glucose 266 mg/dL (74-106); Sodium Level 128 mmol/L (136-145)
== END ==
PROVIDERS: PCP Family Medicine; Visit Provider Family Medicine
DX: N17.9 Acute kidney failure, unspecified (principal)
CPT/HCPCS: 36415; 80048

== ENCOUNTER → 2019-10-23 12:42 | Outpatient (CLI) | payer MEDICARE, SELFPAY ==
[2019-09-16 08:24] VITALS: BMI 28.1
[2019-10-18 09:14] VITALS: BMI 27.8
[2019-10-23 13:40] LABS: Absolute Lymphocyte Count 0.94 X10^3/uL (0.83-4.51); Basophil# 0.04 X10^3/uL; Basophil% 0.4 % (0-1); Eosinophil# 0.03 X10^3/uL; Eosinophils% 0.3 % (0-5); Hematocrit 33.3 % (37-47); Hemoglobin 10.6 g/dL (12.0-15.0); Lymphocyte # 0.94 X10^3/ul (4.0); Lymphocyte % 8.4 % (19-41); Mean Corp Hgb Conc 31.8 g/dL (32-36); Mean Corpuscular Hgb 30.7 pg (27.0-32.0); Mean Corpuscular Volume 96.5 fL (81-99); Mean Platelet Vol. 10.4 fl (6.2-12.0); Monocyte# 0.88 X10^3/uL; Monocyte% 7.8 % (0-10); NRBC Flagged by Analyzer 0.4 % (0-5); Neutrophil # 9.03 X10^3/uL (2.7-7.7); Neutrophil % 80.3 % (47-70); Platelet Count 386 K/mm3 (150-450); RBC Distribution Width CV 17.3 % (11.6-14.6); RBC Distribution Width SD 59.9 fl (35.1-43.9); Red Blood Count 3.45 M/mm3 (4.2-5.4); White Blood Count 11.2 K/mm3 (4.4-11.0)
[2019-10-23 14:20] LABS: Anion Gap 8 (5-15); BUN 17 mg/dL (7-18); BUN/Creat Ratio 12.6 RATIO (10-20); Calcium,Total 8.6 mg/dL (8.5-10.1); Chloride 92 mmol/L (98-107); Creatinine, Serum 1.35 mg/dL (0.55-1.02); EST Glomerular Filtration Rate 40 mL/min (>60); Est Glom Filt Rate - Afr Amer 49 mL/min (>60); Glucose 169 mg/dL (74-106); Sodium Level 129 mmol/L (136-145)
== END ==
PROVIDERS: PCP Family Medicine; Referring Provider Internal Medicine Cardiovascular Disease; Visit Provider Internal Medicine Cardiovascular Disease
DX: I25.5 Ischemic cardiomyopathy (principal); I50.23 Acute on chronic systolic (congestive) heart failure; R53.83 Other fatigue; Z86.2 Personal history of diseases of the blood and blood-forming organs and certain disorders involving the immune mechanism
CPT/HCPCS: 36415; 80048; 85025

== ENCOUNTER → 2019-10-31 09:37 | Outpatient (CLI) | payer MEDICARE, SELFPAY ==
[2019-09-16 08:24] VITALS: BMI 28.1
[2019-10-18 09:14] VITALS: BMI 27.8
--- NOTE | 2019-10-31 10:57 | PCM.CR.ITP ---
Diagnosis - General Information Admitting Diagnosis: PCI W/CORONARY STENT PLACEMENT Secondary Diagnosis: NSTEMI Personal Learning Style:: Audio/Visual, Written Barriers to Learning: Vision Impairment Stage of change r/t lifestyle modifications:: Action Gave educational material for:: Treating Heart Disease, Emotions & Heart Disease, Stress Management & Relaxation, Sleep Disorders & Heart Disease, How The Heart Works, What it means to have Heart Disease, How Coronary Artery Disease is Diagnosed, Heart Procedures, What Heart Medications Do, Risk Factors & Modifications, Living an Active Life, Nutrition - Education/Goals Individual Counseling: Initial Assessment: Abnormal Cholesterol Levels, High Blood Pressure - 106/68, Diabetes - TYPE I DM Cardiac Rehabilitation Goals: 1. Maintain the individual as the primary focus of care. 2. To improve the patient's quality of life. 3. Identification of cardiac risk factors and provide cardiac risk factor management. 4. Enhance the psychosocial status of the patient. 5. Reconditioning enough to allow the patient to resume customary activities. 6. Control symptoms of cardiac disease Personal Goals: Initial Assessment: Improve management of stress and emotions, Improve energy level, Improve knowledge of cardiac disease, Improve muscle strength and endurance, Improve diet and eating habits (eat healthier), Control risk factors (learn risk factor modification) Scale for measuring improvement of personal goals: Enter appropriate number in Comments. 2 = Unchanged. 3 = Slightly Better. 4 = Moderate Improvement. 5 = Met my Goal - Diagnosis & Disease Process Outcomes/Goals: Pt IDs own risk factors & lifestyle modifications by Session 10, Verbalizes symptoms of angina & response by session 3., Pt independently manages Plan/Interventions: Assist Pt to ID & engage in lifestyle modification to reduce CVD risk, Instruct on individual risk factors, Review symptoms of angina & emergency actions, Review secondary diagnosis & identify educational needs. - Safety Referral to Physical Therapy: No Referral to [facility] Case Management: No Fall Risk Assessed:: Yes Assistive Devices:: Cane, Wheelchair - WHEELCHAIR FOR LONG DISTANCES DUE TO GENERALIZED WEAKNESS/FATIGUE Exercise - Initial Assessment - Visit Date of Eval: 10/31/19 Session #:: 0 - STARTING CR ON 11/04/2019 Mets: Pre-: >5 METS for 30 minutes by discharge - Physician Prescribed Exercise Modalities: Treadmill, Airdyne, NuStep, SciFit Frequency: 3x/week for 12 weeks [36 sessions] Intensity: 60-80% of age predicted maximum heart rate reserve Target Heart Rate:: 94-122 Current RPE:: 2.0 EKG Type: NSR Current Physical Activity or Exercising minutes: JUST DISCHARGED FROM HOME HEALTH & PHYSICAL THERAPY SERVICE - Outcomes & Goals Goals:: Verbalizes understanding of THR, RPE & goal METS by session 6, Documents in home exercise log/reports 30 min aerobic 5 day/wk by DC, Demonstrates accurate pulse taking by DC - Intervention & Plan Exercise Program Goals: Instruct on personal THR & RPE, Instruct on MET level & personal MET goal, Show patient to take own pulse /validate performance until accurate, Instruct on home exercise - Physical Activity Home Exercise Physical Activity - Home Exercise: Safe Exercise, Warm-up, Self-monitoring, Cool-Down, Home Exercise > 30 min Daily, Sitting Time <3 hours/daily - Outcomes & Goals Outcomes/Goals: Demonstrates correct Warm-up/exercise Cool-Down (S3) if = 2.5 METs, Verbalizes symptoms of exercise intolerance by Session 3 (S3), Demonstrate safe equipment use (S3) & follows exercise prescrition (6) - Intervention & Plan Plan/Intervention: Instruct warm-up & cool-down if exercising at > 2 METs, Instruct on symptoms of exercise intolerance & actions to take, Instruct & monitor on saf, Assess intial functional capacity & safety risk Nutrition - Initial Assessment - Program Goals Nutrition Program Goals: LDL <100 optimal. 100 - 129 Near optimal. 130 - 159 Borderline High. 160 - 189 High. Total Cholesterol <200 desirable. 200 - 239 Borderline High. >/= 240 High. HDL < 40 Low >/=60 High. Triglycerides <150 desirable. <199 optimal. VlDL 5 - 40. HgbA1C <7%. BMI <25 Patient has diagnosis of Hyperlipidemia (ICD E78)?: Yes - Visit Date of Assessment:: 10/31/19 Session #:: 0 - STARTING CR ON 11/04/2019 - Cholesterol/Lipids Triglycerides (mg/dL): 56 - 09/14/2019 Total Cholesterol (mg/dL): 150 LDL Cholesterol (mg/dL): 114 HDL Cholesterol (mg/dL): 72 Determine presence & major risk factors that modify LDL goal: Hypertension or hypertensive medication, Age men > 45 years; women >/= 55 years Outcomes/Goals: Pt IDs own risk factors & lifestyle modifications by Session 10, Verbalizes symptoms of angina & response by session 3., Pt independently manages Intervention/Plan: Instruct on personal lipid levels & lipid goals/NCEP guidelines, Instruct on cholesterol - Diabetes (Other Core Measures) Diabetes Type: Diagnosis Type I ICD-10 E10 Fasting blood glucose:: 266 - 09/14/2019 Hgb A1C (4.2 - 6.3): 6.4 Insulin dependent injection/pump?: Yes - INSULIN PUMP INFUSION Do you monitor your blood sugar at home?: Yes Referral to Diabetic Clinic:: Yes Outcomes/Goals:: Able to state symptoms of, Able to state, Able to state Intervention/Plan:: Instruct on, Refer to, Instruct on - Weight Mgt (Other Care) Not Applicable: Yes Height: 5 ft 2 in Weight:: 152 lb BMI: 27.8 Diagnosis Overweight/Obesity BMI> 30% ICD-10 E66: No Diagnosis High BMI/Morbid Obesity BMI> 35% ICD-10 Z68: No Outcomes/Goals: Pt sets, maintains & shows weight loss goal & trend during rehab Intervention/Plan: Instruct on ideal BMI & set weight loss goal w/patient, Assist pt to ID & incorporate diet changes for weight loss by S9 - Healthy Eating Habits Outcomes/Goals:: Consume diet rich in vegs,fruits,whole grain/high fiber,fish,lean meat, Limit sat/trans fats,cholesterol & added salts & sugars Intervention/Plan:: Assess current eating habits - Education Gave educational materials for:: Signs & symptoms of hypoglycemia, Signs & symptoms of hyperglycemia, Relate diabetes to coronary artery disease, Healthy eating Medical - Initial Assessment - Visit Date of Eval: 10/31/19 Session #:: 0 - START CR ON 11/04/2019 - Medication Compliance Preventative Medication(s):: Aspirin, Ticagrelor/P2Y12 inhibitor, Statin/lipid, Eliquis H/O mental health issues: depression, anxiety, or addiction?: Yes Doesn?t believe in the benefits of treatment?: No Believes medications are unnecessary or harmful?: No Has a concern about medication side effects?: No Expresses concern over the cost of medications?: No Outcomes/Goals: Verbalizes medications,desired effect & common side effects @ DC, Pt self-reports following medication regimen, Keeps card in wallet w/medications listed by DC Interventions/plans: Instruct on medication effects & side effects, Review medication list w/patient every two weeks, Instruct importance of taking meds as ordered & assist problem solving - Tobacco Use Tobacco Use: Non-smoker - Hypertension Hypertension Diagnosis:: Hypertension ICD-10 I10 Resting Blood Pressure:: 106/69 [place] [employer] Hypertension Guidelines: [place] [employer] Hypertension Guidelines. Normal BP Less than 120/80. Elevated BP 120/80. Hypertension Stage 1: BP 130-139/80-89. Hypertesnion Stage 2: BP 140 or higher/90 or higher. Hypertension Crisis: BP higher than 180/120 Outcomes/Goals: Able to verbalize/achieve optimal blood pressure <130/80, Incorporates diet changes & exercise for blood pressure control by DC Interventions/plan: Instruct on optimal blood pressure, hypertension & medications, Instruct on effects of sodium, alcohol, stress, exercise &hypertension - Tobacco Cessation Referral Smoking Cessation Referral:: No Individual Education/Counseling:: No Education Schedule Given:: Yes Psychosocial - Initial Assess - VIsit Date of Eval: 10/31/19 Session #:: 0 - START CR ON 11/04/2019 Not Applicable: No History of previous Mental disease:: Yes History of Emotional Disorders: Anxious, Depression - Target Goals Target Goals: Assess presence or absence of depression. Using a valid screening tool, maximizes coping skills. Positive support system - Psychosocial Test Tool Used:: [employer] QOL Cardiac, PHQ-9 Questionnaire phq-9 Severity: Severity. 1-4 Minimal Depression. 5-9 Mild Depression. 10-14 Moderate Depression. 15-19 Moderately Sever Depression. 20-27 Severe Depression. Rule: Total Score:: 8 - Referral to Behavioral Health PS - Interventions: Yes Referral to Physician if PHQ-9 if score is 5-9: - Treated for mild depression by her PCP, Yes Attend Stress Management Classes, No Referral to Behavioral Health if PHQ-9 score >9:, No Referral to [facility] - Outcomes/Goals: See list Psychosocial Outcomes/Goals:: ID's personal stressors & 2 strategies to manage stress by discharge - Intervention/Plan: See List Interventions/Plan:: Assess stressors,coping strategies & signs of derpression on admission, Instruct/assist pt to develop coping & personal stress Mgt strategies, Instruct patient to recognize signs & symptoms of depression, Instruct patient to recog Patient Health Questionnaire Initial Assessment 1. Little interest or pleasure in doing things: More than half the days 2. Feeling down, depressed, or hopeless: Several days 3. Trouble falling or staying asleep, or sleeping too much: Several days 4. Feeling tired or having little energy: Several days 5. Poor appetite or overeating: Several days 6. Feeling bad about yourself -- or that you are a failure or have let yourself or your family down: Several days 7. Trouble concentrating on things, such as reading the newspaper or watching television: Not at all 8. Moving or speaking so slowly that other people could have noticed. Or the opposite - being so fidgety or restless that you have been moving around a lot more than usual: Several days 9. Thoughts that you would be better off , or of hurting yourself in some way: Not at all How difficult have these problems made it for you to do your work, take care of things at home, or get along with other people?: Somewhat difficult Total Score: 8 CRICKET-Q SV Test - Statements CAD is a disease of the arteries in the heart: False Examples of risk factors for heart disease: I Don't Know Angina is chest pain or discomfort: I Don't Know The benefits of resistance training include: True Eating more meat and dairy products: False Anti-platelet medications such as aspirin are important: True The only effective way to manage stress: False An exercise warm-up slowly increases heart rate: True Prepared, processed foods usually have high sodium: True Depression is common after a heart attack: False The statin medications lower cholesterol: I Don't Know To control blood pressure, lower the amount of sodium: True If someone gets chest discomfort during walking: False Transfats are partially hydrogenated vegetable oils: True Sleep apnea that is not treated increases the risk: True To control cholesterol, one should become a vegetarian: False Someone knows if he/she is exercising at the right level: I Don't Know Diabetes cannot be prevented with exercise & health eating: True Stress is a large risk for heart attack: True A diet that can help lower blood pressure is rich in: True - Total Score Total Correct Responses: 13 Self-Efficacy Initial Assessment We would like to know how confident you are in doing certain activities. Please select your confidence level for:: Select your confidence level for the following using the scale 1-10 where 1 is not at all confident and 10 is totally confident. Your score is the average of all 6 responses. Fatigue: How confident are you that you can keep the fatigue caused by your disease from interfering with the things you want to do? Select Number: 6 Physical Discomfort or Pain: How confident are you that you can keep the physical discomfort or pain of your disease from interfering with the things you want to do? Select Number: 5 Emotional Distress: How confident are you that you can keep the emotional distress caused by your disease from interfering with the things you want to do? Select Number: 6 Other Symptoms or Health Problems: How confident are you that you can keep other symptoms or health problems from interfering with the things you want to do? Select Number: 6 Different Tasks and Activities: How confident are you that you can do the different tasks and activities needed to manage your health condition so as to reduce your need to see a doctor? Select Number: 6 Medication: How confident are you that you can do things other than just taking medication to reduce how much your illness affects your everyday life? Select Number: 6 Total Score:: 5 Nutrition Survey - Nutrition Survey Instructions Scoring Instructions: Scoring is as follows: Yes = 1 points. No = 0 point. Patient score that is >/=12 is considered to be at potential nutritional risk and could benefit from a referral to a registered dietitian. - Nutrition Survey Initial Have you lost >10 lbs over the past 2 months without trying?: No Are you following a special diet at home for diabetes, low fat, or low salt?: Yes Are you interested in meeting with a dietitian for help understanding your diet?: No Do you eat less than 3 meals a day?: No Do you eat fatty meats (paige, sausage, ribs, etc), fried foods, desserts, large amounts of salad dressings, margarine, butter, or cheese most days?: No Do you have food allergies? [Enter types in comment field]: Yes Do you eat in restaurants more than 3 times a week?: No Do you season food with salt, seasoning salt, or garlic salt?: No Do you used canned, boxed, frozen meals, or soups, seasoning packets?: No Total Score:: 2
--- NOTE | 2019-10-31 11:16 | PCM.CR.HP2 ---
CR - History & Physical - General Arrival date:: 10/31/19 Arrival time:: 11:16 Date of Referral:: 09/14/19 Date of CR Evaluation:: 10/31/19 Referring Physician: Dr. Monster Blake Primary Diagnosis: NSTEMI, PCI with Stent - History of Present Cardiac Event Onset Date: Enter Onset Date of cardiac illnesses in Comment field below Current stable Angina Pectoris:: No Acute Myocardial Infarction within 12 months:: Yes - 09/14/19 Coronary Artery Bypass Graft:: No Heart valve replacement or repair:: No PTCA or coronary stenting:: Yes - 09/14/19 Heart or Heart-Lung Transplant:: No Heart Failure EF <35%:: Yes - 35% Type of Symptoms:: Left arm, chest pain, didn't feel good. Interventions with present event:: echo, heart cath Were there any complications?: sob, heart failure. - Medications Home Medications: Ambulatory Orders Medication Instructions Recorded Cholecalciferol (Vitamin D3) 2,000 unit PO DAILY 04/06/17 [Vitamin D3] Citalopram [Celexa] 20 mg PO DAILY 04/06/17 Gabapentin [Neurontin] 100 mg PO QHS 04/06/17 Insulin Pump/Infus. Set/Meter 1 ea MC DAILY 04/06/17 [Accu-Chek Combo System] Levothyroxine [Synthroid] 88 mcg PO DAILY 04/06/17 insulin aspart U-100 100 unit/mL See Rx Instructions SC QDAY #50 ml 07/26/18 subcutaneous solution carbidopa 25 mg-levodopa 100 mg 0.5 tab PO TID tab 10/22/18 tablet mind works 1 tab PO DAILY 10/22/18 Aspirin [Aspirin, Baby] 81 mg PO DAILY@0800 #30 tab.chew 09/23/19 Potassium Chloride [K-Dur] 40 meq PO DAILYCM #30 tab 09/23/19 Lorazepam [Ativan] 0.5 mg PO Q12H PRN PRN #14 tab 10/01/19 carvedilol 6.25 mg tablet 6.25 mg PO BID #180 tab 10/18/19 furosemide 40 mg tablet 40 mg PO BID tab 10/18/19 lactobacillus combination no.9 4 4,000 mmu cells PO DAILY 10/18/19 billion cell capsule ticagrelor 90 mg tablet 90 mg PO BID #180 tab 10/18/19 apixaban 2.5 mg tablet 2.5 mg PO BID #60 tab 10/19/19 - Allergies Allergies/Adverse Reactions: Allergies paroxetine [From Paxil] Allergy (Severe, Verified 10/18/19 09:14) Unknown Penicillins Allergy (Severe, Verified 10/18/19 09:14) Unknown statins Allergy (Severe, Uncoded 10/18/19 09:14) Unknown strawberries Allergy (Severe, Uncoded 10/18/19 09:14) Unknown - Sleep Disorder Evaluation Hx of Sleep Apnea: No Do you snore loudly (louder than talking or can be heard through closed doors)?: No Do you often feel tired/ fatigued/ sleepy during daytime?: Yes Has anyone observed you stop breathing during sleep?: No History of Hypertension (for STOP score): Yes STOP Results: Positive Advanced Directives - Advanced Directives Power of Fence Gate Assembler: Yes Living Will: Yes Advance Directives Information Provided: No Advance Directives on File: Yes Past Medical History - Past Medical Illness Medical History: Past Medical History (Last Reviewed 10/18/19 @ 10:[address] 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) I25.2 NSTEMI (non-ST elevated myocardial infarction) (Chronic) Onset Date: 09/14/19 I21.4 Ischemic cardiomyopathy (Chronic) I25.5 Acute on chronic systolic (congestive) heart failure (Chronic) I50.23 Paroxysmal atrial fibrillation (Chronic) I48.0 Essential (primary) hypertension (Chronic) I10 Depression with anxiety F41.8 Diabetes type 1, controlled E10.9 Dx : 1976 Last exacerbation : DKA : never Hypoglycemic episode : never ER visit : never Hypothyroidism E03.9 Parkinsons G20 Type 1 diabetes mellitus Measles B05.9 Mumps B26.9 - Past Surgical History Surgical History: Past Surgical History (Last Reviewed 10/18/19 @ 10:[address] Ed Blake MD) History of coronary artery stent placement (Chronic) Onset Date: 09/14/19 Z95.5 [id number] LAD-Mid LAD w/ 3.0 x 38 mm Synergy Stent 09/14/2019 History of cataract surgery Z98.49 History of partial hysterectomy Z90.711 S/P LASIK surgery of both eyes Z98.890 Surgical History: cataract, herniorrhaphy - Family History Summary Family History: Family History (Last Reviewed 10/18/19 @ 10:[address] 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 - Alcohol Use Alcohol Usage: No - Substance Abuse Hx Substance Use: No - Occupation Occupation (List type of work in comments):: Retired - Hobbies, Recreation, Social Activities Hobbies: Sewing, Other - puzzles Recreational Activities: I am able to engage in all my recreational activities Social Environment - Status Marital Status: - Current Living Arrangements Living Environment:: Spouse - Children How many children do you have?: 4 Do any of your children live nearby?: Yes - Safety Do you feel safe in your surroundings?: Yes - Assistance Do you need any assistance at home?: no Review of Systems - Review of Systems Hints: Right click = Denies (Slash). Left click = Reports ([place]) Review of Present Symptoms: Reports: Fatigue - some, Appetite - Normal - just starting to improve, Appetite - Special Diet - cardiac diabetic diet., Sleep - Normal - off and on. Denies: Shortness of Breath at Rest, Shortness of Breath with Exertion, PVD, Operative Discomfort, Angina, Wound Healing, Dizziness/Lightheadedness, Heart Arrhythmia/Irregularities, Sexual Changes - Pain Is Patient Pain Free?: No Risk Factor Assessment - Vital Signs Pulse Ox: 97 - Pulse Pulse Rate: 74 Pulse Rhythm: Regular - Hypertension How long have you been treated?: 15 On medication(s)?: water pills Blood Pressure Sitting - Right Arm: 104/72 Blood Pressure Sitting - Left Arm: 122/56 - Stress Stress: Recent - recent health - Blood Cholesterol/Lipids Total Cholesterol (mg/dL) Goal = less than 200 mg/dL: 197 HDL Cholesterol (mg/dL) Goal = less than 40 mg/dL: 72 LDL Cholesterol (mg/dL) Goal = less than 70 mg/dL: 114 Triglycerides (mg/dL) Goal = less than 150 mg/dL: 56 - Diabetes Diabetic History: Type I - since 29 years old in 1973 Nutrition Referral for Diabetes: Yes - Obesity Height: 5 ft 2 in Weight:: 147 lb 12.8 oz Weight in Pounds: 147.8 lbs Weight Source: Stated by Patient Body Mass Index (BMI): 27.0 Desired Body Weight: 135 Realistic Weight Goal (Loss of 1-2 lbs/week): 135 Nutritional Referral for Obesity: No - Physical Inactivity Physical Inactivity: Reg Exercise 30 min/day Exercise Limitations: no - Risk Stratification Risk Guidelines: Lowest Risk: Risk Factor for Smoking, Moderate Risk: Risk Factor for Dyslipidemia, Risk Factor for Obesity, Risk Factor for Hypertension, Risk Factor for Sedentary Lifestyle, Highest Risk: Risk Factor for Diabetes, Risk Factor for Depression - For Smoking Smoking Risk Guidelines: Smoking Low Risk: None or quit greater than 6 months ago. Smoking Moderate Risk: Smoker or quit 6 months or less ago. Smoking High Risk: Smoker - For Dyslipidemia Dyslipidemia Risk Guidelines: Low Risk: Moderate Risk: High Risk: 15-25% fat 25.1-29% fat >/= 30% fat. <7% sat fat 7-9% sat fat >9% sat fat. <150 mg chol 150-299 mg chol >/= 300 mg chol. LDL <100 LDL 100-129 LDL >/= 130. Chol/HDL ratio <5.0 Chol/HDL ratio 5.0-6.0 Chol/HDL ratio >6.0. Triglycerides <100 Triglycerides 100-149 Triglycerides >/= 150 - For Diabetes Mellitus Diabetes Risk Guidelines: Diabetes Low Risk: HgA1c <6.5% and/or FBG <120. Diabetes Moderate Risk: HgA1c 6.6-7.9% and/or FBG 120-180. Diabetes High Risk: HgA1c >/= 8% and/or FBG >180 - For Obesity/Overweight Obesity/Overweight Risk Guidelines: Obesity Low Risk: BMI <25.0. Obesity Moderate Risk: BMI 25-29.9. Obesity High Risk: BMI >/= 30.0 - For Hypertension Hypertension Risk Guidelines: Hypertension Low Risk: Systolic <120 and Diastolic <80. Hypertension Moderate Risk: Systolic 120-139 and Diastolic 80-89. Hypertension High Risk: Systolic >/= 140 and Diastolic >/= 90 - For Sedentary Lifestyle Sedentary Lifestyle Risk Guidelines: Sedentary Lifestyle Low Risk: >/= 1,500 kcal/week. Sedentary Lifestyle Moderate Risk: 700-1,499 kcal/week. Sedentary Lifestyle High Risk: < 700 kcal/week - For Depression Depression Risk Guidelines: Depression Low Risk: Not clinically depressed. Depression Moderate Risk: Mildly depressed. Depression High Risk: Clinically depressed - Family History Family History: Family History (Last Reviewed 10/18/19 @ 10:[address] Ed Blake MD) Mother CVA (cerebral vascular accident) Dementia Sister Hypertension Diabetes Brother Heart disease Diabetes Daughter Diabetes Motivation - Motivation to Participate On a scale of 1 to 10, how prepared are you to commit to attending program?: 9
[2019-10-31 11:39] VITALS: BP 106/69; BMI 27.8
[2019-10-31 11:48] VITALS: BP 104/72; BP 122/56; PULSE 74; O2SAT 97; BMI 27.0
== END ==
PROVIDERS: PCP Family Medicine; Referring Provider Internal Medicine Cardiovascular Disease; Visit Provider Internal Medicine Cardiovascular Disease
DX: I25.10 Atherosclerotic heart disease of native coronary artery without angina pectoris (principal); I25.2 Old myocardial infarction; Z95.5 Presence of coronary angioplasty implant and graft

== ENCOUNTER → 2019-11-05 06:56 | Outpatient (CLI) | payer MEDICARE, SELFPAY ==
[2019-10-31 11:39] VITALS: BMI 27.8
[2019-10-31 11:48] VITALS: BMI 27.0
[2019-11-05 08:08] LABS: Microalbumin,Random Urine 52.1 mg/L (NO RANGE EST.)
[2019-11-05 08:13] LABS: Hemoglobin A1c 6.5 % (4.2-6.3)
[2019-11-05 08:21] LABS: ALB/GLOB Ratio 0.6 RATIO (0.9-2.4); AST(SGOT) 26 U/L (15-37); Alanine Aminotransfer ALT/SGPT 13 U/L (13-56); Alkaline Phosphatase 117 U/L (45-117); Anion Gap 6 (5-15); BUN 10 mg/dL (7-18); BUN/Creat Ratio 8.5 RATIO (10-20); Calcium,Total 8.6 mg/dL (8.5-10.1); Chloride 94 mmol/L (98-107); Cholesterol 130 mg/dL (200); Creatinine, Serum 1.17 mg/dL (0.55-1.02); EST Glomerular Filtration Rate 48 mL/min (>60); Est Glom Filt Rate - Afr Amer 58 mL/min (>60); Globulin 4.8 g/dL (2.2-4.2); Glucose 77 mg/dL (74-106); High Density Lipoprotein 46 mg/dL; Potassium 2.7 mmol/L (3.5-5.1); Protein, Total 7.8 g/dL (6.4-8.2); Sodium Level 135 mmol/L (136-145); Triglycerides 69 mg/dL; Very Low Density Lipoprotein 14 mg/dL (5-40)
== END ==
PROVIDERS: PCP Family Medicine; Referring Provider Nurse Practitioner; Visit Provider Nurse Practitioner
DX: E10.9 Type 1 diabetes mellitus without complications (principal)
CPT/HCPCS: 36415; 80053; 80061; 82043; 83036

== ENCOUNTER 2019-11-08 10:15 | Outpatient (RCR) | payer MEDICARE, SELFPAY ==
[2019-10-31 11:39] VITALS: BMI 27.8
[2019-10-31 11:42] VITALS: BMI 27.0
== END 2019-11-09 23:59 ==
LOC: CR 10:15
PROVIDERS: PCP Family Medicine; Referring Provider Internal Medicine Cardiovascular Disease; Visit Provider Internal Medicine Cardiovascular Disease
DX: I21.4 Non-ST elevation (NSTEMI) myocardial infarction (principal); I25.10 Atherosclerotic heart disease of native coronary artery without angina pectoris; Z95.5 Presence of coronary angioplasty implant and graft
CPT/HCPCS: 93798

== ENCOUNTER → 2019-11-08 11:20 | Outpatient (CLI) | payer MEDICARE, SELFPAY ==
[2019-10-31 11:39] VITALS: BMI 27.8
[2019-10-31 11:48] VITALS: BMI 27.0
[2019-11-08 12:34] LABS: Anion Gap 7 (5-15); BUN 14 mg/dL (7-18); Calcium,Total 9.3 mg/dL (8.5-10.1); Chloride 98 mmol/L (98-107); Creatinine, Serum 1.27 mg/dL (0.55-1.02); EST Glomerular Filtration Rate 43 mL/min (>60); Est Glom Filt Rate - Afr Amer 53 mL/min (>60); Glucose 146 mg/dL (74-106); Potassium 3.5 mmol/L (3.5-5.1); Sodium Level 136 mmol/L (136-145)
== END ==
LOC: LAB.FUTURE 11:21 → LAB 11:25
PROVIDERS: PCP Family Medicine; Referring Provider Family Medicine; Visit Provider Family Medicine
DX: E87.6 Hypokalemia (principal)
CPT/HCPCS: 36415; 80048

== ENCOUNTER → 2019-11-15 11:15 | Outpatient (CLI) | payer MEDICARE, SELFPAY ==
[2019-10-31 11:39] VITALS: BMI 27.8
[2019-10-31 11:48] VITALS: BMI 27.0
[2019-11-15 11:58] LABS: Color, Urine Yellow (Yellow); Glucose, Dipstick Normal (Normal); Ketone-Dipstick Negative (Negative); Leukocyte Esterase-Dipstick 100 /ul (Negative); Nitrite-Dipstick Negative (Negative); Occult Blood-Urine 10 /ul (Negative); Protein-Dipstick Negative (Negative); Urine Bilirubin Dipstick Negative (Negative); Urine Clarity Sl. Cloudy (Clear); Urine Urobilinogen Normal (Normal)
[2019-11-15 12:23] LABS: Microalbumin,Random Urine 14.5 mg/L (NO RANGE EST.); Microalbumin:Creatinine Ratio 39.9 mg/g CRE (<30 mg/g CRE)
== END ==
PROVIDERS: PCP Family Medicine; Referring Provider Nurse Practitioner; Visit Provider Nurse Practitioner
DX: E10.9 Type 1 diabetes mellitus without complications (principal)
CPT/HCPCS: 81002; 82043; 82570

== ENCOUNTER 2019-11-25 10:15 | Outpatient (RCR) | payer MEDICARE, SELFPAY ==
[2019-10-31 11:39] VITALS: BMI 27.8
[2019-10-31 11:48] VITALS: BMI 27.0
--- NOTE | 2019-11-29 08:17 | CR.ITP_ITS ---
Diagnosis - General Information Admitting Diagnosis: S/P PCI W/CORONARY STENTING Personal Learning Style:: Audio/Visual, Written Barriers to Learning: Hearing Impairment, Vision Impairment Stage of change r/t lifestyle modifications:: Action Gave educational material for:: Treating Heart Disease, Emotions & Heart Disease, Stress Management & Relaxation, Sleep Disorders & Heart Disease, How The Heart Works, What it means to have Heart Disease, How Coronary Artery Disease is Diagnosed, Heart Procedures, What Heart Medications Do, Risk Factors & Modifications, Living an Active Life, Nutrition - Education/Goals Individual Counseling: Initial Assessment: Abnormal Cholesterol Levels, High Blood Pressure, Diabetes Cardiac Rehabilitation Goals: 1. Maintain the individual as the primary focus of care. 2. To improve the patient's quality of life. 3. Identification of cardiac risk factors and provide cardiac risk factor management. 4. Enhance the psychosocial status of the patient. 5. Reconditioning enough to allow the patient to resume customary activities. 6. Control symptoms of cardiac disease Personal Goals: Initial Assessment: Improve management of stress and emotions - 3, Improve energy level - 3, Improve knowledge of cardiac disease - 3, Improve muscle strength and endurance - 3, Improve diet and eating habits (eat healthier) - 3, Control risk factors (learn risk factor modification) - 3 Scale for measuring improvement of personal goals: Enter appropriate number in Comments. 2 = Unchanged. 3 = Slightly Better. 4 = Moderate Improvement. 5 = Met my Goal - Diagnosis & Disease Process Outcomes/Goals: Pt IDs own risk factors & lifestyle modifications by Session 10, Verbalizes symptoms of angina & response by session 3., Pt independently manages Plan/Interventions: Assist Pt to ID & engage in lifestyle modification to reduce CVD risk, Instruct on individual risk factors, Review symptoms of angina & emergency actions, Review secondary diagnosis & identify educational needs. 30 day Reassessments:: Progressing - Patient has suspended her CR due to concerns of the COVID-19 virus. - Safety Referral to Physical Therapy: No Referral to [facility] Case Management: No Fall Risk Assessed:: Yes Assistive Devices:: Cane Exercise - 30-day Assessment - Visit Date of Eval: 11/29/19 Session #:: 11 - Patient has suspended participation in CR w/concerns of the COVID-19 virus. - Physician Prescribed Exercise Modalities: Airdyne, NuStep, SciFit Frequency: 3x/week for 12 weeks [36 sessions] Intensity: 60-80% of age predicted maximum heart rate reserve Current METSs:: 2.5 Target Heart Rate:: 94-122 Current RPE:: 11-12 Maximum Excercise HR:: 95 Resting Blood Pressure: 98/62 Maximum Exercise Blood Pressure: 112/60 EKG Type: NSR with occasional PACs and rare PVCs. Current Physical Activity or Exercising minutes: increasing her ADLs at home. - Outcomes & Goals Goals:: Verbalizes understanding of THR, RPE & goal METS by session 6, Documents in home exercise log/reports 30 min aerobic 5 day/wk by DC, Demonstrates accurate pulse taking by DC - Intervention & Plan Exercise Program Goals: Instruct on personal THR & RPE, Instruct on MET level & personal MET goal, Show patient to take own pulse /validate performance until accurate, Instruct on home exercise - 30-day Reassessments 30 day Reassessments:: Progressing - Physical Activity Home Exercise Physical Activity - Home Exercise: Safe Exercise, Warm-up, Self-monitoring, Cool-Down, Home Exercise > 30 min Daily, Sitting Time <3 hours/daily - Outcomes & Goals Outcomes/Goals: Demonstrates correct Warm-up/exercise Cool-Down (S3) if = 2.5 METs, Verbalizes symptoms of exercise intolerance by Session 3 (S3), Demonstrate safe equipment use (S3) & follows exercise prescrition (6) - Intervention & Plan Plan/Intervention: Instruct warm-up & cool-down if exercising at > 2 METs, Instruct on symptoms of exercise intolerance & actions to take, Instruct & monitor on saf, Assess intial functional capacity & safety risk - 30-day Reassessments 30 day Reassessments:: Progressing Nutrition - 30-Day Assessment - Program Goals Nutrition Program Goals: LDL <100 optimal. 100 - 129 Near optimal. 130 - 159 Borderline High. 160 - 189 High. Total Cholesterol <200 desirable. 200 - 239 Borderline High. >/= 240 High. HDL < 40 Low >/=60 High. Triglycerides <150 desirable. <199 optimal. VlDL 5 - 40. HgbA1C <7%. BMI <25 Patient has diagnosis of Hyperlipidemia (ICD E78)?: Yes - Visit Date of Assessment:: 11/29/19 Session #:: 11 - Cholesterol/Lipids Triglycerides (mg/dL): 56 Total Cholesterol (mg/dL): 197 LDL Cholesterol (mg/dL): 114 HDL Cholesterol (mg/dL): 72 Determine presence & major risk factors that modify LDL goal: Hypertension or hypertensive medication, Age men > 45 years; women >/= 55 years Outcomes/Goals: Pt IDs own risk factors & lifestyle modifications by Session 10, Verbalizes symptoms of angina & response by session 3., Pt independently manages Intervention/Plan: Instruct on personal lipid levels & lipid goals/NCEP guidelines, Instruct on cholesterol Referral to dietitian:: Yes 30-day Reassessments:: Progressing - Diabetes (Other Core Measures) Diabetes Type: Diagnosis Type II ICD-10 E11 Insulin dependent injection/pump?: Yes - insulin pump infusion Non-Insulin Dependent?: No Do you monitor your blood sugar at home?: No Referral to Diabetic Clinic:: No Outcomes/Goals:: Able to state symptoms of, Able to state, Able to state Intervention/Plan:: Instruct on, Refer to, Instruct on 30-day Reassessments:: Met - Weight Mgt (Other Care) Not Applicable: No Height: 5 ft 2 in Weight:: 140 lb 8 oz BMI: 25.7 Diagnosis Overweight/Obesity BMI> 30% ICD-10 E66: No Diagnosis High BMI/Morbid Obesity BMI> 35% ICD-10 Z68: No Outcomes/Goals: Pt sets, maintains & shows weight loss goal & trend during rehab Intervention/Plan: Instruct on ideal BMI & set weight loss goal w/patient 30 day Reassessments:: Met - Healthy Eating Habits Will attend diet classes:: Yes Outcomes/Goals:: Consume diet rich in vegs,fruits,whole grain/high fiber,fish,lean meat, Limit sat/trans fats,cholesterol & added salts & sugars Intervention/Plan:: Assess current eating habits 30-day Reassessments:: Met - Education Gave educational materials for:: Signs & symptoms of hypoglycemia, Signs & symptoms of hyperglycemia, Relate diabetes to coronary artery disease, Healthy eating Medical- 30-Day Assessment - Visit Date of Eval: 11/29/19 Session #:: 11 - Medication Compliance Preventative Medication(s):: Aspirin, Ticagrelor/P2Y12 inhibitor, Statin/lipid, Beta aarti H/O mental health issues: depression, anxiety, or addiction?: No Doesn?t believe in the benefits of treatment?: No Believes medications are unnecessary or harmful?: No Has a concern about medication side effects?: No Expresses concern over the cost of medications?: No Outcomes/Goals: Verbalizes medications,desired effect & common side effects @ DC, Pt self-reports following medication regimen, Keeps card in wallet w/medications listed by DC Interventions/plans: Instruct on medication effects & side effects, Review medication list w/patient every two weeks, Instruct importance of taking meds as ordered & assist problem solving 30-day Reassessments:: Progressing - Tobacco Use Tobacco Use: Non-smoker - Hypertension Hypertension Diagnosis:: Hypertension ICD-10 I10 Resting Blood Pressure:: 98/62 - controlled [place] [employer] Hypertension Guidelines: [place] [employer] Hypertension Guidelines. Normal BP Less than 120/80. Elevated BP 120/80. Hypertension Stage 1: BP 130-139/80-89. Hypertesnion Stage 2: BP 140 or higher/90 or higher. Hypertension Crisis: BP higher than 180/120 Peak Exercise Blood Pressure:: 112/60 Outcomes/Goals: Able to verbalize/achieve optimal blood pressure <130/80, Incorporates diet changes & exercise for blood pressure control by DC Interventions/plan: Instruct on optimal blood pressure, hypertension & medications, Instruct on effects of sodium, alcohol, stress, exercise &hypertension 30 day Reassessments:: Progressing - Tobacco Cessation Referral Smoking Cessation Referral:: No Individual Education/Counseling:: No Education Schedule Given:: Yes Psychosocial - 30-Day Assess - VIsit Date of Eval: 11/29/19 Session #:: 11 Not Applicable: Yes History of previous Mental disease:: No - Target Goals Target Goals: Assess presence or absence of depression. Using a valid screening tool, maximizes coping skills. Positive support system - Psychosocial Test Tool Used:: Frances Bang QOL Cardiac, PHQ-9 Questionnaire phq-9 Severity: Severity. 1-4 Minimal Depression. 5-9 Mild Depression. 10-14 Moderate Depression. 15-19 Moderately Sever Depression. 20-27 Severe Depression. Rule: - Referral to Behavioral Health PS - Interventions: Yes Attend Stress Management Classes, No Referral to Behavioral Health if PHQ-9 score >9:, No Referral to [facility], No Referral to Physician if PHQ-9 if score is 5-9: - Outcomes/Goals: See list Psychosocial Outcomes/Goals:: ID's personal stressors & 2 strategies to manage stress by discharge - Intervention/Plan: See List Interventions/Plan:: Assess stressors,coping strategies & signs of derpression on admission, Instruct/assist pt to develop coping & personal stress Mgt strategies, Instruct patient to recognize signs & symptoms of depression, Instruct patient to recog - 30-day Reassessments: 30 day Reassessments:: Progressing Patient Health Questionnaire 30-Day Re-eval Assessment 1. Little interest or pleasure in doing things: Several days 2. Feeling down, depressed, or hopeless: Not at all 3. Trouble falling or staying asleep, or sleeping too much: Not at all 4. Feeling tired or having little energy: Several days 5. Poor appetite or overeating: Not at all 6. Feeling bad about yourself -- or that you are a failure or have let yourself or your family down: Not at all 7. Trouble concentrating on things, such as reading the newspaper or watching television: Several days 8. Moving or speaking so slowly that other people could have noticed. Or the opposite - being so fidgety or restless that you have been moving around a lot more than usual: Several days 9. Thoughts that you would be better off , or of hurting yourself in some way: Not at all How difficult have these problems made it for you to do your work, take care of things at home, or get along with other people?: Somewhat difficult Total Score: 4 Self-Efficacy 30-Day Re-eval Assessment We would like to know how confident you are in doing certain activities. Please select your confidence level for:: Select your confidence level for the following using the scale 1-10 where 1 is not at all confident and 10 is totally confident. Your score is the average of all 6 responses. Fatigue: How confident are you that you can keep the fatigue caused by your disease from interfering with the things you want to do? Select Number: 7 Physical Discomfort or Pain: How confident are you that you can keep the physical discomfort or pain of your disease from interfering with the things you want to do? Select Number: 6 Emotional Distress: How confident are you that you can keep the emotional distress caused by your disease from interfering with the things you want to do? Select Number: 7 Other Symptoms or Health Problems: How confident are you that you can keep other symptoms or health problems from interfering with the things you want to do? Select Number: 8 Different Tasks and Activities: How confident are you that you can do the different tasks and activities needed to manage your health condition so as to reduce your need to see a doctor? Select Number: 7 Medication: How confident are you that you can do things other than just taking medication to reduce how much your illness affects your everyday life? Select Number: 7 Total Score:: 7
[2019-11-29 08:43] VITALS: BP 112/60; BP 98/62; BMI 25.7
== END 2019-12-10 23:59 ==
LOC: CR 10:15
PROVIDERS: PCP Family Medicine; Referring Provider Internal Medicine Cardiovascular Disease; Visit Provider Internal Medicine Cardiovascular Disease
DX: I21.4 Non-ST elevation (NSTEMI) myocardial infarction (principal); I25.10 Atherosclerotic heart disease of native coronary artery without angina pectoris; Z95.5 Presence of coronary angioplasty implant and graft
CPT/HCPCS: 93798

== ENCOUNTER → 2019-11-27 14:33 | Outpatient (CLI) | payer MEDICARE, SELFPAY ==
[2019-10-31 11:39] VITALS: BMI 27.8
[2019-10-31 11:48] VITALS: BMI 27.0
[2019-11-27 16:19] LABS: Anion Gap 6 (5-15); BUN 14 mg/dL (7-18); BUN/Creat Ratio 11.2 RATIO (10-20); Calcium,Total 9.2 mg/dL (8.5-10.1); Chloride 99 mmol/L (98-107); Creatinine, Serum 1.25 mg/dL (0.55-1.02); EST Glomerular Filtration Rate 44 mL/min (>60); Est Glom Filt Rate - Afr Amer 54 mL/min (>60); Glucose 166 mg/dL (74-106); Potassium 3.1 mmol/L (3.5-5.1); Sodium Level 135 mmol/L (136-145)
== END ==
PROVIDERS: PCP Family Medicine; Referring Provider Family Medicine; Visit Provider Family Medicine
DX: N18.3 Chronic kidney disease, stage 3 (moderate) (principal); E87.6 Hypokalemia
CPT/HCPCS: 36415; 80048

== ENCOUNTER 2019-12-05 08:07 | Emergency (ER) | payer MEDICARE, SELFPAY ==
[2019-10-31 11:48] VITALS: BMI 27.0
[2019-12-05 08:09] VITALS: BP 130/62; PULSE 69; RESP 14; TEMP 36.2; O2SAT 92; BMI 27.1
--- NOTE | 2019-12-05 08:26 | ED.VISSUMM ---
- ER Visit Summary Date of Service: 12/05/19 Chief Complaint: Left upper arm wound from diabetic sensor and bleeding History of Present Illness: The patient is a [address] prior CAD, [place], anemia, cardiomyopathy, A. fib, diabetes and hypertension. Patient is on blood thinners including aspirin, Eliquis and Brilinta. She typically wears a sensor for her diabetes on her left tricep area. That is been irritated since Monday because bruising in the area of breakdown of the skin and now mild oozing of blood. She denies any other bruising anywhere else, bleeding from her gums, nosebleeds hematuria or melena. Physical Examination: Well-appearing older female. No acute distress. Vital signs are stable afebrile. She is in no distress. H EENT exam unremarkable. Neck nontender. Lungs clear to auscultation bilaterally. Heart regular rhythm rate about 70 no murmur. Abdomen soft nontender. Patient moving all 4 extremities. Neurovascularly intact. Calves there is no edema. The left tricep area there is a small wound breakdown the skin. With minimal oozing of blood. There is no pulsatile bleeding. There is some subcu bruising. It is not extensive. Distally the left hand is neurovascularly intact. There is no signs of skin infection. Neurologically she is awake alert with no focal motor deficits. Test Results: None Emergency Department Course and Treatment: Patient appears to have had irritation of the skin from the diabetic sensor which caused breakdown and due to her being on multiple blood thinners now oozing of blood. Let will be applied to the wound and direct pressure. She will be reassessed and discharged to home. Treatment Plan: She was instructed by her cupola patcher helper office to hold her Eliquis. Direct pressure to the wound. Wound care. Follow-up as needed. She will stop using the diabetic wound center at this time. Disposition: Discharge Impression: Acute left upper extremity wound with bleeding History of CAD and A. fib on blood thinners History of diabetes This note was generated with [employer] dictation software. It may contain incorrect words, spelling, and punctuation that were not noted in review of the chart prior to signing ED Disposition - Plan for ED Patient: Referrals: Renée Whitehead DO [Primary Care Provider] -
--- NOTE | 2019-12-05 08:30 | ED.DEP ---
ED Disposition - Plan for ED Patient: Disposition: Home or Assisted Living Instructions: ED Wound Puncture General Referrals: Renée Whitehead DO [Primary Care Provider] - As Needed Additional Instructions: Stop using your diabetic sensor at this time. Go back to doing finger glucose checks. The bleeding should stop of your left arm. Direct pressure. If the bruising gets a lot worse you need to be reevaluated. Hold your Eliquis for the next few days and follow-up with Dr. Blake's office to determine when they want you to restart that.
[2019-12-05] MEDS: Lidocaine/Epi/Tetracaine 50 ML 1 APPLIC TOPICAL (08:36)
== END 2019-12-05 09:23 | disposition home or self-care (01) ==
LOC: ED 08:41
PROVIDERS: Emergency Provider Emergency Medicine; PCP Family Medicine
DX: S41.102A Unspecified open wound of left upper arm, initial encounter (principal); X58.XXXA Exposure to other specified factors, initial encounter; Y93.9 Activity, unspecified; Y92.9 Unspecified place or not applicable; I25.10 Atherosclerotic heart disease of native coronary artery without angina pectoris; I48.91 Unspecified atrial fibrillation; E11.9 Type 2 diabetes mellitus without complications; I10 Essential (primary) hypertension; I42.9 Cardiomyopathy, unspecified; E87.6 Hypokalemia; R19.7 Diarrhea, unspecified; D64.9 Anemia, unspecified; I25.2 Old myocardial infarction; Z79.4 Long term (current) use of insulin; Z79.01 Long term (current) use of anticoagulants; Z79.82 Long term (current) use of aspirin; Z79.899 Other long term (current) drug therapy; Z95.5 Presence of coronary angioplasty implant and graft
CPT/HCPCS: 36415; 80048; 83630; 83735; 87493; 87506; 99283

== ENCOUNTER → 2019-12-05 10:29 | Outpatient (CLI) | payer MEDICARE, SELFPAY ==
[2019-10-31 11:39] VITALS: BMI 27.8
[2019-10-31 11:48] VITALS: BMI 27.0
[2019-11-29 08:43] VITALS: BMI 25.7
[2019-12-05 08:09] VITALS: BMI 27.1
[2019-12-05 12:31] LABS: Anion Gap 7 (5-15); BUN 14 mg/dL (7-18); BUN/Creat Ratio 10.4 RATIO (10-20); Calcium,Total 9.2 mg/dL (8.5-10.1); Chloride 99 mmol/L (98-107); Creatinine, Serum 1.35 mg/dL (0.55-1.02); EST Glomerular Filtration Rate 40 mL/min (>60); Est Glom Filt Rate - Afr Amer 49 mL/min (>60); Glucose 115 mg/dL (74-106); Magnesium 1.5 mg/dL (1.6-2.6); Potassium 3.9 mmol/L (3.5-5.1); Sodium Level 136 mmol/L (136-145)
== END ==
PROVIDERS: PCP Family Medicine; Visit Provider Family Medicine
DX: E87.6 Hypokalemia (principal); R19.7 Diarrhea, unspecified
CPT/HCPCS: 36415; 80048; 83630; 83735; 87493; 87506

== ENCOUNTER 2019-12-11 09:36 | Outpatient (RCR) | payer MEDICARE, SELFPAY ==
[2019-12-11 00:52] VITALS: BP 112/60; BP 98/62
--- NOTE | 2019-12-13 06:52 | PCM.CR.ITP ---
Exercise - Initial Assessment - Visit Date of Eval: 12/13/19 - With obvious neccessary interupption in the delivery of CR, the patient's program is on hold due to the coronovirus. The CR program has been closed for patient safety reasons.
== END 2020-01-09 23:59 ==
LOC: CR 09:36
PROVIDERS: PCP Family Medicine; Referring Provider Internal Medicine Cardiovascular Disease; Visit Provider Internal Medicine Cardiovascular Disease
DX: I25.10 Atherosclerotic heart disease of native coronary artery without angina pectoris (principal); I25.2 Old myocardial infarction; Z95.5 Presence of coronary angioplasty implant and graft
CPT/HCPCS: 93798

== ENCOUNTER 2020-02-07 10:15 | Outpatient (RCR) | payer MEDICARE, SELFPAY ==
[2020-01-10 00:17] VITALS: BP 112/60; BP 98/62
--- NOTE | 2020-01-10 10:27 | PCM.CR.ITP ---
Diagnosis - General Information Admitting Diagnosis: PCI with coronary stent Personal Learning Style:: Audio/Visual, Demonstration, Group, Individual Preference, Written Stage of change r/t lifestyle modifications:: Action Gave educational material for:: Treating Heart Disease, Emotions & Heart Disease, Stress Management & Relaxation, Sleep Disorders & Heart Disease, How The Heart Works, What it means to have Heart Disease, How Coronary Artery Disease is Diagnosed, Heart Procedures, What Heart Medications Do, Risk Factors & Modifications, Living an Active Life, Nutrition - Education/Goals Cardiac Rehabilitation Goals: 1. Maintain the individual as the primary focus of care. 2. To improve the patient's quality of life. 3. Identification of cardiac risk factors and provide cardiac risk factor management. 4. Enhance the psychosocial status of the patient. 5. Reconditioning enough to allow the patient to resume customary activities. 6. Control symptoms of cardiac disease Scale for measuring improvement of personal goals: Enter appropriate number in Comments. 2 = Unchanged. 3 = Slightly Better. 4 = Moderate Improvement. 5 = Met my Goal - Diagnosis & Disease Process Outcomes/Goals: Pt IDs own risk factors & lifestyle modifications by Session 10, Verbalizes symptoms of angina & response by session 3., Pt independently manages, Other Additional Outcomes/Goals: Plan/Interventions: Assist Pt to ID & engage in lifestyle modification to reduce CVD risk, Instruct on individual risk factors, Review symptoms of angina & emergency actions, Review secondary diagnosis & identify educational needs., Other see comment 30 day Reassessments:: Progressing 30 day Reassessments:: Progressing 30 day Reassessments:: Progressing 30 day Reassessments:: Progressing - Safety Referral to Physical Therapy: No Referral to [facility] Case Management: No Fall Risk Assessed:: Yes Assistive Devices:: Cane Exercise - 60-day Assessment - Visit Date of Eval: 01/10/20 Session #:: 11 Comments:: Pt was on hold for COVID 19 precaution. Pt is now resuming rehab. - Physician Prescribed Exercise Modalities: Airdyne, NuStep, SciFit Frequency: 3x/week for 12 weeks [36 sessions] Intensity: 60-80% of age predicted maximum heart rate reserve Current METSs:: 2.5 Target Heart Rate:: 94-122 Current RPE:: 11-13 Maximum Excercise HR:: 95 Resting Blood Pressure: 98/62 Maximum Exercise Blood Pressure: 112/60 EKG Type: NSR - Outcomes & Goals Goals:: Verbalizes understanding of THR, RPE & goal METS by session 6, Documents in home exercise log/reports 30 min aerobic 5 day/wk by DC, Demonstrates accurate pulse taking by DC, Other additional outcome/goals: see below - Intervention & Plan Exercise Program Goals: Instruct on personal THR & RPE, Instruct on MET level & personal MET goal, Show patient to take own pulse /validate performance until accurate, Instruct on home exercise, Other additional plan/int - 30-day Reassessments 30 day Reassessments:: Progressing - Physical Activity Home Exercise Physical Activity - Home Exercise: Safe Exercise, Warm-up, Self-monitoring, Cool-Down, Home Exercise > 30 min Daily, Sitting Time <3 hours/daily - Outcomes & Goals Outcomes/Goals: Demonstrates correct Warm-up/exercise Cool-Down (S3) if = 2.5 METs, Verbalizes symptoms of exercise intolerance by Session 3 (S3), Demonstrate safe equipment use (S3) & follows exercise prescrition (6), Other: See below - Intervention & Plan Plan/Intervention: Instruct warm-up & cool-down if exercising at > 2 METs, Instruct on symptoms of exercise intolerance & actions to take, Instruct & monitor on saf, Assess intial functional capacity & safety risk, Other See below - 30-day Reassessments 30 day Reassessments:: Progressing Nutrition - 60-Day Assessment - Program Goals Nutrition Program Goals: LDL <100 optimal. 100 - 129 Near optimal. 130 - 159 Borderline High. 160 - 189 High. Total Cholesterol <200 desirable. 200 - 239 Borderline High. >/= 240 High. HDL < 40 Low >/=60 High. Triglycerides <150 desirable. <199 optimal. VlDL 5 - 40. HgbA1C <7%. BMI <25 Patient has diagnosis of Hyperlipidemia (ICD E78)?: Yes - Visit Date of Assessment:: 01/10/20 Session #:: 11 - Cholesterol/Lipids Determine presence & major risk factors that modify LDL goal: Hypertension or hypertensive medication, Low HDL cholesterol <40 mg/dL*, Family history of premature CHD in Male < 55 years: female <65 yearsFa, Age men > 45 years; women >/= 55 years Outcomes/Goals: Pt IDs own risk factors & lifestyle modifications by Session 10, Verbalizes symptoms of angina & response by session 3., Pt independently manages, Other Additional Outcomes/Goals: Intervention/Plan: Advocate for lipid panel cholesterol medication if applicable, Instruct on personal lipid levels & lipid goals/NCEP guidelines, Instruct on cholesterol, Other additional plan/int Referral to dietitian:: Yes 30-day Reassessments:: Progressing - Diabetes (Other Core Measures) Diabetes Type: Diagnosis Type I ICD-10 E10 Insulin dependent injection/pump?: Yes Non-Insulin Dependent?: No Do you monitor your blood sugar at home?: No Referral to Diabetic Clinic:: No Outcomes/Goals:: Able to state symptoms of, Able to state, Able to state, Other additional Intervention/Plan:: Instruct on, Refer to, Instruct on, Other 30-day Reassessments:: Progressing - Weight Mgt (Other Care) Height: 5 ft 2 in Weight:: 63.503 kg BMI: 25.6 Diagnosis Overweight/Obesity BMI> 30% ICD-10 E66: No Diagnosis High BMI/Morbid Obesity BMI> 35% ICD-10 Z68: No Intervention/Plan: Instruct on ideal BMI & set weight loss goal w/patient, Assist pt to ID & incorporate diet changes for weight loss by S9, Refer to Structured Weight Loss program as appropriate, Encourage goal of using 250-300dcal per session for weight loss, Other additional plan/interventions 30 day Reassessments:: Progressing - Healthy Eating Habits Will attend diet classes:: Yes Outcomes/Goals:: Consume diet rich in vegs,fruits,whole grain/high fiber,fish,lean meat, Limit sat/trans fats,cholesterol & added salts & sugars, Other additional outcome/goals: Intervention/Plan:: Assess current eating habits, Other Additional plan/interventions 30-day Reassessments:: Progressing - Education Gave educational materials for:: Signs & symptoms of hypoglycemia, Signs & symptoms of hyperglycemia, Relate diabetes to coronary artery disease, Healthy eating Medical- 60-Day Assessment - Visit Date of Eval: 01/10/20 Session #:: 11 - Medication Compliance Preventative Medication(s):: Aspirin, Ticagrelor/P2Y12 inhibitor, Statin/lipid, Beta aarti H/O mental health issues: depression, anxiety, or addiction?: No Doesn?t believe in the benefits of treatment?: No Believes medications are unnecessary or harmful?: No Has a concern about medication side effects?: No Expresses concern over the cost of medications?: No Outcomes/Goals: Verbalizes medications,desired effect & common side effects @ DC, Pt self-reports following medication regimen, Keeps card in wallet w/medications listed by DC, Other additional outcome/goals: Interventions/plans: Instruct on medication effects & side effects, Review medication list w/patient every two weeks, Instruct importance of taking meds as ordered & assist problem solving, Other additional 30-day Reassessments:: Progressing - Tobacco Use Tobacco Use: Non-smoker - Hypertension Hypertension Diagnosis:: Hypertension ICD-10 I10 Resting Blood Pressure:: 98/62 [place] [employer] Hypertension Guidelines: [place] [employer] Hypertension Guidelines. Normal BP Less than 120/80. Elevated BP 120/80. Hypertension Stage 1: BP 130-139/80-89. Hypertesnion Stage 2: BP 140 or higher/90 or higher. Hypertension Crisis: BP higher than 180/120 Peak Exercise Blood Pressure:: 112/60 Outcomes/Goals: Able to verbalize/achieve optimal blood pressure <130/80, Incorporates diet changes & exercise for blood pressure control by DC, Other additional outcomes/goals Interventions/plan: Instruct on optimal blood pressure, hypertension & medications, Instruct on effects of sodium, alcohol, stress, exercise &hypertension, Other additional plan/interventions 30 day Reassessments:: Progressing - Tobacco Cessation Referral Smoking Cessation Referral:: No Individual Education/Counseling:: No Education Schedule Given:: Yes Psychosocial - 60-Day Assess - VIsit Date of Eval: 01/10/20 Session #:: 11 History of previous Mental disease:: No - Target Goals Target Goals: Assess presence or absence of depression. Using a valid screening tool, maximizes coping skills. Positive support system - Psychosocial Test Tool Used:: Frances Bang QOL Cardiac, PHQ-9 Questionnaire phq-9 Severity: Severity. 1-4 Minimal Depression. 5-9 Mild Depression. 10-14 Moderate Depression. 15-19 Moderately Sever Depression. 20-27 Severe Depression. Rule: - Referral to Behavioral Health PS - Interventions: Yes Attend Stress Management Classes, No Referral to Behavioral Health if PHQ-9 score >9:, No Referral to [facility], No Referral to Physician if PHQ-9 if score is 5-9: - Outcomes/Goals: See list Psychosocial Outcomes/Goals:: ID's personal stressors & 2 strategies to manage stress by discharge, Other Additional outcome/goals: - Intervention/Plan: See List Interventions/Plan:: Assess stressors,coping strategies & signs of derpression on admission, Instruct/assist pt to develop coping & personal stress Mgt strategies, Refer to Behavioral Health if appropriate, Refer to Physician if appropriate, Instruct patient to recognize signs & symptoms of depression, Instruct patient to recog, Other additional plan/intervention - 30-day Reassessments: 30 day Reassessments:: Progressing Patient Health Questionnaire 60-Day Re-eval Assessment 1. Little interest or pleasure in doing things: Several days 2. Feeling down, depressed, or hopeless: Not at all 3. Trouble falling or staying asleep, or sleeping too much: Not at all 4. Feeling tired or having little energy: Several days 5. Poor appetite or overeating: Not at all 6. Feeling bad about yourself -- or that you are a failure or have let yourself or your family down: Not at all 7. Trouble concentrating on things, such as reading the newspaper or watching television: Several days 8. Moving or speaking so slowly that other people could have noticed. Or the opposite - being so fidgety or restless that you have been moving around a lot more than usual: Not at all 9. Thoughts that you would be better off , or of hurting yourself in some way: Not at all How difficult have these problems made it for you to do your work, take care of things at home, or get along with other people?: Somewhat difficult Total Score: 3 Self-Efficacy 60-Day Re-eval Assessment We would like to know how confident you are in doing certain activities. Please select your confidence level for:: Select your confidence level for the following using the scale 1-10 where 1 is not at all confident and 10 is totally confident. Your score is the average of all 6 responses. Fatigue: How confident are you that you can keep the fatigue caused by your disease from interfering with the things you want to do? Select Number: 7 Physical Discomfort or Pain: How confident are you that you can keep the physical discomfort or pain of your disease from interfering with the things you want to do? Select Number: 6 Emotional Distress: How confident are you that you can keep the emotional distress caused by your disease from interfering with the things you want to do? Select Number: 7 Other Symptoms or Health Problems: How confident are you that you can keep other symptoms or health problems from interfering with the things you want to do? Select Number: 8 Different Tasks and Activities: How confident are you that you can do the different tasks and activities needed to manage your health condition so as to reduce your need to see a doctor? Select Number: 7 Medication: How confident are you that you can do things other than just taking medication to reduce how much your illness affects your everyday life? Select Number: 7 Total Score:: 7
[2020-01-10 10:38] VITALS: BP 112/60; BP 98/62; BMI 25.6
--- NOTE | 2020-01-29 12:51 | CR.ITP_ITS ---
Exercise - 60-day Assessment - Visit Date of Eval: 01/29/20 Session #:: 18 Comments:: Suspension of Cardiac Rehab services resulted from 12/12/2019 through 01/13/2020 as a result of Covid-19 closure of the program under the Dept of Health and [place] Gov. [place]'s orders. If the cardiac rehab program exceeds the 36-week window (this should be rare) allowed for completion of the maximum 36- sessions, a modifier KX will be necessary to indicae continued medical necessity in our estimation. - Physician Prescribed Exercise Modalities: NuStep, SciFit Frequency: 3x/week for 12 weeks [36 sessions] Intensity: 60-80% of age predicted maximum heart rate reserve Current METSs:: 2.5 Target Heart Rate:: 94-122 Current RPE:: 12 Maximum Excercise HR:: 78 Resting Blood Pressure: 124/62 Maximum Exercise Blood Pressure: 130/60 Current Physical Activity or Exercising minutes: NSR with frequent PACs and sinus arrythmia noted. - Outcomes & Goals Goals:: Verbalizes understanding of THR, RPE & goal METS by session 6, Documents in home exercise log/reports 30 min aerobic 5 day/wk by DC, Demonstrates accurate pulse taking by DC - Intervention & Plan Exercise Program Goals: Instruct on personal THR & RPE, Instruct on MET level & personal MET goal, Show patient to take own pulse /validate performance until accurate, Instruct on home exercise - 30-day Reassessments 30 day Reassessments:: Progressing - Physical Activity Home Exercise Physical Activity - Home Exercise: Safe Exercise, Warm-up, Self-monitoring, Cool-Down, Home Exercise > 30 min Daily, Sitting Time <3 hours/daily - Outcomes & Goals Outcomes/Goals: Demonstrates correct Warm-up/exercise Cool-Down (S3) if = 2.5 METs, Verbalizes symptoms of exercise intolerance by Session 3 (S3), Demonstrate safe equipment use (S3) & follows exercise prescrition (6) - Intervention & Plan Plan/Intervention: Instruct warm-up & cool-down if exercising at > 2 METs, Instruct on symptoms of exercise intolerance & actions to take, Instruct & monitor on saf, Assess intial functional capacity & safety risk - 30-day Reassessments 30 day Reassessments:: Progressing Nutrition - 60-Day Assessment - Program Goals Nutrition Program Goals: LDL <100 optimal. 100 - 129 Near optimal. 130 - 159 Borderline High. 160 - 189 High. Total Cholesterol <200 desirable. 200 - 239 Borderline High. >/= 240 High. HDL < 40 Low >/=60 High. Triglycerides <150 desirable. <199 optimal. VlDL 5 - 40. HgbA1C <7%. BMI <25 Patient has diagnosis of Hyperlipidemia (ICD E78)?: Yes - Visit Date of Assessment:: 01/29/20 Session #:: 18 - Cholesterol/Lipids Determine presence & major risk factors that modify LDL goal: Hypertension or hypertensive medication, Age men > 45 years; women >/= 55 years Outcomes/Goals: Pt IDs own risk factors & lifestyle modifications by Session 10, Verbalizes symptoms of angina & response by session 3., Pt independently manages Intervention/Plan: Instruct on personal lipid levels & lipid goals/NCEP guidelines, Instruct on cholesterol Referral to dietitian:: No 30-day Reassessments:: Progressing - Diabetes (Other Core Measures) Diabetes Type: Diagnosis Type I ICD-10 E10 Insulin dependent injection/pump?: Yes Non-Insulin Dependent?: Yes Do you monitor your blood sugar at home?: Yes Referral to Diabetic Clinic:: No Outcomes/Goals:: Able to state symptoms of, Able to state, Able to state Intervention/Plan:: Instruct on, Instruct on 30-day Reassessments:: Progressing - Weight Mgt (Other Care) Not Applicable: Yes Height: 5 ft 2 in Weight:: 134 lb BMI: 24.5 Diagnosis Overweight/Obesity BMI> 30% ICD-10 E66: No Diagnosis High BMI/Morbid Obesity BMI> 35% ICD-10 Z68: No Outcomes/Goals: Pt sets, maintains & shows weight loss goal & trend during rehab Intervention/Plan: Instruct on ideal BMI & set weight loss goal w/patient, Assist pt to ID & incorporate diet changes for weight loss by S9 30 day Reassessments:: Progressing - Healthy Eating Habits Will attend diet classes:: Yes Outcomes/Goals:: Consume diet rich in vegs,fruits,whole grain/high fiber,fish,lean meat, Limit sat/trans fats,cholesterol & added salts & sugars Intervention/Plan:: Assess current eating habits 30-day Reassessments:: Progressing - Education Gave educational materials for:: Signs & symptoms of hypoglycemia, Signs & symptoms of hyperglycemia, Relate diabetes to coronary artery disease, Healthy eating Medical- 60-Day Assessment - Visit Date of Eval: 01/29/20 Session #:: 18 - Medication Compliance Preventative Medication(s):: Aspirin, Ticagrelor/P2Y12 inhibitor, Statin/lipid, Beta aarti, Eliquis H/O mental health issues: depression, anxiety, or addiction?: No Doesn?t believe in the benefits of treatment?: No Believes medications are unnecessary or harmful?: No Has a concern about medication side effects?: No Expresses concern over the cost of medications?: No Outcomes/Goals: Verbalizes medications,desired effect & common side effects @ DC, Pt self-reports following medication regimen, Keeps card in wallet w/medications listed by DC Interventions/plans: Instruct on medication effects & side effects, Review medication list w/patient every two weeks, Instruct importance of taking meds as ordered & assist problem solving 30-day Reassessments:: Met - Tobacco Use Tobacco Use: Non-smoker - Hypertension Hypertension Diagnosis:: Hypertension ICD-10 I10 Resting Blood Pressure:: 124/62 [place] [employer] Hypertension Guidelines: [place] [employer] Hypertension Guidelines. Normal BP Less than 120/80. Elevated BP 120/80. Hypertension Stage 1: BP 130-139/80-89. Hypertesnion Stage 2: BP 140 or higher/90 or higher. Hypertension Crisis: BP higher than 180/120 Peak Exercise Blood Pressure:: 130/60 Outcomes/Goals: Able to verbalize/achieve optimal blood pressure <130/80, Incorporates diet changes & exercise for blood pressure control by DC Interventions/plan: Instruct on optimal blood pressure, hypertension & medications, Instruct on effects of sodium, alcohol, stress, exercise &hypertension 30 day Reassessments:: Progressing - Tobacco Cessation Referral Smoking Cessation Referral:: No Individual Education/Counseling:: No Education Schedule Given:: Yes Psychosocial - 60-Day Assess - VIsit Date of Eval: 01/29/20 Session #:: 18 Not Applicable: No History of previous Mental disease:: No - Target Goals Target Goals: Assess presence or absence of depression. Using a valid screening tool, maximizes coping skills. Positive support system - Psychosocial Test Tool Used:: Frances Bang QOL Cardiac, PHQ-9 Questionnaire phq-9 Severity: Severity. 1-4 Minimal Depression. 5-9 Mild Depression. 10-14 Moderate Depression. 15-19 Moderately Sever Depression. 20-27 Severe Depression. Rule: - Referral to Behavioral Health PS - Interventions: Yes Attend Stress Management Classes, No Referral to Behavioral Health if PHQ-9 score >9:, No Referral to [facility], No Referral to Physician if PHQ-9 if score is 5-9: - Outcomes/Goals: See list Psychosocial Outcomes/Goals:: ID's personal stressors & 2 strategies to manage stress by discharge - Intervention/Plan: See List Interventions/Plan:: Assess stressors,coping strategies & signs of derpression on admission, Instruct/assist pt to develop coping & personal stress Mgt strategies, Instruct patient to recognize signs & symptoms of depression, Instruct patient to recog - 30-day Reassessments: 30 day Reassessments:: Progressing Patient Health Questionnaire 60-Day Re-eval Assessment 1. Little interest or pleasure in doing things: Several days 2. Feeling down, depressed, or hopeless: Not at all 3. Trouble falling or staying asleep, or sleeping too much: Not at all 4. Feeling tired or having little energy: Several days 5. Poor appetite or overeating: Not at all 6. Feeling bad about yourself -- or that you are a failure or have let yourself or your family down: Not at all 7. Trouble concentrating on things, such as reading the newspaper or watching television: Several days 8. Moving or speaking so slowly that other people could have noticed. Or the opposite - being so fidgety or restless that you have been moving around a lot more than usual: Several days 9. Thoughts that you would be better off , or of hurting yourself in some way: Not at all How difficult have these problems made it for you to do your work, take care of things at home, or get along with other people?: Somewhat difficult Total Score: 4 Self-Efficacy 60-Day Re-eval Assessment We would like to know how confident you are in doing certain activities. Please select your confidence level for:: Select your confidence level for the following using the scale 1-10 where 1 is not at all confident and 10 is totally confident. Your score is the average of all 6 responses. Fatigue: How confident are you that you can keep the fatigue caused by your disease from interfering with the things you want to do? Select Number: 8 Physical Discomfort or Pain: How confident are you that you can keep the physical discomfort or pain of your disease from interfering with the things you want to do? Select Number: 7 Emotional Distress: How confident are you that you can keep the emotional distress caused by your disease from interfering with the things you want to do? Select Number: 8 Other Symptoms or Health Problems: How confident are you that you can keep other symptoms or health problems from interfering with the things you want to do? Select Number: 9 Different Tasks and Activities: How confident are you that you can do the different tasks and activities needed to manage your health condition so as to reduce your need to see a doctor? Select Number: 8 Medication: How confident are you that you can do things other than just taking medication to reduce how much your illness affects your everyday life? Select Number: 9 Total Score:: 8
[2020-01-29 13:03] VITALS: BP 124/62; BP 130/60; BMI 24.5
== END 2020-02-09 23:59 ==
LOC: CR 10:15
PROVIDERS: PCP Family Medicine; Referring Provider Internal Medicine Cardiovascular Disease; Visit Provider Internal Medicine Cardiovascular Disease
DX: I25.10 Atherosclerotic heart disease of native coronary artery without angina pectoris (principal); I21.4 Non-ST elevation (NSTEMI) myocardial infarction; Z95.5 Presence of coronary angioplasty implant and graft
CPT/HCPCS: 93798

== ENCOUNTER → 2020-02-14 12:44 | Outpatient (CLI) | payer MEDICARE, SELFPAY ==
[2020-01-10 10:38] VITALS: BMI 25.6
[2020-01-24 13:13] VITALS: BMI 24.3
[2020-01-29 13:03] VITALS: BMI 24.5
[2020-02-13 17:31] VITALS: BMI 24.3
--- NOTE | 2020-02-14 12:46 | ECHOD_ITS ---
Reason For Study: Arrhythmia Procedure This was a 2D Doppler, Color Flow transthoracic echocardiogram. Exam performed in department. Left Ventricle Normal LV size. Left ventricular systolic function is normal. The estimated ejection fraction is 60 %. Stage 2 diastolic dysfunction. No regional wall motion abnormalities noted. Right Ventricle Normal RV size. Normal systolic function. Atria Normal left atrium. Normal right atrium. Mitral Valve Normal mitral valve. Mild-Moderate (1-2+) eccentric mitral valve insufficiency. Tricuspid Valve Normal tricuspid valve. Mild to moderate (1-2+) tricuspid valve insufficiency. Pulmonary artery systolic pressure is 41 mmHg. Aortic Valve Trisinus/trileaflet aortic valve. Mild (1+) aortic valve insufficiency. Pulmonic Valve Normal pulmonic valve. Great Vessels Normal aortic root. The pulmonary artery is normal size. Normal inferior vena cava. Pericardium/Pleural No pericardial effusion. MMode/2D Measurements & Calculations LVIDd: 3.7 cm IVSd: 0.80 cm Ao root diam: 2.5 cm LVIDs: 2.4 cm LVPWd: 0.80 cm RVDd: 3.2 cm FS: 34.2 % LAV(MOD-bp): 42.6 ml LA A4 area: 17.5 cm2 LA dimension(2D): 3.8 cm LAV(MOD-bp) Indexed: 26.5 ml/m2 LAV(MOD-sp2): 33.7 ml LAV(MOD-sp4): 46.3 ml RA A4 area: 15.9 cm2 Doppler Measurements & Calculations MV E max sven: 102.0 cm/sec Lat Peak E' Sven: 7.4 cm/sec Med Peak E' Sven: 7.2 cm/sec MV A max sven: 90.7 cm/sec E/E' lat: 13.7 E/E' med: 14.1 MV E/A: 1.1 Ao V2 max: 133.8 cm/sec LV V1 max: 87.3 cm/sec PA V2 max: 76.9 cm/sec Ao max P.2 mmHg LV V1 max P.0 mmHg TR max sven: 306.4 cm/sec TR max P.6 mmHg Interpretation Summary Normal LV size. Left ventricular systolic function is normal. The estimated ejection fraction is 60 %. Stage 2 diastolic dysfunction. Mild to moderate (1-2+) tricuspid valve insufficiency. Compared to previous study, the left ventricular systolic function has improved.. Ordering Physician: Ed Blake Referring Physician: Renée Whitehead Performed By: Maria Luisa Gottlieb RDCS
== END ==
PROVIDERS: PCP Family Medicine; Referring Provider Internal Medicine Cardiovascular Disease; Visit Provider Internal Medicine Cardiovascular Disease
DX: I25.10 Atherosclerotic heart disease of native coronary artery without angina pectoris (principal)
CPT/HCPCS: 93225; 93226; 93306

== ENCOUNTER 2020-03-09 10:15 | Outpatient (RCR) | payer MEDICARE, SELFPAY ==
[2020-01-24 13:13] VITALS: BMI 24.3
[2020-01-29 13:03] VITALS: BMI 24.5
[2020-02-10 00:27] VITALS: BP 124/62; BP 130/60
--- NOTE | 2020-02-27 08:49 | CR.ITP_ITS ---
Exercise - Final/Discharge - Visit Date of Eval: 02/27/20 Session #:: 30 - Physician Prescribed Exercise Modalities: Treadmill, NuStep, SciFit Frequency: 3x/week for 12 weeks [36 sessions] Intensity: 60-80% of age predicted maximum heart rate reserve Current METSs:: 2.5 UNCHANGED Target Heart Rate:: 94-122 Current RPE:: 11-12 Maximum Excercise HR:: 73 Resting Blood Pressure: 144/70 Maximum Exercise Blood Pressure: 144/70 EKG Type: NSR with rare PVCs and PACs noted. - Outcomes & Goals Goals:: Verbalizes understanding of THR, RPE & goal METS by session 6, Documents in home exercise log/reports 30 min aerobic 5 day/wk by DC, Demonstrates accurate pulse taking by DC - Intervention & Plan Exercise Program Goals: Instruct on personal THR & RPE, Instruct on MET level & personal MET goal, Show patient to take own pulse /validate performance until accurate, Instruct on home exercise - 30-day Reassessments 30 day Reassessments:: Progressing - Physical Activity Home Exercise Physical Activity - Home Exercise: Safe Exercise, Warm-up, Self-monitoring, Cool-Down, Home Exercise > 30 min Daily, Sitting Time <3 hours/daily - Outcomes & Goals Outcomes/Goals: Demonstrates correct Warm-up/exercise Cool-Down (S3) if = 2.5 METs, Verbalizes symptoms of exercise intolerance by Session 3 (S3), Demonstrate safe equipment use (S3) & follows exercise prescrition (6) - Intervention & Plan Plan/Intervention: Instruct warm-up & cool-down if exercising at > 2 METs, Instruct on symptoms of exercise intolerance & actions to take, Instruct & monitor on saf, Assess intial functional capacity & safety risk - 30-day Reassessments 30 day Reassessments:: Progressing Nutrition - Final Assessment - Program Goals Nutrition Program Goals: LDL <100 optimal. 100 - 129 Near optimal. 130 - 159 Borderline High. 160 - 189 High. Total Cholesterol <200 desirable. 200 - 239 Borderline High. >/= 240 High. HDL < 40 Low >/=60 High. Triglycerides <150 desirable. <199 optimal. VlDL 5 - 40. HgbA1C <7%. BMI <25 Patient has diagnosis of Hyperlipidemia (ICD E78)?: Yes - Visit Date of Assessment:: 02/27/20 Session #:: 30 - Cholesterol/Lipids Determine presence & major risk factors that modify LDL goal: Hypertension or hypertensive medication, Age men > 45 years; women >/= 55 years Outcomes/Goals: Pt IDs own risk factors & lifestyle modifications by Session 10, Verbalizes symptoms of angina & response by session 3., Pt independently manages Intervention/Plan: Instruct on personal lipid levels & lipid goals/NCEP guideli jenny, Instruct on cholesterol Referral to dietitian:: No 30-day Reassessments:: Progressing - Diabetes (Other Core Measures) Diabetes Type: Diagnosis Type I ICD-10 E10 Insulin dependent injection/pump?: Yes Non-Insulin Dependent?: Yes Do you monitor your blood sugar at home?: Yes Referral to Diabetic Clinic:: No Outcomes/Goals:: Able to state symptoms of, Able to state, Able to state Intervention/Plan:: Instruct on, Refer to, Instruct on 30-day Reassessments:: Met - Weight Mgt (Other Care) Not Applicable: Yes Height: 5 ft 2 in Weight:: 139 lb BMI: 25.4 Diagnosis Overweight/Obesity BMI> 30% ICD-10 E66: No Diagnosis High BMI/Morbid Obesity BMI> 35% ICD-10 Z68: No Outcomes/Goals: Pt sets, maintains & shows weight loss goal & trend during rehab 30 day Reassessments:: Met - Healthy Eating Habits Will attend diet classes:: Yes Outcomes/Goals:: Consume diet rich in vegs,fruits,whole grain/high fiber,fish,lean meat, Limit sat/trans fats,cholesterol & added salts & sugars Intervention/Plan:: Assess current eating habits 30-day Reassessments:: Met - Education Gave educational materials for:: Signs & symptoms of hypoglycemia, Signs & symptoms of hyperglycemia, Relate diabetes to coronary artery disease, Healthy eating Medical - Final Assessment - Visit Date of Eval: 02/27/20 Session #:: 30 - Medication Compliance Preventative Medication(s):: Aspirin, BENEDICT inhibitor, Ticagrelor/P2Y12 inhibitor, Statin/lipid, Beta aarti H/O mental health issues: depression, anxiety, or addiction?: No Doesn?t believe in the benefits of treatment?: No Believes medications are unnecessary or harmful?: No Has a concern about medication side effects?: No Expresses concern over the cost of medications?: No Outcomes/Goals: Verbalizes medications,desired effect & common side effects @ DC, Pt self-reports following medication regimen, Keeps card in wallet w/medications listed by DC Interventions/plans: Instruct on medication effects & side effects, Review medication list w/patient every two weeks, Instruct importance of taking meds as ordered & assist problem solving 30-day Reassessments:: Met - Tobacco Use Tobacco Use: Non-smoker - Hypertension Hypertension Diagnosis:: Hypertension ICD-10 I10 Resting Blood Pressure:: 144/70 - uncontrolled [place] [employer] Hypertension Guidelines: [place] [employer] Hypertension Guidelines. Normal BP Less than 120/80. Elevated BP 120/80. Hypertension Stage 1: BP 130-139/80-89. Hypertesnion Stage 2: BP 140 or higher/90 or higher. Hypertension Crisis: BP higher than 180/120 Peak Exercise Blood Pressure:: 144/70 Outcomes/Goals: Able to verbalize/achieve optimal blood pressure <130/80, Incorporates diet changes & exercise for blood pressure control by DC Interventions/plan: Instruct on optimal blood pressure, hypertension & medications, Instruct on effects of sodium, alcohol, stress, exercise &hypertension 30 day Reassessments:: Progressing - Tobacco Cessation Referral Smoking Cessation Referral:: No Individual Education/Counseling:: No Education Schedule Given:: Yes Psychosocial - Final Assessmen - VIsit Date of Eval: 02/27/20 Session #:: 30 Not Applicable: Yes History of previous Mental disease:: No - Target Goals Target Goals: Assess presence or absence of depression. Using a valid screening tool, maximizes coping skills. Positive support system - Psychosocial Test Tool Used:: Frances Bang QOL Cardiac, PHQ-9 Questionnaire phq-9 Severity: Severity. 1-4 Minimal Depression. 5-9 Mild Depression. 10-14 Moderate Depression. 15-19 Moderately Sever Depression. 20-27 Severe Depression. Rule: - Referral to Behavioral Health PS - Interventions: Yes Attend Stress Management Classes, No Referral to Behavioral Health if PHQ-9 score >9:, No Referral to [facility], No Referral to Physician if PHQ-9 if score is 5-9: - Outcomes/Goals: See list Psychosocial Outcomes/Goals:: ID's personal stressors & 2 strategies to manage stress by discharge - Intervention/Plan: See List Interventions/Plan:: Assess stressors,coping strategies & signs of derpression on admission, Instruct/assist pt to develop coping & personal stress Mgt strategies, Instruct patient to recognize signs & symptoms of depression, Instruct patient to recog - 30-day Reassessments: 30 day Reassessments:: Met Patient Health Questionnaire Discharge Assessment 1. Little interest or pleasure in doing things: Several days 2. Feeling down, depressed, or hopeless: Not at all 3. Trouble falling or staying asleep, or sleeping too much: Not at all 4. Feeling tired or having little energy: Several days 5. Poor appetite or overeating: Not at all 6. Feeling bad about yourself -- or that you are a failure or have let yourself or your family down: Not at all 7. Trouble concentrating on things, such as reading the newspaper or watching television: Several days 8. Moving or speaking so slowly that other people could have noticed. Or the opposite - being so fidgety or restless that you have been moving around a lot more than usual: Not at all 9. Thoughts that you would be better off , or of hurting yourself in some way: Not at all How difficult have these problems made it for you to do your work, take care of things at home, or get along with other people?: Not difficult at all Total Score: 3 CRICKET-Q SV Test - Statements CAD is a disease of the arteries in the heart: False Examples of risk factors for heart disease: True Angina is chest pain or discomfort: True The benefits of resistance training include: True Eating more meat and dairy products: False Anti-platelet medications such as aspirin are important: True The only effective way to manage stress: False An exercise warm-up slowly increases heart rate: True Prepared, processed foods usually have high sodium: True Depression is common after a heart attack: True The statin medications lower cholesterol: True To control blood pressure, lower the amount of sodium: True If someone gets chest discomfort during walking: False Transfats are partially hydrogenated vegetable oils: True Sleep apnea that is not treated increases the risk: True To control cholesterol, one should become a vegetarian: False Someone knows if he/she is exercising at the right level: True Diabetes cannot be prevented with exercise & health eating: False Stress is a large risk for heart attack: True A diet that can help lower blood pressure is rich in: True - Total Score Total Correct Responses: 19 Self-Efficacy Discharge Assessment We would like to know how confident you are in doing certain activities. Please select your confidence level for:: Select your confidence level for the following using the scale 1-10 where 1 is not at all confident and 10 is totally confident. Your score is the average of all 6 responses. Fatigue: How confident are you that you can keep the fatigue caused by your disease from interfering with the things you want to do? Select Number: 8 Physical Discomfort or Pain: How confident are you that you can keep the physical discomfort or pain of your disease from interfering with the things you want to do? Select Number: 8 Emotional Distress: How confident are you that you can keep the emotional distress caused by your disease from interfering with the things you want to do? Select Number: 9 Other Symptoms or Health Problems: How confident are you that you can keep other symptoms or health problems from interfering with the things you want to do? Select Number: 9 Different Tasks and Activities: How confident are you that you can do the different tasks and activities needed to manage your health condition so as to reduce your need to see a doctor? Select Number: 9 Medication: How confident are you that you can do things other than just taking medication to reduce how much your illness affects your everyday life? Select Number: 9 Total Score:: 8 Nutrition Survey - Nutrition Survey Instructions Scoring Instructions: Scoring is as follows: Yes = 1 points. No = 0 point. Patient score that is >/=12 is considered to be at potential nutritional risk and could benefit from a referral to a registered dietitian. - Nutrition Survey Discharge Have you lost >10 lbs over the past 2 months without trying?: No Are you following a special diet at home for diabetes, low fat, or low salt?: No Are you interested in meeting with a dietitian for help understanding your diet?: No Do you eat less than 3 meals a day?: Yes Do you eat fatty meats (paige, sausage, ribs, etc), fried foods, desserts, large amounts of salad dressings, margarine, butter, or cheese most days?: No Do you have food allergies? [Enter types in comment field]: No Do you eat in restaurants more than 3 times a week?: No Do you season food with salt, seasoning salt, or garlic salt?: No Do you used canned, boxed, frozen meals, or soups, seasoning packets?: No Total Score:: 1
[2020-02-27 08:59] VITALS: BP 144/70; BMI 25.4
== END 2020-03-10 23:59 ==
LOC: CR 10:15
PROVIDERS: PCP Family Medicine; Referring Provider Internal Medicine Cardiovascular Disease; Visit Provider Internal Medicine Cardiovascular Disease
DX: I25.10 Atherosclerotic heart disease of native coronary artery without angina pectoris (principal); I21.4 Non-ST elevation (NSTEMI) myocardial infarction; Z95.5 Presence of coronary angioplasty implant and graft
CPT/HCPCS: 93798

== ENCOUNTER 2020-03-18 10:15 | Outpatient (RCR) | payer MEDICARE, SELFPAY ==
[2020-02-13 17:31] VITALS: BMI 24.3
[2020-02-27 08:59] VITALS: BMI 25.4
[2020-03-11 00:26] VITALS: BP 144/70
== END 2020-04-10 23:59 ==
LOC: CR 10:15
PROVIDERS: PCP Family Medicine; Referring Provider Internal Medicine Cardiovascular Disease; Visit Provider Internal Medicine Cardiovascular Disease
DX: I25.10 Atherosclerotic heart disease of native coronary artery without angina pectoris (principal); I21.4 Non-ST elevation (NSTEMI) myocardial infarction; Z95.5 Presence of coronary angioplasty implant and graft
CPT/HCPCS: 93798

== ENCOUNTER → 2020-06-15 10:42 | Outpatient (CLI) | payer MEDICARE, SELFPAY ==
[2020-02-27 08:59] VITALS: BMI 25.4
[2020-06-15 10:10] VITALS: BMI 24.3
[2020-06-15 13:04] LABS: ALB/GLOB Ratio 0.9 RATIO (0.9-2.4); AST(SGOT) 24 U/L (15-37); Alanine Aminotransfer ALT/SGPT 16 U/L (13-56); Albumin, Serum 3.8 g/dL (3.2-5.0); Alkaline Phosphatase 85 U/L (45-117); Anion Gap 4 (5-15); BUN 18 mg/dL (7-18); BUN/Creat Ratio 17.5 RATIO (10-20); Chloride 101 mmol/L (98-107); Cholesterol 179 mg/dL (200); Creatinine, Serum 1.03 mg/dL (0.55-1.02); EST Glomerular Filtration Rate 55 mL/min (>60); Est Glom Filt Rate - Afr Amer 67 mL/min (>60); Globulin 4.3 g/dL (2.2-4.2); Glucose 119 mg/dL (74-106); High Density Lipoprotein 75 mg/dL; Potassium 3.7 mmol/L (3.5-5.1); Protein, Total 8.1 g/dL (6.4-8.2); Sodium Level 138 mmol/L (136-145); T4 Free Direct 1.19 ng/dL (0.76-1.46); Thyroid Stim Hormone (TSH) 0.52 uIU/mL (0.358-3.74); Triglycerides 83 mg/dL; Very Low Density Lipoprotein 17 mg/dL (5-40)
== END ==
PROVIDERS: PCP Family Medicine; Visit Provider Internal Medicine Endocrinology, Diabetes & Metabolism
DX: E10.22 Type 1 diabetes mellitus with diabetic chronic kidney disease (principal); I12.9 Hypertensive chronic kidney disease with stage 1 through stage 4 chronic kidney disease, or unspecified chronic kidney disease; N18.30 Chronic kidney disease, stage 3 unspecified; E06.3 Autoimmune thyroiditis; E03.9 Hypothyroidism, unspecified; E78.2 Mixed hyperlipidemia
CPT/HCPCS: 36415; 80053; 80061; 84439; 84443

== ENCOUNTER → 2020-09-08 14:22 | Outpatient (CLI) | payer MEDICARE, SELFPAY ==
[2020-02-27 08:59] VITALS: BMI 25.4
[2020-08-13 13:46] VITALS: BMI 24.1
[2020-09-08 15:52] LABS: Anion Gap 2 (5-15); BUN 16 mg/dL (7-18); BUN/Creat Ratio 16.4 RATIO (10-20); Chloride 102 mmol/L (98-107); Creatinine, Serum 0.97 mg/dL (0.55-1.02); EST Glomerular Filtration Rate 59 mL/min (>60); Est Glom Filt Rate - Afr Amer 71 mL/min (>60); Glucose 163 mg/dL (74-106); Potassium 3.7 mmol/L (3.5-5.1); Sodium Level 138 mmol/L (136-145)
== END ==
PROVIDERS: PCP Family Medicine; Referring Provider Nurse Practitioner Family; Visit Provider Nurse Practitioner Family
DX: Z95.5 Presence of coronary angioplasty implant and graft (principal)
CPT/HCPCS: 36415; 80048

== ENCOUNTER 2020-09-10 17:40 | Emergency (ER) | payer MEDICARE, SELFPAY ==
[2020-02-27 08:59] VITALS: BMI 25.4
[2020-08-13 13:46] VITALS: BMI 24.1
[2020-09-10 17:40] VITALS: BP 205/94; PULSE 84; RESP 16; TEMP 36.1; O2SAT 99; BMI 24.1
[2020-09-10] MEDS: Gelatin Sponge Absorbable 50cm (1) 1 EACH TP (18:10)
--- NOTE | 2020-09-10 18:15 | ED.DCSUM_ITS ---
- ER Visit Summary Date of Service: 09/10/20 Chief Complaint: Bleeding from abdomen History of Present Illness: The patient is a 75 F who presents from bleeding from her abdomen that began today. Patient states she put a new diabetic sensor into her abdomen tonight. Patient states that it started bleeding and has not stopped yet. Patient states it is localized to the puncture wound in her left mid abdomen. Patient states nothing makes it better or worse. Patient states she is on Plavix and aspirin because of her previous [place]. Physical Examination: Vital signs are stable except for an elevated blood pressure of 205/94. Patient is afebrile. Patient is in no acute distress. Heart was regular rate and rhythm. Lungs are clear and equal bilaterally. Abdomen is soft. Bowel sounds are normal. There is no tenderness. There is no rebound or guarding noted. Skin is warm dry. There is a small puncture wound over the left mid abdomen. There is some bleeding noted. There is no tenderness. There is no ecchymosis noted. Cranial nerves II through XII are intact. There are no focal motor or sensory deficits noted. Emergency Department Course and Treatment: Gelfoam dressing was applied. Patient was still having persistent bleeding. The area was cleaned and anesthetized with 2% lidocaine with epinephrine. The bleeding slowed down after this. Another Gelfoam dressing was applied. ABD dressing was also applied. Patient was instructed to keep the wound clean and dry. Patient was instructed to follow-up with her primary care physician in 5 to 7 days. Patient understood and was agreeable with the plan. All questions were answered. Disposition: Discharge home Impression: 1. Abdominal bleeding This note was generated with [employer] dictation software. It may contain incorrect words, spelling, and punctuation that were not noted in review of the chart prior to signing ED Disposition - Plan for ED Patient: Disposition: Home or Assisted Living Diagnosis: Bleeding from wound Instructions: ED Wound Check (No Infection) Referrals: Renée Whitehead DO [Primary Care Provider] - 5-7 Days
[2020-09-10] MEDS: Lidocaine 2% /Epi 1:100 (20ml) 20 ML VIAL INFILT (18:56)
[2020-09-10 19:16] VITALS: BP 200/68; PULSE 65; RESP 15; O2SAT 98
--- NOTE | 2020-09-10 19:40 | NURSING ---
d/c vitals 200/68, 67. patient reports she hasn't had her evening dose of lisinopril. dr guo aware of bp. no new orders rcvd. ok to d/c patient home. patient reminded to take her lisinopril when she gets home
== END 2020-09-10 19:42 | disposition home or self-care (01) ==
PROVIDERS: Emergency Provider Emergency Medicine; PCP Family Medicine
DX: S31.139A Puncture wound of abdominal wall without foreign body, unspecified quadrant without penetration into peritoneal cavity, initial encounter (principal); Y84.8 Other medical procedures as the cause of abnormal reaction of the patient, or of later complication, without mention of misadventure at the time of the procedure; Y92.9 Unspecified place or not applicable; Y93.9 Activity, unspecified; Y99.9 Unspecified external cause status; E11.9 Type 2 diabetes mellitus without complications; I25.10 Atherosclerotic heart disease of native coronary artery without angina pectoris; G20 Parkinson's disease; R03.0 Elevated blood-pressure reading, without diagnosis of hypertension; Z79.4 Long term (current) use of insulin; Z79.02 Long term (current) use of antithrombotics/antiplatelets; Z79.82 Long term (current) use of aspirin; I25.2 Old myocardial infarction
CPT/HCPCS: 99282

== ENCOUNTER → 2020-09-15 09:36 | Outpatient (CLI) | payer MEDICARE, SELFPAY ==
[2020-02-27 08:59] VITALS: BMI 25.4
[2020-09-14 09:09] VITALS: BMI 23.8
[2020-09-15 10:15] LABS: Hemoglobin 11.1 g/dL (12.0-15.0); Mean Corp Hgb Conc 32.6 g/dL (32-36); Mean Corpuscular Hgb 32.5 pg (27.0-32.0); Mean Corpuscular Volume 99.4 fL (81-99); Mean Platelet Vol. 10.6 fl (6.2-12.0); Platelet Count 285 K/mm3 (150-450); RBC Distribution Width CV 14.9 % (11.6-14.6); RBC Distribution Width SD 53.6 fl (35.1-43.9); Red Blood Count 3.42 M/mm3 (4.2-5.4); White Blood Count 7.1 K/mm3 (4.4-11.0)
== END ==
PROVIDERS: PCP Family Medicine; Referring Provider Physician Assistant Medical; Visit Provider Physician Assistant Medical
DX: R58 Hemorrhage, not elsewhere classified (principal)
CPT/HCPCS: 36415; 85027

== ENCOUNTER → 2020-09-16 12:13 | Outpatient (CLI) | payer MEDICARE, SELFPAY ==
[2020-02-27 08:59] VITALS: BMI 25.4
[2020-09-14 09:09] VITALS: BMI 23.8
--- NOTE | 2020-09-16 12:15 | RAD_ITS ---
HISTORY: thoracic pain, lower no injury ADDITIONAL HISTORY: None provided. EXAMINATION/TECHNIQUE: XR Spine Thoracic 3 Views Number of images including paperwork: 2 COMPARISON: None FINDINGS: VERTEBRAE: No acute fracture. Mineralization appears decreased. VERTEBRAL ALIGNMENT: No traumatic subluxation. Approximate 12 of left convex thoracic scoliosis. DISKS AND JOINTS: Moderate to severe multilevel discogenic degenerative changes. SOFT TISSUES: Unremarkable paraspinous soft tissues. RAD/Thoracic Spine 3 Views IMPRESSION: 1. No acute findings. 2. Degenerative changes. at [id number] Reported and signed by: Sari Alvarez MD Electronically Signed: Sari Alvarez MD at 3:56 EST Tel , Service support ,
== END ==
PROVIDERS: PCP Family Medicine; Referring Provider Family Medicine; Visit Provider Family Medicine
DX: M54.6 Pain in thoracic spine (principal)
CPT/HCPCS: 72072

== ENCOUNTER → 2020-09-24 10:11 | Outpatient (CLI) | payer MEDICARE, SELFPAY ==
[2020-02-27 08:59] VITALS: BMI 25.4
[2020-09-14 09:09] VITALS: BMI 23.8
--- NOTE | 2020-09-24 10:24 | BD_ITS ---
STUDY: DUAL ENERGY X-RAY ABSORPTIOMETRY / DXA REASON FOR EXAM: Female, 75 years old. IS ARCHITECT -- HX OF HRT -- DIABETIC- ON INSULIN PUMP -- TAKES THYROID MEDICATION -- TAKES DIURETIC PRN -- DOES LITTLE EXERCISE -- FAMILY HX OF OSTEO -- STERLING OF 5 INCHES TECHNIQUE: Bone Mineral Density (BMD) measurements of lumbar spine and bilateral hips were obtained. COMPARISON: Comparison is made with prior examination dated 12/15/2016. FINDINGS: Lumbar Spine (L1-L4): g/cm2 (1.030) / T-score (-1.3) / Z-score (0.5) Findings are suggestive of osteopenia with a low fracture risk. Increased thoracic kyphosis. Left Femur Total: g/cm2 (0.697) / T-score (-2.5) / Z-score (-0.6) Left Femoral Neck: g/cm2 (0.683) / T-score (-2.6) / Z-score (-0.5) Right Femur Total: g/cm2 (0.692) / T-score (-2.5) / Z-score (-0.6) Right Femoral Neck: g/cm2 (0.682) / T-score (-2.6) / Z-score (-0.5) The T-Scores on the most recent prior examination were: Lumbar Spine (L1-L4): There has been worsening of bone density since the previous examination. Left Femur Total: which represents a worsening of 8.8%. Right Femur Total: which represents a worsening of 8.7%. BD/Dexa Bone Density Study IMPRESSION: The patient is considered osteoporotic as outlined below according to World Daniel Organization (WHO) criteria with a high fracture risk. There has been worsening of bone density since the previous examination. Reference Information: The T-score is the number of standard deviations above or below the standard which is normal for young adults at their peak bone mineral density. The World Health Organization (WHO) interprets the T-scores as follows: Above -1 Normal bone density Between -1 and -2.5 Osteopenia Equal to / or below -2.5 Osteoporosis As a practical clinical guideline, osteopenia may be graded as follows: Mild -1 through -1.5 Moderate -1.6 through -2.0 Severe -2.1 through -2.4 The Z-score is the number of standard deviations above or below age-matched controls. A Z-score of less than -1.5 would be considered abnormal. References: 1. NIH Osteoporosis and Related Bone Diseases www osteo.org 2. International Society for Clinical Densitometry www iscd.org 3. National Osteoporosis Foundation www nof.org Electronically Signed: Tucker Gillespie, at 13:01 EST , Service support ,
== END ==
PROVIDERS: PCP Family Medicine; Referring Provider Internal Medicine Endocrinology, Diabetes & Metabolism; Visit Provider Internal Medicine Endocrinology, Diabetes & Metabolism
DX: M81.0 Age-related osteoporosis without current pathological fracture (principal); M40.209 Unspecified kyphosis, site unspecified
CPT/HCPCS: 77080

== ENCOUNTER 2020-11-09 09:34 | Outpatient (RCR) | payer MEDICARE, SELFPAY ==
[2020-02-27 08:59] VITALS: BMI 25.4
[2020-09-14 09:09] VITALS: BMI 23.8
== END 2020-11-09 23:59 ==
LOC: IMMUN 09:34
PROVIDERS: PCP Family Medicine; Visit Provider Family Medicine
DX: Z23 Encounter for immunization (principal)
CPT/HCPCS: 0011A; 0012A

== ENCOUNTER → 2020-11-17 13:38 | Outpatient (CLI) | payer MEDICARE, SELFPAY ==
[2020-02-27 08:59] VITALS: BMI 25.4
[2020-09-14 09:09] VITALS: BMI 23.8
[2020-11-19 15:04] LABS: H.Pylori Breath Test Negative (Negative)
== END ==
PROVIDERS: PCP Family Medicine; Visit Provider Family Medicine
DX: R10.13 Epigastric pain (principal)
CPT/HCPCS: 83013

== ENCOUNTER → 2020-11-27 07:48 | Outpatient (CLI) | payer MEDICARE, SELFPAY ==
[2020-02-27 08:59] VITALS: BMI 25.4
[2020-09-14 09:09] VITALS: BMI 23.8
--- NOTE | 2020-11-27 07:53 | US_ITS ---
STUDY: ABDOMINAL ULTRASOUND REASON FOR EXAM: Female, 75 years old. LUQ PAIN TECHNIQUE: Transabdominal ultrasound was performed with real-time and static sanders scale imaging. TECHNICAL QUALITY: Adequate. COMPARISON: Comparison is made with prior study dated 09/18/2019. FINDINGS: Liver: The liver measures 14.1 cm. There is a mildly heterogeneous echogenicity of the liver. The bile ducts are within normal limits. There is hepatic color flow. The direction of portal flow is hepatopetal. There is no demonstrated mass lesion. Portal vein measurement: Gallbladder: Normal distended gallbladder. The gallbladder wall measures 2.4 mm. There is a negative sonographic Rollins''s sign. There is no pericholecystic fluid. There are multiple echogenic structures within the gallbladder, consistent with multiple gallstones. Common Bile Duct (C.B.D.): The common bile duct measures 3.8 mm. Pancreas: Normal size of the head, body and tail of the pancreas. There is increased echogenicity of the pancreas. There is no demonstrated pancreatic mass or cyst. Spleen: Normal size of the spleen. The spleen measures 9.3 cm x 3.7 cm x 3.9 cm. Right Kidney: Normal size of the right kidney. The right kidney measures 10.8 cm x 5.4 cm x 4.4 cm. Normal renal cortex. The right cortex measures 1.6 cm. There is a 1.6 cm x 1.7 cm x 10.8 cm cyst. There is no right hydronephrosis. Left Kidney: Normal size of the left kidney. The left kidney measures 10.2 cm x 5.1 cm x 3.6 cm. Normal renal cortex. The left cortex measures 1.5 cm. There is no demonstrated renal mass or cyst. There is no left hydronephrosis. Aorta: Calcified atherosclerotic plaques. I.V.C.: The IVC is patent. There is no ascites. US/Abdomen Complete IMPRESSION: Multiple gallstones. Mildly heterogeneous hepatic parenchyma. Electronically Signed: Tucker Gillespie MD at 14:49 EDT , Service support ,
== END ==
PROVIDERS: PCP Family Medicine; Referring Provider Family Medicine; Visit Provider Family Medicine
DX: R10.9 Unspecified abdominal pain (principal)
CPT/HCPCS: 76700

== ENCOUNTER 2020-12-25 06:20 | Day surgery (SDC) | payer MEDICARE, SELFPAY ==
[2020-02-27 08:59] VITALS: BMI 25.4
[2020-12-10 13:11] VITALS: BMI 24.4
[2020-12-25] VITALS (7 sets, daily range): BP systolic 127–179; BP diastolic 3–54; PULSE 56–59; RESP 16–18; TEMP 36.8–36.9; O2SAT 97–100; BMI 22.8
--- NOTE | 2020-12-25 06:00 | HP_ITS ---
Intake Intake Visit Reasons: 3 WK F/U EPIGATRIC PAIN Chief Complaint: LUQ/ epigastric pain Outsole Flexer Required: No Is patient in pain?: Yes (epigastric area) Allergies paroxetine [From Paxil] Allergy (Severe, Verified 12/11/20 12:58) Unknown Penicillins Allergy (Severe, Verified 12/11/20 12:58) Unknown amlodipine Adverse Reaction (Severe, Verified 12/11/20 12:58) Abdominal pain statins Allergy (Severe, Uncoded 12/11/20 12:58) Unknown strawberries Allergy (Severe, Uncoded 12/11/20 12:58) Unknown Medications Cholecalciferol (Vitamin D3) [Vitamin D3] 2,000 unit PO DAILY 04/06/17 [History Confirmed 12/11/20] Citalopram [Celexa] 20 mg PO DAILY 04/06/17 [History Confirmed 12/11/20] Gabapentin [Neurontin] 100 mg PO QHS 04/06/17 [History Confirmed 12/11/20] carbidopa 25 mg-levodopa 100 mg tablet 0.5 tab PO TID tab 10/22/18 [History Confirmed 12/11/20] mind works 1 tab PO DAILY 10/22/18 [History Confirmed 12/11/20] Aspirin [Aspirin, Baby] 81 mg PO DAILY@0800 #30 tab.chew 09/23/19 [Rx Confirmed 12/11/20] Lorazepam [Ativan] 0.5 mg PO Q12H PRN PRN #14 tab 10/01/19 [Rx Confirmed 12/11/20] optiflora jadon PO 02/13/20 [History Confirmed 12/11/20] omeprazole 20 mg tablet,delayed release 20 mg PO QHS #1 tab 05/29/20 [Rx Confirmed 12/11/20] clopidogrel 75 mg tablet 75 mg PO DAILY #90 tab 08/13/20 [Rx Confirmed 12/11/20] furosemide 40 mg tablet 40 mg PO DAILY PRN #1 tab 08/31/20 [Rx Confirmed 12/11/20] insulin aspart U-100 100 unit/mL subcutaneous solution See Rx Instructions SC QDAY #50 ml 09/14/20 [Rx Confirmed 12/11/20] Dexcom G6 Sensor See Rx Instructions .ROUTE .MEDSUPPLY #3 ea NS 09/22/20 [Rx Confirmed 12/11/20] Dexcom G6 Transmitter See Rx Instructions .ROUTE .MEDSUPPLY #1 ea NS 09/22/20 [Rx Confirmed 12/11/20] lisinopril 20 mg tablet 20 mg PO BID #180 tab 10/02/20 [Rx Confirmed 12/11/20] carvedilol 3.125 mg tablet 3.125 mg PO .COMPLEX #180 tab 11/23/20 [Rx Confirmed 12/11/20] carvedilol 6.25 mg tablet 6.25 mg PO .COMPLEX 11/23/20 [History Confirmed 12/11/20] lansoprazole 30 mg capsule,delayed release 30 mg PO DAILY cap 11/30/20 [History Confirmed 12/11/20] levothyroxine 88 mcg tablet 88 mcg PO DAILY #90 tab 12/10/20 [Rx Confirmed 12/11/20] [facility] Medical History Hypothyroidism (Chronic) Diabetes type 1, controlled (Chronic) Depression with anxiety (Chronic) Parkinsons (Chronic) NSTEMI (non-ST elevated myocardial infarction) (Resolved 09/14/19) Diabetes (Chronic) Atherosclerosis of coronary artery of [place] heart without angina pectoris (Chronic) Old anterior wall myocardial infarction (Chronic) Chronic systolic (congestive) heart failure (Resolved) Diastolic dysfunction (Chronic) Ischemic cardiomyopathy (Resolved) Paroxysmal atrial fibrillation (Chronic) Essential (primary) hypertension (Chronic) Hypothyroidism (acquired) (Chronic) Insulin pump titration (Chronic) Type 1 diabetes mellitus (Chronic) Presence of insulin pump (Chronic) 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 Shivam García MD) Smoking Status: Never smoker second hand exposure: No alcohol intake: never substance use type: does not use caffeine: No what type of physical activity do you participate in: none frequency: does not exercise HPI HPI HPI: KARLY LOPEZ, is a 75 F who presents to the office today for HPI HPI Surgical H&P: Yes HPI: KARLY LOPEZ, is a 75 F who presents to the office today for epigastric pain. The patient was started on a PPI 2 weeks ago but reports no improvement. She is still having epigastric and left upper quadrant pain. She says the pain worsens with eating. She is not having nausea or vomiting or right upper quadrant pain. The patient does have a history of gallstones as well but the pain does not seem to be coming from the gallbladder. ROS General General: No weight change or fatigue Cardio Cardiovascular: No murmur, pacemaker, heart disease, atrial fibrillation, high blood pressure, heart attack, heart stent, palpitations, shortness of breat with exertion or chest pain Psych Psychiatric: No depression or anxiety Resp Respiratory: No shortness of breath, No sleep apnea, No cough, No COPD, No asthma, No emphysema, No wheezing Gastro Gastrointestinal: Yes abdominal pain, No nausea or vomiting, No diarrhea, No constipation, No blood in stool, No acid reflux, No hemorrhoids, No ulcers, No gallbladder problem, No black,tarry stools Van Hematologic: No blood thinners Exam Const General: cooperative Orientation: alert, oriented x3 Resp Effort & Inspection: normal respiratory effort Auscultation: clear to auscultation bilaterally Cardio Rate: regular rate Rhythm: regular rhythm Heart Sounds: no murmurs GI Inspection: non-distended Palpation: soft, nontender Assessment & Plan Problems 1. Epigastric pain R10.13 Plan The patient is having continued epigastric and left upper quadrant pain. She has been on 2 weeks of PPI with no improvement. I recommended performing EGD. If the EGD was normal I will consider cholecystectomy as the patient does have gallstones as well but this would be atypical pain for biliary colic. 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 I explained endoscopy in detail to the patient. I explained the risks including but not limited to stroke or heart attack with anesthesia, perforation of the GI tract, bleeding, infection. I explained that any of these could necessitate further emergency surgery. The patient understands and all questions were answered sufficiently. The patient wishes to proceed with procedure. Shivam García MD Pager: [facility] [address] [place] [address], [address] [place] [address] Office: Orders Orders: EGD Today R10.13 Coding Level of Care Code Off vis,est,level 3 Diagnoses Epigastric pain R10.13 I have re-examined the patient. There are no clinical changes since date of exam.
[2020-12-25] MEDS: Lactated Ringers 1,000 ML 100 ML IV (07:05)
[2020-12-25 07:11] LABS: Bedside Glucose 164 mg/dL (70-110)
--- NOTE | 2020-12-25 07:30 | EGD_PTH ---
PATIENT: KARLY LOPEZ LOC: EN U#:[id number] AGE/SX: 75/F ROOM: RE12/25/[address]: Dr. Shivam García MD : 1945 BED: DIS: 12/25/2020 SPEC #: [id number] RECD: 12/25/20 10:37 STATUS: EMMANUEL ALLISON #: [id number] HAWK: 12/25/20 07:[address]: Shivam García DEPT: SURGICAL PATHOLOGY RECD BY: Pedro Pablo Thornton ENTERED: 12/25/20 13:22 SP TYPE: EGD BIOPSY OTHR DR: Dr. Renée Whitehead, DO Tissues: Gastric mucous membrane Procedures: Surgery Specimen Level IV HEADER OPERATION: EGD ([facility] – [place] PRE-OP DIAGNOSIS: Epigastric pain TISSUE SUBMITTED: Antrum biopsy for H. pylori and path MICROSCOPIC DIAGNOSIS Antrum biopsy: Mild to moderate gastritis. See microscopic description and comment. SJ:mary beth 12/28/2020 COMMENT The results of immunohistochemistry for Helicobacter pylori will be reported separately ([id number]). MICROSCOPIC DESCRIPTION Slides are reviewed. The specimen shows fragments of gastric mucosa with chronic inflammatory cell infiltrates in the lamina propria consisting of lymphocytes and plasma cells, consistent with mild to moderate chronic gastritis. GROSS DESCRIPTION Received in fixative is one container labeled with the patient's name and designated antrum biopsy. The specimen consists of two irregular fragments of light todd soft tissue that in aggregate measure 0.5 x 0.5 x 0.1 cm. The specimen is totally submitted in one cassette. / MICHELE:mary beth 12/25/20 TC:3 CPT: 86736
--- NOTE | 2020-12-25 07:30 | IMM_PTH ---
PATIENT: KARLY LOPEZ LOC: EN U#:[id number] AGE/SX: 75/F ROOM: RE12/25/[address]: Dr. Shivam García MD : 1945 BED: DIS: 12/25/2020 SPEC #: [id number] RECD: 12/25/20 13:49 STATUS: EMMANUEL RESuhas #: [id number] HAWK: 12/25/20 07:[address]: Shivam García DEPT: IMMUNOHISTOCHEMISTRY RECD BY: Joslyn Rodriguez ENTERED: 12/25/20 13:50 SP TYPE: IMMUNO OTHR DR: Dr. Renée Whitehead DO Tissues: Stomach, NOS Procedures: H Pylori (initial) PHYSICIAN & INSTITUTION [place] [id number] SPECIMEN INFORMATION: Tissue Source: Antrum biopsy Clinical Info: Epigastric pain Specimen Number: [id number] CPT code: 61412 METHODOLOGY: Deparaffinized sections of prefer/formalin-fixed tissue or PAP/DQ stained slides are incubated with monoclonal/polyclonal antibodies/oligonucleotide probes. Localization is made via biotin free immunoperoxidase method. Appropriate controls are performed and reacted as expected. Results on target cell population are indicated in the following table: RESULTS: ANTIBODY / CLONE RESULT H Pylori (polyclonal) negative These tests were developed and their performance characteristics determined by [facility]. They may not have been cleared or approved by the U.S. Food and Drug Administration. The FDA has determined that such clearance or approval is not necessary. INTERPRETATION: Antrum biopsy: Negative for Helicobacter pylori organisms. MICHELE:mary beth 12/28/2020
--- NOTE | 2020-12-25 07:44 | OP.EGD_ITS ---
Patient Name: Cesia Byrne Procedure Date: 12/25/2020 7:06 AM Date of : 1945 Age: 75 Procedure: Upper GI endoscopy Indications: Epigastric abdominal pain Providers: Shivam García MD Referring MD: Renée Whitehead Medicines: Monitored Anesthesia Care Patient Profile: This is a 75 year old female. Refer to note in patient chart for documentation of history and physical. Complications: No immediate complications. Estimated blood loss: Minimal. Procedure: Pre-Anesthesia Assessment: - Prior to the procedure, a History and Physical was performed, and patient medications and allergies were reviewed. The patient's tolerance of previous anesthesia was also reviewed. The risks and benefits of the procedure and the sedation options and risks were discussed with the patient. All questions were answered, and informed consent was obtained. Prior Anticoagulants: The patient has taken Plavix (clopidogrel), last dose was 5 days prior to procedure. After reviewing the risks and benefits, the patient was deemed in satisfactory condition to undergo the procedure. After obtaining informed consent, the endoscope was passed under direct vision. Throughout the procedure, the patient's blood pressure, pulse, and oxygen saturations were monitored continuously. The Endoscope was introduced through the mouth, and advanced to the second part of duodenum. The upper GI endoscopy was accomplished without difficulty. The patient tolerated the procedure well. Scope In: 7:36:00 AM Scope Out: 7:39:19 AM Total Procedure Duration Time 0 hours 3 minutes 19 seconds Findings: The esophagus was normal. The stomach was normal. The examined duodenum was normal. Biopsies were taken with a cold forceps in the gastric antrum for Helicobacter pylori testing. Impression: - Normal esophagus. - Normal stomach. - Normal examined duodenum. - Biopsies were taken with a cold forceps for Helicobacter pylori testing. Recommendation: - Discharge patient to home. - Resume previous diet. - Continue present medications. - Resume Plavix (clopidogrel) at prior dose tomorrow. - Await pathology results. - Return to my office in 1 week. Procedure Code(s): --- Professional --- 57433, Esophagogastroduodenoscopy, flexible, transoral; with biopsy, single or multiple Diagnosis Code(s): --- Professional --- R10.13, Epigastric pain CPT copyright 2017 [employer]. All rights reserved. The codes documented in this report are preliminary and upon air vice marshal review may be revised to meet current compliance requirements. Shivam García MD 12/25/2020 7:43:55 AM This report has been signed electronically. Number of Addenda: 0 Note Initiated On: 12/25/2020 7:06 AM
--- NOTE | 2020-12-25 07:44 | OP.CCLET_ITS ---
12/25/2020 Renée Whitehead [address] [place] [address] Re : Upper GI endoscopy procedure for Cesia Byrne Dear Dr. Whitehead This procedure was performed on Friday, December 25, 2020. My impressions and recommendations are as follows: Impressions : - Normal esophagus. - Normal stomach. - Normal examined duodenum. - Biopsies were taken with a cold forceps for Helicobacter pylori testing. Recommendations : - Discharge patient to home. - Resume previous diet. - Continue present medications. - Resume Plavix (clopidogrel) at prior dose tomorrow. - Await pathology results. - Return to my office in 1 week. My findings are described in the full procedure note, which is enclosed. If I can be of further assistance, please feel free to contact me at Doctor phone number(s): , Work: . Sincerely, Shivam García MD 12/25/2020 7:43:55 AM This report has been signed electronically.
== END 2020-12-25 08:40 | disposition home or self-care (01) ==
LOC: EN 06:20 → AC 06:22
PROVIDERS: PCP Family Medicine; Referring Provider Family Medicine; Visit Provider Surgery
PROC: 0DJ08ZZ Inspection of Upper Intestinal Tract, Via Natural or Artificial Opening Endoscopic (ICD-10-PCS; CPT 43235; principal; 2020-12-25 07:25)
DX: K29.50 Unspecified chronic gastritis without bleeding (principal); E10.22 Type 1 diabetes mellitus with diabetic chronic kidney disease; N18.30 Chronic kidney disease, stage 3 unspecified; I48.0 Paroxysmal atrial fibrillation; I25.10 Atherosclerotic heart disease of native coronary artery without angina pectoris; E78.00 Pure hypercholesterolemia, unspecified; E03.9 Hypothyroidism, unspecified; K21.9 Gastro-esophageal reflux disease without esophagitis; F32.9 Major depressive disorder, single episode, unspecified; F41.9 Anxiety disorder, unspecified; Z78.0 Asymptomatic menopausal state; Z96.41 Presence of insulin pump (external) (internal); Z79.82 Long term (current) use of aspirin; Z79.02 Long term (current) use of antithrombotics/antiplatelets; I25.2 Old myocardial infarction; Z95.5 Presence of coronary angioplasty implant and graft
CPT/HCPCS: 43239; 82962; 88305; 88342; J7120; J2405

== ENCOUNTER 2021-01-12 05:59 | Day surgery (SDC) | payer MEDICARE, SELFPAY ==
[2020-02-27 08:59] VITALS: BMI 25.4
--- NOTE | 2021-01-08 09:36 | EKG12_ITS ---
Test Reason : PREOP Blood Pressure : / mmHG Vent. Rate : 056 BPM Atrial Rate : 056 BPM P-R Int : 154 ms QRS Dur : 080 ms QT Int : 454 ms P-R-T Axes : 052 022 029 degrees QTc Int : 438 ms Sinus bradycardia Otherwise normal ECG Confirmed by KRISTOPHER HANKS, DANUTA ([id number]), sports editor TUNDE SAL ([id number]) on 01/11/2021 12:29:34 PM Referred By: Shivam García Confirmed By:DANUTA SUMMERS MD
[2021-01-08 11:14] LABS: Hematocrit 33.5 % (37-47); Hemoglobin 10.8 g/dL (12.0-15.0); Mean Corp Hgb Conc 32.2 g/dL (32-36); Mean Corpuscular Volume 99.4 fL (81-99); Platelet Count 289 K/mm3 (150-450); RBC Distribution Width CV 15.6 % (11.6-14.6); RBC Distribution Width SD 55.8 fl (35.1-43.9); Red Blood Count 3.37 M/mm3 (4.2-5.4); White Blood Count 7.2 K/mm3 (4.4-11.0)
[2021-01-08 11:58] LABS: Anion Gap 2 (5-15); BUN 21 mg/dL (7-18); BUN/Creat Ratio 22.1 RATIO (10-20); Calcium,Total 8.6 mg/dL (8.5-10.1); Chloride 103 mmol/L (98-107); Creatinine, Serum 0.95 mg/dL (0.55-1.02); EST Glomerular Filtration Rate 61 mL/min (>60); Est Glom Filt Rate - Afr Amer 73 mL/min (>60); Glucose 148 mg/dL (74-106); Potassium 3.8 mmol/L (3.5-5.1); Sodium Level 138 mmol/L (136-145)
[2021-01-12] VITALS (7 sets, daily range): BP systolic 132–194; BP diastolic 42–82; PULSE 51–65; RESP 16–18; TEMP 36.3–37.3; O2SAT 91–100; BMI 23.7
--- NOTE | 2021-01-12 | GALL_PTH ---
PATIENT: KARLY LOPEZ [place] [facility] [place][id number] AGE/SX: 76/F ROOM: RE01/12/[address]: Dr. Shivam García MD : 1945 BED: DIS: 01/12/2021 SPEC #: [id number] RECD: 01/12/21 11:08 STATUS: EMMANUEL ALLISON #: [id number] HAWK: 01/12/21 00:[address]: Shivam García DEPT: SURGICAL PATHOLOGY RECD BY: Elia Hoang ENTERED: 01/12/21 11:08 SP TYPE: HARSHA MCINTOSH DR: Dr. Renée Whitehead DO Tissues: Gallbladder, NOS Procedures: Surgery Specimen Level III HEADER OPERATION: Laparoscopic cholecystectomy with IOC PRE-OP DIAGNOSIS: Cholelithiasis TISSUE SUBMITTED: Gallbladder MICROSCOPIC DIAGNOSIS Gallbladder, cholecystectomy: Chronic cholecystitis and cholelithiasis. Focal dysplastic changes. SJ:mary beth 01/14/2021 COMMENT Case has been reviewed in consultation with Dr. Frias who concurs with the above diagnosis. IDC:AM MICROSCOPIC DESCRIPTION Slides are reviewed. GROSS DESCRIPTION Received is one container labeled with the patient's name and designated gallbladder. The specimen consists of a gallbladder measuring 7 cm in length and up to 3.5 cm in diameter. The external surface is pink-todd, smooth and glistening for the most part. Focally it is granular, hemorrhagic and contains cautery artifact. The gallbladder contains green-yellow mucoid bile and one large irregular black stone measuring 1.5 cm in greatest dimension. A few smaller black-brown stone fragments are also noted measuring in aggregate 0.6 x 0.2 x 0.1 cm. The mucosa is bile-stained and without any mass lesions. The gallbladder wall measures up to 0.2 cm in thickness. Credit Collections Analyst sections from the gallbladder and the cystic duct are submitted in one cassette. / MICHELE:mary beth 01/12/21 More sections are submitted in three more cassettes, 2-4. / MICHELE:mary beth 01/13/21 TC:5 CPT: 55497
--- NOTE | 2021-01-12 07:08 | HP.PCM_ITS ---
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 Is patient in pain?: No Allergies paroxetine [From Paxil] Allergy (Severe, Verified 01/01/21 09:55) Unknown Penicillins Allergy (Severe, Verified 01/01/21 09:55) Unknown amlodipine Adverse Reaction (Severe, Verified 01/01/21 09:55) Abdominal pain statins Allergy (Severe, Uncoded 01/01/21 09:55) Unknown strawberries Allergy (Severe, Uncoded 01/01/21 09:55) Unknown Medications Cholecalciferol (Vitamin D3) [Vitamin D3] 2,000 unit PO DAILY 04/06/17 [History Confirmed 01/01/21] Citalopram [Celexa] 20 mg PO DAILY 04/06/17 [History Confirmed 01/01/21] Gabapentin [Neurontin] 100 mg PO QHS 04/06/17 [History Confirmed 01/01/21] carbidopa 25 mg-levodopa 100 mg tablet 1 tablet PO TID tablet 10/22/18 [History Confirmed 01/01/21] mind works 1 tablet PO DAILY 10/22/18 [History Confirmed 01/01/21] Aspirin [Aspirin, Baby] 81 mg PO DAILY@0800 #30 tab.chew 09/23/19 [Rx Confirmed 01/01/21] Lorazepam [Ativan] 0.5 mg PO Q12H PRN PRN #14 tablet 10/01/19 [Rx Confirmed 01/01/21] clopidogrel 75 mg tablet 75 mg PO DAILY #90 tablet 08/13/20 [Rx Confirmed 01/01/21] insulin aspart U-100 100 unit/mL subcutaneous solution See Rx Instructions SC QDAY #50 ml 09/14/20 [Rx Confirmed 01/01/21] Dexcom G6 Sensor See Rx Instructions .ROUTE .MEDSUPPLY #3 each NS 09/22/20 [Rx Confirmed 01/01/21] Dexcom G6 Transmitter See Rx Instructions .ROUTE .MEDSUPPLY #1 each NS 09/22/20 [Rx Confirmed 01/01/21] carvedilol 3.125 mg tablet 3.125 mg PO .COMPLEX #180 tablet 11/23/20 [Rx Confirmed 01/01/21] carvedilol 6.25 mg tablet 6.25 mg PO .COMPLEX 11/23/20 [History Confirmed 01/01/21] lansoprazole 30 mg capsule,delayed release 30 mg PO DAILY cap 11/30/20 [History Confirmed 01/01/21] levothyroxine 88 mcg tablet 88 mcg PO DAILY #90 tablet 12/10/20 [Rx Confirmed 01/01/21] Furosemide 20 mg PO BID 12/18/20 [History Confirmed 01/01/21] Lactobacillus Acidophilus [Probiotic] 1 each PO DAILY 12/18/20 [History Confirmed 01/01/21] Omeprazole 20 mg PO PRN PRN #30 tablet 12/25/20 [Rx Confirmed 01/01/21] lisinopril 20 mg tablet 20 mg PO BID #180 tablet 12/29/20 [Rx Confirmed 01/01/21] [facility] Medical History Osteoporosis (Chronic) Hypothyroidism (Chronic) Diabetes type 1, controlled (Chronic) Depression with anxiety (Chronic) Parkinsons (Chronic) NSTEMI (non-ST elevated myocardial infarction) (Resolved 09/14/19) Diabetes (Chronic) Atherosclerosis of coronary artery of [place] heart without angina pectoris (Chronic) Old anterior wall myocardial infarction (Chronic) Chronic systolic (congestive) heart failure (Resolved) Diastolic dysfunction (Chronic) Ischemic cardiomyopathy (Resolved) Paroxysmal atrial fibrillation (Chronic) Essential (primary) hypertension (Chronic) Hypothyroidism (acquired) (Chronic) Insulin pump titration (Chronic) Type 1 diabetes mellitus (Chronic) Presence of insulin pump (Chronic) 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 Shivam García MD) Smoking Status: Never smoker second hand exposure: No alcohol intake: never substance use type: does not use caffeine: No what type of physical activity do you participate in: none frequency: does not exercise HPI HPI HPI: KARLY LOPEZ, is a 75 F who presents to the office today for HPI HPI Surgical H&P: Yes HPI: KARLY LOPEZ, is a 75 F who presents to the office today for post annual left upper quadrant pain. The patient recently had EGD which was normal. The patient has been on a PPI with no improvement. ROS General General: No weight change or fatigue Cardio Cardiovascular: No murmur, pacemaker, heart disease, atrial fibrillation, high blood pressure, heart attack, heart stent, palpitations, shortness of breat with exertion or chest pain Psych Psychiatric: No depression or anxiety Resp Respiratory: No shortness of breath, No sleep apnea, No cough, No COPD, No ast hma, No emphysema, No wheezing Gastro Gastrointestinal: Yes abdominal pain, No nausea or vomiting, No diarrhea, No constipation, No blood in stool, No acid reflux, No hemorrhoids, No ulcers, No gallbladder problem, No black,tarry stools Van Hematologic: No blood thinners Exam Const General: cooperative Orientation: alert, oriented x3 Resp Effort & Inspection: normal respiratory effort Auscultation: clear to auscultation bilaterally Cardio Rate: regular rate Rhythm: regular rhythm Heart Sounds: no murmurs GI Inspection: non-distended Palpation: soft, nontender Assessment & Plan Problems 1. Calculus of gallbladder without cholecystitis without obstruction K80.20 2. Biliary colic K80.50 Plan The patient is still having ongoing left upper quadrant pain. EGD was normal with no ulceration. She has been on a trial of PPI with no improvement. At this time I believe that her cholelithiasis may be the cause of her pain. She does have cholelithiasis on ultrasound of the gallbladder. I did recommend laparoscopic cholecystectomy but I did advise her that I could not be guarantee that this would stop her pain. Patient will hold her Plavix for 5 days prior to procedure. I discussed the procedure in detail with the patient. I discussed the risks, benefits, and alternatives of the procedure. I discussed the risks including but not limited to bleeding, infection, injury to surrounding organs such as the liver, bile duct, bowels. I did discuss the possibility of having to convert to an open procedure as well as the possibility that if any injuries occurred this may necessitate further surgery at a tertiary care center. Shivam García MD Pager: [facility] [address], [address] [place] [address] Office: I have re-examined the patient. There are no clinical changes since date of exam. Assessment & Plan Assessment/Plan (1) Cholelithiasis: Status: Acute Code(s): K80.20 - Calculus of gallbladder without cholecystitis without obstruction Qualifiers: Cholelithiasis location: gallbladder Cholecystitis presence: without ch olecystitis Biliary obstruction: without biliary obstruction Qualified Code(s): K80.20 - Calculus of gallbladder without cholecystitis without obstr uction
[2021-01-12] MEDS: Lactated Ringers 1,000 ML 100 ML IV (07:10)
[2021-01-12 07:40] LABS: Bedside Glucose 241 mg/dL (70-110)
--- NOTE | 2021-01-12 07:50 | RAD_ITS ---
STUDY: INTRAOPERATIVE CHOLANGIOGRAPHY. REASON FOR EXAM: Female, 76 years old. LAPAROSCOPIC, CHOLECYSTECTOMY WITH IOC FLUOROSCOPY TIME (if supplied): ( 8 seconds ) minutes/seconds. A single loop of 50 images was submitted. TECHNIQUE: Intraoperative glandular was performed by the surgeon. Imaging was performed. COMPARISON: None. FINDINGS: The intra and extra hepatic biliary ducts are unremarkable. The common bile duct is not dilated. No intraluminal filling defect is seen. There is free flow of contrast into the duodenum. RAD/Cholangiogram/ O R,Initial IMPRESSION: Unremarkable intraoperative glandular. Electronically Signed: Tucker Gillespie MD at 9:04 EDT , Service support ,
[2021-01-12] MEDS: Bupiv/Epi 0.25% 30 ML Vial (08:26)
--- NOTE | 2021-01-12 08:33 | OP.PCM_ITS ---
Problems Associated Problem List Diagnoses (1) Cholelithiasis: Report of Operation Date of Procedure: 01/12/21 Pre-Operative Diagnosis: Cholelithiasis and right upper quadrant pain Post-Operative Diagnosis: Same Surgery/Procedure Performed:: Laparoscopic cholecystectomy with cholangiogram Description of Procedure: After obtaining informed consent patient was brought back to the operating room. General anesthesia was induced. The abdomen was prepped and draped in usual sterile fashion. A small midline incision was made superior to the umbilicus and deepened to the level of fascia. The fascia was elevated and incised. Next the peritoneum was elevated and incised in the same fashion. Finger sweep was performed and the Sainz trocar was placed into the abdomen. The balloon was inflated. The abdomen was inflated to 15 mmHg. Next a camera was introduced into the abdomen and the abdomen was inspected. Next under direct visualization three 5-mm ports were placed one subxiphoid and 2 subcostal. The gallbladder was tightly adherent to the colon and duodenum. The adhesions between the colon and duodenum and gallbladder were lysed with a combination of sharp and electrocautery dissection. Next the gallbladder was elevated and retracted toward the right shoulder. The peritoneum was stripped from the gallbladder. The infundibulum was located and retracted laterally. Next the triangle of Calot was dissected and the cystic duct and cystic artery were identified. Cholangiograms were performed. The Muse clamp was used to clamp across the infundibulum and the catheter needle was inserted into the gallbladder. Under fluoroscopy contrast was instilled into the gallbladder and the common duct, cystic duct as well as proximal hepatic ducts were identified. There was good filling of the duodenum. There were no filling defects noted in the common bile duct. The clamp was removed as well as the needle and the infundibulum was grasped once more. Three hemolock clips were placed across the cystic duct. The cystic duct was then divided leaving 2 clips on the stump. The cystic artery was clipped and divided in the same fashion. The hook cautery was then used to take the gallbladder off of the gallbladder bed. Hemostasis was obtained. Gallbladder fossa was irrigated and no active bleeding or bile leakage was noted. Next the camera was introduced in the subxiphoid port. An Endopouch bag was placed through the umbilical port and the gallbladder was placed into it. The gallbladder was then removed through the umbilical incision. The camera was then reinserted through the umbilical port. The gallbladder fossa was inspected once more and noted to be hemostatic with no leaking bile. The abdomen was suctioned dry. The 5 mm ports were removed under direct visualization. The umbilical port was then removed and the air was removed from the abdomen. Next using an 0 Vicryl suture the umbilical fascia was closed in a [id number] fashion. The umbilical port site was irrigated local anesthetic was administered to all the incisions. All the incisions were closed with interrupted subcuticular 4-0 Monocryl sutures followed by Steri-Stri ps and dressings. The patient was awoken and taken to PACU in stable condition. Admit VTE Documentation VTE Mechan Device Prophylaxis: SCD's
--- NOTE | 2021-01-12 08:36 | EX.PCM.DISCH ---
Discharge Instructions Outpatient Procedure Reason For Visit: RADHA FERMIN W IOC Procedure: Gallbladder Diet Discharge Diet: Light diet - advance as tolerated Activity Discharge Activity: May Not Drive (for 2-3 days or while taking narcotic pain medications.) and - (Do not drive, work heavy equipment or sign legal documents for 24 hours.) May shower in (days): 1 Lifting Restrictions: 20 lbs for 2 weeks Additional Activity Instructions:: Pain medication may cause nausea. You should typically eat light foods as you take your pain medications. Pain medication may also cause constipation. If this is a problem for you, please discuss with your doctor. Dressing / Incision Call your doctor if your incision/area has: Continuous Slow Oozing, Sudden Increased Bleeding, Increased Pain/ Swelling, Increased Redness, Foul Smelling Discharge and Swelling at the incision site Call your doctor if you observe: Fever of 101 or Higher Suture Line Care: Avoid Pulling/Pushing and Avoid Pinching/Bending Cleanse incision/area with: Soap & Water Additional Dressing/Incision Instructions:: Leave operative bandaids on for 2 days. When you remove dressing, leave Steri-Strips on until your follow-up appointment, or until the Steri-Strips fall off on their own. Follow Up Care Please Follow Up With: Shivam García MD When: Please call to schedule 2 week follow up appointment. [phone] Discharge Plan Admission Primary Reason for Your Visit: Gallbladder surgery Attending Provider: Shivam García Primary Care Provider: Renée Whitehead Instructions Additional Instructions / Restrictions: Resume Plavix tomorrow. Discharge Orders/Prescriptions Prescriptions: New oxycodone-acetaminophen [Endocet] 5-325 mg tablet 1 - 2 tab PO Q6H PRN (Reason: pain) 5 Days Qty: 20 RF: 0 Continued carbidopa-levodopa [Sinemet] 25-100 mg tablet 1 tablet PO TID RF: 0 mind works 1 tablet PO DAILY RF: 0 clopidogrel [Plavix] 75 mg tablet 75 mg PO DAILY Qty: 90 RF: 3 Novolog U-100 Insulin aspart 100 unit/mL solution See Rx Instructions SC QDAY Qty: 50 RF: 3 levothyroxine 88 mcg tablet 88 mcg PO DAILY Qty: 90 RF: 1 Hold Instructions: Duplicate Order lansoprazole 30 mg capsule,delayed release(DR/EC) 20 mg PO DAILY RF: 0 citalopram 20 MG tablet 20 mg PO DAILY RF: 0 gabapentin 100 MG capsule 100 mg PO QHS RF: 0 cholecalciferol (vitamin D3) 2,000 UNIT capsule 2,000 unit PO DAILY RF: 0 aspirin 81 MG tablet,chewable 81 mg PO DAILY@0800 Qty: 30 RF: 1 lorazepam 0.5 MG tablet 0.5 mg PO Q12H PRN PRN (Reason: severe anxiety) Qty: 14 RF: 0 Lactobacillus acidophilus 1 EACH capsule 1 each PO DAILY RF: 0 omeprazole 20 MG tablet,delayed release (DR/EC) 20 mg PO PRN PRN (Reason: GERD) Qty: 30 RF: 0 (DME) Dexcom G6 Sensor Device See Rx Instructions .ROUTE .MEDSUPPLY Qty: 3 RF: 12 (DME) Dexcom G6 Transmitter Device See Rx Instructions .ROUTE .MEDSUPPLY Qty: 1 RF: 3 carvedilol [Coreg] 3.125 mg tablet 3.125 mg PO .COMPLEX Qty: 180 RF: 3 carvedilol 6.25 mg tablet 6.25 mg PO .COMPLEX RF: 0 lisinopril 20 mg tablet 20 mg PO BID Qty: 180 RF: 3 Referrals: Renée Whitehead DO [Primary Care Provider] - Disposition Disposition (needs filled in before D/C Order can be placed): Home, self care
[2021-01-12 09:06] LABS: Bedside Glucose 270 mg/dL (70-110)
== END 2021-01-12 11:45 | disposition home or self-care (01) ==
LOC: SDC 06:00 → AC 06:03
PROVIDERS: Anesthesiology; PCP Family Medicine; Referring Provider Surgery; Visit Provider Surgery
PROC: (CPT 47610; principal; 2021-01-12 07:10)
DX: K80.10 Calculus of gallbladder with chronic cholecystitis without obstruction (principal); E10.22 Type 1 diabetes mellitus with diabetic chronic kidney disease; I12.9 Hypertensive chronic kidney disease with stage 1 through stage 4 chronic kidney disease, or unspecified chronic kidney disease; N18.30 Chronic kidney disease, stage 3 unspecified; G20 Parkinson's disease; I48.0 Paroxysmal atrial fibrillation; I25.10 Atherosclerotic heart disease of native coronary artery without angina pectoris; E03.9 Hypothyroidism, unspecified; M81.0 Age-related osteoporosis without current pathological fracture; F32.9 Major depressive disorder, single episode, unspecified; F41.9 Anxiety disorder, unspecified; Z79.02 Long term (current) use of antithrombotics/antiplatelets; Z79.82 Long term (current) use of aspirin; Z79.890 Hormone replacement therapy; Z79.4 Long term (current) use of insulin; Z79.899 Other long term (current) drug therapy; I25.2 Old myocardial infarction; Z96.41 Presence of insulin pump (external) (internal); Z95.5 Presence of coronary angioplasty implant and graft
CPT/HCPCS: 00790; 47563; 36415; 74300; 76000; 80048; 82962; 84443; 85027; 88304; 93005; J7120; J2405

== ENCOUNTER 2021-01-23 21:44 | Emergency (ER) | payer MEDICARE, SELFPAY ==
[2020-02-27 08:59] VITALS: BMI 25.4
[2021-01-12 06:58] VITALS: BMI 23.7
[2021-01-23 21:44] VITALS: BP 203/77; PULSE 61; RESP 18; TEMP 36.4; O2SAT 99; BMI 23.2
--- NOTE | 2021-01-23 22:13 | CT_ITS ---
STUDY: CT BRAIN WITHOUT CONTRAST REASON FOR EXAM: Female, 76 years old. headache RADIATION DOSAGE (If Supplied By Facility): CTDIvol = ( 44.99 ) mGy, DLP = ( 779.24 ) mGycm TECHNIQUE: Transaxial CT imaging of the brain was performed without administration of intravenous contrast material. Individualized dose optimization techniques were used for this CT. COMPARISON: No relevant priors. FINDINGS: Normal soft tissue structures. Normal calvarium. Normal size ventricles and extra-axial spaces for the patient''s age. Normal white matter tracts of the cerebral hemispheres. Normal basal ganglia and thalami. Normal brainstem. Normal cerebellum. There is no intracranial hemorrhage. There are no findings of an acute ischemic infarction. Normal visualized paranasal sinuses. Mastoid air cells well aerated. CT/Brain/Head without Contrast IMPRESSION: Normal unenhanced CT scan of the brain. Electronically Signed: Deshawn Roberts MD at 0:48 EDT , Service support ,
--- NOTE | 2021-01-23 22:15 | EX.ED.DYSGE1 ---
HPI History of Present Illness Chief Complaint: Headache Narrative Narrative: Patient presents with headache. She stated approximately a couple hours ago she developed a headache after getting out of shower. Left-sided. It is a throbbing aching. Current severity is mild to moderate. It was more severe before taking headache. She does not normally get headaches. She is on a baby aspirin without any other blood thinners. Worsened by nothing. Relieved by Tylenol. History of hypertension on lisinopril and Lasix. Has not missed any doses. Blood pressure on arrival over 200. Normally she runs 130. She had gallbladder surgery a week ago without complication per patient. [facility] Medical History Anxiety Atherosclerosis of coronary artery of [place] heart without angina pectoris Back pain Back problem Chronic systolic (congestive) heart failure Depression Depression with anxiety Diabetes Diabetes type 1, controlled Diastolic dysfunction Essential (primary) hypertension Heartburn Hx of cardiovascular stress test (~04/02/17) Hx of echocardiogram (~02/14/20) Hypothyroidism Hypothyroidism (acquired) Insulin pump titration Ischemic cardiomyopathy Measles Mumps NSTEMI (non-ST elevated myocardial infarction) (09/14/19) Old anterior wall myocardial infarction Osteoporosis Parkinsons Paroxysmal atrial fibrillation Presence of insulin pump Restless legs 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 Type 1 diabetes mellitus Home Medications cholecalciferol (vitamin D3) 2,000 unit PO DAILY 04/06/17 [History Last Taken 09/28/19] citalopram 20 mg PO DAILY 04/06/17 [History Last Taken 09/28/19] gabapentin 100 mg PO QHS 04/06/17 [History Last Taken 09/27/19] carbidopa 25 mg-levodopa 100 mg tablet 1 tablet PO TID tablet 10/22/18 [History Last Taken 01/12/21] mind works 1 tablet PO DAILY 10/22/18 [History Last Taken 09/28/19] aspirin 81 mg PO DAILY@0800 #30 tab.chew 09/23/19 [Rx Last Taken 09/28/19] lorazepam 0.5 mg PO Q12H PRN PRN #14 tablet 10/01/19 [Rx Last Taken Unknown] clopidogrel 75 mg tablet 75 mg PO DAILY #90 tablet 08/13/20 [Rx Last Taken Unknown] insulin aspart U-100 100 unit/mL subcutaneous solution See Rx Instructions SC QDAY #50 ml 09/14/20 [Rx Last Taken Unknown] Dexcom G6 Sensor #3 each NS 09/22/20 [Rx Last Taken Unknown] Dexcom G6 Transmitter #1 each NS 09/22/20 [Rx Last Taken Unknown] lansoprazole 30 mg capsule,delayed release 20 mg PO DAILY cap 11/30/20 [History Last Taken Unknown] levothyroxine 88 mcg tablet 88 mcg PO DAILY #90 tablet 12/10/20 [Rx Last Taken 01/12/21] Lactobacillus acidophilus 1 each PO DAILY 12/18/20 [History Last Taken Unknown] omeprazole 20 mg PO PRN PRN #30 tablet 12/25/20 [Rx Last Taken Unknown] lisinopril 20 mg tablet 20 mg PO BID #180 tablet 12/29/20 [Rx Last Taken 01/12/21] oxycodone-acetaminophen [Endocet] 1 - 2 tab PO Q6H PRN 5 Days #20 tab 01/12/21 [Rx Last Taken Unknown] carvedilol 3.125 mg tablet 3.125 mg PO .COMPLEX #90 tab 01/21/21 [Rx Last Taken Unknown] carvedilol 6.25 mg tablet 6.25 mg PO .COMPLEX #90 tab 01/21/21 [Rx Last Taken Unknown] prednisone 50 mg PO DAILY #14 tab 01/24/21 [Rx Last Taken Unknown] Allergy/AdvReac Type Severity Reaction Status Date / Time paroxetine [From Paxil] Allergy Severe Unknown Verified 01/23/21 21:47 Penicillins Allergy Severe Unknown Verified 01/23/21 21:47 amlodipine AdvReac Severe Abdominal Verified 01/23/21 21:47 pain statins Allergy Severe Unknown Uncoded 01/23/21 21:47 strawberries Allergy Severe Unknown Uncoded 01/23/21 21:47 Family History Mother CVA (cerebral vascular accident) Dementia Sister Hypertension Diabetes Brother Heart disease Diabetes Daughter Diabetes Surgical History History of cataract surgery History of coronary artery stent placement (09/14/19) History of partial hysterectomy S/P cholecystectomy S/P LASIK surgery of both eyes Social History Smoking Status: Never smoker second hand exposure: No alcohol intake: never substance use type: does not use caffeine: No what type of physical activity do you participate in: none frequency: does not exercise ROS ROS ED ROS Narrative ROS General: Denies fever, chills, sweats Eyes: Denies visual changes, blurred vision, double vision ENT: Denies ear pain, rhinorrhea, sore throat Cardiovascular: Denies chest pain, palpitations, heart racing Respiratory: Denies dyspnea, cough, sputum, dyspnea on exertion, orthopnea,PND GI: Denies abdominal pain, nausea, vomiting, diarrhea, constipation, melena : Denies dysuria, hematuria, frequency Musculoskeletal: Denies myalgias, arthralgias, neck pain, back pain Skin: Denies rash, abscess, abrasions Neuro: See HPI Psych: Denies depression, anxiety Endo: Denies polyuria, polydipsia, polyphagia Heme: Denies easy bruising, easy bleeding, lymphadenopathy Allergy: Denies hives, swelling EXAM Physical Exam Narrative Exam Narrative: Vital signs reviewed General: Well-nourished well-developed Head: Normocephalic atraumatic. Tenderness to palpation left temporal artery. Eyes: Pupils equal round and reactive to light extraocular movements intact. No evidence of mid dilated pupil. Pupil moves normally. No steamy cornea. ENT: TMs clear no hemotympanum no trauma Neck: Nontender full range of motion Cardiovascular: Regular rate rhythm no murmurs normal S1-S2 Respiratory: No distress clear to auscultation bilaterally chest nontender Abdomen: Soft nontender nondistended normal bowel sounds no masses Back: Nontender no CVA tenderness Extremities: Nontender active range of motion ?4 extremities no trauma Skin: Normal color no trauma Neuro alert oriented cranial nerves II through XII intact normal strength sensation reflexes Const Vital Signs: 01/23/21 21:44 01/24/21 00:07 01/24/21 00:56 Temperature 97.5 F L Temperature Source Temporal Pulse Rate 61 73 71 Respiratory Rate 18 18 16 Blood Pressure 203/77 H 209/73 H 188/72 H Blood Pressure Mean 119 118 110 Pulse Ox 99 97 96 Oxygen Delivery Method Room Air Room Air Room Air 01/24/21 01:45 01/24/21 02:12 01/24/21 02:28 Temperature Temperature Source Pulse Rate 63 Respiratory Rate 16 Blood Pressure 184/70 H 171/68 H 177/62 H Blood Pressure Mean 108 102 100 Pulse Ox 96 Oxygen Delivery Method Room Air 01/24/21 02:33 Temperature Temperature Source Pulse Rate Respiratory Rate Blood Pressure 176/69 H Blood Pressure Mean 104 Pulse Ox Oxygen Delivery Method MDM MDM MDM Narrative Medical decision making narrative: At this point I think the patient has a temporal arteritis. Lab work obtained. Given dose of prednisone. Blood pressure repeat after arrival was in the 170s. Patient placed on residential monitor and will be monitored. CT head obtained. CT head showed nothing acute. Lab work shows a CRP of 3.5. ESR is normal. I suspect the patient has temporal arteritis given the fact she does have elevated CRP. CBC shows a mild chronic anemia. Metabolic panel unremarkable. Patient was given 2 doses of hydralazine. Repeat blood pressure 159/59. Patient's headache is almost completely resolved after treatment with prednisone. She did not need any further pain control. She will take Tylenol home. I do not think she needs to be admitted. She will be given prednisone for home. She is going to follow-up with Dr. Harris for outpatient follow-up. She will likely need a biopsy of her temporal artery. Lab Data Labs: Laboratory Results - last 24 hr 01/23/21 01/23/21 22:31 22:31 WBC 10.0 RBC 3.31 L Hgb 10.5 L Hct 32.4 L MCV 97.9 MCH 31.7 MCHC 32.4 RDW Std Deviation 55.7 H RDW Coeff of Stephane 15.6 H Plt Count 328 MPV 11.1 Immature Gran % (Auto) 0.500 Neut % (Auto) 66.0 Lymph % (Auto) 14.6 L [place] % (Auto) 11.2 H Eos % (Auto) 7.0 H Baso % (Auto) 0.7 Absolute Neuts (auto) 6.6 Absolute Lymphs (auto) 1.46 Nucleated RBC % 0 ESR 14 Sodium 138 Potassium 4.0 Chloride 103 Carbon Dioxide 32.0 Anion Gap 3 L BUN 25 H Creatinine 0.97 Estim Creat Clear Calc 37.80 Est GFR (MDRD) Af Amer 71 Est GFR (MDRD) Non-Af 59 L BUN/Creatinine Ratio 25.8 H Glucose 95 Calcium 8.9 C-React Prot Ext Range 3.57 H Radiography Diagnostic Testing: Radiology Impression Brain CT 01/23/21 22:13 IMPRESSION: Normal unenhanced CT scan of the brain. Electronically Signed: Deshawn Roberts MD at 0:48 EDT , Service support , Discharge Plan Triage Chief Complaint: Headache ED Provider: Gilmer Leon Dx/Rx/DC Orders Clinical Impression: TA (temporal arteritis), Hypertension Instructions: ED Temporal Arteritis Prescriptions: New prednisone 50 mg tablet 50 mg PO DAILY Qty: 14 RF: 0 No Action carbidopa-levodopa [Sinemet] 25-100 mg tablet 1 tablet PO TID RF: 0 mind works 1 tablet PO DAILY RF: 0 clopidogrel [Plavix] 75 mg tablet 75 mg PO DAILY Qty: 90 RF: 3 Novolog U-100 Insulin aspart 100 unit/mL solution See Rx Instructions SC QDAY Qty: 50 RF: 3 levothyroxine 88 mcg tablet 88 mcg PO DAILY Qty: 90 RF: 1 Hold Instructions: Duplicate Order lansoprazole 30 mg capsule,delayed release(DR/EC) 20 mg PO DAILY RF: 0 citalopram 20 MG tablet 20 mg PO DAILY RF: 0 gabapentin 100 MG capsule 100 mg PO QHS RF: 0 cholecalciferol (vitamin D3) 2,000 UNIT capsule 2,000 unit PO DAILY RF: 0 aspirin 81 MG tablet,chewable 81 mg PO DAILY@0800 Qty: 30 RF: 1 lorazepam 0.5 MG tablet 0.5 mg PO Q12H PRN PRN (Reason: severe anxiety) Qty: 14 RF: 0 Lactobacillus acidophilus 1 EACH capsule 1 each PO DAILY RF: 0 omeprazole 20 MG tablet,delayed release (DR/EC) 20 mg PO PRN PRN (Reason: GERD) Qty: 30 RF: 0 oxycodone-acetaminophen [Endocet] 5-325 mg tablet 1 - 2 tab PO Q6H PRN (Reason: pain) 5 Days Qty: 20 RF: 0 (DME) Dexcom G6 Sensor Device See Rx Instructions .ROUTE .MEDSUPPLY Qty: 3 RF: 12 (DME) Dexcom G6 Transmitter Device See Rx Instructions .ROUTE .MEDSUPPLY Qty: 1 RF: 3 lisinopril 20 mg tablet 20 mg PO BID Qty: 180 RF: 3 carvedilol [Coreg] 3.125 mg tablet 3.125 mg PO .COMPLEX Qty: 90 RF: 3 carvedilol 6.25 mg tablet 6.25 mg PO .COMPLEX Qty: 90 RF: 3 Primary Care Provider: Renée Whitehead Referrals: Renée Whitehead DO [Primary Care Provider] - Mitul Harris MD [STAFF PHYSICIAN] - (rule out temporal arteritis) Disposition Disposition: Home, self care
[2021-01-23] MEDS: predniSONE 20 MG Tablet 60 MG PO (22:29)
[2021-01-23 22:42] LABS: Absolute Lymphocyte Count 1.46 X10^3/uL (0.83-4.51); Absolute Neutrophil Count 6.6 X10^3/uL (2.0-7.7); Basophil# 0.07 X10^3/uL; Basophil% 0.7 % (0-1); Hematocrit 32.4 % (37-47); Hemoglobin 10.5 g/dL (12.0-15.0); Lymphocyte # 1.46 X10^3/ul (0.83-4.51); Lymphocyte % 14.6 % (19-41); Mean Corp Hgb Conc 32.4 g/dL (32-36); Mean Corpuscular Hgb 31.7 pg (27.0-32.0); Mean Corpuscular Volume 97.9 fL (81-99); Mean Platelet Vol. 11.1 fl (6.2-12.0); Monocyte# 1.12 X10^3/uL; Monocyte% 11.2 % (0-10); NRBC Flagged by Analyzer 0 % (0-5); Neutrophil # 6.58 X10^3/uL (2.7-7.7); Platelet Count 328 K/mm3 (150-450); RBC Distribution Width CV 15.6 % (11.6-14.6); RBC Distribution Width SD 55.7 fl (35.1-43.9); Red Blood Count 3.31 M/mm3 (4.2-5.4)
[2021-01-23 22:44] LABS: POSITIVE COUNT NO; POSITIVE DIFFERENTIAL NO; POSITIVE MORPHOLOGY NO
[2021-01-23 22:49] LABS: Erythrocyte Sedimentation Rate 14 mm/hr (0-30)
[2021-01-23 23:08] LABS: Anion Gap 3 (5-15); BUN 25 mg/dL (7-18); BUN/Creat Ratio 25.8 RATIO (10-20); CRP 3.57 mg/L (0.0-3.0); Calcium,Total 8.9 mg/dL (8.5-10.1); Chloride 103 mmol/L (98-107); Creatinine, Serum 0.97 mg/dL (0.55-1.02); EST Glomerular Filtration Rate 59 mL/min (>60); Est Glom Filt Rate - Afr Amer 71 mL/min (>60); Glucose 95 mg/dL (74-106); Sodium Level 138 mmol/L (136-145)
[2021-01-24] VITALS (7 sets, daily range): BP systolic 160–209; BP diastolic 62–73; PULSE 63–80; RESP 16–18; O2SAT 96–98
[2021-01-24] MEDS: hydrALAZINE 20 MG/ML Vial 10 MG IV ×2 (01:43→02:57)
== END 2021-01-24 04:28 | disposition home or self-care (01) ==
PROVIDERS: Emergency Provider Emergency Medicine; PCP Family Medicine
DX: M31.6 Other giant cell arteritis (principal); R51.9 Headache, unspecified; R79.82 Elevated C-reactive protein (CRP); E10.22 Type 1 diabetes mellitus with diabetic chronic kidney disease; N18.30 Chronic kidney disease, stage 3 unspecified; I13.0 Hypertensive heart and chronic kidney disease with heart failure and stage 1 through stage 4 chronic kidney disease, or unspecified chronic kidney disease; I50.22 Chronic systolic (congestive) heart failure; I25.10 Atherosclerotic heart disease of native coronary artery without angina pectoris; I25.5 Ischemic cardiomyopathy; G20 Parkinson's disease; I48.0 Paroxysmal atrial fibrillation; E03.9 Hypothyroidism, unspecified; F32.9 Major depressive disorder, single episode, unspecified; F41.9 Anxiety disorder, unspecified; Z79.4 Long term (current) use of insulin; Z96.41 Presence of insulin pump (external) (internal); Z79.52 Long term (current) use of systemic steroids; Z79.02 Long term (current) use of antithrombotics/antiplatelets; Z79.82 Long term (current) use of aspirin; Z79.899 Other long term (current) drug therapy; I25.2 Old myocardial infarction; Z95.5 Presence of coronary angioplasty implant and graft
CPT/HCPCS: 70450; 80048; 85025; 85652; 86140; 96374; 96376; 99285; A4216

== ENCOUNTER 2021-01-29 08:38 | Day surgery (SDC) | payer MEDICARE, SELFPAY ==
[2020-02-27 08:59] VITALS: BMI 25.4
[2021-01-26 12:26] VITALS: BMI 23.4
--- NOTE | 2021-01-29 | TEM_PTH ---
PATIENT: KARLY LOPEZ LOC: [facility] [place]#:[id number] AGE/SX: 76/F ROOM: RE01/29/[address]: Dr. Shivam García MD : 1945 BED: DIS: 01/29/2021 SPEC #: [id number] RECD: 01/29/21 14:40 STATUS: EMMANUEL RESuhas #: [id number] HAWK: 01/29/21 00:[address]: Shivam García DEPT: SURGICAL PATHOLOGY RECD BY: Elia Hoang ENTERED: 02/01/21 07:54 SP TYPE: TEMPORAL OTHR DR: Dr. Renée Whitehead DO Tissues: Temporal region Procedures: Elastin Stain (control) Special Stain Group II Surgery Specimen Level IV HEADER OPERATION: Temporal artery biopsy PRE-OP DIAGNOSIS: Temporal arteritis TISSUE SUBMITTED: Left temporal artery MICROSCOPIC DIAGNOSIS Left temporal artery, biopsy: Moderate intimal fibroplasia. Calcifications of media. Focal disruption of internal elastic lamina. No evidence of arteritis. See comment. AM:mary beth 02/02/2021 COMMENT Elastin stain with matched control supports the above diagnosis. MICROSCOPIC DESCRIPTION Slides are reviewed. GROSS DESCRIPTION Received in fixative is one container labeled with the patient's name and designated left temporal artery. The specimen consists of a tubular segment of todd soft tissue measuring 2.4 cm in length and up to 0.1 cm in diameter. The entire specimen is submitted in one cassette. It will be sectioned at the time of embedding. / SJ:mary beth 02/01/21 TC:5 CPT: 38959, 94485
[2021-01-29 09:17] VITALS: BP 210/66; PULSE 68; RESP 16; TEMP 37; O2SAT 100; BMI 23.1
[2021-01-29] MEDS: Lactated Ringers 1,000 ML 100 ML IV (09:25)
[2021-01-29 09:40] LABS: Bedside Glucose 262 mg/dL (70-110)
--- NOTE | 2021-01-29 09:51 | PCM.HP.BLA ---
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 Is patient in pain?: No Allergies paroxetine [From Paxil] Allergy (Severe, Verified 01/26/21 12:25) Unknown Penicillins Allergy (Severe, Verified 01/26/21 12:25) Unknown amlodipine Adverse Reaction (Severe, Verified 01/26/21 12:25) Abdominal pain statins Allergy (Severe, Uncoded 01/23/21 21:47) Unknown strawberries Allergy (Severe, Uncoded 01/23/21 21:47) Unknown Medications cholecalciferol (vitamin D3) 2,000 unit PO DAILY 04/06/17 [History Confirmed 01/26/21] citalopram 20 mg PO DAILY 04/06/17 [History Confirmed 01/26/21] gabapentin 100 mg PO QHS 04/06/17 [History Confirmed 01/26/21] carbidopa 25 mg-levodopa 100 mg tablet 1 tablet PO TID tablet 10/22/18 [History Confirmed 01/26/21] mind works 1 tablet PO DAILY 10/22/18 [History Confirmed 01/26/21] aspirin 81 mg PO DAILY@0800 #30 tab.chew 09/23/19 [Rx Confirmed 01/26/21] lorazepam 0.5 mg PO Q12H PRN PRN #14 tablet 10/01/19 [Rx Confirmed 01/26/21] clopidogrel 75 mg tablet 75 mg PO DAILY #90 tablet 08/13/20 [Rx Confirmed 01/26/21] insulin aspart U-100 100 unit/mL subcutaneous solution See Rx Instructions SC QDAY #50 ml 09/14/20 [Rx Confirmed 01/26/21] Dexcom G6 Sensor #3 each NS 09/22/20 [Rx Confirmed 01/26/21] Dexcom G6 Transmitter #1 each NS 09/22/20 [Rx Confirmed 01/26/21] lansoprazole 30 mg capsule,delayed release 20 mg PO DAILY cap 11/30/20 [History Confirmed 01/26/21] levothyroxine 88 mcg tablet 88 mcg PO DAILY #90 tablet 12/10/20 [Rx Confirmed 01/26/21] Lactobacillus acidophilus 1 each PO DAILY 12/18/20 [History Confirmed 01/26/21] omeprazole 20 mg PO PRN PRN #30 tablet 12/25/20 [Rx Confirmed 01/26/21] lisinopril 20 mg tablet 20 mg PO BID #180 tablet 12/29/20 [Rx Confirmed 01/26/21] oxycodone-acetaminophen [Endocet] 1 - 2 tab PO Q6H PRN 5 Days #20 tab 01/12/21 [Rx Confirmed 01/26/21] carvedilol 3.125 mg tablet 3.125 mg PO .COMPLEX #90 tab 01/21/21 [Rx Confirmed 01/26/21] carvedilol 6.25 mg tablet 6.25 mg PO .COMPLEX #90 tab 01/21/21 [Rx Confirmed 01/26/21] prednisone 50 mg PO DAILY #14 tab 01/24/21 [Rx Confirmed 01/26/21] prednisone 60 mg PO DAILY #15 tab 01/24/21 [Rx Confirmed 01/26/21] Is last menstrual period known: No Post menopausal: Yes Patient : No PFSH Medical History Anxiety Atherosclerosis of coronary artery of [place] heart without angina pectoris Back pain Back problem Chronic systolic (congestive) heart failure Depression Depression with anxiety Diabetes Diabetes type 1, controlled Diastolic dysfunction Essential (primary) hypertension Heartburn Hx of cardiovascular stress test (~04/02/17) Hx of echocardiogram (~02/14/20) Hypothyroidism Hypothyroidism (acquired) Insulin pump titration Ischemic cardiomyopathy Measles Mumps NSTEMI (non-ST elevated myocardial infarction) (09/14/19) Old anterior wall myocardial infarction Osteoporosis Parkinsons Paroxysmal atrial fibrillation Presence of insulin pump Restless legs 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 Type 1 diabetes mellitus Surgical History History of cataract surgery History of coronary artery stent placement (09/14/19) History of partial hysterectomy S/P cholecystectomy S/P LASIK surgery of both eyes Family History Mother CVA (cerebral vascular accident) Dementia Sister Hypertension Diabetes Brother Heart disease Diabetes Daughter Diabetes Social History Smoking Status: Never smoker second hand exposure: No alcohol intake: never substance use type: does not use caffeine: No what type of physical activity do you participate in: none frequency: does not exercise HPI HPI HPI: KARLY LOPEZ, is a 76 F who presents to the office today for follow-up after gallbladder surgery and left temporal headache. The patient reports that she has been doing well since her gallbladder surgery and able to eat until Monday. Monday she developed a very severe left-sided headache with pain in her jaw as well. She went to the emergency room they started on steroids which resolved her headache. Patient reports no abdominal pain and she says she is having no nausea or vomiting and tolerating a diet. ROS General General: No weight change or fatigue HEENT HEENT: No difficulty swallowing Additional Details: Patient had severe left-sided headache which resolved after started on steroids Endo Endocrine: No thyroid disease Musc Musculoskeletal: No back problems or arthritis Cardio Cardiovascular: No pacemaker, heart disease, atrial fibrillation, high blood pressure, heart attack, heart stent, palpitations or chest pain Psych Psychiatric: No depression or anxiety Resp Respiratory: No shortness of breath, No cough, No COPD, No asthma and No emphysema Gastro Gastrointestinal: No abdominal pain, No nausea or vomiting, No diarrhea, No constipation, No blood in stool, No acid reflux, No hemorrhoids, No ulcers, No gallbladder problem and No black,tarry stools Van Hematologic: No blood thinners Exam Const General: cooperative Orientation: alert and oriented x3 HENMT Head: normal to inspection Neck Neck: normal visual inspection and full ROM Chest Chest palpation & inspection: normal inspection of the chest Resp Effort & Inspection: normal respiratory effort Auscultation: clear to auscultation bilaterally Cardio Rate: regular rate Rhythm: regular rhythm GI Inspection: non-distended Palpation: soft and nontender Skin General: no rashes or lesions noted Neuro General: patient alert and patient oriented x3 Extrem General: full ROM Psych Appearance: grossly normal Mental Status: mental status grossly normal Assessment and Plan Assessment and Plan (1) TA (temporal arteritis): Status: Acute Plan - Dr. Shivam García MD: The patient had a severe left-sided headache and went to the emergency room. She was started on steroids and she did have an elevated C-reactive protein. The patient was sent in by the emergency room for left temporal artery biopsy. I discussed left temporal artery biopsy with her. I discussed the risks including but not limited to bleeding, infection, nerve injury. The patient understands the risks and is 1 to proceed. She will hold her Plavix starting today and continue her aspirin. I will biopsy her left temporal artery on Monday. The patient is to see her PCP for refills of prednisone. (2) Cholelithiasis: Status: Resolved Qualifiers: Cholelithiasis location: gallbladder Cholecystitis presence: without cholecystitis Biliary obstruction: without biliary obstruction Qualified Code(s): K80.20 - Calculus of gallbladder without cholecystitis without obstruction Plan - Dr. Shivam García MD: Patient is doing well to cholecystectomy and tolerating a diet. She is having no abdominal pain and her incisions are healing well. Shivam García MD Pager: [facility] [address] [place] [address], [address] [place] [address] Office: I have re-examined the patient. There are no clinical changes since date of exam.
[2021-01-29] MEDS: Lidocaine 1% (30 ml sdv) 30 ML Vial (10:40)
[2021-01-29 11:09] VITALS: BP 195/60; BP 210/66; PULSE 56; RESP 16; TEMP 36.3; O2SAT 100
[2021-01-29 11:15] VITALS: BP 190/60; BP 210/66; PULSE 54; RESP 16; O2SAT 98
[2021-01-29 11:20] VITALS: BP 184/58; BP 210/66; PULSE 52; RESP 16; O2SAT 99
[2021-01-29 11:25] VITALS: BP 190/66; BP 210/66; PULSE 53; RESP 16; TEMP 36.5; O2SAT 99
[2021-01-29 11:25] LABS: Bedside Glucose 201 mg/dL (70-110)
--- NOTE | 2021-01-29 11:26 | PCM.OPRPT ---
Problems Associated Problem List Diagnoses (1) TA (temporal arteritis): Report of Operation Date of Procedure: 01/29/21 Pre-Operative Diagnosis: Left temporal headaches and possible temporal arteritis Post-Operative Diagnosis: Same Surgery/Procedure Performed:: Left temporal artery biopsy Specimen's removed: Left temporal artery Description of Procedure: Patient was brought back to the operating room and MAC anesthesia was induced. The left scientologist was trimmed of hair and prepped and draped in usual sterile fashion. Doppler was used to localize the temporal artery. The temporal artery was marked and the skin overlying the artery was injected with local anesthetic. An incision was made and deepened to the artery. The artery was dissected free and its tributaries were clipped. Proximally and distally the artery was clipped and ligated. The artery was then removed and sent for pathology. The cavity was irrigated and suctioned dry and there was good hemostasis. The incision was closed with interrupted 4-0 Vicryl sutures as well as a running 4-0 Vicryl suture and Dermabond glue. Patient was then awoken and taken to PACU in stable condition. Patient tolerated the procedure well. Admit VTE Documentation VTE Mechan Device Prophylaxis: SCD's
--- NOTE | 2021-01-29 11:29 | EX.PCM.DISCH ---
Discharge Instructions Procedure Narrative: Temporal Artery Biopsy Diet Discharge Diet: No restrictions Activity Discharge Activity: Return to Normal Activity May shower in (days): 1 Lifting Restrictions: 10 lbs for 1 week Dressing / Incision Call your doctor if your incision/area has: Continuous Slow Oozing, Sudden Increased Bleeding, Increased Pain/ Swelling, Increased Redness, Foul Smelling Discharge and Swelling at the incision site Call your doctor if you observe: Fever of 101 or Higher Cleanse incision/area with: Soap & Water Additional Dressing/Incision Instructions:: Resume Plavix Monday Follow Up Care Please Follow Up With: Shivam García MD When: Please call to schedule 1 week follow up appointment. [phone] Test Results: Test results from this visit will be discussed in further detail at your follow-up appointment, if applicable. Discharge Plan Admission Attending Provider: Shivam García Primary Care Provider: Renée Whitehead Discharge Orders/Prescriptions Prescriptions: No Action carbidopa-levodopa [Sinemet] 25-100 mg tablet 1 tablet PO TID RF: 0 mind works 1 tablet PO DAILY RF: 0 clopidogrel [Plavix] 75 mg tablet 75 mg PO DAILY Qty: 90 RF: 3 Novolog U-100 Insulin aspart 100 unit/mL solution See Rx Instructions SC QDAY Qty: 50 RF: 3 levothyroxine 88 mcg tablet 88 mcg PO DAILY Qty: 90 RF: 1 Hold Instructions: Duplicate Order lansoprazole 30 mg capsule,delayed release(DR/EC) 20 mg PO DAILY RF: 0 citalopram 20 MG tablet 20 mg PO DAILY RF: 0 gabapentin 100 MG capsule 100 mg PO QHS RF: 0 cholecalciferol (vitamin D3) 2,000 UNIT capsule 2,000 unit PO DAILY RF: 0 aspirin 81 MG tablet,chewable 81 mg PO DAILY@0800 Qty: 30 RF: 1 lorazepam 0.5 MG tablet 0.5 mg PO Q12H PRN PRN (Reason: severe anxiety) Qty: 14 RF: 0 Lactobacillus acidophilus 1 EACH capsule 1 each PO DAILY RF: 0 omeprazole 20 MG tablet,delayed release (DR/EC) 20 mg PO PRN PRN (Reason: GERD) Qty: 30 RF: 0 oxycodone-acetaminophen [Endocet] 5-325 mg tablet 1 - 2 tab PO Q6H PRN (Reason: pain) 5 Days Qty: 20 RF: 0 prednisone 20 MG tablet 60 mg PO DAILY Qty: 15 RF: 0 carvedilol 6.25 mg tablet 6.25 mg PO QHS RF: 0 carvedilol [Coreg] 3.125 mg tablet 3.125 mg PO DAILY RF: 0 (DME) Dexcom G6 Sensor Device See Rx Instructions .ROUTE .MEDSUPPLY Qty: 3 RF: 12 (DME) Dexcom G6 Transmitter Device See Rx Instructions .ROUTE .MEDSUPPLY Qty: 1 RF: 3 lisinopril 20 mg tablet 20 mg PO BID Qty: 180 RF: 3 Referrals / Follow Up: Renée Whitehead, [Primary Care Provider] - Disposition Disposition (needs filled in before D/C Order can be placed): Home, self care
[2021-01-29 12:12] VITALS: BP 195/64; BP 210/66; PULSE 59; RESP 16; TEMP 36.2; O2SAT 98
== END 2021-01-29 12:15 | disposition home or self-care (01) ==
LOC: SDC 08:39 → AC 08:40
PROVIDERS: PCP Family Medicine; Referring Provider Surgery; Visit Provider Surgery
PROC: (CPT 37609; principal; 2021-01-29 10:15)
DX: M31.6 Other giant cell arteritis (principal); E10.22 Type 1 diabetes mellitus with diabetic chronic kidney disease; I13.0 Hypertensive heart and chronic kidney disease with heart failure and stage 1 through stage 4 chronic kidney disease, or unspecified chronic kidney disease; I50.22 Chronic systolic (congestive) heart failure; N18.30 Chronic kidney disease, stage 3 unspecified; I25.5 Ischemic cardiomyopathy; I48.0 Paroxysmal atrial fibrillation; I25.10 Atherosclerotic heart disease of native coronary artery without angina pectoris; G20 Parkinson's disease; E03.9 Hypothyroidism, unspecified; M81.0 Age-related osteoporosis without current pathological fracture; F32.9 Major depressive disorder, single episode, unspecified; F41.9 Anxiety disorder, unspecified; Z78.0 Asymptomatic menopausal state; Z79.02 Long term (current) use of antithrombotics/antiplatelets; Z79.82 Long term (current) use of aspirin; Z79.52 Long term (current) use of systemic steroids; Z96.41 Presence of insulin pump (external) (internal); Z79.899 Other long term (current) drug therapy; I25.2 Old myocardial infarction; Z95.5 Presence of coronary angioplasty implant and graft
CPT/HCPCS: 00352; 37609; 82962; 88305; 88313; J7120

== ENCOUNTER → 2021-02-11 07:17 | Outpatient (CLI) | payer MEDICARE, SELFPAY ==
[2020-02-27 08:59] VITALS: BMI 25.4
[2021-01-29 09:17] VITALS: BMI 23.1
[2021-02-11 08:04] LABS: AST(SGOT) 16 U/L (15-37); Alanine Aminotransfer ALT/SGPT 22 U/L (13-56); Albumin, Serum 3.5 g/dL (3.2-5.0); Alkaline Phosphatase 110 U/L (45-117); Anion Gap 4 (5-15); BUN 27 mg/dL (7-18); BUN/Creat Ratio 27.2 RATIO (10-20); Bilirubin, Direct 0.27 mg/dL (0.00-0.30); Calcium,Total 8.8 mg/dL (8.5-10.1); Chloride 100 mmol/L (98-107); Cholesterol 212 mg/dL (200); Creatinine, Serum 0.99 mg/dL (0.55-1.02); EST Glomerular Filtration Rate 58 mL/min (>60); Est Glom Filt Rate - Afr Amer 70 mL/min (>60); Globulin 3.3 g/dL (2.2-4.2); Glucose 173 mg/dL (74-106); High Density Lipoprotein 99 mg/dL; Potassium 4.3 mmol/L (3.5-5.1); Protein, Total 6.8 g/dL (6.4-8.2); Sodium Level 137 mmol/L (136-145); Triglycerides 58 mg/dL; Very Low Density Lipoprotein 12 mg/dL (5-40)
== END ==
PROVIDERS: Physician Assistant Medical; PCP Family Medicine; Referring Provider Internal Medicine Cardiovascular Disease; Visit Provider Internal Medicine Cardiovascular Disease
DX: I25.10 Atherosclerotic heart disease of native coronary artery without angina pectoris (principal); Z95.5 Presence of coronary angioplasty implant and graft
CPT/HCPCS: 36415; 80048; 80061; 80076

== ENCOUNTER 2021-03-05 10:16 | Emergency (ER) | payer MEDICARE, SELFPAY ==
[2020-02-27 08:59] VITALS: BMI 25.4
[2021-03-05 09:52] VITALS: BMI 23.8
[2021-03-05 10:18] VITALS: BP 204/73; PULSE 53; RESP 18; TEMP 36.6; O2SAT 100; BMI 22.9
[2021-03-05 10:20] VITALS: BP 199/90; PULSE 57
--- NOTE | 2021-03-05 10:34 | CT_ITS ---
STUDY: CT BRAIN WITHOUT CONTRAST REASON FOR EXAM: Female, 76 years old. Injury/Pain RADIATION DOSAGE (If Supplied By Facility): CTDIvol = ( 44.99 ) mGy, DLP = ( 745.49 ) mGycm TECHNIQUE: Transaxial CT imaging of the brain was performed without administration of intravenous contrast material. Individualized dose optimization techniques were used for this CT. COMPARISON: No relevant priors. FINDINGS: The ventricular system and cerebral sulci are within normal limits regarding the patient''s age. There is minimal lucencies around the ventricular system particularly in the left cerebral hemisphere that could be related to small vessel disease or deep white matter ischemic changes. No evidence of (Dense MCA sign). No epidural, subdural or intracerebral hematoma identified. Calcifications of both carotid siphons noted. The skull base and cranial vault are intact. The sinuses and mastoid air cells are clear. the orbits are unremarkable. There are some punctate opaque densities within the scalp in the frontal area this could be related to the presence dust or dirt. CT/Brain/Head without Contrast IMPRESSION: Normal unenhanced CT scan of the brain. Electronically Signed: Bettina Andrews, at 11:07 EDT Tel , Service support ,
--- NOTE | 2021-03-05 10:35 | EDS_ITS ---
HPI History of Present Illness Chief Complaint: Fall Informant: patient Onset/Context/Timing Onset: Today Mechanism/Context: Fall Narrative Narrative: Patient is a 76-year-old female presenting after mechanical fall. She states she tripped over a blanket and fell onto the floor. Her glasses hit her head. She denies any loss of consciousness. She initially went to the urgent care and was instructed to come to the emergency room for head CT. Patient is on Plavix. Patient denies any pain. She has any vision changes. She does also have an abrasion to her right elbow. No other complaints at this time. Tetanus Immunization: Unknown 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 myocardial infarction Osteoporosis Parkinsons Paroxysmal atrial fibrillation Presence of insulin pump Restless legs 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 Type 1 diabetes mellitus Wears glasses Wears hearing aid Wears partial dentures Home Medications cholecalciferol (vitamin D3) 2,000 unit PO DAILY 04/06/17 [History Last Taken 09/28/19] citalopram 20 mg PO DAILY 04/06/17 [History Last Taken 09/28/19] gabapentin 100 mg PO QHS 04/06/17 [History Last Taken 09/27/19] carbidopa 25 mg-levodopa 100 mg tablet 1 tablet PO TID tablet 10/22/18 [History Last Taken 01/12/21] mind works 1 tablet PO DAILY 10/22/18 [History Last Taken 09/28/19] aspirin 81 mg PO DAILY@0800 #30 tab.chew 09/23/19 [Rx Last Taken 01/27/21] lorazepam 0.5 mg PO Q12H PRN PRN #14 tablet 10/01/19 [Rx Last Taken Unknown] clopidogrel 75 mg tablet 75 mg PO DAILY #90 tablet 08/13/20 [Rx Last Taken 01/27/21] insulin aspart U-100 100 unit/mL subcutaneous solution See Rx Instructions SC QDAY #50 ml 09/14/20 [Rx Last Taken Unknown] Dexcom G6 Sensor #3 each NS 09/22/20 [Rx Last Taken Unknown] Dexcom G6 Transmitter #1 each NS 09/22/20 [Rx Last Taken Unknown] levothyroxine 88 mcg tablet 88 mcg PO DAILY #90 tablet 12/10/20 [Rx Last Taken 01/12/21] Lactobacillus acidophilus 1 each PO DAILY 12/18/20 [History Last Taken Unknown] lisinopril 20 mg tablet 20 mg PO BID #180 tablet 12/29/20 [Rx Last Taken 01/12/21] prednisone 60 mg PO DAILY #15 tab 01/24/21 [Rx Last Taken Unknown] carvedilol 6.25 mg PO QHS 01/27/21 [History Last Taken Unknown] carvedilol [Coreg] 3.125 mg PO DAILY 01/27/21 [History Last Taken Unknown] furosemide 40 mg tablet 40 mg PO DAILY 03/05/21 [History Last Taken Unknown] Allergy/AdvReac Type Severity Reaction Status Date / Time paroxetine [From Paxil] Allergy Severe Unknown Verified 03/05/21 10:17 Penicillins Allergy Severe Unknown Verified 03/05/21 10:17 amlodipine AdvReac Severe Abdominal Verified 03/05/21 10:17 pain statins Allergy Severe Unknown Uncoded 03/05/21 10:17 strawberries Allergy Severe Unknown Uncoded 03/05/21 10:17 Family History Mother CVA (cerebral vascular accident) Dementia Sister Hypertension Diabetes Brother Heart disease Diabetes Daughter Diabetes Surgical History History of biopsy of temporal artery History of cataract surgery History of coronary artery stent placement (09/14/19) History of partial hysterectomy Hx of cardiac catheterization S/P cholecystectomy S/P LASIK surgery of both eyes Social History Smoking Status: Never smoker second hand exposure: No alcohol intake: never substance use type: does not use caffeine: No what type of physical activity do you participate in: none frequency: does not exercise ROS ROS ED Constitutional Constitutional ED: Reports frequent falls; Denies fever(s) Eyes Eyes: Denies blurry vision, change in vision or eye pain ENT ENT ED: Denies dental pain, ear pain, mouth lesions, nasal trauma, rhinorrhea or sore throat Cardiovascular Cardiovascular: Denies chest pain or syncope Respiratory/Chest Respiratory/Chest: Denies cough or dyspnea Gastrointestinal Gastrointestinal: Denies abdominal pain or nausea Genitourinary Genitourinary ED: Denies dysuria or hematuria Musculoskeletal Musculoskeletal: Denies arthralgias, back pain or myalgias Integumentary Reports Abrasions and other Details: Bruising around right eye ; Denies wounds Neurologic Neurologic: Denies headache(s), paresthesias or weakness Psychiatric Psychiatric: Denies anxiety or depression Hematologic/Lymphatic Hematologic/Lymphatic: Reports easy bruising EXAM Physical Exam Const Vital Signs: 03/05/21 10:18 03/05/21 10:20 03/05/21 11:39 Temperature 97.9 F Temperature Source Temporal Pulse Rate 53 L 57 L 61 Respiratory Rate 18 18 Blood Pressure 204/73 H 199/90 H 175/82 H Blood Pressure Mean 116 126 Pulse Ox 100 98 Oxygen Delivery Method Room Air Positive well nourished and well developed General Appearance ED: well developed HEENT Reports head/scalp atraumatic, hearing grossly normal bilaterally, TM's clear and TM's normal bilaterally HEENT Narrative: No malocclusion. normocephalic; Negative for Kemp's sign, raccoon eyes or scalp tenderness Nose: no nasal discharge; Negative for septum abnormal Tympanic Membrane ED: Yes TM's clear and TM's normal bilaterally Tympanic Membrane: TM's normal bilaterally Mouth ED: Yes other Mouth: other Other Details: No Malocclusion Eyes PERRL and EOMs intact bilaterally General Eye ED: Yes other Other Details: Ecchymosis around the right eye, late ral with developing periorbital edema Neck full ROM Thyroid: Negative for tender Chest Wall inspection of chest normal and palpation of chest normal Chest: Negative for crepitus Resp normal respiratory effort, no retractions and clear to auscultation bilaterally Cardio regular rate and regular rhythm Jugular Venous Distention: Negative for JVD Peripheral Pulses: pulses 2+ throughout GI non-tender and non-distended Palpation: soft; Negative for guarding or rebound tenderness present Back/Spine Cervical Spine: Negative for cervical spine tenderness Thoracic Spine / Upper Back: Negative for thoracic spinal tenderness Lumbar Spine / Lower Back: Negative for lumbar spinal tenderness Extremity normal to inspection and full ROM Extremity Narrative: pelvis stable, no deformity Neuro oriented x3, moves all extremities and no sensory deficits noted Sensorium / Orientation: alert Motor Exam: strength 5/5 throughout Psych mental status grossly normal Skin no wounds Skin Narrative: 1 cm skin tear to the right elbow with some underlying bruising. Pinpoint area of bleeding/abrasion just lateral and superior to the right eye. Surrounding ecchymosis of the right eye. Trauma: Negative for abrasion MDM MDM MDM Narrative Medical decision making narrative: Patient evaluated after mechanical fall. She has skin tear on her right elbow as well as a small abrasion and bruising around her right eye. Tetanus is updated. CT of the head does not show any acute intracranial process. Patient not have any neck tenderness and has normal range of motion. Would not obtain C-spine imaging at this time. Patient is agreeable with this. Patient is counseled generalized wound care. Steri-Strips applied by nursing to her skin tear. She will follow-up with her PCP. Patient is counseled on signs and symptoms requiring return to the emergency room. Patient verbalizes agreement and understand this plan. Patient discharged home in stable and improved condition. Radiography Diagnostic Testing: Radiology Impression Brain CT 03/05/21 10:34 IMPRESSION: Normal unenhanced CT scan of the brain. Electronically Signed: Bettina Andrews, at 11:07 EDT Tel , Service support , Discharge Plan Triage Chief Complaint: Fall ED Provider: Vilma Bartholomew Dx/Rx/DC Orders Clinical Impression: Laceration of right eyebrow, Laceration of right elbow, Accident due to mechanical fall without injury Instructions: ED Head Injury (Adult), ED Laceration Small or ..., ED Fall Prevention Prescriptions: No Action carbidopa-levodopa [Sinemet] 25-100 mg tablet 1 tablet PO TID RF: 0 mind works 1 tablet PO DAILY RF: 0 clopidogrel [Plavix] 75 mg tablet 75 mg PO DAILY Qty: 90 RF: 3 Novolog U-100 Insulin aspart 100 unit/mL solution See Rx Instructions SC QDAY Qty: 50 RF: 3 levothyroxine 88 mcg tablet 88 mcg PO DAILY Qty: 90 RF: 1 Hold Instructions: Duplicate Order furosemide 40 mg tablet 40 mg PO DAILY RF: 0 citalopram 20 MG tablet 20 mg PO DAILY RF: 0 gabapentin 100 MG capsule 100 mg PO QHS RF: 0 cholecalciferol (vitamin D3) 2,000 UNIT capsule 2,000 unit PO DAILY RF: 0 aspirin 81 MG tablet,chewable 81 mg PO DAILY@0800 Qty: 30 RF: 1 lorazepam 0.5 MG tablet 0.5 mg PO Q12H PRN PRN (Reason: severe anxiety) Qty: 14 RF: 0 Lactobacillus acidophilus 1 EACH capsule 1 each PO DAILY RF: 0 prednisone 20 MG tablet 60 mg PO DAILY Qty: 15 RF: 0 carvedilol 6.25 mg tablet 6.25 mg PO QHS RF: 0 carvedilol [Coreg] 3.125 mg tablet 3.125 mg PO DAILY RF: 0 (DME) Dexcom G6 Sensor Device See Rx Instructions .ROUTE .MEDSUPPLY Qty: 3 RF: 12 (DME) Dexcom G6 Transmitter Device See Rx Instructions .ROUTE .MEDSUPPLY Qty: 1 RF: 3 lisinopril 20 mg tablet 20 mg PO BID Qty: 180 RF: 3 Primary Care Provider: Renée Whitehead Referrals: Renée Whitehead DO [Primary Care Provider] - Disposition Disposition: Home, Self Care Discharge Date/Time: 03/05/21 11:39
[2021-03-05] MEDS: Diphth,Pertuss(Acell),Tet Vac 0.5 ML Vial IM (10:59)
[2021-03-05 11:39] VITALS: BP 175/82; PULSE 61; RESP 18; O2SAT 98
== END 2021-03-05 11:39 | disposition home or self-care (01) ==
LOC: ED 11:27
PROVIDERS: Emergency Provider Emergency Medicine; PCP Family Medicine
DX: S51.011A Laceration without foreign body of right elbow, initial encounter (principal); S01.111A Laceration without foreign body of right eyelid and periocular area, initial encounter; Z23 Encounter for immunization; W01.0XXA Fall on same level from slipping, tripping and stumbling without subsequent striking against object, initial encounter; Y93.9 Activity, unspecified; Y92.9 Unspecified place or not applicable; Y99.9 Unspecified external cause status; R29.6 Repeated falls; I48.0 Paroxysmal atrial fibrillation; I25.10 Atherosclerotic heart disease of native coronary artery without angina pectoris; I13.0 Hypertensive heart and chronic kidney disease with heart failure and stage 1 through stage 4 chronic kidney disease, or unspecified chronic kidney disease; I50.22 Chronic systolic (congestive) heart failure; E10.22 Type 1 diabetes mellitus with diabetic chronic kidney disease; N18.30 Chronic kidney disease, stage 3 unspecified; G20 Parkinson's disease; I25.5 Ischemic cardiomyopathy; E03.9 Hypothyroidism, unspecified; F41.9 Anxiety disorder, unspecified; Z79.82 Long term (current) use of aspirin; Z79.02 Long term (current) use of antithrombotics/antiplatelets; Z79.4 Long term (current) use of insulin; Z96.41 Presence of insulin pump (external) (internal); Z79.52 Long term (current) use of systemic steroids; Z79.899 Other long term (current) drug therapy; I25.2 Old myocardial infarction; Z95.5 Presence of coronary angioplasty implant and graft
CPT/HCPCS: 70450; 90715; 99282; A4216

== ENCOUNTER → 2021-04-05 10:18 | Outpatient (CLI) | payer MEDICARE, SELFPAY ==
[2020-02-27 08:59] VITALS: BMI 25.4
[2021-03-09 09:32] VITALS: BMI 22.9
[2021-04-05] MEDS: DENOSUMAB 60 MG/ML SC (10:31)
[2021-04-05 10:37] VITALS: BP 179/57; PULSE 56; RESP 16; TEMP 36.4; O2SAT 100; BMI 22.9
== END ==
PROVIDERS: PCP Family Medicine; Referring Provider Internal Medicine Endocrinology, Diabetes & Metabolism; Visit Provider Internal Medicine Endocrinology, Diabetes & Metabolism
DX: M81.0 Age-related osteoporosis without current pathological fracture (principal)
CPT/HCPCS: 96372; J0897

== ENCOUNTER 2021-10-04 10:44 | Outpatient (CLI) | payer MEDICARE, SELFPAY ==
[2020-02-27 08:59] VITALS: BMI 25.4
[2021-03-09 09:32] VITALS: BMI 22.9
[2021-10-04 11:23] VITALS: BP 165/74; PULSE 55; RESP 16; TEMP 36.2; O2SAT 98; BMI 24.5
[2021-10-04] MEDS: DENOSUMAB 60 MG/ML SC (11:24)
== END 2021-10-04 23:59 | disposition short-term general hospital (02) ==
LOC: MEDOUTP 10:46
PROVIDERS: PCP Family Medicine; Referring Provider Internal Medicine Endocrinology, Diabetes & Metabolism; Visit Provider Internal Medicine Endocrinology, Diabetes & Metabolism
DX: M81.0 Age-related osteoporosis without current pathological fracture (principal)
CPT/HCPCS: 96372; J0897

== ENCOUNTER 2021-11-26 12:24 | Outpatient (CLI) | payer MEDICARE, SELFPAY ==
[2020-02-27 08:59] VITALS: BMI 25.4
[2021-11-26 15:34] LABS: Hemoglobin A1c 6.3 % (3.8-5.6)
[2021-11-26 15:39] LABS: Vitamin D,25 Hydroxy 31.1 ng/mL
[2021-11-26 15:42] LABS: Thyroid Stim Hormone (TSH) 1.34 uIU/mL (0.358-3.74)
== END 2021-11-26 23:59 | disposition home or self-care (01) ==
LOC: BIMLAB 12:25
PROVIDERS: PCP Family Medicine; Referring Provider Internal Medicine Endocrinology, Diabetes & Metabolism; Visit Provider Internal Medicine Endocrinology, Diabetes & Metabolism
DX: E10.9 Type 1 diabetes mellitus without complications (principal); E03.9 Hypothyroidism, unspecified; E55.9 Vitamin D deficiency, unspecified
CPT/HCPCS: 36415; 82306; 83036; 84439; 84443

== ENCOUNTER → 2022-03-23 | Outpatient (CLI) | payer MEDICARE, SELFPAY ==
[2020-02-27 08:59] VITALS: BMI 25.4
--- NOTE | 2022-03-23 15:56 | NEURO ---
NCS and/or EMG Patient Report Ordering Doctor: Maria Luisa Wyatt DATE OF SERVICE: 03/23/22 Cesia presents for electrodiagnostic testing of the right upper limb. She reports numbness and tingling in the right hand, primarily in the second through fourth digits. Electrodiagnostic findings: Right median motor nerve demonstrates prolonged distal latency with reduced amplitude and reduced conduction velocity. Right ulnar motor response is within normal limits, including conduction across the elbow. Prolonged median F wave is noted. Absent right median sensory latency at the wrist. Normal right ulnar and radial sensory responses. On needle EMG, all muscles tested in the right upper limb showed no evidence of denervation with normal motor unit action potentials. Electrodiagnostic impression: This is an abnormal study in the right upper limb. 1. Electrodiagnostic findings demonstrate right-sided median mononeuropathy. This is consistent with a severe right carpal tunnel syndrome.
== END | disposition home or self-care (01) ==
LOC: PSN 14:44
PROVIDERS: PCP Family Medicine; Referring Provider Clinical Nurse Specialist Acute Care; Visit Provider Clinical Nurse Specialist Acute Care
DX: G56.01 Carpal tunnel syndrome, right upper limb (principal)
CPT/HCPCS: 95886; 95909

== ENCOUNTER → 2022-04-17 | Outpatient (CLI) | payer MEDICARE, SELFPAY ==
[2020-02-27 08:59] VITALS: BMI 25.4
== END | disposition home or self-care (01) ==
LOC: LABSPEC 04-18 10:09
PROVIDERS: PCP Family Medicine; Visit Provider Physician Assistant
DX: N39.0 Urinary tract infection, site not specified (principal)
CPT/HCPCS: 87077; 87086; 87088; 87186

== ENCOUNTER → 2022-04-19 | Outpatient (CLI) | payer MEDICARE, SELFPAY ==
[2020-02-27 08:59] VITALS: BMI 25.4
[2022-04-19] MEDS: DENOSUMAB 60 MG/ML SC (13:35)
== END | disposition home or self-care (01) ==
LOC: MEDOUTP 13:19
PROVIDERS: PCP Family Medicine; Referring Provider Internal Medicine Endocrinology, Diabetes & Metabolism; Visit Provider Internal Medicine Endocrinology, Diabetes & Metabolism
DX: M81.0 Age-related osteoporosis without current pathological fracture (principal)
CPT/HCPCS: 96372; J0897

== ENCOUNTER → 2022-06-08 | Outpatient (CLI) | payer MEDICARE, SELFPAY ==
[2020-02-27 08:59] VITALS: BMI 25.4
[2022-06-08 16:04] LABS: Absolute Lymphocyte Count 1.51 X10^3/uL (0.83-4.51); Absolute Neutrophil Count 4.2 X10^3/uL (2.0-7.7); Basophil# 0.08 X10^3/uL; Basophil% 1.1 % (0-1); Eosinophil# 0.39 X10^3/uL; Eosinophils% 5.5 % (0-5); Hematocrit 32.8 % (37-47); Hemoglobin 11.5 g/dL (12.0-15.0); Lymphocyte # 1.51 X10^3/ul (0.83-4.51); Lymphocyte % 21.4 % (19-41); Mean Corp Hgb Conc 35.1 g/dL (32-36); Mean Corpuscular Hgb 34.1 pg (27.0-32.0); Mean Corpuscular Volume 97.3 fL (81-99); Mean Platelet Vol. 10.2 fl (6.2-12.0); Monocyte% 12.7 % (0-10); NRBC Flagged by Analyzer 0 % (0-5); Neutrophil # 4.16 X10^3/uL (2.7-7.7); Neutrophil % 58.9 % (47-70); Platelet Count 295 K/mm3 (150-450); RBC Distribution Width CV 14.8 % (11.6-14.6); RBC Distribution Width SD 52.1 fl (35.1-43.9); Red Blood Count 3.37 M/mm3 (4.2-5.4); White Blood Count 7.1 K/mm3 (4.4-11.0)
[2022-06-08 16:16] LABS: Microalbumin:Creatinine Ratio 6.5 mg/g CRE (<30 mg/g CRE)
[2022-06-08 16:18] LABS: ALB/GLOB Ratio 1.1 RATIO (0.9-2.4); AST(SGOT) 19 U/L (15-37); Alanine Aminotransfer ALT/SGPT 9 U/L (13-56); Albumin, Serum 3.7 g/dL (3.2-5.0); Alkaline Phosphatase 83 U/L (45-117); Anion Gap 5 (5-15); BUN 23 mg/dL (7-18); BUN/Creat Ratio 23.1 RATIO (10-20); Bilirubin, Direct 0.18 mg/dL (0.00-0.30); Calcium,Total 8.8 mg/dL (8.5-10.1); Chloride 95 mmol/L (98-107); Cholesterol 189 mg/dL (200); EST Glomerular Filtration Rate 57 mL/min (>60); Est Glom Filt Rate - Afr Amer 69 mL/min (>60); Globulin 3.5 g/dL (2.2-4.2); Glucose 124 mg/dL (74-106); High Density Lipoprotein 80 mg/dL; Potassium 3.7 mmol/L (3.5-5.1); Protein, Total 7.2 g/dL (6.4-8.2); Sodium Level 134 mmol/L (136-145); Triglycerides 64 mg/dL; Very Low Density Lipoprotein 13 mg/dL (5-40)
== END | disposition home or self-care (01) ==
LOC: LAB 15:22
PROVIDERS: PCP Family Medicine; Visit Provider Family Medicine
DX: I12.9 Hypertensive chronic kidney disease with stage 1 through stage 4 chronic kidney disease, or unspecified chronic kidney disease (principal); E10.319 Type 1 diabetes mellitus with unspecified diabetic retinopathy without macular edema; E10.22 Type 1 diabetes mellitus with diabetic chronic kidney disease; N18.31 Chronic kidney disease, stage 3a; Z51.81 Encounter for therapeutic drug level monitoring
CPT/HCPCS: 80053; 80061; 82043; 82248; 82570; 85025

== ENCOUNTER → 2022-08-16 | Outpatient (CLI) | payer MEDICARE, SELFPAY ==
[2020-02-27 08:59] VITALS: BMI 25.4
--- NOTE | 2022-08-16 12:35 | RAD_ITS ---
STUDY: X-RAY CHEST REASON FOR EXAM: Female, 77 years old. RLL crackles, URI symptoms TECHNIQUE: PA and lateral views of the chest. COMPARISON: 09/29/2019 FINDINGS: The lungs are clear and expanded. There is no demonstrated pleural abnormality. Normal size heart. Normal mediastinum and pritesh. Normal visualized pulmonary arteries. Normal visualized aortic arch and descending thoracic aorta. Normal visualized thoracic spine. Pectus excavatum deformity of the chest wall. Normal visualized ribs, clavicles, and shoulders. There is no demonstrated abnormality of the visualized soft tissue structures of the upper abdomen. RAD/Chest PA and Lateral IMPRESSION: Normal x-ray examination of the chest. Electronically Signed: Chavez Baltazar MD at 17:25 EST ,
== END | disposition home or self-care (01) ==
LOC: MTRAD 12:32
PROVIDERS: PCP Family Medicine; Referring Provider Family Medicine; Visit Provider Family Medicine
DX: J18.9 Pneumonia, unspecified organism (principal)
CPT/HCPCS: 71046

== ENCOUNTER → 2022-09-22 | Outpatient (CLI) | payer MEDICARE, SELFPAY ==
[2020-02-27 08:59] VITALS: BMI 25.4
[2022-09-22 12:18] LABS: Absolute Lymphocyte Count 1.19 X10^3/uL (0.83-4.51); Basophil# 0.08 X10^3/uL; Basophil% 1.2 % (0-1); Eosinophil# 0.31 X10^3/uL; Eosinophils% 4.8 % (0-5); Hematocrit 32.3 % (37-47); Hemoglobin 10.7 g/dL (12.0-15.0); Lymphocyte # 1.19 X10^3/ul (0.83-4.51); Lymphocyte % 18.5 % (19-41); Mean Corp Hgb Conc 33.1 g/dL (32-36); Mean Corpuscular Volume 99.7 fL (81-99); Mean Platelet Vol. 11.1 fl (6.2-12.0); Monocyte% 12.5 % (0-10); NRBC Flagged by Analyzer 0 % (0-5); Neutrophil # 4.02 X10^3/uL (2.7-7.7); Neutrophil % 62.7 % (47-70); Platelet Count 307 K/mm3 (150-450); RBC Distribution Width CV 15.8 % (11.6-14.6); RBC Distribution Width SD 56.9 fl (35.1-43.9); Red Blood Count 3.24 M/mm3 (4.2-5.4); White Blood Count 6.4 K/mm3 (4.4-11.0)
[2022-09-22 12:29] LABS: Vitamin D,25 Hydroxy 32.8 ng/mL
[2022-09-22 12:36] LABS: Ferritin 145 ng/mL (8-252); T4 Free Direct 1.17 ng/dL (0.76-1.46); Thyroid Stim Hormone (TSH) 1.18 uIU/mL (0.358-3.74)
== END | disposition home or self-care (01) ==
LOC: BFHLAB 10:21
PROVIDERS: Internal Medicine Endocrinology, Diabetes & Metabolism; PCP Family Medicine; Visit Provider Family Medicine
DX: E55.9 Vitamin D deficiency, unspecified (principal); E10.9 Type 1 diabetes mellitus without complications; E61.1 Iron deficiency
CPT/HCPCS: 36415; 82306; 82728; 84439; 84443; 85025

== ENCOUNTER 2022-10-01 15:32 | Emergency (ER) | payer MEDICARE, SELFPAY ==
[2020-02-27 08:59] VITALS: BMI 25.4
[2022-10-01 15:33] VITALS: BP 177/65; PULSE 63; RESP 16; TEMP 36.4; O2SAT 98; BMI 25.1
--- NOTE | 2022-10-01 15:48 | EX.ED.DYSGE1 ---
HPI History of Present Illness Chief Complaint: Wound Informant: patient Onset/Context/Timing Onset: Today Context: Sudden Onset Timing: Continuous Quality: Bleeding Location: Right cheek Worsened by: Nothing Relieved by: Nothing Narrative Narrative: Patient presents with bleeding from the right side of her face that began today. Patient states she picked the scab off the right side of her face and her bleeding has been persistent. Patient states she has been unable to control bleeding with pressure. Patient states she was on 81 mg of aspirin and 75 mg of Plavix every day. Patient denies any other injuries. Patient denies any chest pain or shortness of breath. Patient denies any lightheadedness or dizziness. [facility] Medical History Accident due to mechanical fall without injury Anxiety Atherosclerosis of coronary artery of [place] heart without angina pectoris Back pain Back problem Chronic systolic (congestive) heart failure Depression Depression with anxiety Diabetes Diabetes type 1, controlled Diastolic dysfunction Essential (primary) hypertension Heartburn Hypothyroidism Hypothyroidism (acquired) Insulin pump titration Iron deficiency Ischemic cardiomyopathy Measles Mumps NSTEMI (non-ST elevated myocardial infarction) (09/14/19) Old anterior wall myocardial infarction Osteoporosis Parkinsons Paroxysmal atrial fibrillation Presence of insulin pump Restless legs 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 Type 1 diabetes mellitus Wears glasses Wears hearing aid Wears partial dentures Home Medications cholecalciferol (vitamin D3) 50 mcg (2,000 unit) capsule 2,000 unit PO DAILY vitamin 04/06/17 [History Last Taken 09/28/19] citalopram 20 mg tablet 20 mg PO DAILY depression 04/06/17 [History Last Taken 09/28/19] gabapentin 100 mg capsule 100 mg PO QHS pain 04/06/17 [History Last Taken 09/27/19] mind works 1 tablet PO DAILY Check with primary doctor 10/22/18 [History Last Taken 09/28/19] aspirin 81 mg chewable tablet 81 mg PO DAILY@0800 ##30 09/23/19 [Rx Last Taken 01/27/21] lorazepam 0.5 mg tablet 0.5 mg PO Q12H PRN PRN severe anxiety #14 tabs 10/01/19 [Rx Last Taken Unknown] Dexcom G6 Sensor (blood-glucose sensor) #3 ea 09/22/20 [Rx Last Taken Unknown] Dexcom G6 Transmitter (blood-glucose transmitter) #1 ea 07/21/21 [Rx Last Taken Unknown] carbidopa 25 mg-levodopa 100 mg tablet (Sinemet) See Rx Instructions PO TID parkinsons 12/02/21 [History Last Taken Unknown] lisinopril 20 mg tablet 20 mg PO BID #180 tabs 12/02/21 [Rx Last Taken Unknown] clopidogrel 75 mg tablet (Plavix) 75 mg PO DAILY #90 tabs 12/03/21 [Rx Last Taken Unknown] hydrochlorothiazide 25 mg tablet 25 mg PO DAILY #90 tabs 12/06/21 [Rx Last Taken Unknown] denosumab 60 mg/mL subcutaneous syringe 60 mg subcut [id number] #1 mL 03/04/22 [Rx Last Taken Unknown] levothyroxine 88 mcg tablet 88 mcg PO DAILY thyroid #90 tabs 03/04/22 [Rx Last Taken Unknown] carvedilol 6.25 mg tablet See Rx Instructions .Route .COMPLEX #180 tabs 04/14/22 [Rx Last Taken Unknown] ferrous sulfate 325 mg (65 mg iron) tablet 325 mg PO DAILY 06/08/22 [History Last Taken Unknown] omeprazole 20 mg capsule,delayed release 20 mg PO DAILY PRN 06/08/22 [History Last Taken Unknown] blood-glucose meter (True Metrix Glucose Meter) #1 ea 06/16/22 [Rx Last Taken Unknown] blood sugar diagnostic (True Metrix Pro Test Strip) #200 ea 09/21/22 [Rx Last Taken Unknown] Novolog U-100 Insulin aspart 100 unit/mL subcutaneous solution (insulin aspart U-100) See Rx Instructions subcut QDAY #60 mL 09/27/22 [Rx Last Taken Unknown] Allergy/AdvReac Type Severity Reaction Status Date / Time paroxetine [From Paxil] Allergy Severe Unknown Verified 10/01/22 15:37 Penicillins Allergy Severe Unknown Verified 10/01/22 15:37 [id number] Reductase Allergy Severe NEEDS Verified 10/01/22 15:37 Inhibitor FOLLOW-UP strawberry Allergy Severe NEEDS Verified 10/01/22 15:37 FOLLOW-UP amlodipine AdvReac Severe Abdominal Verified 10/01/22 15:37 pain Family History Mother CVA (cerebral vascular accident) Dementia Sister Hypertension Diabetes Brother Heart disease Diabetes Daughter Diabetes Surgical History History of biopsy of temporal artery History of cataract surgery History of coronary artery stent placement (09/14/19) History of partial hysterectomy Hx of cardiac catheterization S/P cholecystectomy S/P LASIK surgery of both eyes Social History Smoking Status: Never smoker second hand exposure: No alcohol intake: never substance use type: does not use caffeine: No what type of physical activity do you participate in: none frequency: does not exercise ROS ROS ED Constitutional Constitutional ED: Denies chills or fever(s) Eyes Eyes: Denies blurry vision or change in vision ENT ENT ED: Denies rhinorrhea or sore throat Cardiovascular Cardiovascular: Denies chest pain or palpitations Respiratory/Chest Respiratory/Chest: Denies cough or dyspnea Gastrointestinal Gastrointestinal: Denies nausea or vomiting Genitourinary Genitourinary ED: Denies dysuria or hematuria Musculoskeletal Musculoskeletal: Denies back pain or neck pain Integumentary Denies abscess or rash Neurologic Neurologic: Denies headache(s) or weakness Allergic/Immunologic Allergic/Immunologic ED: Denies mouth swelling or urticaria EXAM Physical Exam Const Vital Signs: 10/01/22 15:33 Temperature 97.5 F L Temperature Source Temporal Pulse Rate 63 Respiratory Rate 16 Blood Pressure 177/65 H Blood Pressure Mean 102 Pulse Ox 98 Oxygen Delivery Method Room Air Positive well nourished and well developed General Appearance ED: well developed and NAD HEENT Reports moist mucous membranes Neck supple and no JVD Neuro oriented x3 and CN's II-XII intact bilaterally Psych mental status grossly normal Skin Skin Narrative: There is a 1 mm diameter open wound on the right cheek just anterior to the right TMJ. There is mild bleeding. There is no erythema or warmth. There is no other drainage. There is no tenderness. Patient is able to open and close her jaw without any pain. MDM MDM MDM Narrative Medical decision making narrative: This is a small superficial abrasion that is having some persistent bleeding. However since it is on the face, the bleeding seems to be worse. Gelfoam dressing will be applied. I do not feel labs are necessary at this time. Treatment and Re-Evaluation Narrative: On reevaluation, patient stated she was having some bleeding through the Gelfoam dressing. The Gelfoam dressing was changed. Patient was reevaluated after the dressing was changed. There is still minimal bleeding however it is not saturating through the Gelfoam dressing. Patient was instructed to maintain the Gelfoam dressing until tomorrow morning. Patient was instructed to apply Neosporin ointment to the area tomorrow. Patient was instructed to follow-up with her primary care physician in 5 to 7 days. Patient was instructed return if worse in any way. Patient and family understood and were agreeable with the plan. All questions were answered. Discharge Plan Triage Chief Complaint: Wound ED Provider: Mor Freitas Dx/Rx/DC Orders Clinical Impression: Abrasion of face, Type 1 diabetes mellitus, Essential (primary) hypertension Instructions: ED Abrasion Prescriptions: No Action mind works 1 tablet PO DAILY carbidopa-levodopa [Sinemet] 25-100 mg tablet See Rx Instructions PO TID Rx Instructions: one tablet three times a day and two tablets at bedtime PO three times a day; lisinopril 20 mg tablet 20 mg PO BID Qty: 180 3RF levothyroxine 88 mcg tablet 88 mcg PO DAILY Qty: 90 3RF Hold Instructions: Duplicate Order denosumab 60 mg/mL syringe 60 mg subcut [id number] Qty: 1 1RF ferrous sulfate 325 mg (65 mg iron) tablet 325 mg PO DAILY omeprazole 20 mg capsule,delayed release(DR/EC) 20 mg PO DAILY PRN citalopram 20 MG tablet 20 mg PO DAILY gabapentin 100 MG capsule 100 mg PO QHS cholecalciferol (vitamin D3) 2,000 UNIT capsule 2,000 unit PO DAILY aspirin 81 MG tablet,chewable 81 mg PO DAILY@0800 Qty: 30 1RF Label Comments: LAST DOSE 01/06/21 lorazepam 0.5 MG tablet 0.5 mg PO Q12H PRN PRN (Reason: severe anxiety) Qty: 14 0RF (DME) Dexcom G6 Sensor Device See Rx Instructions .ROUTE .MEDSUPPLY Qty: 3 12RF Rx Instructions: As directed to monitor glucose levels change every 10 days (DME) Dexcom G6 Transmitter Device See Rx Instructions .ROUTE .MEDSUPPLY Qty: 1 3RF Rx Instructions: As directed with sensors to monitor glucose levels change every 90 days clopidogrel [Plavix] 75 mg tablet 75 mg PO DAILY Qty: 90 3RF Label Comments: LAST DOSE 01/06/21 hydrochlorothiazide 25 mg tablet 25 mg PO DAILY Qty: 90 3RF carvedilol 6.25 mg tablet See Rx Instructions .ROUTE .COMPLEX Qty: 180 3RF Dose Instruction: TAKE 1 TABLET TWICE DAILY Rx Instructions: TAKE 1 TABLET TWICE DAILY (DME) blood-glucose meter [True Metrix Glucose Meter] Misc See Rx Instructions .Route Qty: 1 0RF Rx Instructions: As directed (DME) True Metrix Pro Test Strip Strip See Rx Instructions .Route Qty: 200 3RF Rx Instructions: TID Novolog U-100 Insulin aspart 100 unit/mL solution See Rx Instructions SC QDAY Qty: 60 3RF Dose Instruction: uses up to 60 U qd via pump SC QDAY; uses up to 60 U qd via pump SC QDAY Rx Instructions: uses up to 60 U qd via pump SC QDAY; bolus when eating Primary Care Provider: Renée Whitehead Referrals: Renée Whitehead DO [Primary Care Provider] - 5-7 Days Disposition Disposition: Home, Self Care
== END 2022-10-01 17:16 | disposition home or self-care (01) ==
LOC: ED 16:02
PROVIDERS: Emergency Provider Emergency Medicine; PCP Family Medicine; Visit Provider Emergency Medicine
DX: S00.81XA Abrasion of other part of head, initial encounter (principal); I13.0 Hypertensive heart and chronic kidney disease with heart failure and stage 1 through stage 4 chronic kidney disease, or unspecified chronic kidney disease; I50.22 Chronic systolic (congestive) heart failure; E10.22 Type 1 diabetes mellitus with diabetic chronic kidney disease; I25.10 Atherosclerotic heart disease of native coronary artery without angina pectoris; X58.XXXA Exposure to other specified factors, initial encounter
CPT/HCPCS: 99282

== ENCOUNTER → 2022-10-18 | Outpatient (CLI) | payer MEDICARE, SELFPAY ==
[2020-02-27 08:59] VITALS: BMI 25.4
[2022-10-18] MEDS: DENOSUMAB 60 MG/ML SC (14:02)
[2022-10-18 14:06] VITALS: BP 155/64; PULSE 61; RESP 16; TEMP 36.2
== END | disposition home or self-care (01) ==
LOC: MEDOUTP 13:56
PROVIDERS: PCP Family Medicine; Referring Provider Internal Medicine Endocrinology, Diabetes & Metabolism; Visit Provider Internal Medicine Endocrinology, Diabetes & Metabolism
DX: M81.0 Age-related osteoporosis without current pathological fracture (principal)
CPT/HCPCS: 96372; J0897

== ENCOUNTER → 2022-11-16 | Outpatient (CLI) | payer MEDICARE, SELFPAY ==
[2020-02-27 08:59] VITALS: BMI 25.4
[2022-11-16 10:20] LABS: Absolute Lymphocyte Count 1.14 X10^3/uL (0.83-4.51); Absolute Neutrophil Count 4.3 X10^3/uL (2.0-7.7); Basophil# 0.08 X10^3/uL; Basophil% 1.2 % (0-1); Eosinophils% 4.4 % (0-5); Hematocrit 34.6 % (37-47); Hemoglobin 11.7 g/dL (12.0-15.0); Lymphocyte # 1.14 X10^3/ul (0.83-4.51); Lymphocyte % 16.8 % (19-41); Mean Corp Hgb Conc 33.8 g/dL (32-36); Mean Corpuscular Hgb 33.1 pg (27.0-32.0); Mean Platelet Vol. 10.1 fl (6.2-12.0); Monocyte# 0.93 X10^3/uL; Monocyte% 13.7 % (0-10); NRBC Flagged by Analyzer 0 % (0-5); Neutrophil # 4.32 X10^3/uL (2.7-7.7); Neutrophil % 63.5 % (47-70); Platelet Count 281 K/mm3 (150-450); RBC Distribution Width CV 14.5 % (11.6-14.6); RBC Distribution Width SD 52.2 fl (35.1-43.9); Red Blood Count 3.53 M/mm3 (4.2-5.4); White Blood Count 6.8 K/mm3 (4.4-11.0)
[2022-11-16 10:29] LABS: Prothrombin Time (Protime)PT. 13.3 SECONDS (11.7-14.9)
== END | disposition home or self-care (01) ==
LOC: BFHLAB 08:39
PROVIDERS: PCP Family Medicine; Visit Provider Family Medicine
DX: R58 Hemorrhage, not elsewhere classified (principal)
CPT/HCPCS: 36415; 85025; 85610

== ENCOUNTER → 2023-03-20 | Outpatient (CLI) | payer MEDICARE, SELFPAY ==
[2020-02-27 08:59] VITALS: BMI 25.4
[2023-03-20 15:54] LABS: AST(SGOT) 17 U/L (15-37); Alanine Aminotransfer ALT/SGPT 12 U/L (13-56); Albumin, Serum 3.5 g/dL (3.2-5.0); Alkaline Phosphatase 61 U/L (45-117); Anion Gap 2 (5-15); BUN 18 mg/dL (7-18); BUN/Creat Ratio 19.7 RATIO (10-20); Calcium,Total 8.7 mg/dL (8.5-10.1); Chloride 102 mmol/L (98-107); Creatinine, Serum 0.91 mg/dL (0.55-1.02); EST Glomerular Filtration Rate 63 mL/min (>60); Est Glom Filt Rate - Afr Amer 76 mL/min (>60); Globulin 3.5 g/dL (2.2-4.2); Glucose 100 mg/dL (74-106); Sodium Level 136 mmol/L (136-145)
== END | disposition home or self-care (01) ==
LOC: BFHLAB 11:43
PROVIDERS: PCP Family Medicine; Referring Provider Family Medicine; Visit Provider Family Medicine
DX: E10.22 Type 1 diabetes mellitus with diabetic chronic kidney disease (principal); N18.31 Chronic kidney disease, stage 3a
CPT/HCPCS: 36415; 80053

== ENCOUNTER 2023-04-18 13:54 | Outpatient (CLI) | payer MEDICARE, SELFPAY ==
[2020-02-27 08:59] VITALS: BMI 25.4
[2023-04-18 14:26] VITALS: BP 145/43; PULSE 57; RESP 16; O2SAT 97
[2023-04-18] MEDS: DENOSUMAB 60 MG/ML SC (14:32)
== END 2023-04-18 13:55 | disposition home or self-care (01) ==
LOC: MEDOUTP 13:54
PROVIDERS: PCP Family Medicine; Referring Provider Internal Medicine Endocrinology, Diabetes & Metabolism; Visit Provider Internal Medicine Endocrinology, Diabetes & Metabolism
DX: M81.0 Age-related osteoporosis without current pathological fracture (principal)
CPT/HCPCS: 96372; J0897

== ENCOUNTER → 2023-08-15 | Outpatient (CLI) | payer MEDICARE, SELFPAY ==
[2020-02-27 08:59] VITALS: BMI 25.4
[2023-08-15 12:47] LABS: Vitamin D,25 Hydroxy 34.5 ng/mL
[2023-08-15 12:53] LABS: AST(SGOT) 19 U/L (15-37); Alanine Aminotransfer ALT/SGPT 9 U/L (13-56); Albumin, Serum 3.5 g/dL (3.2-5.0); Alkaline Phosphatase 62 U/L (45-117); Anion Gap 5 (5-15); BUN 17 mg/dL (7-18); BUN/Creat Ratio 17.5 RATIO (10-20); Calcium,Total 8.5 mg/dL (8.5-10.1); Chloride 101 mmol/L (98-107); Cholesterol 169 mg/dL (200); Creatinine, Serum 0.97 mg/dL (0.55-1.02); EST Glomerular Filtration Rate 58 mL/min (>60); Est Glom Filt Rate - Afr Amer 71 mL/min (>60); Globulin 3.6 g/dL (2.2-4.2); Glucose 184 mg/dL (74-106); High Density Lipoprotein 69 mg/dL; Potassium 3.5 mmol/L (3.5-5.1); Protein, Total 7.1 g/dL (6.4-8.2); Sodium Level 138 mmol/L (136-145); T4 Free Direct 1.24 ng/dL (0.76-1.46); Thyroid Stim Hormone (TSH) 1.77 uIU/mL (0.358-3.74); Triglycerides 54 mg/dL; Very Low Density Lipoprotein 11 mg/dL (5-40)
== END | disposition home or self-care (01) ==
LOC: LAB 09:35
PROVIDERS: PCP Family Medicine; Referring Provider Internal Medicine Endocrinology, Diabetes & Metabolism; Visit Provider Internal Medicine Endocrinology, Diabetes & Metabolism
DX: E10.22 Type 1 diabetes mellitus with diabetic chronic kidney disease (principal); N18.30 Chronic kidney disease, stage 3 unspecified; I12.9 Hypertensive chronic kidney disease with stage 1 through stage 4 chronic kidney disease, or unspecified chronic kidney disease; E03.9 Hypothyroidism, unspecified; M81.0 Age-related osteoporosis without current pathological fracture; Z46.81 Encounter for fitting and adjustment of insulin pump; Z96.41 Presence of insulin pump (external) (internal); E55.9 Vitamin D deficiency, unspecified
CPT/HCPCS: 36415; 80053; 80061; 82306; 84439; 84443

== ENCOUNTER → 2023-10-09 | Outpatient (CLI) | payer MEDICARE, SELFPAY ==
[2020-02-27 08:59] VITALS: BMI 25.4
[2023-10-09 11:17] LABS: Anion Gap 5 (5-15); BUN 23 mg/dL (7-18); BUN/Creat Ratio 23.9 RATIO (10-20); Calcium,Total 9.6 mg/dL (8.5-10.1); Chloride 102 mmol/L (98-107); Creatinine, Serum 0.96 mg/dL (0.55-1.02); EST Glomerular Filtration Rate 59 mL/min (>60); Est Glom Filt Rate - Afr Amer 71 mL/min (>60); Glucose 106 mg/dL (74-106); Potassium 3.7 mmol/L (3.5-5.1); Sodium Level 136 mmol/L (136-145)
[2023-10-09 11:34] LABS: AST(SGOT) 18 U/L (15-37); Alanine Aminotransfer ALT/SGPT 9 U/L (13-56); Albumin, Serum 3.6 g/dL (3.2-5.0); Alkaline Phosphatase 63 U/L (45-117); Bilirubin, Direct 0.24 mg/dL (0.00-0.30); Cholesterol 189 mg/dL (200); Globulin 3.7 g/dL (2.2-4.2); High Density Lipoprotein 75 mg/dL; Protein, Total 7.3 g/dL (6.4-8.2); Triglycerides 39 mg/dL; Very Low Density Lipoprotein 8 mg/dL (5-40)
== END | disposition home or self-care (01) ==
LOC: LAB 09:27
PROVIDERS: Physician Assistant Medical; PCP Family Medicine; Referring Provider Nurse Practitioner Gerontology; Visit Provider Nurse Practitioner Gerontology
DX: E78.00 Pure hypercholesterolemia, unspecified (principal); I25.10 Atherosclerotic heart disease of native coronary artery without angina pectoris; I10 Essential (primary) hypertension
CPT/HCPCS: 36415; 80048; 80061; 80076

== ENCOUNTER 2023-10-20 12:43 | Outpatient (CLI) | payer MEDICARE, SELFPAY ==
[2020-02-27 08:59] VITALS: BMI 25.4
[2023-10-20 12:58] VITALS: BP 147/39; PULSE 58; RESP 16; TEMP 36.1; O2SAT 99; BMI 26.0
[2023-10-20] MEDS: DENOSUMAB 60 MG/ML SC (13:03)
== END 2023-10-20 12:44 | disposition home or self-care (01) ==
LOC: MEDOUTP 12:44
PROVIDERS: PCP Family Medicine; Referring Provider Internal Medicine Endocrinology, Diabetes & Metabolism; Visit Provider Internal Medicine Endocrinology, Diabetes & Metabolism
DX: M81.0 Age-related osteoporosis without current pathological fracture (principal)
CPT/HCPCS: 96372; J0897

== ENCOUNTER → 2023-11-01 | Outpatient (CLI) | payer MEDICARE, SELFPAY ==
[2020-02-27 08:59] VITALS: BMI 25.4
--- OUTSIDE RECORDS SUMMARY | 2023-11-01 06:16 | XMS RPT_ITS | CCD ---
Author Name Unknown Address [address] [place] [address] Organization [facility] Care Team Providers Care Quality Analyst/Technical Writer Name Role Phone Mauricio Henriquez Unavailable Annel Dean LPN Unavailable Unavailable Annel Dean LPN Unavailable Unavailable Yoly Cedeno NP Unavailable [phone] ELA STOCKTON Unavailable Unavailable Yoly Cedeno NP Unavailable [phone] Annel Dean LPN Unavailable Unavailable Annel Dean LPN Unavailable Unavailable Allergies Allergy Classification Reported Allergen(s) Allergy Type Date of Onset Reaction(s) Facility (20 sources) aspirin Drug Allergy 0 hives [facility] Work Phone: (10 sources) Hmg-Coa Reductase Inhibitors (Statins) drug allergy 0 myalgia [facility] Work Phone: (10 sources) PARoxetine Drug Allergy [facility] Work Phone: (10 sources) penicillin Drug Allergy [facility] Work Phone: (10 sources) strawberry allergenic extract Drug Allergy 7 [facility] Work Phone: (1 source) creatine; Translations: [CREATINE] Drug Allergy 7 [facility] Repository (1 source) ezetimibe; Translations: [EZETIMIBE] Drug Allergy 8 [facility] (1 source) lisinopril; Translations: [LISINOPRIL] Drug Allergy 9 [facility] Repository (1 source) lovastatin; Translations: [LOVASTATIN] Drug Allergy 5 [facility] Repository (1 source) PARoxetine; Translations: [PAROXETINE HCL] Drug Allergy 9 [facility] Repository (1 source) penicillin; Translations: [PENICILLIN G] Drug Allergy 4 [facility] Rep[facility] (1 source) pravastatin; Translations: [PRAVASTATIN SODIUM] Drug Allergy 6 [facility] Repository (1 source) rosuvastatin; Translations: [ROSUVASTATIN CALCIUM] Drug Allergy 5 [facility] Repository (1 source) Hensel; Translations: [STRAWBERRIES] Propensity to adverse reactions to food (disorder) 5 [facility] Repository Medications Completed/Discontinued Medications Medication Drug Class(es) Dates Sig (Normalized) Sig (Original) acetaminophen 500 mg oral capsule (10 sources) ACETAMINOPHEN 50 0 MG CAPS prn ACETAMINOPHEN [id number] Panda Riley MD Problems Active Problems Problem Classification Problem Date Documented Da te Episodic/Chronic Anxiety disorders (20 sources) Anxiety disorder; Translations: [Mixed anxiety and depressive disorder] Onset: 09-11-1989 10-11-2016 Chronic Diabetes mellitus with complications (10 sources) Diabetic peripheral neuropathy; Translations: [Type 2 diabetes mellitus with diabetic neuropathy, unspecified] Onset: 11-11-2013 11-11-2013 Chronic Diabetes mellitus without complication (12 sources) Type 1 diabetes mellitus; Translations: [Type 1 diabetes mellitus without complications] Onset: 09-11-1972 09-29-2009 Chronic Disorders of lipid metabolism (10 sources) Hyperlipidemia; Translations: [Hyperlipidemia, unspecified] Onset: 10-19-2016 10-19-2016 Chronic Essential hypertension (10 sources) Essential hypertension; Translations: [Essential (primary) hypertension] Onset: 09-11-1999 09-29-2009 Chronic Occlusion or stenosis of precerebral arteries (10 sources) Carotid artery stenosis; Translations: [Occlusion and stenosis of bilateral carotid arteries] Onset: 09-07-2011 09-07-2011 Chronic Other hereditary and degenerative nervous system conditions (10 sources) Essential tremor; Translations: [Essential tremor] Onset: 07-13-2015 08-10-2015 Chronic Other nervous system disorders (10 sources) Carpal tunnel syndrome; Translations: [Carpal tunnel syndrome, right upper limb] Onset: 07-13-2015 08-10-2015 Chronic Thyroid disorders (10 sources) Hypothyroidism; Translations: [Hypothyroidism, unspecified] Onset: 09-11-1969 09-29-2009 Chronic Unclassified (6 sources) Insertion of insulin pump; Translations: [Encounter for fitting and adjustment of insulin pump] Onset: 04-18-2017 04-19-2017 Unclassified (6 sources) Adult health examination ; Translations: [Encounter for general adult medical examination without abnormal findings] Onset: 11-17-2015 12-09-2015 Unclassified (6 sources) Screening mammography ; Translations: [Encounter for other screening for malignant neoplasm of breast] Onset: 12-05-2011 12-05-2011 Unclassified (6 sources) Screening - health check; Translations: [Encounter for general adult medical examination without abnormal findings] 11-11-2009 Unclassified (6 sources) Screening for malignant neoplasm of colon ; Translations: [Encounter for screening for malignant neoplasm of colon] Onset: 11-23-2012 11-23-2012 Past or Other Problems Problem Classification Problem Date Documented Da te Episodic/Chronic Acute bronchitis (20 sources) Acute bronchitis; Translations: [Acute bronchitis, unspecified] Onset: 1 Resolved: 1 09-07-2011 Episodic Conditions associated with dizziness or vertigo (20 sources) Positional vertigo; Translations: [Vertigo] Onset: 5 11-11-2013 Episodic Neoplasms of unspecified nature or uncertain behavior (10 sources) Neoplasm of uncertain behavior of skin; Translations: [Neoplasm of uncertain behavior of skin] Onset: 4 11-11-2013 Episodic Nonspecific chest pain (10 sources) Atypical chest pain; Translations: [Other chest pain] Onset: 1 08-23-2011 Episodic Other bone disease and musculoskeletal deformities (20 sources) Osteopenia; Translations: [Other specified disorders of bone density and structure, unspecified site] Onset: 0 12-27-2016 Episodic Other connective tissue disease (10 sources) Radial styloid tenosynovitis; Translations: [Radial styloid tenosynovitis [de Quervain]] Onset: 3 11-23-2012 Episodic Other gastrointestinal disorders (10 sources) Diarrhea; Translations: [Diarrhea, unspecified] Onset: 5 08-10-2015 Episodic Other non-traumatic joint disorders (20 sources) Knee pain; Translations: [Pain in left knee] Onset: 2 Resolved: 3 04-17-2012 Episodic Other skin disorders (20 sources) Epidermoid cyst of skin; Translations: [Sebaceous cyst] Onset: 2 Resolved: 3 11-23-2012 Episodic Other upper respiratory infections (2 sources) Upper respiratory infection; Translations: [Acute upper respiratory infection, unspecified] Onset: 7 08-01-2017 Episodic Poisoning by other medications and drugs (10 sources) Drug allergy; Translations: [Allergy, unspecified] Onset: 1 08-24-2011 Episodic Residual codes; unclassified (20 sources) Family history of malignant neoplasm of gastrointestinal tract; Translations: [Insomnia] Onset: 1 Resolved: 0 06-21-2010 Episodic Residual codes; unclassified (4 sources) Insomnia; Translations: [Insomnia, unspecified] Onset: 1 05-23-2011 Episodic Sprains and strains (20 sources) Sprain of foot; Translations: [Unspecified sprain of left foot] Onset: 2 Resolved: 3 11-23-2012 Episodic Results Test Name Value Interpretation Reference Range [facility] Vital Signs Date Time Vital Sign Value Performing Clinician Facility 08-01-2017 13:22-0500 BMI (Body Mass Index) 27 kg/m2 Mauricio QUINTEROS [facility] Work Phone: 08-01-2017 13:22-0500 Body Temperature 98.6 [degF] Mauricio QUINTEROS [facility] Work Phone: 08-01-2017 13:22-0500 BP Diastolic 74 mm[Hg] Mauricio QUINTEROS [facility] Work Phone: 08-01-2017 13:22-0500 BP Systolic 108 mm[Hg] Mauricio QUINTEROS [facility] Work Phone: 08-01-2017 13:22-0500 Height 158.75 cm Mauricio QUINTEROS [facility] Work Phone: 08-01-2017 13:22-0500 Pulse (Heart Rate) 78 /min Mauricio QUINTEROS [facility] Work Phone: 08-01-2017 13:22-0500 Respiratory Rate 14 /min Mauricio QUINTEROS [facility] Work Phone: 08-01-2017 13:22-0500 Weight 68.04 kg Mauricio José Miguel QUINTEROS [facility] Work Phone: 07-25-2017 07:55-0500 BMI (Body Mass Index) 26.85 kg/m2 Annel Dean LPN [facility] Work Phone: 07-25-2017 07:55-0500 BP Diastolic 79 mm[Hg] [facility] Work Phone: 07-25-2017 07:55-0500 BP Systolic 126 mm[Hg] Annel Dean LPN [facility] Work Phone: 07-25-2017 07:55-0500 Height 158.75 cm Annel Dean LPN [facility] Work Phone: 07-25-2017 07:55-0500 Pulse (Heart Rate) 57 /min [facility] Work Phone: 07-25-2017 07:55-0500 Respiratory Rate 18 /min [facility] Work Phone: 07-25-2017 07:55-0500 Weight 67.68 kg [facility]el [facility] Work Phone: 04-18-2017 08:12-0400 Body height 158.75 cm [facility] Work Phone: 04-18-2017 08:12-0400 Body mass index (BMI) [Ratio] 26.38 kg/m2 Annel Dean LPN [facility] Work Phone: 04-18-2017 08:12-0400 Body temperature 97.6 [degF] Annel Jermaine BULB WEEDER [facility] Work Phone: 04-18-2017 08:12-0400 Body weight 66.5 kg Annel Jermaine GUERRA [facility] Work Phone: 04-18-2017 08:12-0400 Diastolic blood pressure 72 mm[Hg] Annel Dean LPN [facility] Work Phone: 04-18-2017 08:12-0400 Heart rate 59 /min Annel Jermaine GUERRA [facility] Work Phone: 04-18-2017 08:12-0400 Respiratory rate 18 /min Annel Dean LPN [facility] Work Phone: 04-18-2017 08:12-0400 Systolic blood pressure 129 mm[Hg] Annel Dean LPN [facility] Work Phone: 04-18-2017 08:12-0400 Weight 66.5 kg Yoly Cedeno MANGLE CATCHER [facility] Work Phone: 12-26-2016 09:31-0400 Body height 158.75 cm Yoly Newmanok MANGLE CATCHER Work Phone: [facility] Work Phone: 12-26-2016 09:31-0400 Body mass index (BMI) [Ratio] 27.28 kg/m2 Yoly Shook MANGLE CATCHER Work Phone: [facility] Work Phone: 12-26-2016 09:31-0400 Body temperature 98.1 [degF] Yoly Newmanok MANGLE CATCHER Work Phone: [facility] Work Phone: 12-26-2016 09:31-0400 Body weight 68.77 kg Yoly Shook MANGLE CATCHER Work Phone: [facility] Work Phone: 12-26-2016 09:31-0400 Body weight 68.76 kg Yoly Shook MANGLE CATCHER Work Phone: [facility] Work Phone: 12-26-2016 09:31-0400 Diastolic blood pressure 75 mm[Hg] Yoly Newmanok MANGLE CATCHER Work Phone: [facility] Work Phone: 12-26-2016 09:31-0400 Heart rate 58 /min Yoly Newmanok MANGLE CATCHER Work Phone: [facility] Work Phone: 12-26-2016 09:31-0400 Respiratory rate 16 /min Yoly Newmanok MANGLE CATCHER Work Phone: [facility] Work Phone: 12-26-2016 09:31-0400 Systolic blood pressure 129 mm[Hg] Yoly Cedeno MANGLE CATCHER Work Phone: [facility] Work Phone: 12-26-2016 09:31-0400 Weight 68.76 kg Yoly Cedeno MANGLE CATCHER [facility] Work Phone: 11-17-2015 09:38-0500 Body surface area Derived from formula 1.73 m2 Yoly Cedeno MANGLE CATCHER Work Phone: [facility] Work Phone: Encounters Encounter Date Encounter Type Care Provider Facility Start: 04-18-2017 Screening - health check Annel Dean LPN [facility] Work Phone: Start: 04-06-2017 End: 04-06-2017 Ambulatory ELA STOCKTON [facility] Start: 12-26-2016 Screening - health check Yoly Cedeno MANGLE CATCHER Work Phone: [facility] Work Phone: Start: 11-17-2015 Adult health examination Yoly Newmanok MANGLE CATCHER Work Phone: [facility] Work Phone: Procedures Date Procedure Procedure Detail Performing Clinician Start: 04-18-2017 End: 07-20-2017 *CMP Complete Metabolic Panel Yoly Cedeno [employer] C[employer] Work Phone: Start: 04-18-2017 End: 07-18-2017 Hemoglobin A1c/Hemoglobin.total in Blood Yoly Cedeno [employer] Work Phone: Start: 04-18-2017 End: 04-18-2017 Documentation of current medications Annel Dean LPN Start: 04-11-2017 End: 04-13-2017 Hemoglobin A1c/Hemoglobin.total in Blood Yoly Cedeno [employer] Work Phone: Start: 04-11-2017 End: 04-13-2017 Hemoglobin A1c/Hemoglobin.total in Blood Yoly Cedeno [employer] C[employer] Work Phone: Start: 12-26-2016 End: 12-26-2016 Dietary management education, guidance, and counseling Yoly Cedeno NP Work Phone: Start: 10-11-2016 End: 10-12-2016 Hemoglobin A1c/Hemoglobin.total in Blood Yoly Cedeno [employer] C[employer] Work Phone: Start: 10-11-2016 End: 10-11-2016 Documentation of current medications Yoly Cedeno NP Work Phone: Start: 10-11-2016 End: 10-12-2016 Hemoglobin A1c/Hemoglobin.total in Blood Yoly Cedeno MANG[employer] CATCHER Work Phone: Start: 03-28-2014 End: 03-31-2014 Exc b9 lesion mrgn xcp sk tg t/a/l 0.6-1.0 cm Panda Riley MD Start: 03-28-2014 End: 03-31-2014 Exc b9 lesion mrgn xcp sk tg t/a/l 0.6-1.0 cm Panda Riley MD Start: 02-10-2014 End: 03-17-2014 Mammogram, Screening, both breasts Panda Riley MD Start: 02-10-2014 End: 03-17-2014 Mammogram, Screening, both breasts Panda Riley MD Start: 2013 End: 2013 Colonoscopy Yoly Cedeno [employer]ANG[employer] CATCHER Work Phone: Start: 11-23-2012 Screening for malignant neoplasm of colon SCREENING, COLON CANCER Yoly Newmanlucero MANGLE CATCHER Work Phone: Start: 04-17-2012 End: 04-18-2012 Radex foot complete minimum 3 views Panda Riley MD Start: 04-17-2012 End: 04-18-2012 Radiologic exam knee complete 4/more views Panda Riley MD Start: 04-17-2012 End: 04-18-2012 Radiologic exam knee complete 4/more views Panda Riley MD Start: 12-05-2011 End: 11-21-2012 Bone density scan Panda Riley MD Start: 12-05-2011 End: 11-21-2012 Mammogram, Screening, both breasts Panda Riley MD Start: 12-05-2011 End: 11-21-2012 Bone density scan Panda Riley MD Start: 12-05-2011 End: 11-21-2012 Mammogram, Screening, both breasts Panda Riley MD Start: 12-05-2011 Screening mammography OTHER SCREENING MAMMOGRAM Yoly Cedeno [facility] Work Phone: Start: 11-22-2011 End: 11-22-2011 Exc b9 lesion mrgn xcp sk tg t/a/l 1.1-2.0 cm Panda Riley MD Start: 11-22-2011 End: 11-22-2011 Follow up Appt 1 week Panda Riley MD Start: 11-22-2011 End: 11-22-2011 Exc b9 lesion mrgn xcp sk tg t/a/l 1.1-2.0 cm Panda Riley MD Start: 11-11-2011 End: 11-11-2011 Follow Up as scheduled Panda Riley MD Start: 11-11-2011 End: 11-11-2011 Follow Up as scheduled Panda Riley MD Start: 09-07-2011 End: 10-25-2011 Carotid duplex Panda Riley MD Start: 09-07-2011 End: 09-07-2011 Follow Up Appt 3 months Panda Riley MD Start: 09-07-2011 End: 10-25-2011 Carotid duplex Panda Riley MD Start: 09-07-2011 End: 09-07-2011 Follow Up Appt 3 months Panda Riley MD Start: 08-23-2011 End: 09-07-2011 *EKG (Done in Hospital) Panda Riley MD Start: 08-23-2011 End: 09-07-2011 Electrocardiogram Panda Riley MD Start: 08-23-2011 End: 08-24-2011 Follow Up Appt 2 weeks Panda Riley MD Start: 08-23-2011 End: 09-07-2011 Electrocardiogram Panda Riley MD Start: 08-23-2011 End: 08-24-2011 Follow Up Appt 2 weeks Panda Riley MD Start: 05-23-2011 End: 05-23-2011 Follow Up Appt 6 months Panda Riley MD Start: 05-23-2011 End: 05-23-2011 Follow Up Appt 6 months Panda Riley MD Start: 06-21-2010 End: 06-21-2010 Follow Up Appt 6 months Panda Riley MD Start: 06-21-2010 End: 06-21-2010 Follow Up Appt 6 months Panda Riley MD Start: 12-23-2009 End: 12-24-2009 Follow Up Appt 6 months Panda Riley MD Start: 11-11-2009 End: 12-24-2009 *Occult Blood, Stool Panda Riley MD Start: 11-11-2009 End: 12-24-2009 *Occult Blood, Stool Panda Riley MD Plan of Treatment Date Care Activity Detail Author Start: 10-23-2017 End: 10-23-2017 Appointment Appointment [facility] Work Phone: Start: 08-01-2017 End: 08-01-2017 Appointment Appointment [facility] Work Phone: Start: 07-25-2017 End: 07-25-2017 Appointment Appointment [facility] Work Phone: Start: 04-18-2017 End: 07-20-2017 *CMP Complete Metabolic Panel *CMP Complete Metabolic Panel [facility] Work Phone: Start: 04-18-2017 End: 07-18-2017 Hemoglobin A1c/Hemoglobin.total mass fraction (Bld) *HgA1C [facility] Work Phone: Start: 04-18-2017 End: 04-18-2017 Patient encounter procedure Appointment [facility] Work Phone: Start: 04-18-2017 End: 04-18-2017 *CMP Complete Metabolic Panel *CMP Complete Metabolic Panel [facility] Work Phone: Start: 04-18-2017 End: 04-18-2017 Hemoglobin A1c/Hemoglobin.total in Blood *HgA1C [facility] Work Phone: Start: 04-11-2017 End: 04-13-2017 Hemoglobin A1c/Hemoglobin.total mass fraction (Bld) *HgA1C [facility] Work Phone: Start: 04-11-2017 End: 04-13-2017 Hemoglobin A1c/Hemoglobin.total in Blood *HgA1C [facility] Work Phone: Start: 12-26-2016 End: 12-26-2016 *CMP Complete Metabolic Panel *CMP Complete Metabolic Panel [facility] Work Phone: Start: 12-26-2016 End: 12-26-2016 *Microalbumin, Creatine Ratio, rand urine *Microalbumin, Creatine Ratio, rand urine [facility] Work Phone: Start: 12-26-2016 End: 12-26-2016 *PTH (Parathyroid Hormone) *PTH (Parathyroid Hormone) [facility] Work Phone: Start: 12-26-2016 End: 12-26-2016 25-Hydroxyvitamin D2+25-Hydroxyvitamin D3 [Mass/volume] in Serum or Plasma *Vitamin D (Calciferol) [facility] Work Phone: Start: 12-26-2016 End: 12-26-2016 Hemoglobin A1c/Hemoglobin.total mass fraction (Bld) *HgA1C [facility] Work Phone: Start: 12-26-2016 End: 12-26-2016 Lipid panel [AGGREGATE] *Lipid Profile [facility] Work Phone: Start: 12-26-2016 End: 12-26-2016 *CMP Complete Metabolic Panel *CMP Complete Metabolic Panel [facility] Work Phone: Start: 12-26-2016 End: 12-26-2016 *Microalbumin, Creatine Ratio, rand urine *Microalbumin, Creatine Ratio, rand urine [facility] Work Phone: Start: 12-26-2016 End: 12-26-2016 *PTH (Parathyroid Hormone) *PTH (Parathyroid Hormone) [facility] Work Phone: Start: 12-26-2016 End: 12-26-2016 25-Hydroxyvitamin D3+25-Hydroxyvitamin D2 [Mass/volume] in Serum or Plasma *Vitamin D (Calciferol) [facility] Work Phone: Start: 12-26-2016 End: 12-26-2016 Hemoglobin A1c/Hemoglobin.total in Blood *HgA1C [facility] Work Phone: Start: 12-26-2016 End: 12-26-2016 Lipid 1996 panel - Serum or Plasma *Lipid Profile [facility] Work Phone: Start: 10-11-2016 End: 10-12-2016 Hemoglobin A1c/Hemoglobin.total mass fraction (Bld) *HgA1C [facility] Work Phone: Start: 10-11-2016 End: 10-12-2016 Hemoglobin A1c/Hemoglobin.total in Blood *HgA1C [facility] Work Phone: Start: 12-17-2014 End: 12-17-2014 Bone density scan Bone Density Study [facility] Work Phone: Start: 12-17-2014 End: 12-17-2014 Bone density scan Bone Density Study [facility] Work Phone: Start: 12-03-2014 End: 12-03-2014 Mammogram, Screening, both breasts Mammogram, Screening, both breasts [facility] Work Phone: Start: 12-03-2014 End: 12-03-2014 Mammogram, Screening, both breasts Mammogram, Screening, both breasts [facility] Work Phone: Start: 03-28-2014 End: 03-31-2014 Exc b9 lesion mrgn xcp sk tg t/a/l 0.6-1.0 cm Excision Benign Lesion Trunk/Arm/Leg 0.6-1.0 cm [facility] Work Phone: Start: 03-28-2014 End: 03-31-2014 Exc b9 lesion mrgn xcp sk tg t/a/l 0.6-1.0 cm Excision Benign Lesion Trunk/Arm/Leg 0.6-1.0 cm [facility] Work Phone: Start: 02-10-2014 End: 03-17-2014 Mammogram, Screening, both breasts Mammogram, Screening, both breasts [facility] Work Phone: Start: 02-10-2014 End: 03-17-2014 Mammogram, Screening, both breasts Mammogram, Screening, both breasts [facility] Work Phone: Start: 11-11-2013 End: 11-11-2013 CBC W Auto Differential panel - Blood *CBC without Diff [facility] Work Phone: Start: 11-11-2013 End: 11-11-2013 CBC W Auto Differential panel - Blood *CBC without Diff [facility] Work Phone: Start: 11-23-2012 End: 11-23-2012 Mammogram, Screening, both breasts Mammogram, Screening, both breasts [facility] Work Phone: Start: 11-23-2012 End: 11-23-2012 Surgery Referral Surgery Referral [facility], [address] [place], [address] [facility] Work Phone: Start: 11-23-2012 End: 11-23-2012 Admission to same day surgery center Surgery Referral [facility], [address] [place], [address] [facility] Work Phone: Start: 11-23-2012 End: 11-23-2012 Mammogram, Screening, both breasts Mammogram, Screening, both breasts [facility] Work Phone: Start: 04-17-2012 End: 04-18-2012 Radex foot complete minimum 3 views X-Ray, Foot [facility] Work Phone: Start: 04-17-2012 End: 04-18-2012 Radiologic exam knee complete 4/more views X-Ray, Knee [facility] Work Phone: Start: 04-17-2012 End: 04-18-2012 Radex foot complete minimum 3 views X-Ray, Foot [facility] Work Phone: Start: 04-17-2012 End: 04-18-2012 Radiologic exam knee complete 4/more views X-Ray, Knee [facility] Work Phone: Start: 12-05-2011 End: 11-21-2012 Bone density scan Bone Density Study [facility] Work Phone: Start: 12-05-2011 End: 11-21-2012 Mammogram, Screening, both breasts Mammogram, Screening, both breasts [facility] Work Phone: Start: 12-05-2011 End: 11-21-2012 Bone density scan Bone Density Study [facility] Work Phone: Start: 12-05-2011 End: 11-21-2012 Mammogram, Screening, both breasts Mammogram, Screening, both breasts [facility] Work Phone: Start: 11-22-2011 End: 11-22-2011 Exc b9 lesion mrgn xcp sk tg t/a/l 1.1-2.0 cm Excision Benign Lesion Trunk/Arm/Leg 1.1-2.0 cm [facility] Work Phone: Start: 11-22-2011 End: 11-22-2011 Follow up Appt 1 week Follow up Appt 1 week [facility] Work Phone: Start: 11-22-2011 End: 11-22-2011 Exc b9 lesion mrgn xcp sk tg t/a/l 1.1-2.0 cm Excision Benign Lesion Trunk/Arm/Leg 1.1-2.0 cm [facility] Work Phone: Start: 11-22-2011 End: 11-22-2011 Follow up Appt 1 week Follow up Appt 1 week [facility] Work Phone: Start: 11-11-2011 End: 11-11-2011 Follow Up as scheduled Follow Up as scheduled [facility] Work Phone: Start: 11-11-2011 End: 11-22-2011 Office outpatient visit 15 minutes [id number] Ofc Vst, Est Level III [facility] Work Phone: Start: 11-11-2011 End: 11-11-2011 Follow Up as scheduled Follow Up as scheduled [facility] Work Phone: Start: 11-11-2011 End: 11-22-2011 Office outpatient visit 15 minutes [id number] Ofc Vst, Est Level III [facility] Work Phone: Start: 09-07-2011 End: 10-25-2011 Carotid duplex Carotid duplex [facility] Work Phone: Start: 09-07-2011 End: 09-07-2011 Follow Up Appt 3 months Follow Up Appt 3 months [facility] Work Phone: Start: 09-07-2011 End: 10-25-2011 Carotid duplex Carotid duplex [facility] Work Phone: Start: 09-07-2011 End: 09-07-2011 Follow Up Appt 3 months Follow Up Appt 3 months [facility] Work Phone: Start: 08-23-2011 End: 09-07-2011 *EKG (Done in Hospital) *EKG (Done in Hospital) [facility] Work Phone: Start: 08-23-2011 End: 08-24-2011 Follow Up Appt 2 weeks Follow Up Appt 2 weeks [facility] Work Phone: Start: 08-23-2011 End: 09-07-2011 Nuclear stress test -adenosine Nuclear stress test -adenosine [facility] Work Phone: Start: 08-23-2011 End: 09-07-2011 Electrocardiogram *EKG (Done in Hospital) [facility] Work Phone: Start: 08-23-2011 End: 08-24-2011 Follow Up Appt 2 weeks Follow Up Appt 2 weeks [facility] Work Phone: Start: 08-23-2011 End: 09-07-2011 Nuclear stress test -adenosine Nuclear stress test -adenosine [facility] Work Phone: Start: 05-23-2011 End: 05-23-2011 Follow Up Appt 6 months Follow Up Appt 6 months [facility] Work Phone: Start: 05-23-2011 End: 05-23-2011 Follow Up Appt 6 months Follow Up Appt 6 months [facility] Work Phone: Start: 06-21-2010 End: 06-21-2010 Follow Up Appt 6 months Follow Up Appt 6 months [facility] Work Phone: Start: 06-21-2010 End: 07-29-2010 Iiv3 vaccine split virus 0.5 ml dosage im use Flu vaccine > age 3 yr (with preservative) [facility] Work Phone: Start: 06-21-2010 End: 06-21-2010 Follow Up Appt 6 months Follow Up Appt 6 months [facility] Work Phone: Start: 06-21-2010 End: 07-29-2010 Iiv3 vaccine split virus 0.5 ml dosage im use Flu vaccine > age 3 yr (with preservative) [facility] Work Phone: Start: 12-23-2009 End: 12-24-2009 Follow Up Appt 6 months Follow Up Appt 6 months [facility] Work Phone: Start: 12-23-2009 End: 12-24-2009 Follow Up Appt 6 months Follow Up Appt 6 months [facility] Work Phone: Start: 11-11-2009 End: 12-24-2009 *Occult Blood, Stool *Occult Blood, Stool [facility] Work Phone: Start: 11-11-2009 End: 12-24-2009 *Occult Blood, Stool *Occult Blood, Stool [facility] Work Phone: Patient Education TYPE%201%20DIA BETES%2 0IN%20ADULTS [facility] Work Phone: Immunizations Immunization Date Immunization Notes Care Provider Coleen cotton 06-21-2010 influenza, seasonal, injectable Yoly Cedeno [employer] [facility] Work Phone: 06-21-2010 influenza, seasonal, injectable Yoly Cedeno [employer]ANG[employer] Work Phone: [facility] Work Phone: 12-23-2009 influenza, seasonal, injectable; Translations: [Follow Up Appt 6 months] Yoly Cedeno MANG[employer]ER Work Phone: [facility] Work Phone: Fall risk assessment 12-26-2016 Note Date & Type Note Facility Summary Purpose Family History No Family History Records Found Advance Directives No Advanced Directives Records Found Additional Source Comments INFORMATION SOURCE (unrecogn ized section and content) FOR RECORDS PERTAINING TO PATIENTS WHO ARE OR HAVE BEEN ENROLLED IN A CHEMICAL DEPENDENCY/SUBSTANCEABUSE PROGRAM, SOME INFORMATION MAY BE OMITTED. This clinical summary was aggregated from multiple sources. Caution should be exercised in using it in the provision of clinical care. This summary normalizes information from multiple sources, and as a consequence, information in this document may materially change the coding, format and clinical context of patient data. In addition, data may be omitted in some cases. CLINICAL DECISIONS SHOULD BE BASED ON THE PRIMARY CLINICAL RECORDS. [facility]. provides no warranty or guarantee of the accuracy or completeness of information in this document.
--- NOTE | 2023-11-02 06:48 | STRESSREP ---
Stress Test Report Pharmacologic myocardial perfusion stress test. 78-year-old lady with a history of coronary artery disease Resting EKG demonstrates sinus rhythm with a rate of 62 bpm. Resting blood pressure is 160/78 mmHg. 0.4 mg of regadenoson was infused per usual protocol followed by rapid intravenous saline flush injection. Continuous EKG monitoring was performed. The maximum heart rate was 81 bpm which was 57% of max impacted heart rate the maximum workload was 1 metabolic equivalent. At rest there were no ST or T wave changes noted to suggest ischemia and at peak infusion nonspecific ST changes were noted which did not meet the criteria for ischemia. No clinical angina is noted. The final blood pressure was 142/60 mmHg. Myocardial perfusion protocol. 11.5 mCi of technetium 99m sestamibi was injected at rest. 0.4 mg of regadenoson was infused per usual protocol. At peak infusion 34.1 mCi of technetium 99m sestamibi was injected stress images were obtained stress and rest images were reconstructed and compared in the short axis vertical long and horizontal long axis. Gated images were also obtained. Perfusion SPECT analysis: Review of the stress images demonstrate normal uptake of tracer noted in all areas of the myocardium. The resting images similar demonstrated normal uptake of tracer noted in all areas of the myocardium. No areas of reversibility are noted to suggest ischemia and no previous infarct is noted. Gated SPECT analysis: The gated ejection fraction is 80%. Conclusion: Normal pharmacologic myocardial perfusion stress test. Preserved ejection fraction.
== END | disposition home or self-care (01) ==
LOC: CVS 06:14
PROVIDERS: PCP Family Medicine; Referring Provider Nurse Practitioner Gerontology; Visit Provider Nurse Practitioner Gerontology
DX: I25.10 Atherosclerotic heart disease of native coronary artery without angina pectoris (principal)
CPT/HCPCS: 78452; 93017; A9500; A4216; J2785

== ENCOUNTER → 2024-04-05 | Outpatient (CLI) | payer MEDICARE, SELFPAY ==
[2020-02-27 08:59] VITALS: BMI 25.4
--- NOTE | 2024-04-05 13:47 | ECHOD_ITS ---
Reason For Study: CAD/ASHD Procedure This was a 2D Doppler, Color Flow transthoracic echocardiogram. Exam performed in department. Left Ventricle Normal LV size. Left ventricular systolic function is normal. The left ventricular ejection fraction is 65 %. Stage 1 diastolic dysfunction. No regional wall motion abnormalities noted. Right Ventricle Normal RV size. The right ventricle is normal in size, function, and thickness. Atria Normal left atrium. Normal right atrium. Mitral Valve Normal mitral valve. Mild (1+) eccentric mitral valve insufficiency. Tricuspid Valve Normal tricuspid valve. Mild to moderate (1-2+) tricuspid valve insufficiency. Pulmonary artery systolic pressure is 45 mmHg. Aortic Valve Trisinus/trileaflet aortic valve. Mild (1+) aortic valve insufficiency. Pulmonic Valve Normal pulmonic valve. Great Vessels Normal aortic root. The pulmonary artery is normal size. Normal inferior vena cava. Pericardium/Pleural No pericardial effusion. MMode/2D Measurements & Calculations LVIDd: 3.9 cm IVSd: 0.92 cm LVOT diam: 1.9 cm LVIDs: 2.6 cm LVPWd: 0.83 cm LVOT area: 2.8 cm2 FS: 34.2 % Ao root diam: 3.1 cm LAV(MOD-bp): 48.5 ml LVAd ap4: 29.7 cm2 LA dimension: 3.6 cm LAV(MOD-bp) Indexed: 30.0 ml/m2 LVLd ap4: 8.0 cm LAV(MOD-sp2): 58.9 ml EDV(MOD-sp4): 89.8 ml LAV(MOD-sp4): 40.0 ml EDV(sp4-el): 93.2 ml LVAs ap4: 15.1 cm2 LVLs ap4: 6.5 cm ESV(MOD-sp4): 30.4 ml ESV(sp4-el): 29.8 ml EF(MOD-sp4): 66.2 % EF(sp4-el): 68.1 % SV(MOD-sp4): 59.4 ml SV(sp4-el): 63.5 ml LA A4 area: 16.6 cm2 RA A4 area: 17.9 cm2 Time Measurements MV dec time: 0.21 sec Doppler Measurements & Calculations MV E max sven: 97.8 cm/sec Lat Peak E' Sven: 10.8 cm/sec Med Peak E' Sven: 9.7 cm/sec MV A max sven: 117.4 cm/sec E/E' lat: 9.0 E/E' med: 10.1 MV E/A: 0.83 MV V2 max: 150.0 cm/sec MV P1/2t max sven: 152.0 cm/sec Ao V2 max: 152.1 cm/sec MV max P.0 mmHg MV P1/2t: 91.0 msec Ao max P.3 mmHg MV V2 mean: 65.3 cm/sec Ao V2 mean: 97.7 cm/sec MV mean P.2 mmHg MV dec slope: 489.5 cm/sec2 Ao mean P.4 mmHg MV V2 VTI: 57.7 cm MVA(P1/2t): 2.4 cm2 Ao V2 VTI: 39.8 cm AV (velocity ratio): 0.63 MVA(VTI): 1.2 cm2 MICHEAL(I,D): 1.7 cm2 MICHEAL(V,D): 1.7 cm2 LV V1 max: 94.1 cm/sec MR max sven: 520.2 cm/sec SV(LVOT): 68.8 ml LV V1 max P.6 mmHg MR max P.2 mmHg LV V1 mean P.8 mmHg MR mean sven: 422.8 cm/sec LV V1 mean: 62.2 cm/sec MR mean P.3 mmHg LV V1 VTI: 25.0 cm MR VTI: 222.1 cm PA V2 max: 74.9 cm/sec TR max sven: 325.7 cm/sec PA max PG (full): 1.2 mmHg TR max P.4 mmHg PA V2 mean: 53.4 cm/sec PA mean PG (full): 0.68 mmHg ECHO/Echo Complete Interpretation Summary Normal LV size. Left ventricular systolic function is normal. The left ventricular ejection fraction is 65 %. Stage 1 diastolic dysfunction. Mild (1+) aortic valve insufficiency. Mild (1+) eccentric mitral valve insufficiency. Ordering Physician: Ed Blake Referring Physician: Ed Blake Performed By: Paddy Burgess and Student
== END | disposition home or self-care (01) ==
LOC: CVS 13:45
PROVIDERS: PCP Family Medicine; Referring Provider Internal Medicine Cardiovascular Disease; Visit Provider Internal Medicine Cardiovascular Disease
DX: I25.5 Ischemic cardiomyopathy (principal)
CPT/HCPCS: 93306

== ENCOUNTER → 2024-04-12 | Outpatient (CLI) | payer MEDICARE, SELFPAY ==
[2020-02-27 08:59] VITALS: BMI 25.4
== END | disposition home or self-care (01) ==
LOC: PSN 08:08
PROVIDERS: PCP Family Medicine; Referring Provider Physician Assistant Medical; Visit Provider Physician Assistant Medical
DX: R00.1 Bradycardia, unspecified (principal)
CPT/HCPCS: 93225; 93226

== ENCOUNTER → 2024-04-17 | Outpatient (CLI) | payer MEDICARE, SELFPAY ==
[2020-02-27 08:59] VITALS: BMI 25.4
[2024-04-17 18:00] LABS: Absolute Neutrophil Count 4.1 X10^3/uL (2.0-7.7); Basophil# 0.06 X10^3/uL; Basophil% 0.9 % (0-1); Eosinophil# 0.28 X10^3/uL; Eosinophils% 4.1 % (0-5); Hematocrit 30.8 % (37-47); Hemoglobin 10.3 g/dL (12.0-15.0); Lymphocyte % 22.2 % (19-41); Mean Corp Hgb Conc 33.4 g/dL (32-36); Mean Corpuscular Hgb 33.8 pg (27.0-32.0); Mean Platelet Vol. 11.4 fl (6.2-12.0); Monocyte# 0.83 X10^3/uL; Monocyte% 12.3 % (0-10); NRBC Flagged by Analyzer 0.3 % (0-5); Neutrophil # 4.06 X10^3/uL (2.7-7.7); Neutrophil % 59.9 % (47-70); Platelet Count 267 K/mm3 (150-450); RBC Distribution Width CV 15.4 % (11.6-14.6); RBC Distribution Width SD 55.7 fl (35.1-43.9); Red Blood Count 3.05 M/mm3 (4.2-5.4); White Blood Count 6.8 K/mm3 (4.4-11.0)
[2024-04-17 18:17] LABS: Anion Gap 3 (5-15); BUN 20 mg/dL (7-18); BUN/Creat Ratio 21.9 RATIO (10-20); Calcium,Total 9.1 mg/dL (8.5-10.1); Chloride 101 mmol/L (98-107); Creatinine, Serum 0.91 mg/dL (0.55-1.02); EST Glomerular Filtration Rate 63 mL/min (>60); Est Glom Filt Rate - Afr Amer 76 mL/min (>60); Glucose 122 mg/dL (74-106); Potassium 3.6 mmol/L (3.5-5.1); Sodium Level 138 mmol/L (136-145)
== END | disposition home or self-care (01) ==
LOC: MTRAD 14:42 → MTLAB 14:49
PROVIDERS: PCP Family Medicine; Referring Provider Nurse Practitioner Gerontology; Visit Provider Nurse Practitioner Gerontology
DX: E10.22 Type 1 diabetes mellitus with diabetic chronic kidney disease (principal); I50.22 Chronic systolic (congestive) heart failure; E10.65 Type 1 diabetes mellitus with hyperglycemia; N18.30 Chronic kidney disease, stage 3 unspecified; R29.6 Repeated falls; R42 Dizziness and giddiness; E61.1 Iron deficiency
CPT/HCPCS: 36415; 80048; 85025

== ENCOUNTER 2024-04-22 09:30 | Emergency (ER) | payer MEDICARE, SELFPAY ==
[2020-02-27 08:59] VITALS: BMI 25.4
[2024-04-22 09:32] VITALS: BP 134/55; PULSE 51; RESP 16; TEMP 36.6; O2SAT 97
--- NOTE | 2024-04-22 10:17 | EX.ED.DYSGE1 ---
HPI History of Present Illness Chief Complaint: General Illness Informant: patient Narrative Narrative: Patient has several complaints, she states 1 week ago she got up while she was in her living room going to the kitchen, she felt lightheaded to the point where she collapsed to the ground but did not lose consciousness, she fell against her left side injuring her left shoulder and chest wall beneath her axilla, and her left hip. She felt her heart racing after she fell because she was in pain. This did not last long. She had no other prodromal symptoms. She felt fine prior to that. She has had pain but she has been dealing with it for the past week, she states the left shoulder pain resolved, the left hip is still sore she has a bruise there, but she has been able to walk without any pain or difficulty or pain in the groin/pelvis. She states the day after the fall she started having diarrhea. It has been there ever since. It is watery, nonbloody, 6 times per day on average. No nausea, vomiting, abdominal pain, fevers, chills. She been taking Imodium but it has not seemed to help. She denies any recent travel out of the area, suspicious food intake or undercooked meat/fish, contact with others with similar symptoms, or recent antibiotics or history of C. difficile. She has seen no melena. 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 Diabetes Old anterior wall myocardial infarction Paroxysmal atrial fibrillation Essential (primary) hypertension Ischemic cardiomyopathy Atherosclerosis of coronary artery of [place] heart without angina pectoris NSTEMI (non-ST elevated myocardial infarction) (09/14/19) Parkinsons Mumps Measles Depression with anxiety Diabetes type 1, controlled Hypothyroidism Type 1 diabetes mellitus Home Medications ?Medication ?Instructions ?Recorded ?Last Taken ?Type cholecalciferol (vitamin D3) 50 2,000 unit PO DAILY vitamin 04/06/17 09/28/19 History mcg (2,000 unit) capsule citalopram 20 mg tablet 20 mg PO DAILY depression 04/06/17 09/28/19 History gabapentin 100 mg capsule 100 mg PO QHS pain 04/06/17 09/27/19 History mind works 1 tablet PO DAILY Check with 10/22/18 09/28/19 History primary doctor aspirin 81 mg chewable tablet 81 mg PO DAILY@0800 ##30 09/23/19 01/27/21 Rx lorazepam 0.5 mg tablet 0.5 mg PO Q12H PRN PRN severe 10/01/19 Unknown Rx anxiety #14 tabs carbidopa 25 mg-levodopa 100 mg See Rx Instructions PO TID 12/02/21 Unknown History tablet (Sinemet) parkinsons omeprazole 20 mg capsule,delayed 20 mg PO DAILY PRN Indigestion 06/08/22 Unknown History release blood-glucose meter (True Metrix #1 ea 06/16/22 Unknown Rx Glucose Meter) ferrous sulfate 325 mg (65 mg 325 mg PO DAILY 11/28/22 Unknown History iron) tablet denosumab 60 mg/mL subcutaneous 60 mg subcut [id number] #1 mL 04/17/23 Unknown Rx syringe blood sugar diagnostic (True #300 strips 08/28/23 Unknown Rx Metrix Glucose Test Strip) hydrochlorothiazide 12.5 mg tablet 12.5 mg PO BID Pt has better 11/02/23 Unknown Rx results with BID dosing. #180 tabs insulin aspart U-100 100 unit/mL See Rx Instructions subcut QDAY 11/28/23 Unknown Rx subcutaneous solution (Novolog #50 mL U-100 Insulin aspart) levothyroxine 88 mcg tablet 88 mcg PO DAILY thyroid #90 tabs 11/28/23 Unknown Rx lisinopril 20 mg tablet 20 mg PO BID #180 tabs 11/28/23 Unknown Rx carvedilol 6.25 mg tablet 3.125 mg (1/2 x 6.25 mg) PO BID 04/16/24 Unknown Rx #180 tabs hydrocodone-acetaminophen 5-325mg 1 tab PO Q6H PRN PRN Pain 5 days 04/22/24 Unknown Rx 5mg-325mg #20 TABLETS Allergy/AdvReac Type Severity Reaction Status Date / Time paroxetine (From Paxil) Allergy Severe Unknown Verified 04/22/24 09:31 Penicillins Allergy Severe Unknown Verified 04/22/24 09:31 Znwrhic-FMK-YmB Reductase Allergy Severe rash Verified 04/22/24 09:31 Inhibitor strawberry Allergy Severe hives Verified 04/22/24 09:31 amlodipine AdvReac Severe Abdominal Verified 04/22/24 09:31 pain Family History Mother CVA (cerebral vascular accident) Dementia Sister Hypertension Diabetes Brother Heart disease Diabetes Daughter Diabetes Surgical History History of biopsy of temporal artery Hx of cardiac catheterization S/P cholecystectomy History of cataract surgery History of partial hysterectomy History of coronary artery stent placement (09/14/19) S/P LASIK surgery of both eyes Social History Smoking Status: Never smoker second hand exposure: No alcohol intake: never substance use type: does not use caffeine: No what type of physical activity do you participate in: none frequency: does not exercise ROS ROS ED Constitutional Constitutional ED: Denies chills or fever(s) Eyes Eyes: Denies change in vision or diplopia ENT ENT ED: Denies rhinorrhea or sore throat Cardiovascular Cardiovascular: Reports other Details: Left rib cage pain, laterally ; Denies chest pain or palpitations Respiratory/Chest Respiratory/Chest: Denies cough or dyspnea Gastrointestinal Gastrointestinal: Reports diarrhea; Denies abdominal pain, nausea or vomiting Genitourinary Genitourinary ED: Denies dysuria or hematuria Musculoskeletal Musculoskeletal: Reports as per HPI and extremity pain; Denies back pain or neck pain Integumentary Denies abscess or rash Neurologic Neurologic: Denies headache(s), paresthesias or weakness Psychiatric Psychiatric: Denies anxiety or suicidal thoughts EXAM Physical Exam Const Vital Signs: 04/22/24 09:32 04/22/24 11:30 Temperature 97.9 F Temperature Source Temporal Pulse Rate 51 L 52 L Respiratory Rate 16 16 Blood Pressure 134/55 H 126/99 H Blood Pressure Mean 81 108 Pulse Ox 97 95 Oxygen Delivery Method Room Air Positive well nourished and well developed General Appearance ED: well developed and NAD HEENT Reports moist mucous membranes normocephalic and atraumatic Eyes PERRL and EOMs intact bilaterally Neck full ROM and supple Chest Wall Chest Narrative: Tender in the left lateral chest wall there is no crepitance or subcutaneous emphysema or palpable step-off. There is no ecchymosis, petechia, purpura or bullae. She has no tenderness in the parasternal area, sternum, or the entire back or periscapular area or the spine. Resp normal respiratory effort and clear to auscultation bilaterally Cardio regular rate and regular rhythm GI non-tender and non-distended Auscultation: normoactive bowel sounds Palpation: soft Back/Spine no CVA tenderness General Back: other FROM Cervical Spine: Negative for cervical spine tenderness Thoracic Spine / Upper Back: Negative for thoracic spinal tenderness Lumbar Spine / Lower Back: Negative for lumbar spinal tenderness Extremity normal to inspection Extremity Narrative: Tender to left greater trochanter but painless hip range of motion, no tenderness at the pelvis, which is stable to AP compression. General Extremety ED: Yes tenderness; Negative for edema or pulses abnormal General Extremity: Negative for edema or pulses abnormal Neuro oriented x3, CN's II-XII intact bilaterally and no sensory deficits noted Sensorium / Orientation: awake and alert Motor Exam: strength 5/5 throughout Psych mental status grossly normal Skin no rashes or lesions noted and no wounds MDM MDM MDM Narrative Medical decision making narrative: X-rays obtained of the left rib cage and the left hip. 3 views of the left hip and pelvis on my interpretation, no acute fractures or dislocation as expected given her symptoms and exam. On my interpretation, 5 view x-ray series of the left ribs with a PA chest negative for acute fracture or pneumothorax or pulmonary contusion. As I discussed with the patient, differential includes a nondisplaced minor rib fracture or rib/chest wall contusion both of which could certainly be painful acutely. She was given some morphine and some IV fluids for the pain, I advised that we run some labs due to possibility of electrolyte derangement or dehydration with the guards of the diarrhea she has been having which I think is unrelated to her fall symptoms started later, she declined and wanted me to look at the labs that she had 5 days ago. Going by those she was little dehydrated so gave her half a liter of IV fluids. She was feeling better. She was not able to have a bowel movement that we were able to send for testing here, so I am sending her home with a kit to collect stool at home along with outpatient testing for enteric bacterial panel, I do not think antibiotics are in her best interest right now empirically, and she can follow-up as an outpatient or return if worse she is comfortable with that plan. She been taking Imodium I think she is safe to continue doing that as needed. She is encouraged to drink plenty of fluids. Counseled on side effects of constipation on the prescribed narcotics for her left-sided chest pain and we will prescribe/give her an incentive spirometer as well with instructions. Lab Data Attestation: I reviewed the patient's lab results. Labs: Laboratory Results - last 24 hr 04/22/24 11:47 POC Glucose 116 H Radiography Diagnostic Testing: Clinical Impression(s) from Imaging Studies Ribs w/Chest X-Ray 04/22/24 11:15 IMPRESSION: RIBS: Normal x-ray examination of the ribs. CHEST: Hyperinflation. Electronically Signed: Tucker Gillespie MD at 11:56 EDT , Hip/Pelvis X-Ray 04/22/24 11:30 IMPRESSION: Normal x-ray examination of the pelvis and hip. Electronically Signed: Tucker Gillespie MD at 11:57 EDT , Rhythm Strip Rhythm Strip: Sinus Rhythm Rate: 55 Ectopy: None Discharge Plan Triage Chief Complaint: General Illness ED Provider: Tre Hare Dx/Rx/DC Orders Clinical Impression: Contusion of rib on left side, Contusion of left hip, Fall, Lightheadedness, Mild dehydration, Acute diarrhea Instructions: ED Diarrhea, Unknown Cause, ED Bruise, Rib Prescriptions: New hydrocodone-acetaminophen 5-325 mg tablet 1 tab PO Q6H PRN PRN (Reason: Pain) 5 Days Qty: 20 0RF No Action mind works 1 tablet PO DAILY carbidopa-levodopa [Sinemet] 25-100 mg tablet See Rx Instructions PO TID Rx Instructions: one tablet three times a day and two tablets at bedtime PO three times a day; omeprazole 20 mg capsule,delayed release(DR/EC) 20 mg PO DAILY PRN (Reason: Indigestion) ferrous sulfate 325 mg (65 mg iron) tablet 325 mg PO DAILY Rx Instructions: TWO TABLETS PO DAILY (DME) True Metrix Glucose Test Strip Strip See Rx Instructions .ROUTE .COMPLEX Qty: 300 1RF Dose Instruction: TEST BLOOD SUGAR THREE TIMES DAILY Rx Instructions: TEST BLOOD SUGAR THREE TIMES DAILY levothyroxine 88 mcg tablet 88 mcg PO DAILY Qty: 90 3RF citalopram 20 MG tablet 20 mg PO DAILY gabapentin 100 MG capsule 100 mg PO QHS cholecalciferol (vitamin D3) 2,000 UNIT capsule 2,000 unit PO DAILY aspirin 81 MG tablet,chewable 81 mg PO DAILY@0800 Qty: 30 1RF Patient Comments: LAST DOSE 01/06/21 lorazepam 0.5 MG tablet 0.5 mg PO Q12H PRN PRN (Reason: severe anxiety) Qty: 14 0RF (DME) blood-glucose meter [True Metrix Glucose Meter] Misc See Rx Instructions .Route Qty: 1 0RF Rx Instructions: As directed denosumab 60 mg/mL syringe 60 mg subcut [id number] Qty: 1 1RF hydrochlorothiazide 12.5 mg tablet 12.5 mg PO BID Qty: 180 3RF Novolog U-100 Insulin aspart 100 unit/mL solution See Rx Instructions SC QDAY Qty: 50 3RF Dose Instruction: uses up to 60 U qd via pump SC QDAY; uses up to 60 U qd via pump SC QDAY Rx Instructions: uses up to 60 U qd via pump SC QDAY; bolus when eating lisinopril 20 mg tablet 20 mg PO BID Qty: 180 3RF carvedilol 6.25 mg tablet 3.125 mg PO BID Qty: 180 3RF Other Ambulatory Orders: ENTERIC PATHOGEN PANEL STOOL (Routine) Timeframe: 3 Days Facility: [facility] - Location: Laboratory Ordered By: Dr. Tre Hare Stool Lactoferrin/WBC (Routine) Timeframe: 3 Days Facility: [facility] - Location: Laboratory Ordered By: Dr. Tre Hare Primary Care Provider: Renée Whitehead Referrals: Renée Whitehead DO [Primary Care Provider] - ([facility] after you turn in stool sample to hospital lab) Print Language: Wallisian Disposition Disposition: Home, Self Care
[2024-04-22] MEDS: 0.9% Normal Saline (500mL Bag) 500 ML 999 ML IV (11:08)
--- NOTE | 2024-04-22 11:15 | RAD_ITS ---
STUDY: X-RAY - UNILATERAL RIBS ( LEFT ) WITH CHEST REASON FOR EXAM: Female, 79 years old. Injury, pain TECHNIQUE - RIBS: 2 view(s) of the ribs. TECHNIQUE - CHEST: Single PA view of the chest. COMPARISON: Comparison is made with prior chest radiograph dated August 16, 2022. FINDINGS - RIBS: Normal visualized ribs without a demonstrated fracture. FINDINGS - CHEST: Hyperinflation. There is no demonstrated pleural abnormality. Normal size heart. Normal mediastinum and pritesh. Normal visualized pulmonary arteries. There is atherosclerotic tortuosity of the aortic arch and descending thoracic aorta. There are diffuse degenerative changes of the visualized thoracic spine. Normal visualized ribs, clavicles, and shoulders. There is no demonstrated abnormality of the visualized soft tissue structures of the upper abdomen. RAD/Ribs Uni Min 3V w/PA Chest IMPRESSION: RIBS: Normal x-ray examination of the ribs. CHEST: Hyperinflation. Electronically Signed: Tucker Gillespie MD at 11:56 EDT ,
[2024-04-22 11:30] VITALS: BP 126/99; PULSE 52; RESP 16; O2SAT 95
--- NOTE | 2024-04-22 11:30 | RAD_ITS ---
STUDY: X-RAY - PELVIS AND LEFT HIP REASON FOR EXAM: Female, 79 years old. Left hip pain following a fall. TECHNIQUE: 3 views of the pelvis and hip. COMPARISON: None. FINDINGS: A large amount of fecal material is seen in the colon. There are atherosclerotic vascular calcifications of the pelvic arteries. Normal bilateral iliac wings, sacroiliac joints and visualized sacrum. Normal bilateral superior and inferior pubic rami. There is narrowing with sclerosis of the pubic symphysis. Normal bilateral ischial tuberosities. Normal visualized femoral head. Normal acetabulum. Normal hip joint. RAD/HIP, UNI W/ Pelvis 2-3 Views IMPRESSION: Normal x-ray examination of the pelvis and hip. Electronically Signed: Tucker Gillespie MD at 11:57 EDT ,
[2024-04-22 12:04] LABS: Bedside Glucose 116 mg/dL (74-106)
[2024-04-22] MEDS: HYDROcodone Bitartrate/Apap 5/325 Tablet PO (13:23)
[2024-04-22 13:38] VITALS: BP 160/45; PULSE 75; RESP 16; TEMP 36.2; O2SAT 95
== END 2024-04-22 13:39 | disposition home or self-care (01) ==
PROVIDERS: Emergency Provider Emergency Medicine; PCP Family Medicine; Visit Provider Emergency Medicine
DX: S20.212A Contusion of left front wall of thorax, initial encounter (principal); I13.0 Hypertensive heart and chronic kidney disease with heart failure and stage 1 through stage 4 chronic kidney disease, or unspecified chronic kidney disease; I50.22 Chronic systolic (congestive) heart failure; E10.22 Type 1 diabetes mellitus with diabetic chronic kidney disease; N18.30 Chronic kidney disease, stage 3 unspecified; I25.10 Atherosclerotic heart disease of native coronary artery without angina pectoris; S70.02XA Contusion of left hip, initial encounter; Y92.010 Kitchen of single-family (private) house as the place of occurrence of the external cause; R19.7 Diarrhea, unspecified; Z96.41 Presence of insulin pump (external) (internal); Z79.899 Other long term (current) drug therapy; W19.XXXA Unspecified fall, initial encounter; R42 Dizziness and giddiness; E86.0 Dehydration
CPT/HCPCS: 71101; 73502; 82962; 96360; 99283; J7040; A4216

== ENCOUNTER → 2024-04-23 | Outpatient (CLI) | payer MEDICARE, SELFPAY ==
[2020-02-27 08:59] VITALS: BMI 25.4
== END | disposition home or self-care (01) ==
PROVIDERS: PCP Family Medicine; Referring Provider Emergency Medicine; Visit Provider Emergency Medicine
DX: R19.7 Diarrhea, unspecified (principal)
CPT/HCPCS: 83630

== ENCOUNTER → 2024-04-29 | Outpatient (CLI) | payer MEDICARE, SELFPAY ==
[2020-02-27 08:59] VITALS: BMI 25.4
== END | disposition home or self-care (01) ==
LOC: LABSPEC 13:08
PROVIDERS: PCP Family Medicine; Referring Provider Family Medicine; Visit Provider Family Medicine
DX: R19.7 Diarrhea, unspecified (principal)
CPT/HCPCS: 87493

== ENCOUNTER → 2024-05-03 | Outpatient (CLI) | payer MEDICARE, SELFPAY ==
[2020-02-27 08:59] VITALS: BMI 25.4
--- NOTE | 2024-05-03 14:45 | CDU_ITS ---
Reason For Study: Dizziness and Falls Rt. Velocities/BP Lt. Velocities/BP Prox CCA 71/6 cm/sec. Prox CCA 72/10 cm/sec. Mid CCA 75/7 cm/sec. Mid CCA 67/10 cm/sec. Dist CCA 55/8 cm/sec. Dist CCA 71/9 cm/sec. Prox ICA 46/7 cm/sec. Prox ICA 59/10 cm/sec. Mid ICA 55/12 cm/sec. Mid ICA 64/17 cm/sec. Dist ICA 63/13 cm/sec. Dist ICA 109/22 cm/sec. Rt. ICA/CCA = 0.8. Lt. ICA/CCA = 1.6. Prox ECA 94/0 cm/sec. Prox ECA 79/0 cm/sec. Rt. Vert. 68/7 cm/sec. Lt. Vert. 70/13 cm/sec. Right Extracranial There is intimal thickening but no significant atherosclerotic plaque noted in the right common carotid artery. There is heterogeneous, smooth atherosclerotic plaque noted in the right internal carotid artery. There is intimal thickening but no significant atherosclerotic plaque noted in the right external carotid artery. Antegrade flow is noted in the right vertebral artery. Left Extracranial There is heterogeneous, irregular atherosclerotic plaque noted in the left common carotid artery. There is heterogeneous, smooth atherosclerotic plaque noted in the left internal carotid artery. There is heterogeneous, irregular atherosclerotic plaque noted in the left external carotid artery. Antegrade flow is noted in the left vertebral artery. Procedure Carotid Duplex [id number]. This is a Carotid Duplex examination using B-mode, color flow and specral Doppler. Exam performed in department. VL/Carotid Duplex Ultrasound Interpretation Summary Mild (<50%) stenosis right extracranial internal carotid. Mild (<50%) stenosis left extracranial internal carotid. Patent and antegrade vertebrals bilaterally. Ordering Physician: Kady Piedra Referring Physician: Renée Whitehead Performed By: Erica Archer, CHRISTINA, RVT
== END | disposition home or self-care (01) ==
LOC: CVS 14:44
PROVIDERS: PCP Family Medicine; Referring Provider Nurse Practitioner Gerontology; Visit Provider Nurse Practitioner Gerontology
DX: R42 Dizziness and giddiness (principal); R29.6 Repeated falls
CPT/HCPCS: 93880

== ENCOUNTER → 2024-05-23 | Outpatient (CLI) | payer MEDICARE, SELFPAY ==
[2020-02-27 08:59] VITALS: BMI 25.4
[2024-05-28 17:08] LABS: Calprotectin, Stool 138 ug/g (0-120)
== END | disposition home or self-care (01) ==
PROVIDERS: PCP Family Medicine; Referring Provider Family Medicine; Visit Provider Family Medicine
DX: K58.9 Irritable bowel syndrome, unspecified (principal); A04.71 Enterocolitis due to Clostridium difficile, recurrent
CPT/HCPCS: 83630; 83993; 87493

== ENCOUNTER 2024-05-31 13:49 | Outpatient (CLI) | payer MEDICARE, SELFPAY ==
[2020-02-27 08:59] VITALS: BMI 25.4
[2024-05-31 15:15] VITALS: BP 168/53; PULSE 58; RESP 16; TEMP 36.3; O2SAT 99
[2024-05-31] MEDS: BEZLOTOXUMAB IV (15:20)
[2024-05-31] MEDS: NORMAL SALINE 0.9% IV (15:20)
[2024-05-31] MEDS: 0.9% NaCl IVPB Med Flush (250 mL) 15 ML IV (15:20)
[2024-05-31 16:36] VITALS: BP 158/54; PULSE 58; RESP 16; TEMP 36.4; O2SAT 98
== END 2024-05-31 16:30 | disposition home or self-care (01) ==
LOC: MEDOUTP 13:52 → ICU 14:01
PROVIDERS: PCP Family Medicine; Referring Provider Family Medicine; Visit Provider Family Medicine
DX: K58.9 Irritable bowel syndrome, unspecified (principal); A04.71 Enterocolitis due to Clostridium difficile, recurrent
CPT/HCPCS: 96365; J7050; J0565

== ENCOUNTER → 2024-07-24 | Outpatient (CLI) | payer MEDICARE, SELFPAY ==
[2020-02-27 08:59] VITALS: BMI 25.4
[2024-07-24 11:08] LABS: Color, Urine Yellow (Yellow); Glucose, Dipstick Normal (Normal); Ketone-Dipstick 5 mg/dl (Negative); Leukocyte Esterase-Dipstick 25 /ul (Negative); Nitrite-Dipstick Negative (Negative); Occult Blood-Urine 10 /ul (Negative); Protein-Dipstick 15 mg/dl (Negative); Urine Bilirubin Dipstick Negative (Negative); Urine Clarity Clear (Clear); Urine Urobilinogen 4 mg/dl (Normal)
[2024-07-26 07:09] LABS: Calprotectin, Stool 363 ug/g (0-120)
== END | disposition home or self-care (01) ==
PROVIDERS: PCP Nurse Practitioner Family; Referring Provider Nurse Practitioner Family; Visit Provider Nurse Practitioner Family
DX: R30.0 Dysuria (principal); K58.9 Irritable bowel syndrome, unspecified; A04.71 Enterocolitis due to Clostridium difficile, recurrent
CPT/HCPCS: 81002; 83630; 83993; 87086; 87088

== ENCOUNTER → 2024-08-22 | Outpatient (CLI) | payer MEDICARE, SELFPAY ==
[2020-02-27 08:59] VITALS: BMI 25.4
[2024-08-22 12:25] LABS: AST(SGOT) 22 U/L (15-37); Alanine Aminotransfer ALT/SGPT 12 U/L (13-56); Albumin, Serum 3.8 g/dL (3.2-5.0); Alkaline Phosphatase 74 U/L (45-117); Bilirubin, Direct 0.21 mg/dL (0.00-0.30); Globulin 3.5 g/dL (2.2-4.2); Protein, Total 7.3 g/dL (6.4-8.2)
[2024-08-22 12:25] LABS: Vitamin D,25 Hydroxy 39.5 ng/mL
[2024-08-22 12:31] LABS: AST(SGOT) 23 U/L (15-37); Alanine Aminotransfer ALT/SGPT 11 U/L (13-56); Albumin, Serum 3.7 g/dL (3.2-5.0); Alkaline Phosphatase 73 U/L (45-117); Anion Gap 7 (5-15); BUN 23 mg/dL (7-18); BUN/Creat Ratio 24.1 RATIO (10-20); Calcium,Total 9.1 mg/dL (8.5-10.1); Chloride 102 mmol/L (98-107); Cholesterol 162 mg/dL (200); Creatinine, Serum 0.96 mg/dL (0.55-1.02); EST Glomerular Filtration Rate 60 mL/min (>60); Est Glom Filt Rate - Afr Amer 72 mL/min (>60); Globulin 3.6 g/dL (2.2-4.2); Glucose 57 mg/dL (74-106); High Density Lipoprotein 76 mg/dL; Potassium 3.3 mmol/L (3.5-5.1); Protein, Total 7.3 g/dL (6.4-8.2); Sodium Level 140 mmol/L (136-145); Thyroid Stim Hormone (TSH) 0.789 uIU/mL (0.358-3.740); Triglycerides 39 mg/dL; Very Low Density Lipoprotein 8 mg/dL (5-40)
[2024-08-26 09:22] LABS: C-Peptide < 0.1 ng/mL (1.1-4.4)
== END | disposition home or self-care (01) ==
PROVIDERS: Nurse Practitioner Gerontology; PCP Family Medicine; Referring Provider Internal Medicine Endocrinology, Diabetes & Metabolism; Visit Provider Internal Medicine Endocrinology, Diabetes & Metabolism
DX: E10.22 Type 1 diabetes mellitus with diabetic chronic kidney disease (principal); E10.65 Type 1 diabetes mellitus with hyperglycemia; N18.30 Chronic kidney disease, stage 3 unspecified; I25.10 Atherosclerotic heart disease of native coronary artery without angina pectoris; I10 Essential (primary) hypertension; M81.0 Age-related osteoporosis without current pathological fracture; Z96.41 Presence of insulin pump (external) (internal)
CPT/HCPCS: 36415; 80053; 80061; 80076; 82306; 84443; 84681

== ENCOUNTER → 2024-08-23 | Outpatient (CLI) | payer MEDICARE, SELFPAY ==
[2020-02-27 08:59] VITALS: BMI 25.4
[2024-08-27 16:08] LABS: Calprotectin, Stool 158 ug/g (0-120)
== END | disposition home or self-care (01) ==
LOC: LABSPEC 14:43
PROVIDERS: PCP Family Medicine; Referring Provider Student in an Organized Health Care Education/Training Program; Visit Provider Student in an Organized Health Care Education/Training Program
DX: R19.7 Diarrhea, unspecified (principal)
CPT/HCPCS: 83993

== ENCOUNTER → 2025-05-20 | Outpatient (CLI) | payer MEDICARE, SELFPAY ==
[2025-02-21 10:58] VITALS: BMI 25.4
[2025-05-20 17:59] LABS: Hematocrit 29.6 % (37-47); Hemoglobin 9.9 g/dL (12.0-15.0); Immature Granulocytes Count 0.040 X10^3/uL (0.0-0.0); Mean Corp Hgb Conc 33.4 g/dL (32-36); Mean Corpuscular Volume 101.0 fL (81-99); Mean Platelet Vol. 11.9 fl (6.2-12.0); NRBC Flagged by Analyzer 0.4 % (0-5); Platelet Count 282 K/mm3 (150-450); RBC Distribution Width CV 15.9 % (11.6-14.6); RBC Distribution Width SD 58.2 fl (35.1-43.9); Red Blood Count 2.93 M/mm3 (4.2-5.4); White Blood Count 8.2 K/mm3 (4.4-11.0)
[2025-05-20 18:21] LABS: Creatinine, Urine (random) 265.00 mg/dL (28.00-217.00); Microalbumin,Random Urine 13.9 mg/L (<20 mg/L)
[2025-05-20 18:58] LABS: AST(SGOT) 24 U/L (<=31); Alanine Aminotransfer ALT/SGPT 8 U/L (<=34); Albumin, Serum 4.2 g/dL (3.4-4.8); Alkaline Phosphatase 59 U/L (35-104); Anion Gap 10 (5-15); BUN 24 mg/dL (4-19); BUN/Creat Ratio 23.8 RATIO (10-20); Calcium,Total 9.5 mg/dL (7.6-11.0); Carbon Dioxide 29.1 mmol/L (21.0-32.0); Chloride 99 mmol/L (98-108); Cholesterol 144 mg/dL (<=200); Globulin 2.6 g/dL (2.2-4.2); Glucose 98 mg/dL (70-99); Low Density Lipoprotein Calc. 64 mg/dL; Potassium 3.7 mmol/L (3.3-5.1); Triglycerides 60 mg/dL; Very Low Density Lipoprotein 12 mg/dL (5-40); cholesterol:hdl ratio screen 2.13
[2025-05-20 19:36] LABS: Free T3 2.3 pg/mL (2.18-3.98); Vitamin B12 > 4000 pg/mL (180-914); Vitamin D,25 Hydroxy 40.7 ng/mL (30-100)
== END | disposition home or self-care (01) ==
LOC: MTLAB 15:43
PROVIDERS: PCP Family Medicine; Referring Provider Family Medicine; Visit Provider Family Medicine
DX: E10.22 Type 1 diabetes mellitus with diabetic chronic kidney disease (principal); N18.31 Chronic kidney disease, stage 3a; E03.9 Hypothyroidism, unspecified; E55.9 Vitamin D deficiency, unspecified; E53.8 Deficiency of other specified B group vitamins; Z51.81 Encounter for therapeutic drug level monitoring
CPT/HCPCS: 36415; 80053; 80061; 82043; 82306; 82570; 82607; 83036; 84439; 84443; 84481; 85025